=== PATIENT | female | born 1960 | race Caucasian/White ===

== ENCOUNTER 2016-10-09 12:35 | Inpatient (IN) ==
[2016-10-09] MEDS ORDERED: GLUCAGON 1 MG VIAL IM PRN (14:12)
[2016-10-09] MEDS ORDERED: DEXTROSE 50% 25 GM/50 ML SYRINGE IV PRN (14:12)
[2016-10-09] MEDS ORDERED: ONDANSETRON 4 MG/2 ML VIAL IV PRN (14:17)
[2016-10-09] MEDS ORDERED: LOPERAMIDE 2 MG CAPSULE PO ONE (14:19)
[2016-10-09] MEDS ORDERED: MAGNESIUM HYDROXIDE SUSP 30 ML UDCUP PO PRN (14:19)
[2016-10-09] MEDS ORDERED: ALUMINUM/MAGNES/SIMETH MAX STR 30 ML UDCUP PO PRN (14:21)
[2016-10-09] MEDS ORDERED: LOPERAMIDE 2 MG CAPSULE PO PRN (14:21)
[2016-10-09] MEDS ORDERED: guaiFENesin 200 MG/10 ML UDCUP PO PRN (14:22)
[2016-10-09] MEDS ORDERED: NAPROXEN 500 MG TABLET PO PRN (14:27)
[2016-10-09] MEDS ORDERED: ALBUTEROL/IPRATROPIUM 3 ML NEB RESP TX PRN (14:30)
--- NOTE | 2016-10-09 14:36 | EKG Report ---
Stationary ECG Study [facility] Test Date: 10/09/2016 2:36:48 PM Pat Name: KEIRY TESFAYE Department: Room: 521 Gender: F Checkerer Hand: : 1960 Requested by: Moustapha Castillo Order Number: [id number] Reading MD: TETE WIGGINS Intervals [place] Rate: 93 P: 72 MN: 147 QRS: 92 QRSD: 91 T: 41 QT: 331 QTc: 381 Interpretive Statements SINUS RHYTHM WITH OCCASIONAL VENTRICULAR PREMATURE COMPLEXES BORDERLINE RIGHT AXIS DEVIATION LOW QRS VOLTAGE IN PRECORDIAL LEADS Electronically Signed On 10-09-16 17:24:14 CDT by TETE WIGGINS [id number]
--- NOTE | 2016-10-09 14:37 | Pulmonology History & Physical ---
Assessment and Plan (1) Acute exacerbation of COPD with asthma Status: Acute Assessment and plan: The patient comes in wheezing and coughing is very short of breath. She will be started on IV steroids and antibiotic. Will be continue with vigorous respiratory therapy. Current Visit: Yes (2) Obstructive sleep apnea Status: Acute Assessment and plan: She will continue CPAP at night Current Visit: No (3) Type 2 diabetes mellitus Status: Acute Assessment and plan: Monitor glucose on steroids Current Visit: Yes (4) Obesity Status: Acute Assessment and plan: She is deconditioned. Current Visit: No - Constitutional Constitutional: Present: chills, fatigue, fever(s). Absent: weight loss - EENT Eyes: Absent: loss of vision Ears: Absent: decreased hearing Nose, mouth and throat: Absent: dysphagia, headache(s), sinus pressure, sore throat - Cardiovascular Cardiovascular: Present: dyspnea, edema, orthopnea. Absent: chest pain at rest - Respiratory Respiratory: Present: cough, dyspnea, wheezing, change in phlegm color. Absent : hemoptysis, pain on inspiration - Gastrointestinal Gastrointestinal: Absent: abdominal pain, change in bowel habits, dysphagia, nausea, vomiting - Genitourinary Genitourinary: Absent: difficulty urinating, dysuria, hematuria - Musculoskeletal Musculoskeletal: Absent: arthralgias, muscle weakness - Neurological Neurological: Absent: abnormal speech, focal weakness, paresthesias - Psychiatric Psychiatric: Absent: anxiety History of Present Illness Chief complaint: shortness of breath History of present illness: Ms. Parker is a 56 year old white female that has a long history of COPD and obstructive sleep apnea. She is a former smoker. She has CPAP and oxygen at home. She came into the clinic today complaining of worsening shortness of breath. She says she has had trouble for about 5 days. Having worsening wheezing and cough and difficult time clearing secretions. She took prednisone along with some antibiotics. She did not feel like she was getting any better. She came to the office and was very short of breath. Her O2 saturation was below 90%. She has good wheezing. She is admitted with an exacerbation of her COPD. Chest x-ray does show COPD changes. Home Medications Medication Instructions Recorded Confirmed Type Empagliflozin/Linagliptin 1 each PO DAILY 03/19/16 10/09/16 History [Glyxambi 25 mg-5 mg Tablet] Formoterol Neb [Perforomist] 20 mcg RESP TX RT BID 03/19/16 10/09/16 History Pramipexole [Mirapex] 1 mg PO BID 03/19/16 10/09/16 History Theophylline ER Tab 300 mg PO BID W/MEALS 03/19/16 10/09/16 History Torsemide Tab [Demadex Tab] 20 mg PO DAILY 03/19/16 10/09/16 History guaiFENesin LIQUID [Robitussin] 15 ml PO Q4H PRN #14 udcup 03/26/16 10/09/16 Rx Budesonide Neb [Pulmicort Respules] 0.5 mg RESP TX BID 10/09/16 10/09/16 History Empagliflozin/Linagliptin 1 tablet PO DAILY 10/09/16 10/09/16 History [Glyxambi 25 mg-5 mg Tablet] Empagliflozin/Linagliptin 1 tablet PO DAILY 10/09/16 10/09/16 History [Glyxambi 25 mg-5 mg Tablet] Formoterol Neb [Perforomist] 1 vial INH BID 10/09/16 10/09/16 History Ipratropium/Albuterol Sulfate 3 mg Q6HR PRN 10/09/16 10/09/16 History [Iprat-Albut 0.5-3(2.5) mg/3 ml] Naproxen [Naprosyn Tab] 500 mg PO BID 10/09/16 10/09/16 History Solifenacin [Vesicare] 1 tablet PO DIRECTED 10/09/16 10/09/16 History clonazePAM [Clonazepam] 1 tablet PO BID PRN 10/09/16 10/09/16 History dilTIAZem HCl [Cartia XT] 1 capsule PO DAILY 10/09/16 10/09/16 History predniSONE TAB [PredniSONE] 1 tablet PO DIRECTED 10/09/16 10/09/16 History tiZANidine [Zanaflex] 1 tablet PO Q8HR PRN 10/09/16 10/09/16 History Allergies Allergy/AdvReac Type Severity Reaction Status Date / Time acetaminophen [From [place]] Allergy Intermediate RASH Verified 10/09/16 14:10 hydrocodone [From [place]] Allergy Intermediate RASH Verified 10/09/16 14:10 codeine Allergy ANAPHYLAXIS Verified 03/19/16 06:01 diphenhydramine Allergy ANAPHYLAXIS Verified 03/19/16 06:01 [From Benadryl] fluticasone Allergy ANAPHYLAXIS Verified 03/19/16 06:01 [From Advair Diskus] nitrofurantoin Allergy ANAPHYLAXIS Verified 03/19/16 06:01 [From Macrobid] Penicillins Allergy ANAPHYLAXIS Verified 03/19/16 06:01 promethazine [From Phenergan] Allergy ANAPHYLAXIS Verified 03/19/16 06:01 salmeterol Allergy ANAPHYLAXIS Verified 03/19/16 06:01 [From Advair Diskus] Sulfa (Sulfonamide Allergy ANAPHYLAXIS Verified 03/19/16 06:01 Antibiotics) tiotropium Allergy ANAPHYLAXIS Verified 03/19/16 06:01 [From Spiriva with HandiHaler] Cyclobenzaprine AdvReac Intermediate Irritable Verified 10/09/16 14:10 [From Flexeril] Medical,Surgical,& Family Hx - Medical History Cardio: History of: Hypertension HEENT: History of: HEENT Problems (sinus surgery) Endocrine: History of: Diabetes Mellitus (NIDDM) Respiratory: History of: COPD, Obstructive Sleep Apnea Musculoskeletal: History of: Musculoskeletal Problems (rotator cuff surgery right side) - Surgical History Abdominal Surgeries: Surgical HX of: Cholecystectomy, Hernia Repair Reproductive Surgeries: Surgical HX of;: Tubal Ligation - Family History Family History: Reports;: Family Heart Disease - Social History Smoking Status: Former smoker Frequency of Alcohol Use: None Type of Drug Use: None Results - Diagnostic Findings Procedure: Chest x-ray: image reviewed by me, report reviewed by me (mild cardiomegaly with copd changes) Exam (Pulmonay) H&P - Constitutional Vitals: Period Temp Pulse Resp BP Sys/Rawls Pulse Ox Last 24 Hr 97.5 F 89 20 140/80 92 General appearance: mild distress (Does look like she is short of breath.), over weight - Head Head exam: Present: normal inspection, normocephalic - Eye Eye exam: Present: EOMI. Absent: scleral icterus Pupils: Present: EWELINA - ENT ENT exam: Present: normal exam - Neck Neck exam: Absent: lymphadenopathy, thyromegaly - Respiratory Respiratory exam: Present: prolonged expiratory phase, wheezes (She has bilateral wheezing) - Cardiovascular Cardiovascular exam: Present: regular rate and rhythm. Absent: gallop, systolic murmur - GI/Abdominal GI/Abdominal exam: Present: normal bowel sounds, soft. Absent: organomegaly, tenderness - Extremities Exam Extremities exam: Present: edema. Absent: calf tenderness - Back Exam Back exam: Present: normal inspection - Neurological Exam Neurological exam: Present: alert, oriented X3, CN II-XII intact - Psychiatric Psychiatric exam: Absent: anxious - Skin Skin exam: Present: warm, dry
[2016-10-09] MEDS ORDERED: clonazePAM 0.5 MG TABLET PO PRN (14:56)
[2016-10-09] MEDS ORDERED: PRAMIPEXOLE 1 MG TABLET PO SCH (15:00)
[2016-10-09 15:16] LABS: Albumin 3.8 G/DL (3.4-5.0); Bilirubin,Total 0.6 MG/DL (0.2-1.0); Osmolality,Calculated 287.8 MOS/KG (273-304); Potassium 4.5 MMOL/L (3.5-5.1)
[2016-10-09 15:25] LABS: Free T4 (Free Thyroxine) 1.04 NG/DL (0.76-1.46); Thyroid Stimulating Hormone 0.848 uIU/ml (0.358-3.74)
[2016-10-09] MEDS: ALBUTEROL/IPRATROPIUM 3 ML NEB RESP TX SCH ×2 (15:30→19:55)
[2016-10-09] MEDS: methylPREDNISolone SOD SUC 40 MG/1 ML VIAL IV SCH ×2 (17:32→21:15)
[2016-10-09] MEDS: THEOPHYLLINE ER 300 MG TABLET PO SCH (17:33)
[2016-10-09] MEDS: ENOXAPARIN 40 MG/0.4 ML SYRINGE SUBCUT SCH (17:33)
[2016-10-09] MEDS: CEFTAROLINE 600 MG in SODIUM CHLORIDE 0.9% 100 ML IV SCH (17:33)
[2016-10-09] MEDS: tiZANidine 4 MG TABLET PO PRN (17:37)
[2016-10-09] MEDS ORDERED: FORMOTEROL 20 MCG/2 ML NEB RESP TX SCH ×2 (19:00→21:00)
[2016-10-09] MEDS ORDERED: BUDESONIDE 0.5 MG/2 ML NEB RESP TX SCH (19:00)
[2016-10-09] MEDS: FORMOTEROL 20 MCG/2 ML NEB RESP TX SCH (19:55)
[2016-10-09] MEDS: BUDESONIDE 0.5 MG/2 ML NEB RESP TX SCH (19:56)
[2016-10-09] MEDS ORDERED: NAPROXEN 500 MG TABLET PO SCH (21:00)
[2016-10-09] MEDS ORDERED: RANITIDINE 150 MG TABLET PO SCH (21:00)
[2016-10-09 21:07] LABS: Basophils # 0.1 10*3/uL (0.0-0.2); Basophils % 0.5 % (0.0-0.8); Hematocrit 52.4 VOL% (35.7-47.0); Hemoglobin 16.9 GM/DL (12.0-16.0); Immature Granulocytes % 1.9 %; Immature Granulocytes Absolute 0.38 #; Lymphocytes # 1.3 10*3/uL (1.4-4.0); Lymphocytes % 6.5 % (21.3-54.2); Mean Corpuscular HGB Conc 32.3 GM/DL (32-36); Mean Corpuscular Hemoglobin 29 PG (27-34); Mean Corpuscular Volume 90.2 FL (87-102); Mean Platelet Volume 10.7 FL (9.6-12.0); Monocytes # 0.3 10*3/uL (0.11-0.8); Monocytes % 1.5 % (1.7-12.7); Neutrophils # 17.5 10*3/uL (1.4-7.4); Neutrophils % 89.6 % (38.7-73.9); Platelet Count 299 T/CUMM (130-400); Red Blood Count 5.81 MC/CUMM (3.8-5.5); Red Cell Distribution Width 16.9 % (9.3-17.3); White Blood Count 19.5 T/CUMM (4-12)
[2016-10-09] MEDS: clonazePAM 0.5 MG TABLET PO SCH (21:15)
[2016-10-09] MEDS: PRAMIPEXOLE 1 MG TABLET PO SCH (21:15)
[2016-10-09] MEDS: FAMOTIDINE 20 MG TABLET PO SCH (21:20)
[2016-10-09 21:56] LABS: Sedimentation Rate-Westergren 8 MM/HR (0-30)
[2016-10-09] MEDS: INSULIN REGULAR 100 UNIT/ML SUBCUT SCH (23:06)
[2016-10-10 01:00] LABS: Apearance,Urine CLEAR (Clear); Bilirubin,Urine Negative (Negative); Blood, Urine Negative (Negative); Glucose,Urine (UA) >=500 mg/dL (Negative); Ketones,Urine Negative (Negative); Nitrite,Urine Negative (Negative); Protein,Urine Negative; Squamous Epithelial Cell,Urine Occasional /HPF (0-10); Urine Color Straw (Yellow); Urine Specific Gravity 1.025 (1.001-1.035); Urine Urobilinogen < 2.0 EU/DL (0.2-1.0); WBC,Urine <1 /HPF (0-6)
[2016-10-10] MEDS: ALBUTEROL/IPRATROPIUM 3 ML NEB RESP TX SCH ×4 (01:40→19:05)
[2016-10-10] MEDS: methylPREDNISolone SOD SUC 40 MG/1 ML VIAL IV SCH ×4 (03:55→21:08)
[2016-10-10] MEDS: CEFTAROLINE 600 MG in SODIUM CHLORIDE 0.9% 100 ML IV SCH ×2 (03:57→17:00)
[2016-10-10] MEDS: guaiFENesin 200 MG/10 ML UDCUP PO PRN (04:00)
[2016-10-10] MEDS: FORMOTEROL 20 MCG/2 ML NEB RESP TX SCH ×2 (07:24→19:05)
[2016-10-10] MEDS: BUDESONIDE 0.5 MG/2 ML NEB RESP TX SCH ×2 (07:24→19:05)
--- NOTE | 2016-10-10 08:45 | Pulmonology Progress Note ---
Pulmonary - PN: Subj Interval history: Patient is a 56-year-old white lady that came into the clinic yesterday with shortness of breath. She has significant COPD and she been having some trouble with coughing and wheezing for several days. She had not responded to outpatient therapy. She had considerable wheezing so she was admitted for further treatment. She says she is having trouble coughing up secretions but does feel a little better today. She says she had a reasonably comfortable night. She still has considerable wheezing present. She seems to be tolerating her medicines okay. Her glucoses are up on steroids and will increase her insulin. Exam (Progress Note) - Constitutional Vitals: Period Temp Pulse Resp BP Sys/Rawls Pulse Ox Last 24 Hr 96.4 F-98.0 F 68-105 18-24 114-161/55-102 88-97 Exam: General appearance: mild distress (she is sitting up and looks comfortable on low-flow oxygen.), over weight - Head Head exam: Present: normal inspection, normocephalic - Eye Eye exam: Present: EOMI. Absent: scleral icterus Pupils: Present: EWELINA - ENT ENT exam: Present: normal exam - Neck Neck exam: Absent: lymphadenopathy, thyromegaly - Respiratory Respiratory exam: Present: She has fair breath sounds bilaterally with prolonged expiration and still some mild wheezing present. - Cardiovascular Cardiovascular exam: Present: regular rate and rhythm. Absent: gallop, systolic murmur - GI/Abdominal GI/Abdominal exam: Present: normal bowel sounds, soft. Obese absent: organomegaly, tenderness - Extremities Exam Extremities exam: Present: edema. She has no signs of phlebitis. - Back Exam Back exam: Present: normal inspection - Neurological Exam Neurological exam: Present: alert, oriented X3, CN II-XII intact, she is moving everything okay. - Psychiatric Psychiatric exam: Absent: anxious - Skin Skin exam: Present: warm, dry Results - Labs CBC & BMP: 10/09/16 14:23 10/09/16 14:23 - Diagnostic Findings Procedure: Chest x-ray: image reviewed by me, report reviewed by me (Chest x- ray shows COPD changes with slight increased markings bilaterally. There is no definite consolidation.) Assessment and Plan (1) Acute exacerbation of COPD with asthma Status: Acute Assessment and plan: The patient comes in wheezing and coughing is very short of breath. She will be started on IV steroids and antibiotic. She is tolerating her treatments fairly well and is doing a little better today. She will probably need to stay several days. Current Visit: Yes (2) Obstructive sleep apnea Status: Acute Assessment and plan: She will continue CPAP at night Current Visit: No (3) Type 2 diabetes mellitus Status: Acute Assessment and plan: Monitor glucose on steroids . She is getting a sliding scale insulin. Current Visit: Yes (4) Obesity Status: Acute Assessment and plan: She is deconditioned. Current Visit: No
[2016-10-10] MEDS ORDERED: SOLIFENACIN 5 MG TABLET PO SCH (09:00)
[2016-10-10] MEDS ORDERED: [UNRECOGNIZED DRUG - OTHER] PO SCH (09:00)
[2016-10-10] MEDS ORDERED: [UNRECOGNIZED DRUG - OTHER] PO SCH ×2 (09:00)
[2016-10-10] MEDS ORDERED: EMPAGLIFLOZIN PO SCH ×3 (09:00)
[2016-10-10] MEDS ORDERED: LINAGLIPTIN PO SCH ×3 (09:00)
[2016-10-10] MEDS ORDERED: DILTIAZEM CD 240 MG CAPSULE PO SCH (09:00)
[2016-10-10] MEDS ORDERED: GLYXAMBI PO SCH (09:00)
[2016-10-10] MEDS: DILTIAZEM CD 240 MG CAPSULE PO SCH (09:09)
[2016-10-10] MEDS: SOLIFENACIN 5 MG TABLET PO SCH (09:09)
[2016-10-10] MEDS: TORSEMIDE 20 MG TABLET PO SCH (09:10)
[2016-10-10] MEDS: THEOPHYLLINE ER 300 MG TABLET PO SCH ×2 (09:10→17:00)
[2016-10-10] MEDS: INSULIN REGULAR 100 UNIT/ML SUBCUT SCH ×4 (09:10→21:08)
[2016-10-10] MEDS: PRAMIPEXOLE 1 MG TABLET PO SCH (09:10)
[2016-10-10] MEDS: clonazePAM 0.5 MG TABLET PO SCH ×2 (09:10→21:08)
[2016-10-10] MEDS: ASPIRIN EC 81 MG TABLET PO SCH (09:12)
--- NOTE | 2016-10-10 09:26 | XRay Report ---
XR chest 2V Date: 10/10/2016 4:00 AM History: Shortness of breath Comparison: 03/24/2016 Technique: PA and lateral chest Findings: The heart is normal in size. Reduced parenchymal findings at the left lung base with smaller left pleural effusion. Stable mediastinum with degenerative changes. Impression: COPD with reduced atelectasis/infiltration at the left lung base with smaller left pleural effusion. PROCEDURE INTERPRETED AT [facility] ([facility]) DEPARTMENT OF RADIOLOGY Final Report Signed by: Dr. Kaylyn Chen
[2016-10-10] MEDS: tiZANidine 4 MG TABLET PO PRN (14:55)
[2016-10-10] MEDS: ENOXAPARIN 40 MG/0.4 ML SYRINGE SUBCUT SCH (14:55)
[2016-10-10] MEDS: FAMOTIDINE 20 MG TABLET PO SCH (21:08)
[2016-10-11] MEDS: ALBUTEROL/IPRATROPIUM 3 ML NEB RESP TX SCH ×4 (00:11→19:05)
[2016-10-11] MEDS: PRAMIPEXOLE 1 MG TABLET PO SCH ×3 (00:22→20:01)
[2016-10-11] MEDS: methylPREDNISolone SOD SUC 40 MG/1 ML VIAL IV SCH ×4 (04:12→20:02)
[2016-10-11] MEDS: CEFTAROLINE 600 MG in SODIUM CHLORIDE 0.9% 100 ML IV SCH ×2 (04:16→15:24)
[2016-10-11] MEDS: BUDESONIDE 0.5 MG/2 ML NEB RESP TX SCH ×2 (07:10→19:05)
[2016-10-11] MEDS: FORMOTEROL 20 MCG/2 ML NEB RESP TX SCH ×2 (07:10→19:05)
[2016-10-11] MEDS: INSULIN REGULAR 100 UNIT/ML SUBCUT SCH ×4 (08:36→20:02)
[2016-10-11] MEDS: ASPIRIN EC 81 MG TABLET PO SCH (08:37)
[2016-10-11] MEDS: clonazePAM 0.5 MG TABLET PO SCH ×2 (08:37→20:02)
[2016-10-11] MEDS: SOLIFENACIN 5 MG TABLET PO SCH (08:37)
[2016-10-11] MEDS: THEOPHYLLINE ER 300 MG TABLET PO SCH ×2 (08:37→16:54)
[2016-10-11] MEDS: DILTIAZEM CD 240 MG CAPSULE PO SCH (08:38)
[2016-10-11] MEDS: LINAGLIPTIN PO SCH (08:41)
[2016-10-11] MEDS: EMPAGLIFLOZIN PO SCH (08:41)
[2016-10-11] MEDS: TORSEMIDE 20 MG TABLET PO SCH (08:43)
[2016-10-11] MEDS: tiZANidine 4 MG TABLET PO PRN ×3 (08:43→20:01)
--- NOTE | 2016-10-11 08:58 | Pulmonology Progress Note ---
Pulmonary - PN: Subj Interval history: Patient of Dr Castillo, admitted from clinic for COPD exacerbation with failure of outpatient clinic. Patient awake and alert this morning, states she' s doing much better. Feels like breathing is better, did ok with CPAP last night. Forgot her Claritin so had some sinus congestion but otherwise ok Exam (Progress Note) - Constitutional Vitals: Period Temp Pulse Resp BP Sys/Rawls Pulse Ox Last 24 Hr 96.7 F-98.6 F 64-76 18-20 115-152/54-91 91-99 General appearance: no acute distress, morbidly obese - Head Head exam: Present: normal inspection - Neck Neck exam: Present: normal inspection - Respiratory Respiratory exam: Present: rhonchi. Absent: accessory muscle use, wheezes - Cardiovascular Cardiovascular exam: Present: regular rate and rhythm - GI/Abdominal GI/Abdominal exam: Present: normal bowel sounds Results - Labs CBC & BMP: 10/09/16 14:23 10/09/16 14:23 Lab Results: I have reviewed the past 24 hour labs Assessment and Plan (1) Acute exacerbation of COPD with asthma Status: Acute Assessment and plan: Patient with COPD exacerbation, clinically seems improved. Continue with current medications. Will add Claritin D for sinus congestion (if she doesn't like the D, can switch to regular). Continue to monitor Current Visit: Yes
[2016-10-11] MEDS ORDERED: GLYXAMBI PO SCH (09:00)
[2016-10-11] MEDS: LORATADINE 10 MG TABLET PO SCH (09:58)
[2016-10-11] MEDS ORDERED: PSEUDOEPHEDRINE 30 MG TABLET PO SCH (10:00)
[2016-10-11] MEDS: ENOXAPARIN 40 MG/0.4 ML SYRINGE SUBCUT SCH (15:21)
[2016-10-11] MEDS: FAMOTIDINE 20 MG TABLET PO SCH (20:01)
[2016-10-11] MEDS: guaiFENesin 200 MG/10 ML UDCUP PO PRN (20:05)
[2016-10-12] MEDS: ALBUTEROL/IPRATROPIUM 3 ML NEB RESP TX SCH ×4 (00:28→19:00)
[2016-10-12] MEDS: methylPREDNISolone SOD SUC 40 MG/1 ML VIAL IV SCH ×4 (03:24→20:22)
[2016-10-12] MEDS: CEFTAROLINE 600 MG in SODIUM CHLORIDE 0.9% 100 ML IV SCH ×3 (03:27→16:26)
[2016-10-12 06:12] LABS: Basophils % 0.2 % (0.0-0.8); Hematocrit 49.6 VOL% (35.7-47.0); Hemoglobin 16.5 GM/DL (12.0-16.0); Immature Granulocytes Absolute 0.17 #; Lymphocytes # 0.8 10*3/uL (1.4-4.0); Lymphocytes % 4.6 % (21.3-54.2); Mean Corpuscular HGB Conc 33.3 GM/DL (32-36); Mean Corpuscular Hemoglobin 29 PG (27-34); Mean Corpuscular Volume 87.3 FL (87-102); Mean Platelet Volume 10.3 FL (9.6-12.0); Monocytes # 0.5 10*3/uL (0.11-0.8); Neutrophils # 15.4 10*3/uL (1.4-7.4); Neutrophils % 91.2 % (38.7-73.9); Platelet Count 237 T/CUMM (130-400); Red Blood Count 5.68 MC/CUMM (3.8-5.5); Red Cell Distribution Width 16.2 % (9.3-17.3); White Blood Count 16.8 T/CUMM (4-12)
[2016-10-12 06:44] LABS: Hypochromasia 1+; Lymphocytes 6 % (20-55); Segmented Neutrophils 89 % (50-85); Total Cells Counted 100
[2016-10-12 06:45] LABS: Microcytosis 1+
[2016-10-12] MEDS: FORMOTEROL 20 MCG/2 ML NEB RESP TX SCH ×2 (07:41→19:00)
[2016-10-12] MEDS: BUDESONIDE 0.5 MG/2 ML NEB RESP TX SCH ×2 (07:41→19:00)
[2016-10-12] MEDS: clonazePAM 0.5 MG TABLET PO SCH ×2 (09:52→20:25)
[2016-10-12] MEDS: SOLIFENACIN 5 MG TABLET PO SCH (09:52)
[2016-10-12] MEDS: ASPIRIN EC 81 MG TABLET PO SCH (09:52)
[2016-10-12] MEDS: DILTIAZEM CD 240 MG CAPSULE PO SCH (09:52)
[2016-10-12] MEDS: INSULIN REGULAR 100 UNIT/ML SUBCUT SCH ×4 (09:52→20:24)
[2016-10-12] MEDS: TORSEMIDE 20 MG TABLET PO SCH (09:52)
[2016-10-12] MEDS: LORATADINE 10 MG TABLET PO SCH (09:52)
[2016-10-12] MEDS: THEOPHYLLINE ER 300 MG TABLET PO SCH ×2 (09:52→16:26)
[2016-10-12] MEDS: PRAMIPEXOLE 1 MG TABLET PO SCH ×2 (09:52→20:25)
[2016-10-12] MEDS: LINAGLIPTIN PO SCH (09:53)
[2016-10-12] MEDS: EMPAGLIFLOZIN PO SCH (09:53)
[2016-10-12] MEDS: tiZANidine 4 MG TABLET PO PRN ×2 (09:56→20:25)
--- NOTE | 2016-10-12 10:05 | Pulmonology Progress Note ---
Pulmonary - PN: Subj Interval history: Patient continues to improve, was up this morning able to walk the [place] twice. Breathing is better Exam (Progress Note) - Constitutional Vitals: Period Temp Pulse Resp BP Sys/Rawls Pulse Ox Last 24 Hr 97.0 F-98.8 F 64-81 17-20 129-149/72-88 90-99 General appearance: no acute distress, morbidly obese - Head Head exam: Present: normal inspection - Eye Eye exam: Present: EOMI - ENT ENT exam: Present: normal exam - Neck Neck exam: Present: lymphadenopathy - Respiratory Respiratory exam: Present: rhonchi, wheezes, other (improved air movement) - Cardiovascular Cardiovascular exam: Present: regular rate and rhythm - GI/Abdominal GI/Abdominal exam: Present: normal bowel sounds Results - Labs CBC & BMP: 10/12/16 06:01 10/09/16 14:23 Lab Results: I have reviewed the past 24 hour labs Assessment and Plan (1) Acute exacerbation of COPD with asthma Status: Acute Assessment and plan: Patient with COPD exacerbation, clinically seems improved. Continue with current medications. Current Visit: Yes
[2016-10-12] MEDS: ENOXAPARIN 40 MG/0.4 ML SYRINGE SUBCUT SCH (16:26)
[2016-10-12] MEDS: FAMOTIDINE 20 MG TABLET PO SCH (20:25)
[2016-10-12] MEDS: guaiFENesin 200 MG/10 ML UDCUP PO PRN (20:25)
[2016-10-13] MEDS: ALBUTEROL/IPRATROPIUM 3 ML NEB RESP TX SCH ×4 (00:22→19:58)
[2016-10-13] MEDS: methylPREDNISolone SOD SUC 40 MG/1 ML VIAL IV SCH ×4 (03:01→21:51)
[2016-10-13] MEDS: CEFTAROLINE 600 MG in SODIUM CHLORIDE 0.9% 100 ML IV SCH ×2 (03:02→18:31)
[2016-10-13] MEDS: BUDESONIDE 0.5 MG/2 ML NEB RESP TX SCH ×2 (07:20→20:16)
[2016-10-13] MEDS: FORMOTEROL 20 MCG/2 ML NEB RESP TX SCH ×2 (07:34→20:10)
--- NOTE | 2016-10-13 09:06 | Pulmonology Progress Note ---
Pulmonary - PN: Subj Interval history: Patient is a 56-year-old white lady that has significant COPD and came in with an exacerbation last week. She is doing better but still coughing and wheezing. She cannot clear secretions very well. She has been tolerating treatments okay. She says the steroids did make her nervous. Her shortness of breath is better but she still wheezing a good bit. Exam (Progress Note) - Constitutional Vitals: Period Temp Pulse Resp BP Sys/Rawls Pulse Ox Last 24 Hr 97.3 F-97.9 F 64-104 16-22 106-136/53-81 90-99 Exam: General appearance: no distress (she is sitting up and looks comfortable on low- flow oxygen. She still gets short of breath easily.), over weight - Head Head exam: Present: normal inspection, normocephalic - Eye Eye exam: Present: EOMI. Absent: scleral icterus Pupils: Present: EWELINA - ENT ENT exam: Present: normal exam - Neck Neck exam: Absent: lymphadenopathy, thyromegaly - Respiratory Respiratory exam: Present: She has fair breath sounds bilaterally with prolonged expiration but still has rhonchi and mild wheezing. - Cardiovascular Cardiovascular exam: Present: regular rate and rhythm. Absent: gallop, systolic murmur - GI/Abdominal GI/Abdominal exam: Present: normal bowel sounds, soft. Obese absent: organomegaly, tenderness - Extremities Exam Extremities exam: Present: edema. She has no signs of phlebitis. - Back Exam Back exam: Present: normal inspection - Neurological Exam Neurological exam: Present: alert, oriented X3, CN II-XII intact, she is moving everything okay. - Psychiatric Psychiatric exam: Absent: anxious - Skin Skin exam: Present: warm, dry Results - Labs CBC & BMP: 10/12/16 06:01 10/09/16 14:23 Assessment and Plan (1) Acute exacerbation of COPD with asthma Status: Acute Assessment and plan: The patient comes in wheezing and coughing is very short of breath. She is feeling better but still cannot clear secretions very well. She still gets short of breath easily. Will plan a therapeutic bronchoscopy tomorrow. Current Visit: Yes (2) Obstructive sleep apnea Status: Acute Assessment and plan: She will continue CPAP at night Current Visit: No (3) Type 2 diabetes mellitus Status: Acute Assessment and plan: Monitor glucose on steroids . She is getting a sliding scale insulin. Her glucoses have been reasonable. Current Visit: Yes (4) Obesity Status: Acute Assessment and plan: She is deconditioned. Current Visit: No (5) Positive occult stool blood test Status: Acute Assessment and plan: We will stop Lovenox and watch for further bleeding. Current Visit: Yes
[2016-10-13] MEDS: ASPIRIN EC 81 MG TABLET PO SCH (09:15)
[2016-10-13] MEDS: LORATADINE 10 MG TABLET PO SCH (09:15)
[2016-10-13] MEDS: PRAMIPEXOLE 1 MG TABLET PO SCH ×2 (09:15→21:38)
[2016-10-13] MEDS: TORSEMIDE 20 MG TABLET PO SCH (09:16)
[2016-10-13] MEDS: DILTIAZEM CD 240 MG CAPSULE PO SCH (09:16)
[2016-10-13] MEDS: clonazePAM 0.5 MG TABLET PO SCH ×2 (09:16→21:38)
[2016-10-13] MEDS: INSULIN REGULAR 100 UNIT/ML SUBCUT SCH ×4 (09:17→21:39)
[2016-10-13] MEDS: LINAGLIPTIN PO SCH (09:27)
[2016-10-13] MEDS: THEOPHYLLINE ER 300 MG TABLET PO SCH ×2 (09:27→18:31)
[2016-10-13] MEDS: EMPAGLIFLOZIN PO SCH (09:27)
[2016-10-13] MEDS: SOLIFENACIN 5 MG TABLET PO SCH (09:27)
--- NOTE | 2016-10-13 10:26 | Physician Query Form ---
CLICK EDIT DOCUMENT TO SELECT QUERY ANSWER --> OK --> SIGN Miracle Navarro RN Clinical Mail Agent W) [phone] (f) [phone] [email or web address] PROVIDERS: Make your selection(s) from the choices in EACH section by typing an "x" and enter comments in the comment section. Please use your independent medical judgment in providing your response. This request does not imply that any particular answer is desired or expected. CLINICAL INDICATORS: (Providers should not edit this section) Based on documentation of "Acute exacerbation of COPD with asthma". Pt. treated with IV steroids and antibiotic. Based on the above, could you clarify the appropriate diagnosis, if significant , that supports the above abnormalities and additional evaluation, monitoring, and/or treatment rendered: ( x) Pt. treated for copd exacerbation with acute asthma exacerbation ( ) Pt. treated for copd exacerbation with chronic asthma ( ) Other, please specify: ( ) Clinically unable to determine COMMENTS: PLEASE ALSO DOCUMENT RESPONSE IN PROGRESS NOTES AND/OR DISCHARGE SUMMARY Use of terms such as suspected, likely, or probable (associated with a specific diagnosis that is being evaluated, monitored, or treated as if it exists) are acceptable and can be restated in the discharge summary if not ruled out. MTDD
--- NOTE | 2016-10-13 10:33 | Physician Query Form ---
CLICK EDIT DOCUMENT TO SELECT QUERY ANSWER --> OK --> SIGN Miracle Navarro RN Clinical Plastic Outfitter W) [phone] (f) [phone] [email or web address] PROVIDERS: Make your selection(s) from the choices in EACH section by typing an "x" and enter comments in the comment section. Please use your independent medical judgment in providing your response. This request does not imply that any particular answer is desired or expected. CLINICAL INDICATORS: (Providers should not edit this section) Pt. has history of COPD. Based on documentation of "She has CPAP and oxygen at home". Based on the above, could you clarify the appropriate diagnosis, if significant , that supports the above abnormalities and additional evaluation, monitoring, and/or treatment rendered: ( ) Pt. has chronic respiratory failure ( ) Pt. does not have chronic respiratory failure ( x) Other, please specify: COPD and obesity hypoventilation ( ) Clinically unable to determine COMMENTS: PLEASE ALSO DOCUMENT RESPONSE IN PROGRESS NOTES AND/OR DISCHARGE SUMMARY Use of terms such as suspected, likely, or probable (associated with a specific diagnosis that is being evaluated, monitored, or treated as if it exists) are acceptable and can be restated in the discharge summary if not ruled out. MTDD
[2016-10-13] MEDS: ARFORMOTEROL 15 MCG/2 ML NEB RESP TX SCH ×2 (11:05→19:58)
[2016-10-13] MEDS: tiZANidine 4 MG TABLET PO PRN ×2 (15:41→21:45)
[2016-10-13] MEDS: FAMOTIDINE 20 MG TABLET PO SCH (21:39)
[2016-10-14] MEDS: ALBUTEROL/IPRATROPIUM 3 ML NEB RESP TX SCH ×4 (00:26→19:47)
[2016-10-14] MEDS: CEFTAROLINE 600 MG in SODIUM CHLORIDE 0.9% 100 ML IV SCH ×2 (04:40→17:09)
[2016-10-14] MEDS: FORMOTEROL 20 MCG/2 ML NEB RESP TX SCH ×2 (07:00→20:00)
[2016-10-14] MEDS: ARFORMOTEROL 15 MCG/2 ML NEB RESP TX SCH ×2 (07:00→19:47)
[2016-10-14] MEDS: BUDESONIDE 0.5 MG/2 ML NEB RESP TX SCH ×2 (07:00→20:09)
[2016-10-14] MEDS ORDERED: GLYCOPYRROLATE 0.4 MG/2 ML VIAL IM ONE (07:30)
[2016-10-14] MEDS ORDERED: MEPERIDINE 50 MG/1 ML VIAL IM ONE (07:30)
[2016-10-14] MEDS ORDERED: PROMETHAZINE 25 MG/1 ML VIAL IM ONE (07:30)
[2016-10-14] MEDS ORDERED: LIDOCAINE 2% 20 ML VIAL RESP TX ONE (08:00)
[2016-10-14] MEDS ORDERED: MIDAZOLAM 2 MG/2 ML VIAL IV ONE (08:00)
[2016-10-14] MEDS ORDERED: LIDOCAINE 1% 20 ML VIAL MISC INJ ONE (08:00)
[2016-10-14] MEDS ORDERED: LIDOCAINE 2% VISCOUS 100 ML BOTTLE SWISH/SPIT ONE (08:00)
--- NOTE | 2016-10-14 08:34 | Pulmonology Progress Note ---
Pulmonary - PN: Subj Interval history: Patient is a 56-year-old white lady that has significant COPD and came in with an exacerbation last week. She is doing better but still coughing and wheezing. She cannot clear secretions very well. She has been tolerating treatments okay. She still gets short of breath easily. She says she cannot clear secretions at all. Will proceed with a therapeutic bronchoscopy today. Exam (Progress Note) - Constitutional Vitals: Period Temp Pulse Resp BP Sys/Rawls Pulse Ox Last 24 Hr 96.9 F-98.3 F 63-105 11-20 124-192/60-132 88-99 Exam: General appearance: no distress (she is sitting up and looks comfortable on low- flow oxygen. She still gets short of breath easily. Overall she has been stable.), over weight - Head Head exam: Present: normal inspection, normocephalic - Eye Eye exam: Present: EOMI. Absent: scleral icterus Pupils: Present: EWELINA - ENT ENT exam: Present: normal exam - Neck Neck exam: Absent: lymphadenopathy, thyromegaly - Respiratory Respiratory exam: Present: She has fair breath sounds bilaterally with prolonged expiration but still has rhonchi and mild wheezing. - Cardiovascular Cardiovascular exam: Present: regular rate and rhythm. Absent: gallop, systolic murmur - GI/Abdominal GI/Abdominal exam: Present: normal bowel sounds, soft. Obese, absent: organomegaly, tenderness - Extremities Exam Extremities exam: Present: edema. She has no signs of phlebitis. - Back Exam Back exam: Present: normal inspection - Neurological Exam Neurological exam: Present: alert, oriented X3, CN II-XII intact, she is moving everything okay. - Psychiatric Psychiatric exam: Absent: anxious - Skin Skin exam: Present: warm, dry Results - Labs CBC & BMP: 10/12/16 06:01 10/09/16 14:23 Assessment and Plan (1) Acute exacerbation of COPD with asthma Status: Acute Assessment and plan: The patient comes in wheezing and coughing is very short of breath. She is feeling better but still cannot clear secretions very well. She still gets short of breath easily. Overall she feels a little better but still cannot cough up much secretions at all. We will go ahead with a therapeutic bronchoscopy. Current Visit: Yes (2) Obstructive sleep apnea Status: Acute Assessment and plan: She will continue CPAP at night Current Visit: No (3) Type 2 diabetes mellitus Status: Acute Assessment and plan: Monitor glucose on steroids . She is getting a sliding scale insulin. Her glucoses have been reasonable. Current Visit: Yes (4) Obesity Status: Acute Assessment and plan: She is deconditioned. Current Visit: No (5) Positive occult stool blood test Status: Acute Assessment and plan: We will stop Lovenox and watch for further bleeding. Current Visit: Yes
--- NOTE | 2016-10-14 08:37 | Operative Note ---
Date of procedure: 10/14/16 Pre-op diagnosis: COPD with bronchitis and mucous plugging Post-op diagnosis: same Procedure: The patient is a 56-year-old that has considerable COPD and bronchitis. She continues to cough and wheeze. A therapeutic bronchoscopy will be done to clear airways and assess airways. Timeout was performed to identify the patient. The patient is in the bronchoscopy lab. Preop: Demerol 50 mg, Robinul 0.1 mg IM. Anesthesia: Versed 6 mg IVP, topical lidocaine. Procedure: The fiberoptic bronchoscope was passed transnasally through the vocal cords into the lungs. The bronchopulmonary segments were identified and specimens were obtained. Findings: The vocal cords trachea and kimber are unremarkable. The airways are inflamed and collapse easily. The right upper lobe, right middle lobe, right lower lobe will open up. The left upper lobe, lingula, and left lower lobe are open. There is some thick secretions and mucous plugging seen bilaterally. Both lungs were irrigated with saline and washed and cleared. Washings were sent for culture. She does cough a lot and did clear some secretions fairly well. She does have considerable bronchitis. There are no endobronchial lesions seen. She tolerated the procedure fairly well although she did cough and get short of breath. Impression: COPD with bronchitis and mucous plugging. Plan: We will continue with her present therapy. Anesthesia: conscious sedation Surgeon / Physician: Moustapha Castillo Estimated blood loss: none Specimens: other (Washings were sent for culture) Condition: stable Disposition: floor Results - Labs CBC & BMP: 10/12/16 06:01 10/09/16 14:23 Discharge Plan - Discharge Data Disposition: Admitted As Inpatient - Discharge Medications No Action Empagliflozin/Linagliptin [Glyxambi 25 mg-5 mg Tablet] 1 each PO DAILY Theophylline ER Tab 300 mg PO BID W/MEALS Torsemide Tab [Demadex Tab] 20 mg PO DAILY Pramipexole [Mirapex] 1 mg PO BID Empagliflozin/Linagliptin [Glyxambi 25 mg-5 mg Tablet] 1 tablet PO DAILY predniSONE TAB [PredniSONE] 1 tablet PO DIRECTED Budesonide Neb [Pulmicort Respules] 0.5 mg RESP TX BID Ipratropium/Albuterol Sulfate [Iprat-Albut 0.5-3(2.5) mg/3 ml] 3 mg Q6HR PRN PRN Reason: Shortness Of Breath/Wheezing Formoterol Neb [Perforomist] 20 mcg RESP TX RT BID guaiFENesin LIQUID [Robitussin] 15 ml PO Q4H PRN #14 udcup PRN Reason: Cough Solifenacin [Vesicare] 1 tablet PO DIRECTED tiZANidine [Zanaflex] 1 tablet PO Q8HR PRN PRN Reason: Muscle Spasm clonazePAM [Clonazepam] 1 tablet PO BID PRN PRN Reason: Anxiety dilTIAZem HCl [Cartia XT] 1 capsule PO DAILY Formoterol Neb [Perforomist] 1 vial INH BID Empagliflozin/Linagliptin [Glyxambi 25 mg-5 mg Tablet] 1 tablet PO DAILY Naproxen [Naprosyn Tab] 500 mg PO BID - Follow Up or Referral - Forms/Instructions
[2016-10-14] MEDS ORDERED: MIDAZOLAM 2 MG/2 ML VIAL ONE (09:22)
[2016-10-14] MEDS: THEOPHYLLINE ER 300 MG TABLET PO SCH ×2 (10:39→17:09)
[2016-10-14] MEDS: ASPIRIN EC 81 MG TABLET PO SCH (10:40)
[2016-10-14] MEDS: TORSEMIDE 20 MG TABLET PO SCH (10:40)
[2016-10-14] MEDS: DILTIAZEM CD 240 MG CAPSULE PO SCH (10:40)
[2016-10-14] MEDS: PRAMIPEXOLE 1 MG TABLET PO SCH ×2 (10:40→21:01)
[2016-10-14] MEDS: methylPREDNISolone SOD SUC 40 MG/1 ML VIAL IV SCH ×2 (10:41→21:04)
[2016-10-14] MEDS: EMPAGLIFLOZIN PO SCH (10:41)
[2016-10-14] MEDS: clonazePAM 0.5 MG TABLET PO SCH ×2 (10:41→21:01)
[2016-10-14] MEDS: LINAGLIPTIN PO SCH (10:41)
[2016-10-14] MEDS: INSULIN REGULAR 100 UNIT/ML SUBCUT SCH ×4 (10:42→21:01)
[2016-10-14] MEDS: LORATADINE 10 MG TABLET PO SCH (10:43)
[2016-10-14] MEDS: SOLIFENACIN 5 MG TABLET PO SCH (10:43)
[2016-10-14] MEDS: tiZANidine 4 MG TABLET PO PRN (21:01)
[2016-10-14] MEDS: FAMOTIDINE 20 MG TABLET PO SCH (21:01)
[2016-10-15] MEDS: ALBUTEROL/IPRATROPIUM 3 ML NEB RESP TX SCH ×2 (01:21→07:34)
[2016-10-15] MEDS: CEFTAROLINE 600 MG in SODIUM CHLORIDE 0.9% 100 ML IV SCH (03:41)
--- NOTE | 2016-10-15 07:35 | XRay Report ---
History: Status post bronchoscopy Date: 10/15/2016 Study: Chest x-ray AP portable Comparison exam: October 10, 2016 There is mild cardiomegaly. The mediastinal contours are unchanged. The pulmonary vasculature is upper normal. There is mild asymmetric patchy density in the right infrahilar region which may represent developing infiltrate or post bronchoscopy change. There is no increasing pleural effusion. There is no pneumothorax. Osseous structures are unchanged. Impression: No evidence of a pneumothorax. Increased parenchymal opacity right lung base which could represent developing infiltrate or post bronchoscopy change PROCEDURE INTERPRETED AT [facility] DEPARTMENT OF RADIOLOGY Final Report Signed by: Dr. Delia Conteh
[2016-10-15] MEDS: BUDESONIDE 0.5 MG/2 ML NEB RESP TX SCH (07:47)
[2016-10-15] MEDS: FORMOTEROL 20 MCG/2 ML NEB RESP TX SCH (07:47)
[2016-10-15] MEDS: ARFORMOTEROL 15 MCG/2 ML NEB RESP TX SCH (07:47)
[2016-10-15] MEDS: INSULIN REGULAR 100 UNIT/ML SUBCUT SCH (08:24)
[2016-10-15] MEDS: SOLIFENACIN 5 MG TABLET PO SCH (08:25)
[2016-10-15] MEDS: THEOPHYLLINE ER 300 MG TABLET PO SCH (08:25)
[2016-10-15] MEDS: clonazePAM 0.5 MG TABLET PO SCH (08:25)
[2016-10-15] MEDS: PRAMIPEXOLE 1 MG TABLET PO SCH (08:26)
[2016-10-15] MEDS: DILTIAZEM CD 240 MG CAPSULE PO SCH (08:26)
[2016-10-15] MEDS: TORSEMIDE 20 MG TABLET PO SCH (08:26)
[2016-10-15] MEDS: LORATADINE 10 MG TABLET PO SCH (08:26)
[2016-10-15] MEDS: ASPIRIN EC 81 MG TABLET PO SCH (08:26)
[2016-10-15] MEDS: LINAGLIPTIN PO SCH (08:30)
[2016-10-15] MEDS: EMPAGLIFLOZIN PO SCH (08:30)
[2016-10-15] MEDS: tiZANidine 4 MG TABLET PO PRN (09:08)
[2016-10-15] MEDS: methylPREDNISolone SOD SUC 40 MG/1 ML VIAL IV SCH (09:09)
--- NOTE | 2016-10-15 09:13 | Discharge Summary ---
Hospital Course - Hospital Course Hospital Course: Patient is a 56-year-old has a history of COPD and obstructive sleep apnea. She came in last week with considerable bronchitis and wheezing and was very short of breath. She was admitted for IV antibiotics and steroids and vigorous respiratory therapy. She was a little slow to clear at first but is doing better the last few days. We did do a therapeutic bronchoscopy and clear some thick secretions. She is breathing much better after this. She says she is walking better now and is much less short of breath. Her lungs do sound much clearer. She has been fairly stable and is going home to continue her home CPAP and respiratory therapy at home. Diagnosis - Discharge Diagnosis (1) Acute exacerbation of COPD with asthma Status: Acute (2) Obstructive sleep apnea Status: Acute (3) Type 2 diabetes mellitus Status: Acute (4) Obesity Status: Acute (5) Positive occult stool blood test Status: Acute Specialty Discharge - Follow Up or Referrals Follow up with: Moustapha Castillo MD [Physician] - 2 Weeks Discharge Plan - Discharge Data Disposition: Disch To Home/Self Care Condition at Discharge: Stable Discharge Diet: advance to your usual diet Activity: resume usual activities as tolerated - Discharge Medications New Aspirin EC Tab 81 mg PO DAILY tablet Naproxen [Naprosyn Tab] 500 mg PO BID PRN tablet PRN Reason: Pain predniSONE TAB [PredniSONE] 20 mg PO DAILY tablet Theophylline ER Tab 300 mg PO BID W/MEALS tablet tiZANidine [Zanaflex] 4 mg PO TID PRN tablet PRN Reason: Muscle Spasm Alum/Mag/Simeth Max Str Liquid [Mylanta Max Strength Liquid] 30 ml PO Q4H PRN PRN Reason: Dyspepsia Diltiazem Cd Cap [Cardizem CD] 240 mg PO DAILY capsule Torsemide Tab [Demadex Tab] 20 mg PO DAILY tablet Continue Empagliflozin/Linagliptin [Glyxambi 25 mg-5 mg Tablet] 1 each PO DAILY Theophylline ER Tab 300 mg PO BID W/MEALS Torsemide Tab [Demadex Tab] 20 mg PO DAILY Pramipexole [Mirapex] 1 mg PO BID Empagliflozin/Linagliptin [Glyxambi 25 mg-5 mg Tablet] 1 tablet PO DAILY predniSONE TAB [PredniSONE] 1 tablet PO DIRECTED Budesonide Neb [Pulmicort Respules] 0.5 mg RESP TX BID Ipratropium/Albuterol Sulfate [Iprat-Albut 0.5-3(2.5) mg/3 ml] 3 mg Q6HR PRN PRN Reason: Shortness Of Breath/Wheezing Formoterol Neb [Perforomist] 20 mcg RESP TX RT BID guaiFENesin LIQUID [Robitussin] 15 ml PO Q4H PRN #14 udcup PRN Reason: Cough Solifenacin [Vesicare] 1 tablet PO DIRECTED tiZANidine [Zanaflex] 1 tablet PO Q8HR PRN PRN Reason: Muscle Spasm clonazePAM [Clonazepam] 1 tablet PO BID PRN PRN Reason: Anxiety dilTIAZem HCl [Cartia XT] 1 capsule PO DAILY Formoterol Neb [Perforomist] 1 vial INH BID Empagliflozin/Linagliptin [Glyxambi 25 mg-5 mg Tablet] 1 tablet PO DAILY Naproxen [Naprosyn Tab] 500 mg PO BID - Follow Up or Referral - Forms/Instructions Exam - Constitutional Vitals: Period Temp Pulse Resp BP Sys/Rawls Pulse Ox Last 24 Hr 96.0 F-97.8 F 67-105 18-22 125-159/58-85 90-99 Exam: General appearance: no distress (she is sitting up and looks like she feels much better and she is off of oxygen now.) - Head Head exam: Present: normal inspection, normocephalic - Eye Eye exam: Present: EOMI. Absent: scleral icterus Pupils: Present: EWELINA - ENT ENT exam: Present: normal exam - Neck Neck exam: Absent: lymphadenopathy, thyromegaly - Respiratory Respiratory exam: Present: She has fair breath sounds bilaterally and her lungs sound much clearer with very minimal rhonchi now. - Cardiovascular Cardiovascular exam: Present: regular rate and rhythm. Absent: gallop, systolic murmur - GI/Abdominal GI/Abdominal exam: Present: normal bowel sounds, soft. Obese, absent: organomegaly, tenderness - Extremities Exam Extremities exam: Present: edema. She has no signs of phlebitis. - Back Exam Back exam: Present: normal inspection - Neurological Exam Neurological exam: Present: alert, oriented X3, CN II-XII intact, she is moving everything okay. - Psychiatric Psychiatric exam: Absent: anxious - Skin Skin exam: Present: warm, dry Discharge Results Procedures and tests throughout hospitalization: Pending Orders 10/11/16 05:45 Occult Blood, Stool Routine 10/14/16 Bronchial Washings C & Gram St Routine Labs on day of discharge: Labs from last 24 hours 10/15/16 10/14/16 10/14/16 07:06 20:48 15:43 POC Glucose 316 H 308 H 341 H 10/14/16 10/14/16 11:19 10:28 POC Glucose 280 H 228 H - Imaging and Cardiology Procedure: Chest x-ray: image reviewed by me, report reviewed by me (Chest x- ray mainly just shows COPD changes.) DS: Provider Date of admission: 10/09/16 13:08 Primary care physician: Mauricio Capellan Attending physician on admission: Moustapha Castillo, Consults: 10/09/16 14:03 Consult to Dietitian [CONS] Routine Reason for Dietitian: Other Consult to Pastoral Services [CONS] Routine Comment: Pastoral Screen: Request Fiberglass Pipe Covering Supervisor Visit Discharging clinician: Moustapha Castillo, Expected date of discharge: 10/15/16
[2016-10-15 09:29] VITALS: BP 153/90
[2016-10-15] MEDS ORDERED: predniSONE 20 MG TABLET PO SCH (09:30)
--- NOTE | 2016-10-22 16:38 | Physician Query Form ---
CLICK EDIT DOCUMENT TO SELECT QUERY ANSWER --> OK --> SIGN Miracle Navarro RN Clinical Water Quality Control Engineer W) [phone] (f) [phone] [email or web address] PROVIDERS: Make your selection(s) from the choices in EACH section by typing an "x" and enter comments in the comment section. Please use your independent medical judgment in providing your response. This request does not imply that any particular answer is desired or expected. CLINICAL INDICATORS: (Providers should not edit this section) Based on documentation of "acute asthma exacerbation". Pt. treated with IV steroids and antibiotic. Based on documentation of Asthma, can you please provide further specificity regarding the diagnosis? ( ) Mild intermittent extrinsic asthma with acute exacerbation ( ) Mild persistent extrinsic asthma with acute exacerbation ( ) Moderate persistent extrinsic asthma with acute exacerbation ( x) Severe persistent extrinsic asthma with acute exacerbation ( ) Mild intermittent extrinsic asthma with status asthmaticus ( ) Mild persistent extrinsic asthma with status asthmaticus ( ) Moderate persistent extrinsic asthma with status asthmaticus ( ) Severe intermittent extrinsic asthma with status asthmaticus ( ) Other, please specify: ( ) Clinically unable to determine COMMENTS: PLEASE ALSO DOCUMENT RESPONSE IN PROGRESS NOTES AND/OR DISCHARGE SUMMARY Use of terms such as suspected, likely, or probable (associated with a specific diagnosis that is being evaluated, monitored, or treated as if it exists) are acceptable and can be restated in the discharge summary if not ruled out. MTDD
== END 2016-10-15 11:05 | disposition home or self-care (01) | DRG 140 ==
LOC: N.5E 13:08
PROVIDERS: ADMIT Internal Medicine Pulmonary Disease; ATTEND Internal Medicine Pulmonary Disease

== ENCOUNTER 2016-11-14 17:11 | Inpatient (IN) ==
[2016-11-14] MEDS ORDERED: ALBUTEROL/IPRATROPIUM 3 ML NEB RESP TX STA ×2 (17:47→19:28)
[2016-11-14] MEDS ORDERED: methylPREDNISolone SOD SUC 125 MG/2 ML VIAL IV STA (17:47)
--- NOTE | 2016-11-14 17:56 | Emergency Department Note ---
IDebra Rolonda, am scribing for, and in the presence of, Kerline Gonzalez DO 17: 51. ICarlos Debra, DO, personally performed the services described in this documentation, ascribed by Elias Richardson in my presence, and it is both accurate and complete [id number] . Arrival - Arrival Chief Complaint: Shortness of Breath Stated Complaint: SOB,chest pain ED Nursing Triage Note: c/o shortness of breath x 2 weeks., states the chest pain started last night., states she was at rest when the pain started., + coughing, Mode of Arrival: Wheelchair Limitations: No Limitations Source: Patient, Old Records Reviewed, RN Notes Reviewed Time Seen by Provider: 11/14/16 17:45 - History of Present Illness HPI Narrative: Pt is a 56 y/o female who presents to the ED for further evaluation of extreme SOB with an onset of yesterday. Pt has a PMHx of occasional Asthma, COPD, and HTN. She states that she has been having SOB so much that she has been wearing her CPAP all day. Pt states that she was recently placed on oxygen 15/09 but the sxs got better so she was only prescribed to be on oxygen at night time. She confirms associated sxs of fever, cough w/clear production, chills, N/V and CP. No other complaint/pain in ED. Onset (ago): day(s) Consistency: constant Severity: moderate Severity scale (1-10): 5 Allergies/Adverse Reactions: Allergies Allergy/AdvReac Type Severity Reaction Status Date / Time acetaminophen [From [place]] Allergy Intermediate RASH Verified 11/14/16 17:23 hydrocodone [From [place]] Allergy Intermediate RASH Verified 11/14/16 17:23 codeine Allergy ANAPHYLAXIS Verified 11/14/16 17:23 diphenhydramine Allergy ANAPHYLAXIS Verified 11/14/16 17:23 [From Benadryl] fluticasone Allergy ANAPHYLAXIS Verified 11/14/16 17:23 [From Advair Diskus] nitrofurantoin Allergy ANAPHYLAXIS Verified 11/14/16 17:23 [From Macrobid] Penicillins Allergy ANAPHYLAXIS Verified 11/14/16 17:23 promethazine [From Phenergan] Allergy ANAPHYLAXIS Verified 11/14/16 17:23 salmeterol Allergy ANAPHYLAXIS Verified 11/14/16 17:23 [From Advair Diskus] Sulfa (Sulfonamide Allergy ANAPHYLAXIS Verified 11/14/16 17:23 Antibiotics) tiotropium Allergy ANAPHYLAXIS Verified 11/14/16 17:23 [From Spiriva with HandiHaler] Cyclobenzaprine AdvReac Intermediate Irritable Verified 11/14/16 17:23 [From Flexeril] Home Medications: Home Medications Medication Instructions Recorded Confirmed Type Pramipexole [Mirapex] 1 mg PO BID 03/19/16 11/14/16 History Budesonide Neb [Pulmicort Respules] 0.5 mg RESP TX BID 10/09/16 11/14/16 History Empagliflozin/Linagliptin 1 tablet PO QAM 10/09/16 11/14/16 History [Glyxambi 25 mg-5 mg Tablet] Formoterol Neb [Perforomist] 1 vial INH BID 10/09/16 11/14/16 History Ipratropium/Albuterol Sulfate 3 mg Q6HR PRN 10/09/16 11/14/16 History [Iprat-Albut 0.5-3(2.5) mg/3 ml] Solifenacin [Vesicare] 5 mg PO QAM 10/09/16 11/14/16 History clonazePAM [Clonazepam] 0.5 mg PO BID PRN 10/09/16 11/14/16 History Diltiazem Cd Cap [Cardizem CD] 240 mg PO DAILY capsule 10/15/16 11/14/16 Rx Naproxen [Naprosyn Tab] 500 mg PO BID PRN tablet 10/15/16 11/14/16 Rx Theophylline ER Tab 300 mg PO BID W/MEALS tablet 10/15/16 11/14/16 Rx predniSONE TAB [PredniSONE] 20 mg PO DAILY tablet 10/15/16 11/14/16 Rx tiZANidine [Zanaflex] 4 mg PO TID PRN tablet 10/15/16 11/14/16 Rx Aspirin EC Tab 81 mg PO QAM 11/14/16 11/14/16 History Furosemide [Furosemide] 80 mg PO DAILY 11/14/16 11/14/16 History Sennosides/Docusate Sodium 1 each PO BEDTIME PRN 11/14/16 11/14/16 History [Kelli-Colace Tablet] Torsemide Tab [Demadex Tab] 20 mg PO QAM 11/14/16 11/14/16 History guaiFENesin [Guaifenesin ER] 1,200 mg PO Q12H PRN 11/14/16 11/14/16 History Review of System - Review of System 12 point system: reviewed and no additional remarkable complaints except as stated - Review of System Constitutional: Present: chills, fever Eyes: Absent: discharge Head/Ears/Nose/Throat: Absent: earache Respiratory: Present: cough (with clear production), respiratory distress (SOB) Cardiovascular: Present: chest pain Gastrointestinal: Present: nausea, vomiting. Absent: abdominal pain Genitourinary female: Absent: dysuria Musculoskeletal: Absent: arm pain Skin: Absent: rash Neurological: Absent: headache Psychiatric: Absent: anxiety Endocrine: Absent: cold intolerance Hematological/Lymphatic: Absent: easy bleeding Allergic/Immunologic: Absent: facial swelling Medical,Surgical,& Family Hx - Medical History Cardio: History of: Hypertension HEENT: History of: HEENT Problems (sinus surgery) Endocrine: History of: Diabetes Mellitus (NIDDM) Respiratory: History of: COPD, Obstructive Sleep Apnea Musculoskeletal: History of: Musculoskeletal Problems (rotator cuff surgery right side) - Surgical History Abdominal Surgeries: Surgical HX of: Cholecystectomy, Hernia Repair Reproductive Surgeries: Surgical HX of;: Tubal Ligation - Family History Family History: Reports;: Family Heart Disease - Social History Smoking Status: Smoker, status unknown Frequency of Alcohol Use: None Type of Drug Use: None Exam Vital Signs: Vital Signs Temperature 98 F 11/14/16 18:04 Pulse Rate 88 11/14/16 19:35 Respiratory Rate 18 11/14/16 19:35 Blood Pressure 168/116 11/14/16 18:04 O2 Sat by Pulse Oximetry 92 L 11/14/16 19:35 - General General appearance: alert, in no apparent distress, obese (morbidly) - Head Head exam: Present: atraumatic, normocephalic - Eye Eye exam: Present: PERRL, EOMI - ENT ENT exam: Present: mucous membranes moist. Absent: mucous membranes dry - Neck Neck exam: Present: full ROM. Absent: tenderness - Chest Chest inspection: Present: symmetric chest wall rise. Absent: tenderness - Respiratory Respiratory exam: Present: accessory muscle use, wheezes (inspiratory and expiratory ) - Cardiovascular Cardiovascular exam: Present: normal rhythm, tachycardia - Abdominal Exam Abdominal exam: Present: soft, normal bowel sounds. Absent: tenderness - Extremities Exam Extremities exam: Present: full ROM. Absent: tenderness - Back Exam Back exam: Present: full ROM. Absent: tenderness - Neurological Exam Neurological exam: Present: alert, oriented X3, CN II-XII intact - Psychiatric Psychiatric exam: Present: normal affect, normal mood - Skin Skin exam: Present: warm, dry, intact, normal color. Absent: rash Results - Labs CBC & BMP: 11/14/16 17:46 11/14/16 17:46 Lab Results: I have reviewed the patients labs Labs: Laboratory Tests 11/14/16 17:46 WBC 14.7 H RBC 6.04 H Hgb 18.0 H Hct 53.7 H Neut % (Auto) 80.0 H Lymph % (Auto) 12.2 L Baso % (Auto) 1.6 H Neut # (Auto) 11.8 H Laboratory Tests 11/14/16 17:46 Sodium 135 L Potassium 3.9 Chloride 96 L Carbon Dioxide 30 BUN 20 H Creatinine 1.20 H GFR Calculation 67 Glucose 366 H AST 9 Alkaline Phosphatase 125 H Albumin 3.3 L Globulin 4.0 H Albumin/Globulin Ratio 0.8 L Laboratory Tests 11/14/16 17:46 B-Natriuretic Peptide 17 Laboratory Tests 11/14/16 17:46 Total Counted 100 Segmented Neutrophils 88 H Lymphocytes 6 L Monocytes 4 Eosinophils 2 Platelet Estimate Normal - Diagnostic Findings Procedure: Chest x-ray: report reviewed by me (Mild interstitial versus edema.)
[2016-11-14 18:02] LABS: Basophils # 0.2 10*3/uL (0.0-0.2); Basophils % 1.6 % (0.0-0.8); Eosinophils % 0.2 % (0.00-10.9); Hematocrit 53.7 VOL% (35.7-47.0); Immature Granulocytes % 2.5 %; Immature Granulocytes Absolute 0.36 #; Lymphocytes # 1.8 10*3/uL (1.4-4.0); Lymphocytes % 12.2 % (21.3-54.2); Mean Corpuscular HGB Conc 33.5 GM/DL (32-36); Mean Corpuscular Hemoglobin 30 PG (27-34); Mean Corpuscular Volume 88.9 FL (87-102); Mean Platelet Volume 10.6 FL (9.6-12.0); Monocytes # 0.5 10*3/uL (0.11-0.8); Monocytes % 3.5 % (1.7-12.7); Neutrophils # 11.8 10*3/uL (1.4-7.4); Platelet Count 287 T/CUMM (130-400); Red Blood Count 6.04 MC/CUMM (3.8-5.5); Red Cell Distribution Width 17.3 % (9.3-17.3); White Blood Count 14.7 T/CUMM (4-12)
--- NOTE | 2016-11-14 18:06 | XRay Report ---
History short of breath Comparison 10/15/2016 The heart is normal in size. There is prominence of central vasculature There is mildly increased interstitial prominence diffusely without consolidation Impression: Mild interstitial infiltrates versus edema PROCEDURE INTERPRETED AT [facility] DEPARTMENT OF RADIOLOGY Final Report Signed by: Dr. Joyce Guevara
[2016-11-14] MEDS ORDERED: methylPREDNISolone SOD SUC 125 MG/2 ML VIAL ONE (18:11)
[2016-11-14 18:35] LABS: Alanine Aminotransferase 42 U/L (13-56); Albumin 3.3 G/DL (3.4-5.0); Alkaline Phosphatase 125 U/L (45-117); Aspartate Amino Transferase 9 U/L (0-37); Bilirubin,Total < 0.39 MG/DL (0.2-1.0); Blood Urea Nitrogen 20 MG/DL (7-18); Calcium 9.2 MG/DL (8.5-10.1); Glucose 366 MG/DL (74-106); Osmolality,Calculated 287.1 MOS/KG (273-304); Potassium 3.9 MMOL/L (3.5-5.1); Sodium 135 MMOL/L (136-145); Total Protein 7.3 G/DL (6.4-8.3); Troponin I Only < 0.015 NG/ML (0.00-0.045)
[2016-11-14] MEDS ORDERED: cefTRIAXone 1,000 MG in SODIUM CHLORIDE 0.9% 100 ML IV STA (19:15)
[2016-11-14 19:17] LABS: Eosinophils 2 % (0-10); Lymphocytes 6 % (20-55); Segmented Neutrophils 88 % (50-85); Total Cells Counted 100
[2016-11-14] MEDS ORDERED: LEVOFLOXACIN INJ 500 MG in PREMIX 1 EACH IV STA (19:17)
[2016-11-14 19:18] LABS: Platelet Estimate Normal
[2016-11-14] MEDS ORDERED: LEVOFLOXACIN INJ 100 ML IV ONE (19:47)
--- NOTE | 2016-11-14 20:37 | Hospitalist History & Physical ---
Assessment and Plan - Time spent with patient Time spent with patient: Less than 30 minutes (1) Acute asthma exacerbation Status: Acute Assessment and plan: Will place patient on continuous nebs for 1 hour Reassess; if needed will continue for an additional hour Continue oxygen for oxygen saturations greater than 92% Duonebs treatments q4 hours and PRN Solumedrol 60mg q8 hours Pending patricia level due to home meds Continue C-pap machine at night NS 500mL bolus x1 Consult pulmonology d/t established patient Current Visit: Yes (2) Pneumonia Status: Acute Assessment and plan: Pending blood cultures Levaquin and Rocephin IV Tylenol for PRN fever Current Visit: Yes (3) Type 2 diabetes mellitus Status: Chronic Assessment and plan: SSI with FSG q6 hours Will continue this while on steroids Will start back home meds as appropriate Current Visit: No (4) Obstructive sleep apnea Status: Chronic Assessment and plan: Continue bi pap machine at night Patient has machine with her Current Visit: No (5) Obesity Status: Chronic Current Visit: No History of Present Illness Chief complaint: shortness of breath History of present illness: Called to the ER for Ms. Parker who is a 56 year old female that complained of shortness of breath that started several days ago but became worse today. Patient states she felt extremely tired today with fever, chills, body aches, and a productive cough. She denied chest pain, n/v/d. Patient has a history of COPD, asthma, sleep apnea, DM, and thyroid nodule that is followed by Dr. Arreola; scheduled for needle biopsy Nov 27. Her pulmonoligst is Dr. Marte with the most recent visit to him was within the past month. She was given an unknown antibiotic, Lasix 80mg daily, and Prednisone. She has finished the antibiotic but has 1 day remaining on the steroid. For her asthma, she takes Duonebs q4 hours, Pulmicort, Theophylline, and Perforomist. She states she has been taking her medications as directed. She has had three asthma excerbations this year but has never been intubated. She received a bronchoscope [address] Marte and states she felt extremely better after procedure but these symptoms have come on abruptly. Upon exam, patient was able to speak in complete sentences with no increased work of breathing or accessory muscle use. Her oxygen saturations were in the high 80's on 2L of [place]. She had 1 Duoneb breathing treatment and 125mg of Solumedrol IV. She was found to have mild interstitial infiltrates versus edema on CXR. Blood cultures were performed and patient received Rocephin and Levaquin IV. Treatment plan was discussed with Dr. Bennett. Patient will be admitted as inpatient on a monitored bed with continuous nebs for 1 hour. She will be reassessed after 1 hour and continuous nebs will be repeated if needed. We will maintain her oxygen levels above 92% with O2, Duonebs q4 hours and PRN. She will receive IV steroids q6 hours and continue her Bi-pap machine @ HS. We will perform a TSH for thyroid nodule, obtain a HgbA1c and Accuchecks q6 hours with SSI for her diabetic management and continue Rocephin and Levaquin for infiltrates. Blood cultures are pending. Home medications were confirmed and some were reconciled. Home Medications Medication Instructions Recorded Confirmed Type Pramipexole [Mirapex] 1 mg PO BID 03/19/16 11/14/16 History Budesonide Neb [Pulmicort Respules] 0.5 mg RESP TX BID 10/09/16 11/14/16 History Empagliflozin/Linagliptin 1 tablet PO QAM 10/09/16 11/14/16 History [Glyxambi 25 mg-5 mg Tablet] Formoterol Neb [Perforomist] 1 vial INH BID 10/09/16 11/14/16 History Ipratropium/Albuterol Sulfate 3 mg Q6HR PRN 10/09/16 11/14/16 History [Iprat-Albut 0.5-3(2.5) mg/3 ml] Solifenacin [Vesicare] 5 mg PO QAM 10/09/16 11/14/16 History clonazePAM [Clonazepam] 0.5 mg PO BID PRN 10/09/16 11/14/16 History Diltiazem Cd Cap [Cardizem CD] 240 mg PO DAILY capsule 10/15/16 11/14/16 Rx Naproxen [Naprosyn Tab] 500 mg PO BID PRN tablet 10/15/16 11/14/16 Rx Theophylline ER Tab 300 mg PO BID W/MEALS tablet 10/15/16 11/14/16 Rx predniSONE TAB [PredniSONE] 20 mg PO DAILY tablet 10/15/16 11/14/16 Rx tiZANidine [Zanaflex] 4 mg PO TID PRN tablet 10/15/16 11/14/16 Rx Aspirin EC Tab 81 mg PO QAM 11/14/16 11/14/16 History Furosemide [Furosemide] 80 mg PO DAILY 11/14/16 11/14/16 History Sennosides/Docusate Sodium 1 each PO BEDTIME PRN 11/14/16 11/14/16 History [Kelli-Colace Tablet] Torsemide Tab [Demadex Tab] 20 mg PO QAM 11/14/16 11/14/16 History guaiFENesin [Guaifenesin ER] 1,200 mg PO Q12H PRN 11/14/16 11/14/16 History Allergies Allergy/AdvReac Type Severity Reaction Status Date / Time acetaminophen [From [place]] Allergy Intermediate RASH Verified 11/14/16 17:23 hydrocodone [From [place]] Allergy Intermediate RASH Verified 11/14/16 17:23 codeine Allergy ANAPHYLAXIS Verified 11/14/16 17:23 diphenhydramine Allergy ANAPHYLAXIS Verified 11/14/16 17:23 [From Benadryl] fluticasone Allergy ANAPHYLAXIS Verified 11/14/16 17:23 [From Advair Diskus] nitrofurantoin Allergy ANAPHYLAXIS Verified 11/14/16 17:23 [From Macrobid] Penicillins Allergy ANAPHYLAXIS Verified 11/14/16 17:23 promethazine [From Phenergan] Allergy ANAPHYLAXIS Verified 11/14/16 17:23 salmeterol Allergy ANAPHYLAXIS Verified 11/14/16 17:23 [From Advair Diskus] Sulfa (Sulfonamide Allergy ANAPHYLAXIS Verified 11/14/16 17:23 Antibiotics) tiotropium Allergy ANAPHYLAXIS Verified 11/14/16 17:23 [From Spiriva with HandiHaler] Cyclobenzaprine AdvReac Intermediate Irritable Verified 11/14/16 17:23 [From Flexeril] Medical,Surgical,& Family Hx - Medical History Cardio: History of: Hypertension HEENT: History of: HEENT Problems (sinus surgery) Endocrine: History of: Diabetes Mellitus (NIDDM) Respiratory: History of: Asthma, COPD, Obstructive Sleep Apnea No history of: Intubation Renal: No history of: Renal Problems Genitourinary: No history of: Problems Gastrointestinal: No history of: GI Problems Musculoskeletal: History of: Musculoskeletal Problems (rotator cuff surgery right side) Hematology: No history of: Bleeding Problems - Surgical History Abdominal Surgeries: Surgical HX of: Cholecystectomy, Hernia Repair Reproductive Surgeries: Surgical HX of;: Section, Tubal Ligation - Family History Family History: Reports;: Family Heart Disease, Additional Family History ( asthma-sister; mom-alzheimers) - Social History Smoking Status: Former smoker Frequency of Alcohol Use: None Type of Drug Use: None Marital Status: Lives With:: Spouse Functional capacity: independent ambulation - Constitutional Constitutional: Present: chills, fatigue, weakness. Absent: frequent falls, headache(s) - EENT Nose, mouth and throat: Present: sinus pressure. Absent: hoarseness, sore throat - Cardiovascular Cardiovascular: Present: dyspnea, dyspnea on exertion, edema. Absent: chest pain at rest, chest pain with activity - Respiratory Respiratory: Present: cough, dyspnea, wheezing. Absent: hemoptysis, change in phlegm color - Gastrointestinal Gastrointestinal: Absent: abdominal pain, diarrhea, heartburn, hematemesis, nausea, vomiting - Endocrine Endocrine: Absent: cold intolerance - Hematologic/Lymphatic Hematologic/Lymphatic: Absent: easy bleeding Exam - Constitutional Vitals: Period Temp Pulse Resp BP Sys/Rawls Pulse Ox Last 24 Hr 98 F-98.0 F 84-110 17-44 168-168/116-116 86-92 General appearance: mild distress, morbidly obese - Head Head exam: Present: normal inspection, normocephalic - Eye Eye exam: Present: EOMI Pupils: Present: EWELINA, normal accommodation - ENT ENT exam: Present: normal exam - Neck Neck exam: Present: normal inspection - Respiratory Respiratory exam: Present: prolonged expiratory phase, wheezes (expiratory), other (Respirations even and non-labored with symmetrical rise and fall of chest noted) - Cardiovascular Cardiovascular exam: Present: regular rate and rhythm - GI/Abdominal GI/Abdominal exam: Present: normal bowel sounds, soft. Absent: distended, tenderness - Extremities Exam Extremities exam: Present: normal inspection, normal capillary refill - Back Exam Back exam: Present: normal inspection - Neurological Exam Neurological exam: Present: alert, oriented X3 (Able to answer questions appropriately. Makes good eye contact. ) - Psychiatric Psychiatric exam: Present: normal affect, normal mood - Skin Skin exam: Present: normal color, warm, dry, intact Results - Labs CBC & BMP: 11/14/16 17:46 11/14/16 17:46 Lab Results: I have reviewed the past 24 hour labs - EKG EKG results: interpreted by ERMD - Diagnostic Findings Procedure: Chest x-ray: report reviewed by me (Interstitial infiltrates versus edema)
[2016-11-14] MEDS ORDERED: GLUCAGON 1 MG VIAL IM PRN (20:48)
[2016-11-14] MEDS ORDERED: DEXTROSE 50% 25 GM/50 ML SYRINGE IV PRN (20:48)
[2016-11-14] MEDS ORDERED: guaiFENesin/DM ER 600-30 MG TABLET PO PRN (21:36)
[2016-11-14] MEDS ORDERED: ACETAMINOPHEN 325 MG TABLET PO PRN (21:36)
[2016-11-14] MEDS ORDERED: SODIUM CHLORIDE 0.9% 500 ML IV ONE (21:36)
[2016-11-14] MEDS ORDERED: ALBUTEROL/IPRATROPIUM 3 ML NEB RESP TX PRN (21:36)
[2016-11-14] MEDS ORDERED: ONDANSETRON 4 MG/2 ML VIAL IV PRN (21:36)
[2016-11-14] MEDS ORDERED: ALBUTEROL NEB SOLN 5 MG/ML 20 ML/BOTTLE CONT NEB ONE (21:36)
[2016-11-14] MEDS ORDERED: MORPHINE 2 MG/1 ML SYRINGE IV PRN (21:36)
[2016-11-14] MEDS: tiZANidine 4 MG TABLET PO PRN (22:10)
[2016-11-14] MEDS: clonazePAM 0.5 MG TABLET PO PRN (22:10)
[2016-11-14] MEDS: ENOXAPARIN 40 MG/0.4 ML SYRINGE SUBCUT SCH (22:12)
[2016-11-14] MEDS: SODIUM CHLORIDE 0.9% 1,000 ML IV SCH (22:16)
[2016-11-14] MEDS: DOCUSATE SODIUM 100 MG CAPSULE PO SCH (22:18)
[2016-11-14] MEDS: ALBUTEROL/IPRATROPIUM 3 ML NEB RESP TX SCH (22:40)
[2016-11-14] MEDS: INSULIN LISPRO 100 UNIT/ML SUBCUT SCH (23:46)
[2016-11-15] MEDS: methylPREDNISolone SOD SUC 125 MG/2 ML VIAL IV SCH ×3 (02:52→18:35)
[2016-11-15 03:09] LABS: Apearance,Urine CLEAR (Clear); Bilirubin,Urine Negative (Negative); Blood, Urine Negative (Negative); Glucose,Urine (UA) >=500 mg/dL (Negative); Ketones,Urine Negative (Negative); Nitrite,Urine Negative (Negative); Protein,Urine Negative; Squamous Epithelial Cell,Urine Occasional /HPF (0-10); Urine Color Yellow (Yellow); Urine Urobilinogen < 2.0 EU/DL (0.2-1.0); WBC,Urine 1 /HPF (0-6)
[2016-11-15] MEDS: ALBUTEROL/IPRATROPIUM 3 ML NEB RESP TX SCH ×5 (03:54→19:55)
[2016-11-15] MEDS: INSULIN LISPRO 100 UNIT/ML SUBCUT SCH ×3 (05:54→17:31)
[2016-11-15 07:36] LABS: Alanine Aminotransferase 37 U/L (13-56); Alkaline Phosphatase 118 U/L (45-117); Aspartate Amino Transferase 7 U/L (0-37); Bilirubin,Total < 0.39 MG/DL (0.2-1.0); Blood Urea Nitrogen 22 MG/DL (7-18); Calcium 9.2 MG/DL (8.5-10.1); Glucose 327 MG/DL (74-106); Osmolality,Calculated 288.8 MOS/KG (273-304); Potassium 4.1 MMOL/L (3.5-5.1); Sodium 137 MMOL/L (136-145); Total Protein 6.9 G/DL (6.4-8.3)
--- NOTE | 2016-11-15 08:57 | Hospitalist Progress Note ---
Assessment and Plan - Time spent with patient Time spent with patient: Greater than 30 minutes (1) Acute exacerbation of COPD with asthma Status: Acute Assessment and plan: Continue supplemental oxygen to keep saturation above 92. DuoNeb every 4 hours these and decrease to every 6 hours as she improves. Continue antibiotics, continue Solu-Medrol and taper when her general condition improves. Lantus 15 units at bedtime and continue sliding scale, monitor fingerstick glucose. Continue nighttime CPAP. Pulmonology has been consulted Current Visit: No (2) Obstructive sleep apnea Status: Chronic Current Visit: No (3) Type 2 diabetes mellitus Status: Chronic Current Visit: No (4) Obesity Status: Chronic Current Visit: No (5) Pneumonia Status: Acute Current Visit: Yes Hospitalist: Subjective Interval history: 56-year-old lady with history of asthma who was admitted overnight for shortness of breath due to acute asthma exacerbation, she did not improve with initial nebulization in the ER, she had to be placed on continuous nebs. Breathing status has improved this morning, managing to saturate fairly well. No fever, leukocytosis likely due to steroids. Blood sugars are elevated and this is likely due to steroid. She however has an A1c of 8.7 suggesting poor control as outpatient. She has been started on sliding scale insulin but I think she will probably require more than that. We will start her basal insulin Lantus. Exam - Constitutional Vitals: Period Temp Pulse Resp BP Sys/Rawls Pulse Ox Last 24 Hr 97.7 F-99.1 F 84-110 17-44 107-168/56-116 86-93 Exam: General appearance: mild distress, morbidly obese - Head Head exam: Present: normal inspection, normocephalic - Eye Eye exam: Present: EOMI Pupils: Present: EWELINA, normal accommodation - ENT ENT exam: Present: normal exam - Neck Neck exam: Present: normal inspection - Respiratory Respiratory exam: Present: prolonged expiratory phase, wheezes (expiratory), other (Respirations even and non-labored with symmetrical rise and fall of chest noted) - Cardiovascular Cardiovascular exam: Present: regular rate and rhythm - GI/Abdominal GI/Abdominal exam: Present: normal bowel sounds, soft. Absent: distended, tenderness - Extremities Exam Extremities exam: Present: normal inspection, normal capillary refill - Back Exam Back exam: Present: normal inspection - Neurological Exam Neurological exam: Present: alert, oriented X3 (Able to answer questions appropriately. Makes good eye contact. ) - Psychiatric Psychiatric exam: Present: normal affect, normal mood - Skin Skin exam: Present: normal color, warm, dry, intact Results - Labs CBC & BMP: 11/14/16 17:46 11/15/16 06:38
[2016-11-15] MEDS: SOLIFENACIN 5 MG TABLET PO SCH (09:09)
[2016-11-15] MEDS: TORSEMIDE 20 MG TABLET PO SCH (09:09)
[2016-11-15] MEDS: ASPIRIN EC 81 MG TABLET PO SCH (09:09)
[2016-11-15] MEDS: PANTOPRAZOLE 40 MG TABLET PO SCH (09:09)
[2016-11-15] MEDS: DILTIAZEM CD 240 MG CAPSULE PO SCH (09:10)
[2016-11-15] MEDS: DOCUSATE SODIUM 100 MG CAPSULE PO SCH ×2 (09:10→20:41)
[2016-11-15] MEDS: PRAMIPEXOLE 1 MG TABLET PO SCH ×2 (10:57→20:41)
[2016-11-15] MEDS: SODIUM CHLORIDE 0.9% 1,000 ML IV SCH (12:33)
--- NOTE | 2016-11-15 13:06 | Pulmonology Consult Note ---
Assessment and Plan (1) Acute exacerbation of COPD with asthma Status: Acute Assessment and plan: Patient comes in coughing and wheezing again and is having a mild exacerbation. She looks reasonably comfortable although she is wheezing. She will continue with present therapy. Current Visit: No (2) Obstructive sleep apnea Status: Chronic Assessment and plan: She does use her BiPAP at night regularly. Current Visit: No (3) Type 2 diabetes mellitus Status: Chronic Assessment and plan: Her glucose is around 280 and will be monitored. Current Visit: No History of Present Illness Chief complaint: Shortness of breath History of present illness: Ms. Parker is a 56 year old white female has a long history of COPD. She is overweight. She has been in the hospital recently with a flareup of her COPD. She cleared up fairly well but comes back again with increasing coughing and wheezing. She felt like she had a URI that triggered this event. And now she is having coughing and wheezing and will try an outpatient medicines and she just did not get a lot better. She comes in for IV medicines now. She actually looks reasonably comfortable although she has considerable wheezing. The patient does use BiPAP for her sleep apnea. She does get a lot of bronchodilators at home. Home Medications Medication Instructions Recorded Confirmed Type Pramipexole [Mirapex] 1 mg PO BID 03/19/16 11/14/16 History Budesonide Neb [Pulmicort Respules] 0.5 mg RESP TX BID 10/09/16 11/14/16 History Empagliflozin/Linagliptin 1 tablet PO QAM 10/09/16 11/14/16 History [Glyxambi 25 mg-5 mg Tablet] Formoterol Neb [Perforomist] 1 vial INH BID 10/09/16 11/14/16 History Ipratropium/Albuterol Sulfate 3 mg Q6HR PRN 10/09/16 11/15/16 History [Iprat-Albut 0.5-3(2.5) mg/3 ml] Solifenacin [Vesicare] 5 mg PO QAM 10/09/16 11/14/16 History clonazePAM [Clonazepam] 0.5 mg PO BID PRN 10/09/16 11/15/16 History Diltiazem Cd Cap [Cardizem CD] 240 mg PO DAILY capsule 10/15/16 11/14/16 Rx Naproxen [Naprosyn Tab] 500 mg PO BID PRN tablet 10/15/16 11/14/16 Rx Theophylline ER Tab 300 mg PO BID W/MEALS tablet 10/15/16 11/14/16 Rx tiZANidine [Zanaflex] 4 mg PO TID PRN tablet 10/15/16 11/15/16 Rx Aspirin EC Tab 81 mg PO QAM 11/14/16 11/14/16 History Sennosides/Docusate Sodium 1 each PO BEDTIME PRN 11/14/16 11/15/16 History [Kelli-Colace Tablet] Torsemide Tab [Demadex Tab] 20 mg PO QAM 11/14/16 11/14/16 History guaiFENesin [Guaifenesin ER] 1,200 mg PO Q12H PRN 11/14/16 11/15/16 History Allergies Allergy/AdvReac Type Severity Reaction Status Date / Time acetaminophen [From [place]] Allergy Intermediate RASH Verified 11/14/16 17:23 hydrocodone [From [place]] Allergy Intermediate RASH Verified 11/14/16 17:23 codeine Allergy ANAPHYLAXIS Verified 11/14/16 17:23 diphenhydramine Allergy ANAPHYLAXIS Verified 11/14/16 17:23 [From Benadryl] fluticasone Allergy ANAPHYLAXIS Verified 11/14/16 17:23 [From Advair Diskus] nitrofurantoin Allergy ANAPHYLAXIS Verified 11/14/16 17:23 [From Macrobid] Penicillins Allergy ANAPHYLAXIS Verified 11/14/16 17:23 promethazine [From Phenergan] Allergy ANAPHYLAXIS Verified 11/14/16 17:23 salmeterol Allergy ANAPHYLAXIS Verified 11/14/16 17:23 [From Advair Diskus] Sulfa (Sulfonamide Allergy ANAPHYLAXIS Verified 11/14/16 17:23 Antibiotics) tiotropium Allergy ANAPHYLAXIS Verified 11/14/16 17:23 [From Spiriva with HandiHaler] Cyclobenzaprine AdvReac Intermediate Irritable Verified 11/14/16 17:23 [From Flexeril] - Constitutional Constitutional: Absent: chills, fever(s), weight loss - EENT Eyes: Absent: loss of vision Ears: Absent: decreased hearing Nose, mouth and throat: Absent: dysphagia, headache(s), sinus pressure - Cardiovascular Cardiovascular: Present: dyspnea, edema, orthopnea. Absent: chest pain at rest , palpitations - Respiratory Respiratory: Present: cough, wheezing - Gastrointestinal Gastrointestinal: Absent: abdominal pain, dysphagia, nausea, vomiting - Genitourinary Genitourinary: Absent: dysuria, hematuria, urinary frequency - Musculoskeletal Musculoskeletal: Present: arthralgias, back pain - Neurological Neurological: Absent: abnormal speech, focal weakness - Psychiatric Psychiatric: Present: anxiety Exam (Pulmonay) H&P - Constitutional Vitals: Period Temp Pulse Resp BP Sys/Rawls Pulse Ox Last 24 Hr 97.7 F-99.1 F 70-110 17-44 107-168/56-116 86-97 General appearance: mild distress (Patient looks reasonably comfortable at rest) , over weight - Head Head exam: Present: normal inspection, normocephalic - Eye Eye exam: Present: EOMI. Absent: scleral icterus Pupils: Present: EWELINA - ENT ENT exam: Present: other (No sinus tenderness) - Neck Neck exam: Absent: lymphadenopathy, thyromegaly - Respiratory Respiratory exam: Present: prolonged expiratory phase, wheezes - Cardiovascular Cardiovascular exam: Present: regular rate and rhythm. Absent: gallop, systolic murmur - GI/Abdominal GI/Abdominal exam: Present: normal bowel sounds, soft. Absent: organomegaly, tenderness - Extremities Exam Extremities exam: Absent: calf tenderness, edema - Neurological Exam Neurological exam: Present: alert, oriented X3, CN II-XII intact - Psychiatric Psychiatric exam: Present: normal affect - Skin Skin exam: Present: warm, dry Medical,Surgical,& Family Hx - Medical History Cardio: History of: Hypertension HEENT: History of: HEENT Problems (sinus surgery) Endocrine: History of: Diabetes Mellitus (NIDDM) Respiratory: History of: Asthma, COPD, Obstructive Sleep Apnea No history of: Intubation Renal: No history of: Renal Problems Genitourinary: No history of: Problems Gastrointestinal: No history of: GI Problems Musculoskeletal: History of: Musculoskeletal Problems (rotator cuff surgery right side) Hematology: No history of: Bleeding Problems - Surgical History Abdominal Surgeries: Surgical HX of: Cholecystectomy, Hernia Repair Reproductive Surgeries: Surgical HX of;: Section, Tubal Ligation - Family History Family History: Reports;: Family Heart Disease, Additional Family History ( asthma-sister; mom-alzheimers) - Social History Smoking Status: Former smoker Frequency of Alcohol Use: None Type of Drug Use: None Results - Labs CBC & BMP: 11/14/16 17:46 11/15/16 06:38 - Diagnostic Findings Procedure: Chest x-ray: image reviewed by me, report reviewed by me (Chest x- ray suggests COPD changes with increased markings and is really unchanged from previous films.)
[2016-11-15] MEDS: THEOPHYLLINE ER 300 MG TABLET PO SCH (16:22)
[2016-11-15] MEDS: tiZANidine 4 MG TABLET PO PRN (20:41)
[2016-11-15] MEDS: ENOXAPARIN 40 MG/0.4 ML SYRINGE SUBCUT SCH (20:41)
[2016-11-15] MEDS: clonazePAM 0.5 MG TABLET PO PRN (20:41)
[2016-11-15] MEDS: LEVOFLOXACIN INJ 750 MG in PREMIX 1 EACH IV SCH (20:41)
[2016-11-16] MEDS: ALBUTEROL/IPRATROPIUM 3 ML NEB RESP TX SCH ×7 (00:33→20:08)
[2016-11-16] MEDS: INSULIN LISPRO 100 UNIT/ML SUBCUT SCH ×4 (01:13→18:21)
[2016-11-16] MEDS: SODIUM CHLORIDE 0.9% 1,000 ML IV SCH (02:54)
[2016-11-16] MEDS: methylPREDNISolone SOD SUC 125 MG/2 ML VIAL IV SCH ×2 (02:55→11:38)
[2016-11-16] MEDS: THEOPHYLLINE ER 300 MG TABLET PO SCH ×2 (07:55→16:31)
[2016-11-16] MEDS: DOCUSATE SODIUM 100 MG CAPSULE PO SCH ×2 (08:45→21:17)
[2016-11-16] MEDS: SOLIFENACIN 5 MG TABLET PO SCH (08:45)
[2016-11-16] MEDS: PANTOPRAZOLE 40 MG TABLET PO SCH (08:46)
[2016-11-16] MEDS: TORSEMIDE 20 MG TABLET PO SCH (08:46)
[2016-11-16] MEDS: DILTIAZEM CD 240 MG CAPSULE PO SCH (08:46)
[2016-11-16] MEDS: ASPIRIN EC 81 MG TABLET PO SCH (08:46)
[2016-11-16] MEDS: PRAMIPEXOLE 1 MG TABLET PO SCH ×2 (08:46→21:17)
[2016-11-16] MEDS: clonazePAM 0.5 MG TABLET PO PRN ×2 (08:49→21:18)
--- NOTE | 2016-11-16 08:57 | Hospitalist Progress Note ---
Assessment and Plan - Time spent with patient Time spent with patient: Greater than 30 minutes (1) Acute exacerbation of COPD with asthma Status: Acute Assessment and plan: Continue supplemental oxygen to keep saturation above 92. DuoNeb every 4 hours these and decrease to every 6 hours as she improves. Continue antibiotics, begin to taper Solu-Medrol Lantus 15 units at bedtime and continue sliding scale, monitor fingerstick glucose. Continue nighttime CPAP. Pulmonology follow-up Hopefully discharge tomorrow. Current Visit: No (2) Obstructive sleep apnea Status: Chronic Current Visit: No (3) Type 2 diabetes mellitus Status: Chronic Current Visit: No (4) Obesity Status: Chronic Current Visit: No (5) Pneumonia Status: Acute Current Visit: Yes Hospitalist: Subjective Interval history: She continues to improve, shortness of breath is much better. Her oxygen saturation has been stable. Her blood glucose is uncontrolled likely because of steroids, we will start her on basal insulin along with sliding scale. No fever. We appreciate pulmonology input. Exam - Constitutional Vitals: Period Temp Pulse Resp BP Sys/Rawls Pulse Ox Last 24 Hr 96.6 F-97.8 F 63-89 16-20 106-162/59-87 89-98 Exam: General appearance: mild distress, morbidly obese - Head Head exam: Present: normal inspection, normocephalic - Eye Eye exam: Present: EOMI Pupils: Present: EWELINA, normal accommodation - ENT ENT exam: Present: normal exam - Neck Neck exam: Present: normal inspection - Respiratory Respiratory exam: Present: prolonged expiratory phase, wheezes (expiratory), there is now better air movement but still with residual rhonchi. - Cardiovascular Cardiovascular exam: Present: regular rate and rhythm - GI/Abdominal GI/Abdominal exam: Present: normal bowel sounds, soft. Absent: distended, tenderness - Extremities Exam Extremities exam: Present: normal inspection, normal capillary refill - Back Exam Back exam: Present: normal inspection - Neurological Exam Neurological exam: Present: alert, oriented X3 (Able to answer questions appropriately. Makes good eye contact. ) - Psychiatric Psychiatric exam: Present: normal affect, normal mood - Skin Skin exam: Present: normal color, warm, dry, intact Results - Labs CBC & BMP: 11/14/16 17:46 11/15/16 06:38 Lab Results: I have reviewed the past 24 hour labs
--- NOTE | 2016-11-16 10:14 | EKG Report ---
Stationary ECG Study [facility] ER Test Date: 11/14/2016 5:24:53 PM Pat Name: KEIRY TESFAYE Department: Room: 522 Gender: F Registered Vascular Technologist (Rvt): : 1960 Requested by: Kerline Gonzalez Order Number: [id number] Reading MD: TRIPP BRANTLEY Intervals [place] Rate: 98 P: 73 ND: 152 QRS: 86 QRSD: 93 T: 66 QT: 317 QTc: 373 Interpretive Statements SINUS RHYTHM LOW QRS VOLTAGE IN PRECORDIAL LEADS LEFT ATRIAL ABNORMALITY Electronically Signed On 11-16-16 20:33:17 CDT by TRIPP BRANTLEY [email or web address]
--- NOTE | 2016-11-16 11:34 | Pulmonology Progress Note ---
Pulmonary - PN: Subj Interval history: Patient is a 56-year-old white lady with a long history of COPD and obesity. She comes in with a flareup and has having wheezing and coughing and shortness of breath. She does use her CPAP at night. She says she is feeling a little better today with less shortness of breath. Her glucose is up on steroids. She does look a little more comfortable however. Exam (Progress Note) - Constitutional Vitals: Period Temp Pulse Resp BP Sys/Rawls Pulse Ox Last 24 Hr 96.6 F-97.8 F 63-86 16-20 106-162/59-84 89-98 Exam: General appearance: no distress (Patient looks reasonably comfortable at rest), over weight - Head Head exam: Present: normal inspection, normocephalic - Eye Eye exam: Present: EOMI. Absent: scleral icterus Pupils: Present: EWELINA - ENT ENT exam: Present: other (No sinus tenderness) - Neck Neck exam: Absent: lymphadenopathy, thyromegaly - Respiratory Respiratory exam: Present: She has better breath sounds bilaterally with only minimal rhonchi now. - Cardiovascular Cardiovascular exam: Present: regular rate and rhythm. Absent: gallop, systolic murmur - GI/Abdominal GI/Abdominal exam: Present: normal bowel sounds, soft. Absent: organomegaly, tenderness - Extremities Exam Extremities exam: Absent: calf tenderness, edema - Neurological Exam Neurological exam: Present: alert, oriented X3, CN II-XII intact - Psychiatric Psychiatric exam: Present: normal affect - Skin Skin exam: Present: warm, dry Results - Labs CBC & BMP: 11/14/16 17:46 11/15/16 06:38 Assessment and Plan (1) Acute exacerbation of COPD with asthma Status: Acute Assessment and plan: Patient comes in coughing and wheezing again and is having a mild exacerbation. She looks better and is breathing better today. Current Visit: No (2) Obstructive sleep apnea Status: Chronic Assessment and plan: She does use her BiPAP at night regularly. Current Visit: No (3) Type 2 diabetes mellitus Status: Chronic Assessment and plan: Her glucose is around 280 and will be monitored. She will need extra insulin. Current Visit: Yes
[2016-11-16] MEDS: methylPREDNISolone SOD SUC 40 MG/1 ML VIAL IV SCH ×3 (12:18→18:42)
[2016-11-16] MEDS ORDERED: INSULIN GLARGINE 100 UNIT/ML SUBCUT SCH (21:00)
[2016-11-16] MEDS: LEVOFLOXACIN INJ 750 MG in PREMIX 1 EACH IV SCH (21:16)
[2016-11-16] MEDS: tiZANidine 4 MG TABLET PO PRN (21:18)
[2016-11-16] MEDS: ENOXAPARIN 40 MG/0.4 ML SYRINGE SUBCUT SCH (21:18)
[2016-11-17] MEDS: ALBUTEROL/IPRATROPIUM 3 ML NEB RESP TX SCH ×3 (00:03→07:28)
[2016-11-17] MEDS: INSULIN LISPRO 100 UNIT/ML SUBCUT SCH ×2 (00:59→06:53)
[2016-11-17] MEDS: methylPREDNISolone SOD SUC 40 MG/1 ML VIAL IV SCH (03:11)
[2016-11-17 06:19] LABS: Basophils # 0.1 10*3/uL (0.0-0.2); Basophils % 0.5 % (0.0-0.8); Hematocrit 47.7 VOL% (35.7-47.0); Immature Granulocytes % 4.6 %; Immature Granulocytes Absolute 0.98 #; Lymphocytes # 3.3 10*3/uL (1.4-4.0); Lymphocytes % 15.6 % (21.3-54.2); Mean Corpuscular HGB Conc 32.5 GM/DL (32-36); Mean Corpuscular Hemoglobin 29 PG (27-34); Mean Corpuscular Volume 89.2 FL (87-102); Mean Platelet Volume 11.5 FL (9.6-12.0); Monocytes # 0.9 10*3/uL (0.11-0.8); Monocytes % 4.4 % (1.7-12.7); NRBC # 0.02 10*3/uL; Neutrophils # 15.8 10*3/uL (1.4-7.4); Neutrophils % 74.9 % (38.7-73.9); Platelet Count 266 T/CUMM (130-400); Red Blood Count 5.35 MC/CUMM (3.8-5.5); Red Cell Distribution Width 16.1 % (9.3-17.3)
[2016-11-17 06:52] LABS: White Blood Count 21.1 T/CUMM (4-12)
[2016-11-17 06:53] LABS: Hemoglobin 15.5 GM/DL (12.0-16.0)
[2016-11-17 07:02] LABS: Band Neutrophils 5 % (0-10); Hypochromasia 1+; Lymphocytes 10 % (20-55); Metamyelocytes 1 %; Nucleated Red Blood Cells 1 (0-5); Platelet Estimate Adequate; Polychromasia Slight; Segmented Neutrophils 77 % (50-85); Total Cells Counted 100
[2016-11-17 07:03] LABS: Alanine Aminotransferase 25 U/L (13-56); Albumin 2.9 G/DL (3.4-5.0); Alkaline Phosphatase 105 U/L (45-117); Aspartate Amino Transferase < 3 U/L (0-37); Blood Urea Nitrogen 28 MG/DL (7-18); Calcium 9.1 MG/DL (8.5-10.1); Glucose 311 MG/DL (74-106); Osmolality,Calculated 296.4 MOS/KG (273-304); Potassium 4.5 MMOL/L (3.5-5.1); Sodium 140 MMOL/L (136-145); Total Protein 6.2 G/DL (6.4-8.3)
[2016-11-17] MEDS: THEOPHYLLINE ER 300 MG TABLET PO SCH (07:56)
[2016-11-17] MEDS: SOLIFENACIN 5 MG TABLET PO SCH (09:12)
[2016-11-17] MEDS: PRAMIPEXOLE 1 MG TABLET PO SCH (09:12)
[2016-11-17] MEDS: TORSEMIDE 20 MG TABLET PO SCH (09:12)
[2016-11-17] MEDS: ASPIRIN EC 81 MG TABLET PO SCH (09:12)
[2016-11-17] MEDS: DILTIAZEM CD 240 MG CAPSULE PO SCH (09:12)
[2016-11-17] MEDS: PANTOPRAZOLE 40 MG TABLET PO SCH (09:13)
[2016-11-17] MEDS: DOCUSATE SODIUM 100 MG CAPSULE PO SCH (09:13)
--- NOTE | 2016-11-17 09:20 | Pulmonology Progress Note ---
Pulmonary - PN: Subj Interval history: Patient is a 56-year-old white lady with a long history of COPD and obesity. She comes in with a flareup and has having wheezing and coughing and shortness of breath. She does use her CPAP at night. She has done well the last day or so and her breathing is better. Her coughing and wheezing are about cleared. She is doing a little more activity. Overall she is feeling better. Exam (Progress Note) - Constitutional Vitals: Period Temp Pulse Resp BP Sys/Rawls Pulse Ox Last 24 Hr 96.8 F-98.2 F 69-99 17-20 113-132/56-86 90-99 Exam: General appearance: no distress (Patient looks reasonably comfortable at rest. She is moving around and is not that short of breath now.), over weight - Head Head exam: Present: normal inspection, normocephalic - Eye Eye exam: Present: EOMI. Absent: scleral icterus Pupils: Present: EWELINA - ENT ENT exam: Present: other (No sinus tenderness) - Neck Neck exam: Absent: lymphadenopathy, thyromegaly - Respiratory Respiratory exam: Present: She has better breath sounds bilaterally she is moving air better with no wheezing now. - Cardiovascular Cardiovascular exam: Present: regular rate and rhythm. Absent: gallop, systolic murmur - GI/Abdominal GI/Abdominal exam: Present: normal bowel sounds, soft. Absent: organomegaly, tenderness - Extremities Exam Extremities exam: Absent: calf tenderness, edema, no signs of phlebitis. - Neurological Exam Neurological exam: Present: alert, oriented X3, CN II-XII intact, no focal deficits - Psychiatric Psychiatric exam: Present: normal affect - Skin Skin exam: Present: warm, dry Results - Labs CBC & BMP: 11/17/16 04:40 11/17/16 04:40 Assessment and Plan (1) Acute exacerbation of COPD with asthma Status: Acute Assessment and plan: Patient comes in coughing and wheezing again and is having a mild exacerbation. She feels much better today and feels like she can go home today. Current Visit: No (2) Obstructive sleep apnea Status: Chronic Assessment and plan: She does use her BiPAP at night regularly. She will continue her BiPAP at night. Current Visit: No (3) Type 2 diabetes mellitus Status: Chronic Assessment and plan: Her glucose is 258 this morning. Current Visit: Yes
--- NOTE | 2016-11-17 09:28 | Discharge Summary ---
<Tala Lucero - Last Filed: 11/17/16 09:09> Hospital Course - Hospital Course Hospital Course: Ms Parker 56y/o w/PMHx of COPD, Asthma, HTN presented on 11/14/16 to the ED for evaluation of increasing SOB, fever and cough. IN ED she was noted to have slight increase in WBC 14.7, theophylline 8.2 low, urinalysis negative for infection, slight dehydration BUN 20 & creatinine 1.20, CXR: mild interstitial infiltrates. Hospital Medicine consulted for further treatment of acute COPD exacerbation and pneumonia. She was placed on Duonebs, supplemental oxygen therapy, solumedrol, antibiotics, fluid hydration, CPAP at night for obstructive sleep apnea, pulmonary consult. Blood cultures obtained and pending final results. Pulmonary agrees patient needs to continue to use CPAP at night and continue initiated, current medical management of COPD. Today 11/17/16 She is feeling better and symptoms have improved. She will be discharged home today. She will need to follow up with Primary Care Physician in 1 week after discharge. Further discharge planning recommendations to follow per Dr Ambrosio. I have seen and examined Mrs Parker today. I have spent 35 minutes in the discharge including documentation, medicine reconciliation, discharge planning. She will follow up with Dr Capellan her PCP and Dr Nader Castillo in their clinics. She will use her regular insulin sliding scale she has at home while on the steroids and resume her Glyzambi as before. Specialty Discharge - Follow Up or Referrals Follow up with: Moustapha Castillo MD [Physician] - 1 Month Mauricio Capellan [Primary Care Provider] - 1 Week Discharge Plan - Discharge Data Disposition: Disch To Home/Self Care - Discharge Medications New clonazePAM TAB [KlonoPIN] 0.5 mg PO BID PRN #60 tablet PRN Reason: Anxiety Levofloxacin Tab [Levaquin Tab] 750 mg PO DAILY #7 tablet predniSONE TAB [PredniSONE] 10 mg PO DAILY #15 tablet Continue Pramipexole [Mirapex] 1 mg PO BID Budesonide Neb [Pulmicort Respules] 0.5 mg RESP TX BID Ipratropium/Albuterol Sulfate [Iprat-Albut 0.5-3(2.5) mg/3 ml] 3 mg Q6HR PRN PRN Reason: Shortness Of Breath/Wheezing Naproxen [Naprosyn Tab] 500 mg PO BID PRN tablet PRN Reason: Pain Theophylline ER Tab 300 mg PO BID W/MEALS tablet tiZANidine [Zanaflex] 4 mg PO TID PRN tablet PRN Reason: Muscle Spasm Torsemide Tab [Demadex Tab] 20 mg PO QAM Sennosides/Docusate Sodium [Kelli-Colace Tablet] 1 each PO BEDTIME PRN PRN Reason: BOWEL ENHANCEMENT Solifenacin [Vesicare] 5 mg PO QAM clonazePAM [Clonazepam] 0.5 mg PO BID PRN PRN Reason: Anxiety Formoterol Neb [Perforomist] 1 vial INH BID Empagliflozin/Linagliptin [Glyxambi 25 mg-5 mg Tablet] 1 tablet PO QAM Diltiazem Cd Cap [Cardizem CD] 240 mg PO DAILY capsule guaiFENesin [Guaifenesin ER] 1,200 mg PO Q12H PRN PRN Reason: Allergy Symptoms Aspirin EC Tab 81 mg PO QAM - Follow Up or Referral - Forms/Instructions Exam - Constitutional Vitals: Period Temp Pulse Resp BP Sys/Rawls Pulse Ox Last 24 Hr 96.8 F-98.2 F 69-99 17-20 113-132/56-86 90-99 Discharge Results Procedures and tests throughout hospitalization: Pending Orders 11/14/16 19:49 Blood Culture Stat Labs on day of discharge: Labs from last 24 hours 11/17/16 11/17/16 11/17/16 06:04 04:40 04:40 WBC 21.1 H D RBC 5.35 Hgb 15.5 D Hct 47.7 H MCV 89.2 MCH 29 MCHC 32.5 RDW 16.1 Plt Count 266 MPV 11.5 Neut % (Auto) 74.9 H Lymph % (Auto) 15.6 L Gibson % (Auto) 4.4 Eos % (Auto) 0.0 Baso % (Auto) 0.5 Neut # (Auto) 15.8 H Lymph # (Auto) 3.3 Gibson # (Auto) 0.9 H Eos # (Auto) 0.0 Baso # (Auto) 0.1 Total Counted 100 Immature Gran % 4.6 Nucleated RBC % 0.1 Immature Gran # 0.98 Segmented Neutrophils 77 Band Neutrophils 5 Lymphocytes 10 L Monocytes 7 Metamyelocytes 1 Nucleated RBCs 1 Nucleated RBCs # 0.02 Platelet Estimate Adequate Immature Plt Fraction 0.0 Polychromasia Slight Hypochromasia 1+ Sodium 140 Potassium 4.5 Chloride 104 Carbon Dioxide 29 Anion Gap 11.5 BUN 28 H Creatinine 1.00 GFR Calculation 82 BUN/Creatinine Ratio 28.00 H Glucose 311 H POC Glucose 258 H Calculated Osmolality 296.4 Calcium 9.1 Total Bilirubin 1.10 H AST < 3 ALT 25 Alkaline Phosphatase 105 Total Protein 6.2 L Albumin 2.9 L Globulin 3.3 Albumin/Globulin Ratio 0.8 L 11/17/16 11/16/16 11/16/16 00:24 19:38 17:54 WBC RBC Hgb Hct MCV MCH MCHC RDW Plt Count MPV Neut % (Auto) Lymph % (Auto) Gibson % (Auto) Eos % (Auto) Baso % (Auto) Neut # (Auto) Lymph # (Auto) Gibson # (Auto) Eos # (Auto) Baso # (Auto) Total Counted Immature Gran % Nucleated RBC % Immature Gran # Segmented Neutrophils Band Neutrophils Lymphocytes Monocytes Metamyelocytes Nucleated RBCs Nucleated RBCs # Platelet Estimate Immature Plt Fraction Polychromasia Hypochromasia Sodium Potassium Chloride Carbon Dioxide Anion Gap BUN Creatinine GFR Calculation BUN/Creatinine Ratio Glucose POC Glucose 367 H 390 H 379 H Calculated Osmolality Calcium Total Bilirubin AST ALT Alkaline Phosphatase Total Protein Albumin Globulin Albumin/Globulin Ratio 11/16/16 12:04 WBC RBC Hgb Hct MCV MCH MCHC RDW Plt Count MPV Neut % (Auto) Lymph % (Auto) Gibson % (Auto) Eos % (Auto) Baso % (Auto) Neut # (Auto) Lymph # (Auto) Gibson # (Auto) Eos # (Auto) Baso # (Auto) Total Counted Immature Gran % Nucleated RBC % Immature Gran # Segmented Neutrophils Band Neutrophils Lymphocytes Monocytes Metamyelocytes Nucleated RBCs Nucleated RBCs # Platelet Estimate Immature Plt Fraction Polychromasia Hypochromasia Sodium Potassium Chloride Carbon Dioxide Anion Gap BUN Creatinine GFR Calculation BUN/Creatinine Ratio Glucose POC Glucose 285 H Calculated Osmolality Calcium Total Bilirubin AST ALT Alkaline Phosphatase Total Protein Albumin Globulin Albumin/Globulin Ratio Preliminary micro results at discharge 11/14/16 19:49 Blood Culture - Preliminary Blood No growth at 1 day 11/14/16 19:49 Blood Culture - Preliminary Blood No growth at 1 day DS: Provider Date of admission: 11/14/16 19:17 Primary care physician: Mauricio Capellan Attending physician on admission: Medardo Huerta MD Consults: 11/14/16 21:36 Consult to Physician [CONS] Routine Comment: asthma excerbation Consulting Provider: Moustapha Castillo Person Notified: aware Discharging clinician: Tala Lucero NP <Reanna Ambrosio - Last Filed: 11/17/16 09:52> Hospital Course - Time spent with patient Time with patient DS: Greater than 30 minutes Diagnosis - Discharge Diagnosis (1) Acute exacerbation of COPD with asthma Status: Resolved (2) Obstructive sleep apnea Status: Chronic (3) Type 2 diabetes mellitus Status: Chronic (4) Obesity Status: Chronic Discharge Plan - Discharge Data Condition at Discharge: Stable Discharge Diet: diabetic diet Activity: resume usual activities as tolerated, wear oxygen at all times Exam - Constitutional General appearance: no acute distress, morbidly obese - Eye Eye exam: Present: EOMI. Absent: scleral icterus - Respiratory Respiratory exam: Present: rhonchi (a few scattered, good air movement). Absent : wheezes - Cardiovascular Cardiovascular exam: Present: regular rate and rhythm - Extremities Exam Extremities exam: Absent: edema
[2016-11-17 11:28] VITALS: BP 155/80
--- NOTE | 2016-11-19 13:48 | Physician Query Form ---
CLICK EDIT DOCUMENT TO SELECT QUERY ANSWER --> OK --> SIGN Miracle Navarro RN Clinical Motor Vehicle Licence Examiner W) [phone] (f) [phone] [email or web address] PROVIDERS: Make your selection(s) from the choices in EACH section by typing an "x" and enter comments in the comment section. Please use your independent medical judgment in providing your response. This request does not imply that any particular answer is desired or expected. CLINICAL INDICATORS: (Providers should not edit this section) Based on lab results of creatinine on admission of 1.20 with a GFR of 67 and decreased to 0.90. Pt. treated with IV fluids of Normal Saline. Clarify which of the following most accurately represents the patient's renal status: ( x) Acute kidney injury (non-traumatic) ( ) Acute renal failure ( ) Acute renal failure with underlying Chronic Kidney Disease (CKD) - please provide stage below ( ) CKD - please provide stage below ( ) Other, please specify: ( ) Clinically unable to determine Chronic Kidney Disease Stages Source: [employer] ( x) Stage I (eGFR > or = 90) ( ) Stage II (eGFR 60 - 89) ( ) Stage III (eGFR 30 - 59) ( ) Stage IV (eGFR 15 - 29) ( ) Stage V (eGFR < 15 or dialysis) COMMENTS: PLEASE ALSO DOCUMENT RESPONSE IN PROGRESS NOTES AND/OR DISCHARGE SUMMARY Use of terms such as suspected, likely, or probable (associated with a specific diagnosis that is being evaluated, monitored, or treated as if it exists) are acceptable and can be restated in the discharge summary if not ruled out. MTDD
== END 2016-11-17 12:35 | disposition home or self-care (01) | DRG 140 ==
LOC: N.ED 17:11 → N.EDINP 19:17 → SUATTDRO 19:17 → N.5E 19:44
PROVIDERS: ADMIT Family Medicine; ATTEND Internal Medicine

== ENCOUNTER 2017-07-09 19:02 | Inpatient (IN) ==
[2017-07-09] MEDS ORDERED: ALBUTEROL 2.5 MG/3 ML NEB RESP TX STA ×2 (19:35→21:39)
[2017-07-09] MEDS ORDERED: methylPREDNISolone SOD SUC 125 MG/2 ML VIAL IV ONE (19:35)
[2017-07-09 20:30] LABS: Basophils # 0.1 10*3/uL (0.0-0.2); Basophils % 0.4 % (0.0-0.8); Eosinophils # 0.1 10*3/uL (0.0-0.87); Eosinophils % 0.3 % (0.00-10.9); Hematocrit 51.7 VOL% (35.7-47.0); Hemoglobin 17.2 GM/DL (12.0-16.0); Immature Granulocytes Absolute 0.37 #; Lymphocytes # 2.6 10*3/uL (1.4-4.0); Mean Corpuscular HGB Conc 33.3 GM/DL (32-36); Mean Corpuscular Hemoglobin 30 PG (27-34); Mean Corpuscular Volume 88.8 FL (87-102); Mean Platelet Volume 10.5 FL (9.6-12.0); Monocytes # 0.9 10*3/uL (0.11-0.8); Neutrophils # 14.3 10*3/uL (1.4-7.4); Neutrophils % 78.3 % (38.7-73.9); Platelet Count 261 T/CUMM (130-400); Red Blood Count 5.82 MC/CUMM (3.8-5.5); Red Cell Distribution Width 15.4 % (9.3-17.3); White Blood Count 18.3 T/CUMM (4-12)
[2017-07-09 21:07] LABS: Blood Urea Nitrogen 22 MG/DL (7-18); Calcium 8.8 MG/DL (8.5-10.1); Glucose 194 MG/DL (74-106); Osmolality,Calculated 293.8 MOS/KG (273-304); Potassium 3.7 MMOL/L (3.5-5.1); Sodium 144 MMOL/L (136-145)
[2017-07-09 21:13] LABS: Troponin I Only < 0.015 NG/ML (0.00-0.045)
[2017-07-09] MEDS ORDERED: ZALEPLON 5 MG CAPSULE PO PRN (22:34)
[2017-07-09] MEDS ORDERED: ONDANSETRON 4 MG/2 ML VIAL IV PRN (22:34)
[2017-07-09] MEDS ORDERED: ALBUTEROL/IPRATROPIUM 3 ML NEB RESP TX PRN (22:36)
[2017-07-09] MEDS ORDERED: NAPROXEN 500 MG TABLET PO PRN (22:37)
[2017-07-09] MEDS ORDERED: ONDANSETRON 4 MG TABLET PO PRN (22:37)
[2017-07-09] MEDS ORDERED: DEXTROSE 50% 25 GM/50 ML VIAL IV PRN (22:49)
[2017-07-09] MEDS ORDERED: GLUCAGON 1 MG VIAL IM PRN (22:49)
[2017-07-10] MEDS: ALBUTEROL/IPRATROPIUM 3 ML NEB RESP TX SCH ×4 (00:06→19:16)
[2017-07-10 02:23] LABS: Basophils # 0.1 10*3/uL (0.0-0.2); Basophils % 0.7 % (0.0-0.8); Eosinophils % 0.1 % (0.00-10.9); Hematocrit 51.8 VOL% (35.7-47.0); Hemoglobin 16.5 GM/DL (12.0-16.0); Immature Granulocytes % 2.5 %; Immature Granulocytes Absolute 0.41 #; Lymphocytes # 0.6 10*3/uL (1.4-4.0); Lymphocytes % 3.5 % (21.3-54.2); Mean Corpuscular HGB Conc 31.9 GM/DL (32-36); Mean Corpuscular Hemoglobin 29 PG (27-34); Mean Corpuscular Volume 91.7 FL (87-102); Monocytes # 0.2 10*3/uL (0.11-0.8); Monocytes % 0.9 % (1.7-12.7); Neutrophils % 92.3 % (38.7-73.9); Platelet Count 237 T/CUMM (130-400); Red Blood Count 5.65 MC/CUMM (3.8-5.5); Red Cell Distribution Width 15.6 % (9.3-17.3); White Blood Count 16.2 T/CUMM (4-12)
[2017-07-10 02:51] LABS: Calcium 8.5 MG/DL (8.5-10.1); Osmolality,Calculated 300.5 MOS/KG (273-304); Potassium 4.1 MMOL/L (3.5-5.1)
[2017-07-10 03:09] LABS: Band Neutrophils 10 % (0-10); Lymphocytes 3 % (20-55); Segmented Neutrophils 84 % (50-85); Total Cells Counted 100
[2017-07-10 03:12] LABS: Polychromasia Slight
[2017-07-10] MEDS: methylPREDNISolone SOD SUC 40 MG/1 ML VIAL IV SCH ×3 (03:42→23:13)
[2017-07-10] MEDS: BUDESONIDE 0.5 MG/2 ML NEB RESP TX SCH ×2 (08:05→19:16)
[2017-07-10] MEDS ORDERED: PANTOPRAZOLE 40 MG TABLET PO SCH (09:00)
[2017-07-10] MEDS ORDERED: EMPAGLIFLOZIN PO SCH (09:00)
[2017-07-10] MEDS ORDERED: [UNRECOGNIZED DRUG - OTHER] PO SCH (09:00)
[2017-07-10] MEDS ORDERED: LINAGLIPTIN PO SCH (09:00)
[2017-07-10] MEDS: TORSEMIDE 20 MG TABLET PO SCH (10:06)
[2017-07-10] MEDS: THEOPHYLLINE ER 300 MG TABLET PO SCH ×2 (10:06→17:31)
[2017-07-10] MEDS: ASPIRIN EC 81 MG TABLET PO SCH (10:07)
[2017-07-10] MEDS: PANTOPRAZOLE 40 MG TABLET PO SCH (10:07)
[2017-07-10] MEDS: LEVOFLOXACIN 500 MG TABLET PO SCH (10:07)
[2017-07-10] MEDS: DILTIAZEM CD 240 MG CAPSULE PO SCH (10:08)
[2017-07-10] MEDS: glipiZIDE 5 MG TABLET PO SCH (10:08)
[2017-07-10] MEDS: INSULIN LISPRO 100 UNIT/ML SUBCUT SCH ×4 (10:09→23:12)
[2017-07-10] MEDS: ENOXAPARIN 40 MG/0.4 ML SYRINGE SUBCUT SCH (10:09)
[2017-07-10] MEDS: PRAMIPEXOLE 1 MG TABLET PO SCH ×2 (10:12→17:29)
[2017-07-10] MEDS: GABAPENTIN 300 MG CAPSULE PO SCH (22:23)
[2017-07-10] MEDS: ROSUVASTATIN 10 MG TABLET PO SCH (22:23)
[2017-07-11] MEDS: ALBUTEROL/IPRATROPIUM 3 ML NEB RESP TX SCH ×2 (01:36→08:04)
[2017-07-11] MEDS: clonazePAM 0.5 MG TABLET PO PRN ×2 (02:01→21:32)
[2017-07-11] MEDS: tiZANidine 4 MG TABLET PO PRN ×2 (02:01→21:32)
[2017-07-11] MEDS: PRAMIPEXOLE 1 MG TABLET PO SCH ×2 (05:35→17:59)
[2017-07-11] MEDS: methylPREDNISolone SOD SUC 40 MG/1 ML VIAL IV SCH ×3 (06:44→23:41)
[2017-07-11] MEDS: BUDESONIDE 0.5 MG/2 ML NEB RESP TX SCH ×2 (08:04→19:30)
[2017-07-11] MEDS: INSULIN LISPRO 100 UNIT/ML SUBCUT SCH ×4 (09:00→21:26)
[2017-07-11] MEDS: PANTOPRAZOLE 40 MG TABLET PO SCH (09:01)
[2017-07-11] MEDS: THEOPHYLLINE ER 300 MG TABLET PO SCH ×2 (09:01→17:53)
[2017-07-11] MEDS: TORSEMIDE 20 MG TABLET PO SCH (09:01)
[2017-07-11] MEDS: DILTIAZEM CD 240 MG CAPSULE PO SCH (09:02)
[2017-07-11] MEDS: ASPIRIN EC 81 MG TABLET PO SCH (09:02)
[2017-07-11] MEDS: LEVOFLOXACIN 500 MG TABLET PO SCH (09:02)
[2017-07-11] MEDS: glipiZIDE 5 MG TABLET PO SCH (09:02)
[2017-07-11] MEDS: ENOXAPARIN 40 MG/0.4 ML SYRINGE SUBCUT SCH (09:07)
[2017-07-11] MEDS ORDERED: ALBUTEROL/IPRATROPIUM 3 ML NEB RESP TX PRN (10:17)
[2017-07-11] MEDS: ARFORMOTEROL 15 MCG/2 ML NEB RESP TX SCH ×2 (11:50→19:30)
[2017-07-11] MEDS: DORNASE ALFA 2.5 MG/2.5 ML VIAL RESP TX SCH ×2 (12:00→19:30)
[2017-07-11] MEDS: INSULIN NPH 100 UNIT/ML SUBCUT SCH (17:53)
[2017-07-11] MEDS: ROSUVASTATIN 10 MG TABLET PO SCH (21:26)
[2017-07-11] MEDS: GABAPENTIN 300 MG CAPSULE PO SCH (21:26)
[2017-07-12] MEDS: methylPREDNISolone SOD SUC 40 MG/1 ML VIAL IV SCH ×3 (06:17→22:02)
[2017-07-12] MEDS: PRAMIPEXOLE 1 MG TABLET PO SCH ×2 (06:17→17:03)
[2017-07-12] MEDS: ARFORMOTEROL 15 MCG/2 ML NEB RESP TX SCH ×2 (07:24→19:05)
[2017-07-12] MEDS: DORNASE ALFA 2.5 MG/2.5 ML VIAL RESP TX SCH ×2 (07:24→19:05)
[2017-07-12] MEDS: BUDESONIDE 0.5 MG/2 ML NEB RESP TX SCH ×2 (07:24→19:05)
[2017-07-12] MEDS: INSULIN NPH 100 UNIT/ML SUBCUT SCH ×2 (08:24→17:00)
[2017-07-12] MEDS: INSULIN LISPRO 100 UNIT/ML SUBCUT SCH ×4 (08:24→22:01)
[2017-07-12] MEDS: THEOPHYLLINE ER 300 MG TABLET PO SCH ×2 (10:12→17:03)
[2017-07-12] MEDS: LEVOFLOXACIN 500 MG TABLET PO SCH (10:12)
[2017-07-12] MEDS: DILTIAZEM CD 240 MG CAPSULE PO SCH (10:13)
[2017-07-12] MEDS: PANTOPRAZOLE 40 MG TABLET PO SCH (10:14)
[2017-07-12] MEDS: ASPIRIN EC 81 MG TABLET PO SCH (10:14)
[2017-07-12] MEDS: ENOXAPARIN 40 MG/0.4 ML SYRINGE SUBCUT SCH (10:15)
[2017-07-12] MEDS: tiZANidine 4 MG TABLET PO PRN (22:01)
[2017-07-12] MEDS: GABAPENTIN 300 MG CAPSULE PO SCH (22:01)
[2017-07-12] MEDS: clonazePAM 0.5 MG TABLET PO PRN (22:01)
[2017-07-12] MEDS: ROSUVASTATIN 10 MG TABLET PO SCH (22:06)
[2017-07-13] MEDS: PRAMIPEXOLE 1 MG TABLET PO SCH (05:41)
[2017-07-13] MEDS: BUDESONIDE 0.5 MG/2 ML NEB RESP TX SCH (06:55)
[2017-07-13] MEDS: DORNASE ALFA 2.5 MG/2.5 ML VIAL RESP TX SCH (06:55)
[2017-07-13] MEDS: ARFORMOTEROL 15 MCG/2 ML NEB RESP TX SCH (06:55)
[2017-07-13] MEDS: ENOXAPARIN 40 MG/0.4 ML SYRINGE SUBCUT SCH (09:20)
[2017-07-13] MEDS: INSULIN LISPRO 100 UNIT/ML SUBCUT SCH ×2 (09:21→12:18)
[2017-07-13] MEDS: LEVOFLOXACIN 500 MG TABLET PO SCH (09:21)
[2017-07-13] MEDS: INSULIN NPH 100 UNIT/ML SUBCUT SCH (09:21)
[2017-07-13] MEDS: THEOPHYLLINE ER 300 MG TABLET PO SCH (09:22)
[2017-07-13] MEDS: PANTOPRAZOLE 40 MG TABLET PO SCH (09:22)
[2017-07-13] MEDS: ASPIRIN EC 81 MG TABLET PO SCH (09:22)
[2017-07-13] MEDS: DILTIAZEM CD 240 MG CAPSULE PO SCH (09:22)
[2017-07-13] MEDS: methylPREDNISolone SOD SUC 40 MG/1 ML VIAL IV SCH (09:23)
[2017-07-13] MEDS ORDERED: predniSONE 20 MG TABLET PO SCH (09:30)
[2017-07-13 11:41] VITALS: BP 135/75
== END 2017-07-13 12:50 | disposition home or self-care (01) | DRG 140 ==
LOC: N.EDINP 19:02 → N.ED 19:02 → N.3E 23:10 → SUATTDRO 07-10 13:56
PROVIDERS: ADMIT Internal Medicine Cardiovascular Disease; ATTEND Internal Medicine

== ENCOUNTER 2018-02-19 13:49 | Inpatient (IN) ==
[2018-02-19] MEDS ORDERED: ALBUTEROL/IPRATROPIUM 3 ML NEB RESP TX STA (15:18)
[2018-02-19] MEDS ORDERED: FUROSEMIDE 40 MG/4 ML VIAL IV STA (15:19)
[2018-02-19 15:53] LABS: Basophils # 0.1 10*3/uL (0.0-0.2); Basophils % 0.6 % (0.0-0.8); Eosinophils # 0.2 10*3/uL (0.0-0.87); Eosinophils % 1.4 % (0.00-10.9); Hematocrit 49.6 VOL% (35.7-47.0); Hemoglobin 15.5 GM/DL (12.0-16.0); Immature Granulocytes % 0.5 %; Immature Granulocytes Absolute 0.07 #; Lymphocytes # 2.2 10*3/uL (1.4-4.0); Lymphocytes % 15.4 % (21.3-54.2); Mean Corpuscular HGB Conc 31.3 GM/DL (32-36); Mean Corpuscular Hemoglobin 30 PG (27-34); Mean Corpuscular Volume 94.5 FL (87-102); Mean Platelet Volume 10.5 FL (9.6-12.0); Monocytes # 0.7 10*3/uL (0.11-0.8); Neutrophils # 11.2 10*3/uL (1.4-7.4); Neutrophils % 77.1 % (38.7-73.9); Platelet Count 236 T/CUMM (130-400); Red Blood Count 5.25 MC/CUMM (3.8-5.5); Red Cell Distribution Width 15.2 % (9.3-17.3); White Blood Count 14.5 T/CUMM (4-12)
[2018-02-19 16:12] LABS: Lactic Acid 0.8 MMOL/L (0.4-2.0)
[2018-02-19] MEDS ORDERED: ONDANSETRON 4 MG TABLET PO PRN (17:05)
[2018-02-19] MEDS ORDERED: NAPROXEN 500 MG TABLET PO PRN (17:05)
[2018-02-19] MEDS ORDERED: DEXTROSE 50% 25 GM/50 ML VIAL IV PRN (17:14)
[2018-02-19] MEDS ORDERED: GLUCAGON 1 MG VIAL IM PRN (17:14)
[2018-02-19] MEDS ORDERED: MAGNESIUM SULF RIDER 2 GM in PREMIX 1 EACH IV PRN (17:25)
[2018-02-19] MEDS ORDERED: MAGNESIUM SULF RIDER 4 GM in PREMIX 1 EACH IV PRN (17:25)
[2018-02-19] MEDS ORDERED: POTASSIUM CHLORIDE RIDER 10 MEQ in PREMIX 1 EACH IV PRN (17:25)
[2018-02-19 17:36] LABS: Alanine Aminotransferase 28 U/L (13-56); Alkaline Phosphatase 149 U/L (45-117); Aspartate Amino Transferase 7 U/L (0-37); Bilirubin,Total < 0.39 MG/DL (0.2-1.0); Blood Urea Nitrogen 14 MG/DL (7-18); Glucose 106 MG/DL (74-106); Osmolality,Calculated 273.8 MOS/KG (273-304); Potassium 3.8 MMOL/L (3.5-5.1); Sodium 137 MMOL/L (136-145); Total Protein 7.2 G/DL (6.4-8.3)
[2018-02-19] MEDS: LEVOFLOXACIN INJ 750 MG in PREMIX 1 EACH IV SCH (19:30)
[2018-02-19] MEDS: BUDESONIDE 0.5 MG/2 ML NEB RESP TX SCH (20:52)
[2018-02-19] MEDS: FORMOTEROL 20 MCG/2 ML NEB RESP TX SCH (20:52)
[2018-02-19] MEDS: ALBUTEROL/IPRATROPIUM 3 ML NEB RESP TX SCH (20:52)
[2018-02-19] MEDS: FERROUS SULFATE 325 MG TABLET PO SCH (21:42)
[2018-02-19] MEDS: glipiZIDE 5 MG TABLET PO SCH (21:42)
[2018-02-19] MEDS: methylPREDNISolone SOD SUC 125 MG/2 ML VIAL IV SCH (21:42)
[2018-02-19] MEDS: GABAPENTIN 300 MG CAPSULE PO SCH (21:42)
[2018-02-19] MEDS: INSULIN REGULAR 100 UNIT/ML SUBCUT SCH (21:42)
[2018-02-19] MEDS: guaiFENesin/DM ER 600-30 MG TABLET PO SCH (21:42)
[2018-02-19] MEDS: HEPARIN 5,000 UNIT/1 ML VIAL SUBCUT SCH (21:43)
[2018-02-19] MEDS: clonazePAM 0.5 MG TABLET PO SCH (21:48)
[2018-02-19] MEDS: tiZANidine 4 MG TABLET PO PRN (21:48)
[2018-02-20] MEDS: ALBUTEROL/IPRATROPIUM 3 ML NEB RESP TX SCH ×4 (01:20→19:14)
[2018-02-20] MEDS: methylPREDNISolone SOD SUC 125 MG/2 ML VIAL IV SCH ×4 (01:55→21:40)
[2018-02-20] MEDS: guaiFENesin 200 MG/10 ML UDCUP PO PRN ×3 (02:49→21:40)
[2018-02-20] MEDS: HEPARIN 5,000 UNIT/1 ML VIAL SUBCUT SCH ×3 (04:32→21:41)
[2018-02-20] MEDS: PRAMIPEXOLE 1 MG TABLET PO SCH ×2 (04:32→17:51)
[2018-02-20 05:26] LABS: Basophils # 0.1 10*3/uL (0.0-0.2); Basophils % 0.3 % (0.0-0.8); Eosinophils % 0.1 % (0.00-10.9); Hematocrit 51.1 VOL% (35.7-47.0); Hemoglobin 15.7 GM/DL (12.0-16.0); Immature Granulocytes % 0.7 %; Immature Granulocytes Absolute 0.11 #; Lymphocytes # 0.9 10*3/uL (1.4-4.0); Lymphocytes % 5.9 % (21.3-54.2); Mean Corpuscular HGB Conc 30.7 GM/DL (32-36); Mean Corpuscular Hemoglobin 29 PG (27-34); Mean Platelet Volume 10.7 FL (9.6-12.0); Monocytes # 0.1 10*3/uL (0.11-0.8); Monocytes % 0.8 % (1.7-12.7); Neutrophils # 14.2 10*3/uL (1.4-7.4); Neutrophils % 92.2 % (38.7-73.9); Platelet Count 264 T/CUMM (130-400); Red Blood Count 5.38 MC/CUMM (3.8-5.5); Red Cell Distribution Width 15.3 % (9.3-17.3); White Blood Count 15.4 T/CUMM (4-12)
[2018-02-20 05:43] LABS: Albumin 3.1 G/DL (3.4-5.0); Bilirubin,Total 0.6 MG/DL (0.2-1.0); Calcium 9.1 MG/DL (8.5-10.1); Potassium 4.4 MMOL/L (3.5-5.1); Total Protein 7.9 G/DL (6.4-8.3)
[2018-02-20 05:56] LABS: Lymphocytes 2 % (20-55); Polychromasia Few; Segmented Neutrophils 97 % (50-85); Total Cells Counted 100
[2018-02-20 05:57] LABS: Platelet Estimate Normal
[2018-02-20] MEDS: BUDESONIDE 0.5 MG/2 ML NEB RESP TX SCH ×2 (07:03→19:14)
[2018-02-20] MEDS: FORMOTEROL 20 MCG/2 ML NEB RESP TX SCH ×2 (07:03→19:14)
[2018-02-20] MEDS: THEOPHYLLINE ER 300 MG TABLET PO SCH ×2 (08:44→17:51)
[2018-02-20] MEDS ORDERED: TORSEMIDE 20 MG TABLET PO SCH (09:00)
[2018-02-20] MEDS ORDERED: LINAGLIPTIN PO SCH (09:00)
[2018-02-20] MEDS ORDERED: [UNRECOGNIZED DRUG - OTHER] PO SCH (09:00)
[2018-02-20] MEDS ORDERED: EMPAGLIFLOZIN PO SCH (09:00)
[2018-02-20] MEDS: clonazePAM 0.5 MG TABLET PO SCH ×2 (09:34→21:40)
[2018-02-20] MEDS: glipiZIDE 5 MG TABLET PO SCH ×2 (09:35→21:40)
[2018-02-20] MEDS: PANTOPRAZOLE 40 MG TABLET PO SCH (09:35)
[2018-02-20] MEDS: DILTIAZEM CD 240 MG CAPSULE PO SCH (09:35)
[2018-02-20] MEDS: FERROUS SULFATE 325 MG TABLET PO SCH ×2 (09:35→21:40)
[2018-02-20] MEDS: ASPIRIN EC 81 MG TABLET PO SCH (09:35)
[2018-02-20] MEDS: guaiFENesin/DM ER 600-30 MG TABLET PO SCH ×2 (09:36→21:40)
[2018-02-20] MEDS: INSULIN REGULAR 100 UNIT/ML SUBCUT SCH ×4 (10:10→21:40)
[2018-02-20] MEDS: FUROSEMIDE 40 MG/4 ML VIAL IV SCH (17:27)
[2018-02-20] MEDS: LEVOFLOXACIN INJ 750 MG in PREMIX 1 EACH IV SCH (17:51)
[2018-02-20] MEDS: GABAPENTIN 300 MG CAPSULE PO SCH (21:40)
[2018-02-20] MEDS: INSULIN GLARGINE 100 UNIT/ML SUBCUT SCH (21:41)
[2018-02-20] MEDS: tiZANidine 4 MG TABLET PO PRN (21:48)
[2018-02-20] MEDS ORDERED: ALBUTEROL 2.5 MG/3 ML NEB RESP TX PRN (23:24)
[2018-02-21] MEDS: ALBUTEROL/IPRATROPIUM 3 ML NEB RESP TX SCH ×4 (00:47→19:20)
[2018-02-21] MEDS: guaiFENesin 200 MG/10 ML UDCUP PO PRN ×2 (02:25→09:42)
[2018-02-21] MEDS: methylPREDNISolone SOD SUC 125 MG/2 ML VIAL IV SCH ×4 (02:26→21:30)
[2018-02-21 02:56] LABS: ABG HCO3 25.2 MMOL/L (20-26); ABG Oxygen Saturation 96.5 % (95-100); ABG PH 7.368 (7.35-7.45); ABG PO2 86.6 MM HG (80-95); ABG TCO2 22.9 MMOL/L (23-27); Allen Test Positive
[2018-02-21] MEDS: HEPARIN 5,000 UNIT/1 ML VIAL SUBCUT SCH ×3 (04:56→21:46)
[2018-02-21] MEDS: PRAMIPEXOLE 1 MG TABLET PO SCH ×2 (04:56→16:56)
[2018-02-21 05:22] LABS: Basophils % 0.2 % (0.0-0.8); Hematocrit 49.3 VOL% (35.7-47.0); Hemoglobin 15.3 GM/DL (12.0-16.0); Immature Granulocytes % 1.2 %; Immature Granulocytes Absolute 0.19 #; Lymphocytes # 1.3 10*3/uL (1.4-4.0); Lymphocytes % 8.1 % (21.3-54.2); Mean Corpuscular Hemoglobin 29 PG (27-34); Mean Corpuscular Volume 94.3 FL (87-102); Mean Platelet Volume 10.9 FL (9.6-12.0); Monocytes # 0.3 10*3/uL (0.11-0.8); Monocytes % 1.7 % (1.7-12.7); Neutrophils # 14.4 10*3/uL (1.4-7.4); Neutrophils % 88.8 % (38.7-73.9); Platelet Count 286 T/CUMM (130-400); Red Blood Count 5.23 MC/CUMM (3.8-5.5); Red Cell Distribution Width 14.8 % (9.3-17.3); White Blood Count 16.3 T/CUMM (4-12)
[2018-02-21 05:37] LABS: Alanine Aminotransferase 29 U/L (13-56); Albumin 2.9 G/DL (3.4-5.0); Alkaline Phosphatase 165 U/L (45-117); Aspartate Amino Transferase < 3 U/L (0-37); Blood Urea Nitrogen 34 MG/DL (7-18); Glucose 320 MG/DL (74-106); Osmolality,Calculated 292.8 MOS/KG (273-304); Potassium 3.8 MMOL/L (3.5-5.1); Sodium 137 MMOL/L (136-145); Total Protein 7.7 G/DL (6.4-8.3)
[2018-02-21] MEDS: BENZONATATE 100 MG CAPSULE PO SCH ×3 (06:06→17:36)
[2018-02-21] MEDS: BUDESONIDE 0.5 MG/2 ML NEB RESP TX SCH ×2 (07:10→19:20)
[2018-02-21] MEDS: FORMOTEROL 20 MCG/2 ML NEB RESP TX SCH ×2 (07:10→19:20)
[2018-02-21] MEDS: guaiFENesin/DM ER 600-30 MG TABLET PO SCH ×2 (09:00→21:29)
[2018-02-21] MEDS: INSULIN REGULAR 100 UNIT/ML SUBCUT SCH ×4 (09:36→21:45)
[2018-02-21] MEDS: FUROSEMIDE 40 MG/4 ML VIAL IV SCH (09:37)
[2018-02-21] MEDS: FERROUS SULFATE 325 MG TABLET PO SCH ×2 (09:38→21:29)
[2018-02-21] MEDS: DILTIAZEM CD 240 MG CAPSULE PO SCH (09:38)
[2018-02-21] MEDS: PANTOPRAZOLE 40 MG TABLET PO SCH (09:38)
[2018-02-21] MEDS: clonazePAM 0.5 MG TABLET PO SCH ×2 (09:39→21:28)
[2018-02-21] MEDS: glipiZIDE 5 MG TABLET PO SCH ×2 (09:39→21:30)
[2018-02-21] MEDS: ASPIRIN EC 81 MG TABLET PO SCH (09:39)
[2018-02-21] MEDS: THEOPHYLLINE ER 300 MG TABLET PO SCH (09:39)
[2018-02-21] MEDS: VANCOMYCIN INJ 2,000 MG in SODIUM CHLORIDE 0.9% 500 ML IV SCH (09:43)
[2018-02-21] MEDS ORDERED: SODIUM CHLORIDE 0.45% 1,000 ML IV SCH (14:30)
[2018-02-21] MEDS: THEOPHYLLINE ER (24 HR) 400 MG TABLET PO SCH (16:57)
[2018-02-21] MEDS: LEVOFLOXACIN INJ 750 MG in PREMIX 1 EACH IV SCH (16:58)
[2018-02-21] MEDS: GABAPENTIN 300 MG CAPSULE PO SCH (21:29)
[2018-02-21] MEDS: tiZANidine 4 MG TABLET PO PRN (21:45)
[2018-02-21] MEDS: INSULIN GLARGINE 100 UNIT/ML SUBCUT SCH (21:45)
[2018-02-22] MEDS: VANCOMYCIN INJ 2,000 MG in SODIUM CHLORIDE 0.9% 500 ML IV SCH ×3 (00:07→22:29)
[2018-02-22] MEDS: BENZONATATE 100 MG CAPSULE PO SCH ×5 (00:09→23:51)
[2018-02-22] MEDS: ALBUTEROL/IPRATROPIUM 3 ML NEB RESP TX SCH ×4 (00:24→18:45)
[2018-02-22] MEDS: methylPREDNISolone SOD SUC 125 MG/2 ML VIAL IV SCH ×4 (02:24→22:26)
[2018-02-22] MEDS: HEPARIN 5,000 UNIT/1 ML VIAL SUBCUT SCH ×3 (04:41→22:29)
[2018-02-22] MEDS: PRAMIPEXOLE 1 MG TABLET PO SCH ×2 (05:48→17:23)
[2018-02-22 05:58] LABS: Basophils % 0.2 % (0.0-0.8); Hematocrit 47.1 VOL% (35.7-47.0); Immature Granulocytes % 1.3 %; Immature Granulocytes Absolute 0.23 #; Lymphocytes # 1.2 10*3/uL (1.4-4.0); Lymphocytes % 6.5 % (21.3-54.2); Mean Corpuscular HGB Conc 31.8 GM/DL (32-36); Mean Corpuscular Hemoglobin 30 PG (27-34); Mean Corpuscular Volume 92.5 FL (87-102); Mean Platelet Volume 10.6 FL (9.6-12.0); Monocytes # 0.4 10*3/uL (0.11-0.8); Monocytes % 2.4 % (1.7-12.7); Neutrophils # 16.2 10*3/uL (1.4-7.4); Neutrophils % 89.6 % (38.7-73.9); Platelet Count 283 T/CUMM (130-400); Red Blood Count 5.09 MC/CUMM (3.8-5.5); Red Cell Distribution Width 14.9 % (9.3-17.3); White Blood Count 18.1 T/CUMM (4-12)
[2018-02-22 06:27] LABS: Alanine Aminotransferase 29 U/L (13-56); Albumin 2.8 G/DL (3.4-5.0); Alkaline Phosphatase 142 U/L (45-117); Aspartate Amino Transferase 4 U/L (0-37); Bilirubin,Total < 0.39 MG/DL (0.2-1.0); Blood Urea Nitrogen 33 MG/DL (7-18); Calcium 9.2 MG/DL (8.5-10.1); Glucose 313 MG/DL (74-106); Osmolality,Calculated 291.8 MOS/KG (273-304); Potassium 3.7 MMOL/L (3.5-5.1); Sodium 137 MMOL/L (136-145); Total Protein 7.3 G/DL (6.4-8.3)
[2018-02-22] MEDS: BUDESONIDE 0.5 MG/2 ML NEB RESP TX SCH ×2 (08:25→18:45)
[2018-02-22] MEDS: FORMOTEROL 20 MCG/2 ML NEB RESP TX SCH ×2 (08:25→18:45)
[2018-02-22] MEDS: glipiZIDE 5 MG TABLET PO SCH ×2 (09:28→22:28)
[2018-02-22] MEDS: clonazePAM 0.5 MG TABLET PO SCH ×2 (09:28→22:27)
[2018-02-22] MEDS: THEOPHYLLINE ER (24 HR) 400 MG TABLET PO SCH ×2 (09:29→17:23)
[2018-02-22] MEDS: guaiFENesin/DM ER 600-30 MG TABLET PO SCH ×2 (09:29→22:44)
[2018-02-22] MEDS: FERROUS SULFATE 325 MG TABLET PO SCH ×2 (09:29→22:28)
[2018-02-22] MEDS: PANTOPRAZOLE 40 MG TABLET PO SCH (09:29)
[2018-02-22] MEDS: DILTIAZEM CD 240 MG CAPSULE PO SCH (09:29)
[2018-02-22] MEDS: ASPIRIN EC 81 MG TABLET PO SCH (09:29)
[2018-02-22] MEDS: FUROSEMIDE 40 MG/4 ML VIAL IV SCH (09:30)
[2018-02-22] MEDS: INSULIN REGULAR 100 UNIT/ML SUBCUT SCH ×4 (09:30→22:27)
[2018-02-22] MEDS: LEVOFLOXACIN INJ 750 MG in PREMIX 1 EACH IV SCH (17:23)
[2018-02-22] MEDS: INSULIN GLARGINE 100 UNIT/ML SUBCUT SCH (22:26)
[2018-02-22] MEDS: tiZANidine 4 MG TABLET PO PRN (22:28)
[2018-02-22] MEDS: GABAPENTIN 300 MG CAPSULE PO SCH (22:28)
[2018-02-22] MEDS: guaiFENesin 200 MG/10 ML UDCUP PO PRN (22:34)
[2018-02-23] MEDS: ALBUTEROL/IPRATROPIUM 3 ML NEB RESP TX SCH ×4 (00:10→19:53)
[2018-02-23] MEDS: methylPREDNISolone SOD SUC 125 MG/2 ML VIAL IV SCH ×4 (03:17→21:47)
[2018-02-23] MEDS: HEPARIN 5,000 UNIT/1 ML VIAL SUBCUT SCH ×2 (03:17→14:24)
[2018-02-23] MEDS: tiZANidine 4 MG TABLET PO PRN (03:40)
[2018-02-23 06:51] LABS: Basophils # 0.1 10*3/uL (0.0-0.2); Basophils % 0.3 % (0.0-0.8); Hemoglobin 14.8 GM/DL (12.0-16.0); Immature Granulocytes % 1.5 %; Immature Granulocytes Absolute 0.22 #; Lymphocytes # 0.8 10*3/uL (1.4-4.0); Lymphocytes % 5.3 % (21.3-54.2); Mean Corpuscular HGB Conc 30.8 GM/DL (32-36); Mean Corpuscular Hemoglobin 29 PG (27-34); Mean Corpuscular Volume 94.1 FL (87-102); Mean Platelet Volume 10.6 FL (9.6-12.0); Monocytes # 0.4 10*3/uL (0.11-0.8); Monocytes % 2.9 % (1.7-12.7); Neutrophils # 13.3 10*3/uL (1.4-7.4); Platelet Count 276 T/CUMM (130-400); White Blood Count 14.8 T/CUMM (4-12)
[2018-02-23] MEDS: PRAMIPEXOLE 1 MG TABLET PO SCH ×2 (06:53→18:29)
[2018-02-23] MEDS: BENZONATATE 100 MG CAPSULE PO SCH ×3 (06:54→18:31)
[2018-02-23 06:58] LABS: Alanine Aminotransferase 29 U/L (13-56); Albumin 2.9 G/DL (3.4-5.0); Alkaline Phosphatase 131 U/L (45-117); Aspartate Amino Transferase < 3 U/L (0-37); Bilirubin,Total < 0.39 MG/DL (0.2-1.0); Blood Urea Nitrogen 28 MG/DL (7-18); Calcium 8.9 MG/DL (8.5-10.1); Glucose 380 MG/DL (74-106); Osmolality,Calculated 296.7 MOS/KG (273-304); Potassium 3.9 MMOL/L (3.5-5.1); Sodium 138 MMOL/L (136-145); Total Protein 7.2 G/DL (6.4-8.3)
[2018-02-23] MEDS: FORMOTEROL 20 MCG/2 ML NEB RESP TX SCH ×2 (08:11→19:53)
[2018-02-23] MEDS: BUDESONIDE 0.5 MG/2 ML NEB RESP TX SCH ×2 (08:11→19:53)
[2018-02-23] MEDS: FUROSEMIDE 40 MG/4 ML VIAL IV SCH (10:01)
[2018-02-23] MEDS: INSULIN REGULAR 100 UNIT/ML SUBCUT SCH ×4 (10:04→22:37)
[2018-02-23] MEDS: ASPIRIN EC 81 MG TABLET PO SCH (10:04)
[2018-02-23] MEDS: THEOPHYLLINE ER (24 HR) 400 MG TABLET PO SCH ×2 (10:05→18:31)
[2018-02-23] MEDS: glipiZIDE 5 MG TABLET PO SCH ×2 (10:05→21:48)
[2018-02-23] MEDS: guaiFENesin/DM ER 600-30 MG TABLET PO SCH ×2 (10:05→23:02)
[2018-02-23] MEDS: clonazePAM 0.5 MG TABLET PO SCH ×2 (10:05→21:47)
[2018-02-23] MEDS: DILTIAZEM CD 240 MG CAPSULE PO SCH (10:05)
[2018-02-23] MEDS: PANTOPRAZOLE 40 MG TABLET PO SCH (10:06)
[2018-02-23] MEDS: FERROUS SULFATE 325 MG TABLET PO SCH ×2 (10:06→21:48)
[2018-02-23] MEDS: VANCOMYCIN INJ 2,000 MG in SODIUM CHLORIDE 0.9% 500 ML IV SCH ×2 (10:19→21:48)
[2018-02-23] MEDS ORDERED: INSULIN GLARGINE 100 UNIT/ML SUBCUT SCH (14:21)
[2018-02-23] MEDS ORDERED: KETOROLAC 15 MG/1 ML VIAL IV ONE (14:44)
[2018-02-23] MEDS: LEVOFLOXACIN INJ 750 MG in PREMIX 1 EACH IV SCH (18:39)
[2018-02-23] MEDS ORDERED: TEMAZEPAM 15 MG CAPSULE PO PRN (21:00)
[2018-02-23] MEDS: GABAPENTIN 300 MG CAPSULE PO SCH (21:47)
[2018-02-23] MEDS: ENOXAPARIN 40 MG/0.4 ML SYRINGE SUBCUT SCH (21:47)
[2018-02-24] MEDS: BENZONATATE 100 MG CAPSULE PO SCH ×4 (00:03→17:45)
[2018-02-24] MEDS: ALBUTEROL/IPRATROPIUM 3 ML NEB RESP TX SCH ×4 (00:13→19:15)
[2018-02-24] MEDS: methylPREDNISolone SOD SUC 125 MG/2 ML VIAL IV SCH ×2 (02:37→08:45)
[2018-02-24] MEDS: KETOROLAC 10 MG TABLET PO PRN ×2 (02:40→08:55)
[2018-02-24] MEDS: PRAMIPEXOLE 1 MG TABLET PO SCH ×2 (05:49→16:17)
[2018-02-24] MEDS: FORMOTEROL 20 MCG/2 ML NEB RESP TX SCH ×2 (07:18→19:15)
[2018-02-24] MEDS: DORNASE ALFA 2.5 MG/2.5 ML VIAL RESP TX SCH (07:18)
[2018-02-24] MEDS: BUDESONIDE 0.5 MG/2 ML NEB RESP TX SCH ×2 (07:18→19:15)
[2018-02-24] MEDS: DILTIAZEM CD 240 MG CAPSULE PO SCH (08:43)
[2018-02-24] MEDS: glipiZIDE 5 MG TABLET PO SCH ×2 (08:43→21:26)
[2018-02-24] MEDS: ASPIRIN EC 81 MG TABLET PO SCH (08:43)
[2018-02-24] MEDS: clonazePAM 0.5 MG TABLET PO SCH ×2 (08:43→21:25)
[2018-02-24] MEDS: THEOPHYLLINE ER (24 HR) 400 MG TABLET PO SCH ×2 (08:43→16:17)
[2018-02-24] MEDS: PANTOPRAZOLE 40 MG TABLET PO SCH (08:43)
[2018-02-24] MEDS: FERROUS SULFATE 325 MG TABLET PO SCH ×2 (08:43→21:26)
[2018-02-24] MEDS: INSULIN REGULAR 100 UNIT/ML SUBCUT SCH ×4 (08:44→21:29)
[2018-02-24] MEDS: FUROSEMIDE 40 MG/4 ML VIAL IV SCH (08:45)
[2018-02-24] MEDS: guaiFENesin/DM ER 600-30 MG TABLET PO SCH ×2 (08:46→21:42)
[2018-02-24] MEDS: VANCOMYCIN INJ 2,000 MG in SODIUM CHLORIDE 0.9% 500 ML IV SCH ×2 (08:46→11:18)
[2018-02-24] MEDS: methylPREDNISolone SOD SUC 40 MG/1 ML VIAL IV SCH ×2 (11:17→17:45)
[2018-02-24] MEDS: INSULIN GLARGINE 100 UNIT/ML SUBCUT SCH (11:55)
[2018-02-24] MEDS: LEVOFLOXACIN 750 MG TABLET PO SCH (11:55)
[2018-02-24] MEDS: ENOXAPARIN 40 MG/0.4 ML SYRINGE SUBCUT SCH (21:25)
[2018-02-24] MEDS: GABAPENTIN 300 MG CAPSULE PO SCH (21:26)
[2018-02-24] MEDS: tiZANidine 4 MG TABLET PO PRN (21:26)
[2018-02-25] MEDS: ALBUTEROL/IPRATROPIUM 3 ML NEB RESP TX SCH ×4 (00:14→19:14)
[2018-02-25] MEDS: INSULIN GLARGINE 100 UNIT/ML SUBCUT SCH ×3 (00:48→22:01)
[2018-02-25] MEDS: BENZONATATE 100 MG CAPSULE PO SCH ×4 (01:16→17:11)
[2018-02-25] MEDS: methylPREDNISolone SOD SUC 40 MG/1 ML VIAL IV SCH ×4 (01:31→18:23)
[2018-02-25] MEDS: PRAMIPEXOLE 1 MG TABLET PO SCH ×2 (04:57→17:11)
[2018-02-25 06:10] LABS: Basophils # 0.1 10*3/uL (0.0-0.2); Basophils % 0.8 % (0.0-0.8); Hematocrit 48.7 VOL% (35.7-47.0); Immature Granulocytes % 4.3 %; Immature Granulocytes Absolute 0.66 #; Lymphocytes # 1.1 10*3/uL (1.4-4.0); Mean Corpuscular HGB Conc 30.8 GM/DL (32-36); Mean Corpuscular Hemoglobin 29 PG (27-34); Mean Corpuscular Volume 93.7 FL (87-102); Mean Platelet Volume 10.6 FL (9.6-12.0); Monocytes # 0.5 10*3/uL (0.11-0.8); Monocytes % 3.5 % (1.7-12.7); Neutrophils % 84.4 % (38.7-73.9); Platelet Count 260 T/CUMM (130-400); Red Cell Distribution Width 15.2 % (9.3-17.3); White Blood Count 15.4 T/CUMM (4-12)
[2018-02-25 06:38] LABS: Calcium 8.9 MG/DL (8.5-10.1); Osmolality,Calculated 295.3 MOS/KG (273-304); Potassium 3.7 MMOL/L (3.5-5.1)
[2018-02-25] MEDS ORDERED: MEPERIDINE 50 MG/1 ML VIAL IM ONE (07:00)
[2018-02-25] MEDS ORDERED: GLYCOPYRROLATE 0.4 MG/2 ML VIAL IM ONE (07:00)
[2018-02-25] MEDS ORDERED: MIDAZOLAM 2 MG/2 ML VIAL ONE ×2 (07:09→07:58)
[2018-02-25 07:21] LABS: Band Neutrophils 2 % (0-10); Hypochromasia 1+; Lymphocytes 12 % (20-55); Platelet Estimate Adequate; Segmented Neutrophils 84 % (50-85); Total Cells Counted 100
[2018-02-25] MEDS ORDERED: MIDAZOLAM 2 MG/2 ML VIAL IV ONE (07:30)
[2018-02-25] MEDS ORDERED: LIDOCAINE 2% 20 ML VIAL RESP TX ONE (07:30)
[2018-02-25] MEDS ORDERED: LIDOCAINE 2% VISCOUS 100 ML BOTTLE SWISH/SPIT ONE (07:30)
[2018-02-25] MEDS ORDERED: LIDOCAINE 1% 20 ML VIAL MISC INJ ONE (07:30)
[2018-02-25] MEDS: BUDESONIDE 0.5 MG/2 ML NEB RESP TX SCH ×2 (07:52→19:14)
[2018-02-25] MEDS: FORMOTEROL 20 MCG/2 ML NEB RESP TX SCH ×2 (07:52→19:14)
[2018-02-25] MEDS: DORNASE ALFA 2.5 MG/2.5 ML VIAL RESP TX SCH (07:52)
[2018-02-25] MEDS: INSULIN REGULAR 100 UNIT/ML SUBCUT SCH ×4 (09:43→22:01)
[2018-02-25] MEDS: FUROSEMIDE 40 MG/4 ML VIAL IV SCH (09:43)
[2018-02-25] MEDS: PANTOPRAZOLE 40 MG TABLET PO SCH (09:44)
[2018-02-25] MEDS: DILTIAZEM CD 240 MG CAPSULE PO SCH (09:44)
[2018-02-25] MEDS: glipiZIDE 5 MG TABLET PO SCH ×2 (09:44→22:02)
[2018-02-25] MEDS: clonazePAM 0.5 MG TABLET PO SCH ×2 (09:44→22:02)
[2018-02-25] MEDS: ASPIRIN EC 81 MG TABLET PO SCH (09:44)
[2018-02-25] MEDS: FERROUS SULFATE 325 MG TABLET PO SCH ×2 (09:44→22:02)
[2018-02-25] MEDS: THEOPHYLLINE ER (24 HR) 400 MG TABLET PO SCH ×2 (09:44→17:10)
[2018-02-25] MEDS: guaiFENesin/DM ER 600-30 MG TABLET PO SCH (09:48)
[2018-02-25] MEDS: LEVOFLOXACIN 750 MG TABLET PO SCH (13:09)
[2018-02-25] MEDS: ENOXAPARIN 40 MG/0.4 ML SYRINGE SUBCUT SCH (22:01)
[2018-02-25] MEDS: GABAPENTIN 300 MG CAPSULE PO SCH (22:02)
[2018-02-25] MEDS: FLUCONAZOLE 100 MG TABLET PO SCH (22:04)
[2018-02-26] MEDS: ALBUTEROL/IPRATROPIUM 3 ML NEB RESP TX SCH ×2 (00:24→07:24)
[2018-02-26] MEDS: BENZONATATE 100 MG CAPSULE PO SCH ×2 (02:15→06:00)
[2018-02-26] MEDS: methylPREDNISolone SOD SUC 40 MG/1 ML VIAL IV SCH ×2 (02:15→09:37)
[2018-02-26] MEDS: PRAMIPEXOLE 1 MG TABLET PO SCH (05:19)
[2018-02-26 06:05] LABS: Basophils # 0.1 10*3/uL (0.0-0.2); Basophils % 0.8 % (0.0-0.8); Hematocrit 46.9 VOL% (35.7-47.0); Hemoglobin 14.9 GM/DL (12.0-16.0); Immature Granulocytes % 5.2 %; Immature Granulocytes Absolute 0.83 #; Lymphocytes # 1.3 10*3/uL (1.4-4.0); Lymphocytes % 7.8 % (21.3-54.2); Mean Corpuscular HGB Conc 31.8 GM/DL (32-36); Mean Corpuscular Hemoglobin 30 PG (27-34); Mean Corpuscular Volume 92.9 FL (87-102); Mean Platelet Volume 10.5 FL (9.6-12.0); Monocytes # 0.9 10*3/uL (0.11-0.8); Monocytes % 5.4 % (1.7-12.7); Neutrophils # 12.9 10*3/uL (1.4-7.4); Neutrophils % 80.8 % (38.7-73.9); Platelet Count 223 T/CUMM (130-400); Red Blood Count 5.05 MC/CUMM (3.8-5.5); Red Cell Distribution Width 15.3 % (9.3-17.3)
[2018-02-26 06:27] LABS: Calcium 8.6 MG/DL (8.5-10.1); Osmolality,Calculated 293.4 MOS/KG (273-304); Potassium 3.8 MMOL/L (3.5-5.1)
[2018-02-26 06:30] LABS: Hypochromasia 1+; Lymphocytes 10 % (20-55); Platelet Estimate Adequate; Segmented Neutrophils 87 % (50-85); Total Cells Counted 100
[2018-02-26] MEDS: BUDESONIDE 0.5 MG/2 ML NEB RESP TX SCH (07:27)
[2018-02-26] MEDS: FORMOTEROL 20 MCG/2 ML NEB RESP TX SCH (07:27)
[2018-02-26] MEDS: THEOPHYLLINE ER (24 HR) 400 MG TABLET PO SCH (08:40)
[2018-02-26] MEDS: FLUCONAZOLE 100 MG TABLET PO SCH (08:40)
[2018-02-26] MEDS: clonazePAM 0.5 MG TABLET PO SCH (08:40)
[2018-02-26] MEDS: FERROUS SULFATE 325 MG TABLET PO SCH (08:41)
[2018-02-26] MEDS: glipiZIDE 5 MG TABLET PO SCH (08:41)
[2018-02-26] MEDS: DILTIAZEM CD 240 MG CAPSULE PO SCH (08:41)
[2018-02-26] MEDS: ASPIRIN EC 81 MG TABLET PO SCH (08:41)
[2018-02-26] MEDS: PANTOPRAZOLE 40 MG TABLET PO SCH (08:41)
[2018-02-26] MEDS: INSULIN GLARGINE 100 UNIT/ML SUBCUT SCH (08:42)
[2018-02-26] MEDS: INSULIN REGULAR 100 UNIT/ML SUBCUT SCH (08:42)
[2018-02-26 08:43] VITALS: BP 135/80
[2018-02-26] MEDS: LEVOFLOXACIN 750 MG TABLET PO SCH (10:13)
[2018-02-26] MEDS: DORNASE ALFA 2.5 MG/2.5 ML VIAL RESP TX SCH (10:22)
== END 2018-02-26 12:07 | disposition home or self-care (01) | DRG 140 ==
LOC: EDBD → EDUNIT# → N.ED 13:49 → N.EDINP 18:44 → SUATTDRO 18:44 → N.5E 19:14
PROVIDERS: ADMIT Internal Medicine; ATTEND Internal Medicine

== ENCOUNTER 2018-05-31 17:15 | Inpatient (IN) ==
[2018-05-31] MEDS ORDERED: ALBUTEROL NEB SOLN 5 MG/ML 20 ML/BOTTLE RESP TX SCH (18:00)
[2018-05-31] MEDS ORDERED: methylPREDNISolone SOD SUC 125 MG/2 ML VIAL IV STA (18:21)
[2018-05-31 18:51] LABS: Basophils # 0.1 10*3/uL (0.0-0.2); Basophils % 0.9 % (0.0-0.8); Eosinophils # 0.3 10*3/uL (0.0-0.87); Hematocrit 54.6 VOL% (35.7-47.0); Immature Granulocytes % 0.6 %; Immature Granulocytes Absolute 0.04 #; Lymphocytes # 1.5 10*3/uL (1.4-4.0); Lymphocytes % 21.8 % (21.3-54.2); Mean Corpuscular HGB Conc 30.2 GM/DL (32-36); Mean Corpuscular Hemoglobin 30 PG (27-34); Mean Corpuscular Volume 97.7 FL (87-102); Mean Platelet Volume 10.3 FL (9.6-12.0); Monocytes # 0.5 10*3/uL (0.11-0.8); Monocytes % 7.4 % (1.7-12.7); Neutrophils # 4.4 10*3/uL (1.4-7.4); Neutrophils % 65.3 % (38.7-73.9); Platelet Count 237 T/CUMM (130-400); Red Blood Count 5.59 MC/CUMM (3.8-5.5); Red Cell Distribution Width 14.3 % (9.3-17.3); White Blood Count 6.7 T/CUMM (4-12)
[2018-05-31 18:54] LABS: Alanine Aminotransferase 24 U/L (13-56); Albumin 3.2 G/DL (3.4-5.0); Alkaline Phosphatase 132 U/L (45-117); Aspartate Amino Transferase 8 U/L (0-37); Bilirubin,Total < 0.39 MG/DL (0.2-1.0); Blood Urea Nitrogen 16 MG/DL (7-18); Calcium 8.8 MG/DL (8.5-10.1); Glucose 102 MG/DL (74-106); Osmolality,Calculated 275.7 MOS/KG (273-304); Potassium 3.6 MMOL/L (3.5-5.1); Sodium 138 MMOL/L (136-145); Total Protein 7.7 G/DL (6.4-8.3)
[2018-05-31 19:03] LABS: Hemoglobin 16.5 GM/DL (12.0-16.0)
[2018-05-31] MEDS ORDERED: ALBUTEROL 2.5 MG/3 ML NEB RESP TX PRN (20:45)
[2018-05-31] MEDS ORDERED: GLUCAGON 1 MG VIAL IM PRN (20:49)
[2018-05-31] MEDS ORDERED: DEXTROSE 50% 25 GM/50 ML SYRINGE IV PRN (20:49)
[2018-05-31] MEDS ORDERED: HydrOXYzine PAMOATE 25 MG CAPSULE PO PRN (20:52)
[2018-05-31] MEDS ORDERED: tiZANidine 4 MG TABLET PO PRN (20:52)
[2018-05-31] MEDS ORDERED: NAPROXEN 500 MG TABLET PO PRN (20:52)
[2018-05-31] MEDS: LEVOFLOXACIN INJ 750 MG in PREMIX 1 EACH IV SCH (22:16)
[2018-05-31] MEDS: clonazePAM 0.5 MG TABLET PO SCH (22:17)
[2018-05-31] MEDS: glipiZIDE 5 MG TABLET PO SCH (22:17)
[2018-05-31] MEDS: ENOXAPARIN 40 MG/0.4 ML SYRINGE SUBCUT SCH (22:17)
[2018-05-31] MEDS: THEOPHYLLINE ER 300 MG TABLET PO SCH (22:18)
[2018-05-31] MEDS: GABAPENTIN 300 MG CAPSULE PO SCH (22:19)
[2018-05-31] MEDS: FERROUS SULFATE 325 MG TABLET PO SCH (22:19)
[2018-05-31] MEDS: ONDANSETRON 4 MG/2 ML VIAL IV PRN (22:26)
[2018-05-31] MEDS: INSULIN REGULAR 100 UNIT/ML SUBCUT SCH (23:02)
[2018-06-01] MEDS: ALBUTEROL/IPRATROPIUM 3 ML NEB RESP TX SCH ×4 (00:15→18:58)
[2018-06-01] MEDS: FORMOTEROL 20 MCG/2 ML NEB RESP TX SCH ×3 (00:15→18:58)
[2018-06-01] MEDS: methylPREDNISolone SOD SUC 40 MG/1 ML VIAL IV SCH ×3 (03:40→20:57)
[2018-06-01] MEDS: PRAMIPEXOLE 0.25 MG TABLET PO SCH ×2 (04:04→17:58)
[2018-06-01 05:13] LABS: Basophils % 0.4 % (0.0-0.8); Hematocrit 52.5 VOL% (35.7-47.0); Hemoglobin 16.3 GM/DL (12.0-16.0); Immature Granulocytes Absolute 0.07 #; Lymphocytes # 0.7 10*3/uL (1.4-4.0); Lymphocytes % 10.3 % (21.3-54.2); Mean Corpuscular Hemoglobin 30 PG (27-34); Mean Corpuscular Volume 96.3 FL (87-102); Mean Platelet Volume 10.3 FL (9.6-12.0); Monocytes # 0.1 10*3/uL (0.11-0.8); Monocytes % 0.9 % (1.7-12.7); Neutrophils # 5.8 10*3/uL (1.4-7.4); Neutrophils % 87.4 % (38.7-73.9); Platelet Count 241 T/CUMM (130-400); Red Blood Count 5.45 MC/CUMM (3.8-5.5); Red Cell Distribution Width 14.2 % (9.3-17.3); White Blood Count 6.7 T/CUMM (4-12)
[2018-06-01 05:22] LABS: Calcium 8.8 MG/DL (8.5-10.1); Potassium 4.4 MMOL/L (3.5-5.1)
[2018-06-01] MEDS: BUDESONIDE 0.5 MG/2 ML NEB RESP TX SCH ×2 (06:57→18:58)
[2018-06-01] MEDS: DILTIAZEM CD 240 MG CAPSULE PO SCH (08:25)
[2018-06-01] MEDS: TORSEMIDE 20 MG TABLET PO SCH (08:25)
[2018-06-01] MEDS: FERROUS SULFATE 325 MG TABLET PO SCH ×2 (08:25→20:59)
[2018-06-01] MEDS: INSULIN REGULAR 100 UNIT/ML SUBCUT SCH ×4 (08:25→20:58)
[2018-06-01] MEDS: ASPIRIN EC 81 MG TABLET PO SCH (08:25)
[2018-06-01] MEDS: THEOPHYLLINE ER 300 MG TABLET PO SCH ×2 (08:25→17:58)
[2018-06-01] MEDS: PANTOPRAZOLE 40 MG TABLET PO SCH (08:25)
[2018-06-01] MEDS: ONDANSETRON 4 MG/2 ML VIAL IV PRN (08:26)
[2018-06-01] MEDS: clonazePAM 0.5 MG TABLET PO SCH ×2 (08:26→20:59)
[2018-06-01] MEDS: glipiZIDE 5 MG TABLET PO SCH ×2 (08:26→17:58)
[2018-06-01] MEDS ORDERED: Empagliflozin/Linagliptin [Glyxambi 25 Mg-5 Mg Tablet] PO SCH (09:00)
[2018-06-01] MEDS ORDERED: buPROPion SR 150 MG TABLET PO ONE (17:52)
[2018-06-01] MEDS: LEVOFLOXACIN INJ 750 MG in PREMIX 1 EACH IV SCH (20:55)
[2018-06-01] MEDS: ENOXAPARIN 40 MG/0.4 ML SYRINGE SUBCUT SCH (20:56)
[2018-06-01] MEDS: GABAPENTIN 300 MG CAPSULE PO SCH (20:59)
[2018-06-02] MEDS: ALBUTEROL/IPRATROPIUM 3 ML NEB RESP TX SCH ×2 (01:16→07:12)
[2018-06-02] MEDS: PRAMIPEXOLE 0.25 MG TABLET PO SCH (04:30)
[2018-06-02] MEDS: methylPREDNISolone SOD SUC 40 MG/1 ML VIAL IV SCH (04:31)
[2018-06-02 05:09] LABS: Basophils % 0.2 % (0.0-0.8); Hematocrit 52.1 VOL% (35.7-47.0); Hemoglobin 16.4 GM/DL (12.0-16.0); Immature Granulocytes % 0.9 %; Immature Granulocytes Absolute 0.09 #; Lymphocytes % 10.2 % (21.3-54.2); Mean Corpuscular HGB Conc 31.5 GM/DL (32-36); Mean Corpuscular Hemoglobin 30 PG (27-34); Mean Corpuscular Volume 96.3 FL (87-102); Mean Platelet Volume 10.4 FL (9.6-12.0); Monocytes # 0.4 10*3/uL (0.11-0.8); Monocytes % 4.6 % (1.7-12.7); Neutrophils # 8.1 10*3/uL (1.4-7.4); Neutrophils % 84.1 % (38.7-73.9); Platelet Count 272 T/CUMM (130-400); Red Blood Count 5.41 MC/CUMM (3.8-5.5); Red Cell Distribution Width 14.2 % (9.3-17.3); White Blood Count 9.7 T/CUMM (4-12)
[2018-06-02 05:39] LABS: Calcium 9.1 MG/DL (8.5-10.1); Osmolality,Calculated 290.7 MOS/KG (273-304)
[2018-06-02] MEDS: BUDESONIDE 0.5 MG/2 ML NEB RESP TX SCH (07:12)
[2018-06-02] MEDS: FORMOTEROL 20 MCG/2 ML NEB RESP TX SCH (07:12)
[2018-06-02] MEDS: clonazePAM 0.5 MG TABLET PO SCH (08:31)
[2018-06-02] MEDS: glipiZIDE 5 MG TABLET PO SCH (08:31)
[2018-06-02] MEDS: ASPIRIN EC 81 MG TABLET PO SCH (08:31)
[2018-06-02] MEDS: THEOPHYLLINE ER 300 MG TABLET PO SCH (08:31)
[2018-06-02] MEDS: DILTIAZEM CD 240 MG CAPSULE PO SCH (08:31)
[2018-06-02] MEDS: INSULIN REGULAR 100 UNIT/ML SUBCUT SCH ×2 (08:31→12:29)
[2018-06-02] MEDS: TORSEMIDE 20 MG TABLET PO SCH (08:31)
[2018-06-02] MEDS: PANTOPRAZOLE 40 MG TABLET PO SCH (08:31)
[2018-06-02] MEDS: FERROUS SULFATE 325 MG TABLET PO SCH (08:32)
[2018-06-02] MEDS ORDERED: buPROPion SR 150 MG TABLET PO SCH (09:00)
[2018-06-02] MEDS ORDERED: ZOLPIDEM 5 MG TABLET PO PRN (10:03)
[2018-06-02] MEDS ORDERED: traZODone 50 MG TABLET PO PRN (10:04)
[2018-06-02 12:06] VITALS: BP 128/75
[2018-06-02] MEDS ORDERED: LEVOFLOXACIN 750 MG TABLET PO SCH (21:00)
== END 2018-06-02 13:00 | disposition home or self-care (01) | DRG 140 ==
LOC: EDUNIT# → EDBD → N.ED 17:15 → N.EDINP 20:19 → N.2E 21:17
PROVIDERS: ADMIT Hospitalist; ATTEND Hospitalist

== ENCOUNTER 2018-08-27 17:47 | Inpatient (IN) ==
[2018-08-27] MEDS ORDERED: ALBUTEROL/IPRATROPIUM 3 ML NEB RESP TX STA (18:18)
[2018-08-27] MEDS ORDERED: methylPREDNISolone SOD SUC 125 MG/2 ML VIAL IV STA (18:20)
[2018-08-27 20:02] LABS: Alanine Aminotransferase 67 U/L (13-56); Albumin 3.1 G/DL (3.4-5.0); Alkaline Phosphatase 111 U/L (45-117); Aspartate Amino Transferase 16 U/L (0-37); Bilirubin,Total < 0.39 MG/DL (0.2-1.0); Blood Urea Nitrogen 18 MG/DL (7-18); Calcium 8.5 MG/DL (8.5-10.1); Glucose 104 MG/DL (74-106); Total Protein 6.5 G/DL (6.4-8.3)
[2018-08-27 21:53] LABS: Basophils % 0.3 % (0.0-0.8); Eosinophils # 0.1 10*3/uL (0.0-0.87); Eosinophils % 1.2 % (0.00-10.9); Hematocrit 51.2 VOL% (35.7-47.0); Hemoglobin 15.9 GM/DL (12.0-16.0); Immature Granulocytes % 0.9 %; Immature Granulocytes Absolute 0.09 #; Lymphocytes # 2.4 10*3/uL (1.4-4.0); Lymphocytes % 24.4 % (21.3-54.2); Mean Corpuscular HGB Conc 31.1 GM/DL (32-36); Mean Corpuscular Volume 93.3 FL (87-102); Mean Platelet Volume 11.1 FL (9.6-12.0); Monocytes % 7.2 % (1.7-12.7); Platelet Count 228 T/CUMM (130-400); Red Blood Count 5.49 MC/CUMM (3.8-5.5); Red Cell Distribution Width 15.2 % (9.3-17.3); White Blood Count 9.9 T/CUMM (4-12)
[2018-08-27] MEDS ORDERED: HydrOXYzine PAMOATE 25 MG CAPSULE PO PRN (22:48)
[2018-08-27] MEDS ORDERED: ONDANSETRON 4 MG/2 ML VIAL IV PRN (22:48)
[2018-08-27] MEDS ORDERED: ALBUTEROL 2.5 MG/3 ML NEB RESP TX PRN (22:48)
[2018-08-27] MEDS ORDERED: ACETAMINOPHEN 325 MG TABLET PO PRN (22:48)
[2018-08-27] MEDS ORDERED: GLUCAGON 1 MG VIAL IM PRN (22:48)
[2018-08-27] MEDS ORDERED: NAPROXEN 500 MG TABLET PO PRN (22:48)
[2018-08-27] MEDS ORDERED: DEXTROSE 50% 25 GM/50 ML VIAL IV PRN (22:48)
[2018-08-27] MEDS: ALBUTEROL/IPRATROPIUM 3 ML NEB RESP TX PRN (23:13)
[2018-08-28] MEDS: GABAPENTIN 600 MG TABLET PO SCH ×2 (00:03→20:39)
[2018-08-28] MEDS: clonazePAM 0.5 MG TABLET PO SCH ×3 (00:04→20:38)
[2018-08-28] MEDS: SODIUM CHLORIDE 0.9% 1,000 ML IV SCH ×2 (00:04→12:00)
[2018-08-28] MEDS: ENOXAPARIN 40 MG/0.4 ML SYRINGE SUBCUT SCH (00:05)
[2018-08-28] MEDS: AZITHROMYCIN INJ 500 MG in SODIUM CHLORIDE 0.9% 250 ML IV SCH (00:05)
[2018-08-28] MEDS: ALBUTEROL/IPRATROPIUM 3 ML NEB RESP TX PRN ×2 (02:59→08:13)
[2018-08-28] MEDS: guaiFENesin 200 MG/10 ML UDCUP PO PRN ×3 (03:25→18:20)
[2018-08-28] MEDS: methylPREDNISolone SOD SUC 40 MG/1 ML VIAL IV SCH ×3 (03:25→20:39)
[2018-08-28] MEDS: PRAMIPEXOLE 0.25 MG TABLET PO SCH ×2 (05:00→16:23)
[2018-08-28 05:57] LABS: Basophils % 0.3 % (0.0-0.8); Hematocrit 52.3 VOL% (35.7-47.0); Hemoglobin 16.3 GM/DL (12.0-16.0); Immature Granulocytes Absolute 0.09 #; Lymphocytes # 0.9 10*3/uL (1.4-4.0); Lymphocytes % 10.1 % (21.3-54.2); Mean Corpuscular HGB Conc 31.2 GM/DL (32-36); Mean Corpuscular Volume 93.1 FL (87-102); Mean Platelet Volume 11.7 FL (9.6-12.0); Monocytes % 0.7 % (1.7-12.7); Neutrophils % 87.9 % (38.7-73.9); Platelet Count 239 T/CUMM (130-400); Red Blood Count 5.62 MC/CUMM (3.8-5.5); Red Cell Distribution Width 15.3 % (9.3-17.3); White Blood Count 8.7 T/CUMM (4-12)
[2018-08-28 06:07] LABS: Calcium 8.8 MG/DL (8.5-10.1); Osmolality,Calculated 295.5 MOS/KG (273-304)
[2018-08-28] MEDS: INSULIN REGULAR 100 UNIT/ML SUBCUT SCH ×4 (08:45→20:39)
[2018-08-28] MEDS: TORSEMIDE 20 MG TABLET PO SCH (08:46)
[2018-08-28] MEDS: THEOPHYLLINE ER 300 MG TABLET PO SCH ×2 (08:46→16:23)
[2018-08-28] MEDS: tiZANidine 4 MG TABLET PO PRN ×2 (08:46→20:42)
[2018-08-28] MEDS: ASPIRIN EC 81 MG TABLET PO SCH (08:46)
[2018-08-28] MEDS: DILTIAZEM CD 240 MG CAPSULE PO SCH (08:46)
[2018-08-28] MEDS: SPIRONOLACTONE 25 MG TABLET PO SCH (08:46)
[2018-08-28] MEDS: PANTOPRAZOLE 40 MG TABLET PO SCH (08:47)
[2018-08-28] MEDS: glipiZIDE 5 MG TABLET PO SCH ×2 (08:47→16:23)
[2018-08-28] MEDS: LACTOBACILLUS RHAMNOSUS GG CAPSULE PO SCH (08:47)
[2018-08-28] MEDS: EMPAGLIFLOZIN LINAGLIPTIN PO SCH (08:48)
[2018-08-28] MEDS: ALBUTEROL/IPRATROPIUM 3 ML NEB RESP TX SCH ×2 (15:41→20:29)
[2018-08-28] MEDS: traZODone 50 MG TABLET PO PRN (20:42)
[2018-08-29] MEDS: AZITHROMYCIN INJ 500 MG in SODIUM CHLORIDE 0.9% 250 ML IV SCH ×2 (00:06→23:15)
[2018-08-29] MEDS: ENOXAPARIN 40 MG/0.4 ML SYRINGE SUBCUT SCH ×2 (00:07→23:15)
[2018-08-29] MEDS: ALBUTEROL/IPRATROPIUM 3 ML NEB RESP TX SCH ×7 (00:27→23:45)
[2018-08-29] MEDS: guaiFENesin 200 MG/10 ML UDCUP PO PRN ×2 (01:17→05:27)
[2018-08-29] MEDS: SODIUM CHLORIDE 0.9% 1,000 ML IV SCH ×2 (01:18→17:09)
[2018-08-29] MEDS: methylPREDNISolone SOD SUC 40 MG/1 ML VIAL IV SCH ×3 (04:54→21:03)
[2018-08-29] MEDS: PRAMIPEXOLE 0.25 MG TABLET PO SCH ×2 (05:27→17:08)
[2018-08-29] MEDS: clonazePAM 0.5 MG TABLET PO SCH ×2 (09:12→21:02)
[2018-08-29] MEDS: LACTOBACILLUS RHAMNOSUS GG CAPSULE PO SCH (09:13)
[2018-08-29] MEDS: ASPIRIN EC 81 MG TABLET PO SCH (09:13)
[2018-08-29] MEDS: THEOPHYLLINE ER 300 MG TABLET PO SCH ×2 (09:13→17:08)
[2018-08-29] MEDS: glipiZIDE 5 MG TABLET PO SCH ×2 (09:13→17:08)
[2018-08-29] MEDS: TORSEMIDE 20 MG TABLET PO SCH (09:13)
[2018-08-29] MEDS: DILTIAZEM CD 240 MG CAPSULE PO SCH (09:13)
[2018-08-29] MEDS: PANTOPRAZOLE 40 MG TABLET PO SCH (09:13)
[2018-08-29] MEDS: INSULIN REGULAR 100 UNIT/ML SUBCUT SCH ×4 (09:14→21:03)
[2018-08-29] MEDS: EMPAGLIFLOZIN LINAGLIPTIN PO SCH (09:14)
[2018-08-29] MEDS: SPIRONOLACTONE 25 MG TABLET PO SCH (09:20)
[2018-08-29] MEDS ORDERED: ZALEPLON 5 MG CAPSULE PO PRN (10:38)
[2018-08-29] MEDS: BUDESONIDE 0.5 MG/2 ML NEB RESP TX SCH ×2 (13:23→20:05)
[2018-08-29] MEDS: DORNASE ALFA 2.5 MG/2.5 ML VIAL RESP TX SCH (13:23)
[2018-08-29] MEDS: NICOTINE 7 MG/24 HR PATCH TRANSDERM SCH (13:41)
[2018-08-29] MEDS: BENZONATATE 100 MG CAPSULE PO SCH ×2 (17:08→21:02)
[2018-08-29] MEDS: INSULIN GLARGINE 100 UNIT/ML SUBCUT SCH (21:02)
[2018-08-29] MEDS: GABAPENTIN 600 MG TABLET PO SCH (21:02)
[2018-08-30] MEDS: ALBUTEROL/IPRATROPIUM 3 ML NEB RESP TX SCH ×5 (03:10→19:52)
[2018-08-30] MEDS: PRAMIPEXOLE 0.25 MG TABLET PO SCH ×2 (04:48→16:29)
[2018-08-30] MEDS: methylPREDNISolone SOD SUC 40 MG/1 ML VIAL IV SCH ×3 (04:48→21:13)
[2018-08-30 05:16] LABS: Basophils % 0.2 % (0.0-0.8); Hematocrit 50.3 VOL% (35.7-47.0); Hemoglobin 15.8 GM/DL (12.0-16.0); Immature Granulocytes % 0.9 %; Immature Granulocytes Absolute 0.15 #; Lymphocytes # 0.9 10*3/uL (1.4-4.0); Lymphocytes % 5.2 % (21.3-54.2); Mean Corpuscular HGB Conc 31.4 GM/DL (32-36); Mean Corpuscular Volume 93.8 FL (87-102); Mean Platelet Volume 10.7 FL (9.6-12.0); Monocytes % 2.7 % (1.7-12.7); Platelet Count 217 T/CUMM (130-400); Red Blood Count 5.36 MC/CUMM (3.8-5.5); Red Cell Distribution Width 15.2 % (9.3-17.3); White Blood Count 16.4 T/CUMM (4-12)
[2018-08-30 05:28] LABS: Calcium 8.7 MG/DL (8.5-10.1); Osmolality,Calculated 305.3 MOS/KG (273-304)
[2018-08-30 05:42] LABS: Anisocytosis 1+; Band Neutrophils 1 % (0-10); Lymphocytes 7 % (20-55); Platelet Estimate Adequate; Segmented Neutrophils 92 % (50-85); Total Cells Counted 100
[2018-08-30] MEDS: DORNASE ALFA 2.5 MG/2.5 ML VIAL RESP TX SCH (07:24)
[2018-08-30] MEDS: BUDESONIDE 0.5 MG/2 ML NEB RESP TX SCH ×2 (07:24→19:52)
[2018-08-30] MEDS: DILTIAZEM CD 240 MG CAPSULE PO SCH (08:19)
[2018-08-30] MEDS: THEOPHYLLINE ER 300 MG TABLET PO SCH ×2 (08:19→16:30)
[2018-08-30] MEDS: LACTOBACILLUS RHAMNOSUS GG CAPSULE PO SCH (08:19)
[2018-08-30] MEDS: ASPIRIN EC 81 MG TABLET PO SCH (08:19)
[2018-08-30] MEDS: BENZONATATE 100 MG CAPSULE PO SCH ×3 (08:19→21:12)
[2018-08-30] MEDS: SPIRONOLACTONE 25 MG TABLET PO SCH (08:19)
[2018-08-30] MEDS: TORSEMIDE 20 MG TABLET PO SCH (08:20)
[2018-08-30] MEDS: clonazePAM 0.5 MG TABLET PO SCH ×2 (08:20→21:11)
[2018-08-30] MEDS: PANTOPRAZOLE 40 MG TABLET PO SCH (08:20)
[2018-08-30] MEDS: glipiZIDE 5 MG TABLET PO SCH ×2 (08:20→16:29)
[2018-08-30] MEDS: INSULIN REGULAR 100 UNIT/ML SUBCUT SCH ×4 (08:21→21:11)
[2018-08-30] MEDS: EMPAGLIFLOZIN LINAGLIPTIN PO SCH (08:21)
[2018-08-30] MEDS: NICOTINE 7 MG/24 HR PATCH TRANSDERM SCH (08:21)
[2018-08-30] MEDS: SODIUM CHLORIDE 0.9% 1,000 ML IV SCH (16:33)
[2018-08-30] MEDS: INSULIN GLARGINE 100 UNIT/ML SUBCUT SCH (21:10)
[2018-08-30] MEDS: traZODone 50 MG TABLET PO PRN (21:12)
[2018-08-30] MEDS: GABAPENTIN 600 MG TABLET PO SCH (21:12)
[2018-08-30] MEDS: guaiFENesin 200 MG/10 ML UDCUP PO PRN (21:13)
[2018-08-30] MEDS: tiZANidine 4 MG TABLET PO PRN (21:13)
[2018-08-31] MEDS: ALBUTEROL/IPRATROPIUM 3 ML NEB RESP TX SCH ×4 (00:08→10:43)
[2018-08-31] MEDS: AZITHROMYCIN INJ 500 MG in SODIUM CHLORIDE 0.9% 250 ML IV SCH (00:16)
[2018-08-31] MEDS: methylPREDNISolone SOD SUC 40 MG/1 ML VIAL IV SCH (04:38)
[2018-08-31] MEDS: PRAMIPEXOLE 0.25 MG TABLET PO SCH (04:38)
[2018-08-31 05:44] LABS: Basophils # 0.1 10*3/uL (0.0-0.2); Basophils % 0.3 % (0.0-0.8); Hematocrit 50.9 VOL% (35.7-47.0); Hemoglobin 15.8 GM/DL (12.0-16.0); Immature Granulocytes % 1.5 %; Immature Granulocytes Absolute 0.21 #; Lymphocytes # 0.9 10*3/uL (1.4-4.0); Lymphocytes % 6.4 % (21.3-54.2); Mean Corpuscular Volume 93.4 FL (87-102); Mean Platelet Volume 10.7 FL (9.6-12.0); Monocytes % 3.1 % (1.7-12.7); Neutrophils % 88.7 % (38.7-73.9); Platelet Count 218 T/CUMM (130-400); Red Blood Count 5.45 MC/CUMM (3.8-5.5); Red Cell Distribution Width 15.3 % (9.3-17.3); White Blood Count 14.4 T/CUMM (4-12)
[2018-08-31 06:03] LABS: Calcium 8.8 MG/DL (8.5-10.1)
[2018-08-31] MEDS: SODIUM CHLORIDE 0.9% 1,000 ML IV SCH (06:31)
[2018-08-31] MEDS ORDERED: MEPERIDINE 50 MG/1 ML VIAL IM ONE (07:00)
[2018-08-31] MEDS ORDERED: LIDOCAINE 2% 20 ML VIAL RESP TX ONE (07:30)
[2018-08-31] MEDS ORDERED: LIDOCAINE 2% VISCOUS 100 ML BOTTLE SWISH/SPIT ONE (07:30)
[2018-08-31] MEDS ORDERED: LIDOCAINE 1% 20 ML VIAL MISC INJ ONE (07:30)
[2018-08-31] MEDS ORDERED: MIDAZOLAM 2 MG/2 ML VIAL IV ONE (07:30)
[2018-08-31] MEDS: BUDESONIDE 0.5 MG/2 ML NEB RESP TX SCH (08:15)
[2018-08-31] MEDS: DORNASE ALFA 2.5 MG/2.5 ML VIAL RESP TX SCH (08:15)
[2018-08-31] MEDS ORDERED: DEXTROSE 50% 25 GM/50 ML VIAL IV PRN (09:36)
[2018-08-31] MEDS: DILTIAZEM CD 240 MG CAPSULE PO SCH (10:47)
[2018-08-31] MEDS: clonazePAM 0.5 MG TABLET PO SCH (10:47)
[2018-08-31] MEDS ORDERED: MIDAZOLAM 2 MG/2 ML VIAL ONE (10:47)
[2018-08-31] MEDS: TORSEMIDE 20 MG TABLET PO SCH (10:48)
[2018-08-31] MEDS: ASPIRIN EC 81 MG TABLET PO SCH (10:48)
[2018-08-31] MEDS: THEOPHYLLINE ER 300 MG TABLET PO SCH (10:48)
[2018-08-31] MEDS: LACTOBACILLUS RHAMNOSUS GG CAPSULE PO SCH (10:48)
[2018-08-31] MEDS: PANTOPRAZOLE 40 MG TABLET PO SCH (10:48)
[2018-08-31] MEDS: NICOTINE 7 MG/24 HR PATCH TRANSDERM SCH (10:48)
[2018-08-31] MEDS: BENZONATATE 100 MG CAPSULE PO SCH (10:48)
[2018-08-31] MEDS: SPIRONOLACTONE 25 MG TABLET PO SCH (10:48)
[2018-08-31] MEDS: glipiZIDE 5 MG TABLET PO SCH (10:48)
[2018-08-31] MEDS: INSULIN REGULAR 100 UNIT/ML SUBCUT SCH ×2 (10:49→10:50)
[2018-08-31] MEDS: EMPAGLIFLOZIN LINAGLIPTIN PO SCH (10:51)
[2018-08-31 12:37] VITALS: BP 136/80
== END 2018-08-31 14:27 | disposition home health service (06) | DRG 140 ==
LOC: EDUNIT# → EDBD → N.ED 17:47 → N.5E 21:52
PROVIDERS: ADMIT Internal Medicine; ATTEND Internal Medicine

== ENCOUNTER 2018-09-03 14:02 | Observation (INO) ==
[2018-09-03] MEDS ORDERED: ONDANSETRON 4 MG/2 ML VIAL IV STA (15:26)
[2018-09-03] MEDS ORDERED: methylPREDNISolone SOD SUC 125 MG/2 ML VIAL IV STA (15:26)
[2018-09-03] MEDS ORDERED: FUROSEMIDE 100 MG/10 ML VIAL IV STA (15:26)
[2018-09-03] MEDS ORDERED: ALBUTEROL 2.5 MG/3 ML NEB RESP TX SCH (15:30)
[2018-09-03 16:18] LABS: Basophils # 0.1 10*3/uL (0.0-0.2); Basophils % 0.4 % (0.0-0.8); Eosinophils # 0.1 10*3/uL (0.0-0.87); Eosinophils % 0.6 % (0.00-10.9); Hematocrit 54.9 VOL% (35.7-47.0); Hemoglobin 17.3 GM/DL (12.0-16.0); Immature Granulocytes % 1.5 %; Immature Granulocytes Absolute 0.23 #; Lymphocytes # 2.1 10*3/uL (1.4-4.0); Mean Corpuscular HGB Conc 31.5 GM/DL (32-36); Mean Platelet Volume 10.8 FL (9.6-12.0); Monocytes % 4.4 % (1.7-12.7); Neutrophils % 80.1 % (38.7-73.9); Platelet Count 225 T/CUMM (130-400); Red Blood Count 5.97 MC/CUMM (3.8-5.5); Red Cell Distribution Width 15.1 % (9.3-17.3); White Blood Count 15.8 T/CUMM (4-12)
[2018-09-03 16:20] LABS: ABG Base Excess 10.9 MMOL/L (-2.5-2.5); ABG HCO3 34.6 MMOL/L (20-26); ABG Oxygen Saturation 95.7 % (95-100); ABG PCO2 53.1 MM HG (35-48); ABG PH 7.459 (7.35-7.45); ABG PO2 76.2 MM HG (80-95); ABG TCO2 30.5 MMOL/L (23-27)
[2018-09-03 16:29] LABS: Apearance,Urine CLEAR (Clear); Bacteria,Urine Occasional /HPF (Few); Bilirubin,Urine Negative (Negative); Blood, Urine Small mg/dL (Negative); Glucose,Urine (UA) >=500 mg/dL (Negative); Ketones,Urine Negative (Negative); Mucus,Urine Occasional /LPF (Occasional); Nitrite,Urine Negative (Negative); Protein,Urine Negative; RBC,Urine 12 /HPF (0-4); Squamous Epithelial Cell,Urine Occasional /HPF (0-10); Urine Color Straw (Yellow); Urine Specific Gravity 1.008 (1.001-1.035); Urine Urobilinogen < 2.0 EU/DL (0.2-1.0); WBC,Urine 3 /HPF (0-6)
[2018-09-03 16:33] LABS: INR 0.9
[2018-09-03 16:34] LABS: Alanine Aminotransferase 31 U/L (13-56); Albumin 3.4 G/DL (3.4-5.0); Alkaline Phosphatase 104 U/L (45-117); Aspartate Amino Transferase < 3 U/L (0-37); Blood Urea Nitrogen 21 MG/DL (7-18); Calcium 8.9 MG/DL (8.5-10.1); Glucose 196 MG/DL (74-106); Osmolality,Calculated 284.5 MOS/KG (273-304); Total Protein 7.6 G/DL (6.4-8.3)
[2018-09-03] MEDS ORDERED: ACETAMINOPHEN 325 MG TABLET PO PRN (17:19)
[2018-09-03] MEDS ORDERED: ONDANSETRON 4 MG/2 ML VIAL IV PRN (17:19)
[2018-09-03] MEDS ORDERED: DEXTROSE 50% 25 GM/50 ML VIAL IV PRN (17:19)
[2018-09-03] MEDS ORDERED: NICOTINE 21 MG/24 HR PATCH TRANSDERM PRN (17:19)
[2018-09-03] MEDS ORDERED: guaiFENesin/DM ER 600-30 MG TABLET PO PRN (17:19)
[2018-09-03] MEDS ORDERED: GLUCAGON 1 MG VIAL IM PRN (17:19)
[2018-09-03] MEDS ORDERED: tiZANidine 4 MG TABLET PO PRN (17:22)
[2018-09-03] MEDS ORDERED: ONDANSETRON 4 MG TABLET PO PRN (17:22)
[2018-09-03] MEDS ORDERED: HydrOXYzine PAMOATE 25 MG CAPSULE PO PRN (17:22)
[2018-09-03] MEDS ORDERED: traZODone 50 MG TABLET PO PRN (17:22)
[2018-09-03] MEDS: ALBUTEROL/IPRATROPIUM 3 ML NEB RESP TX SCH ×2 (18:55→22:38)
[2018-09-03] MEDS: PRAMIPEXOLE 1 MG TABLET PO SCH (20:48)
[2018-09-03] MEDS: DOCUSATE SODIUM 100 MG CAPSULE PO SCH (20:48)
[2018-09-03] MEDS: clonazePAM 0.5 MG TABLET PO SCH (20:48)
[2018-09-03] MEDS: BENZONATATE 100 MG CAPSULE PO SCH (20:49)
[2018-09-03] MEDS ORDERED: GABAPENTIN 300 MG CAPSULE PO SCH (21:00)
[2018-09-03] MEDS: HEPARIN 5,000 UNIT/1 ML VIAL SUBCUT SCH (22:54)
[2018-09-04] MEDS: ALBUTEROL/IPRATROPIUM 3 ML NEB RESP TX SCH ×3 (02:35→10:59)
[2018-09-04 05:44] LABS: Basophils # 0.1 10*3/uL (0.0-0.2); Basophils % 0.4 % (0.0-0.8); Hemoglobin 16.5 GM/DL (12.0-16.0); Immature Granulocytes % 1.6 %; Immature Granulocytes Absolute 0.23 #; Lymphocytes # 0.7 10*3/uL (1.4-4.0); Lymphocytes % 4.7 % (21.3-54.2); Mean Corpuscular HGB Conc 31.7 GM/DL (32-36); Mean Corpuscular Volume 92.7 FL (87-102); Mean Platelet Volume 11.3 FL (9.6-12.0); Monocytes % 1.8 % (1.7-12.7); Neutrophils % 91.5 % (38.7-73.9); Platelet Count 203 T/CUMM (130-400); Red Blood Count 5.61 MC/CUMM (3.8-5.5); White Blood Count 14.1 T/CUMM (4-12)
[2018-09-04] MEDS ORDERED: methylPREDNISolone SOD SUC 40 MG/1 ML VIAL IV SCH (06:00)
[2018-09-04 06:07] LABS: Alanine Aminotransferase 30 U/L (13-56); Alkaline Phosphatase 121 U/L (45-117); Aspartate Amino Transferase < 3 U/L (0-37); Blood Urea Nitrogen 26 MG/DL (7-18); Calcium 8.9 MG/DL (8.5-10.1); Osmolality,Calculated 301.1 MOS/KG (273-304)
[2018-09-04 06:13] LABS: Glucose 587 MG/DL (74-106)
[2018-09-04] MEDS: HEPARIN 5,000 UNIT/1 ML VIAL SUBCUT SCH (06:18)
[2018-09-04 07:22] LABS: Lymphocytes 8 % (20-55); Platelet Estimate Normal; Segmented Neutrophils 89 % (50-85); Total Cells Counted 100
[2018-09-04] MEDS ORDERED: THEOPHYLLINE ER 300 MG TABLET PO SCH (08:00)
[2018-09-04] MEDS: clonazePAM 0.5 MG TABLET PO SCH (08:21)
[2018-09-04] MEDS: INSULIN REGULAR 100 UNIT/ML SUBCUT SCH ×2 (08:21→10:48)
[2018-09-04] MEDS: PRAMIPEXOLE 1 MG TABLET PO SCH (08:22)
[2018-09-04] MEDS: DOCUSATE SODIUM 100 MG CAPSULE PO SCH (08:23)
[2018-09-04] MEDS: BENZONATATE 100 MG CAPSULE PO SCH (08:23)
[2018-09-04] MEDS ORDERED: EMPAGLIFLOZIN LINAGLIPTIN PO SCH (09:00)
[2018-09-04] MEDS ORDERED: DILTIAZEM CD 240 MG CAPSULE PO SCH (09:00)
[2018-09-04] MEDS ORDERED: PANTOPRAZOLE 40 MG TABLET PO SCH (09:00)
[2018-09-04] MEDS ORDERED: TORSEMIDE 20 MG TABLET PO SCH (09:00)
[2018-09-04] MEDS ORDERED: LACTOBACILLUS RHAMNOSUS GG CAPSULE PO SCH (09:00)
[2018-09-04] MEDS ORDERED: glipiZIDE 5 MG TABLET PO SCH (09:00)
[2018-09-04] MEDS ORDERED: SPIRONOLACTONE 25 MG TABLET PO SCH (09:00)
[2018-09-04] MEDS ORDERED: ASPIRIN EC 81 MG TABLET PO SCH (09:00)
[2018-09-04] MEDS ORDERED: AZITHROMYCIN INJ 500 MG in SODIUM CHLORIDE 0.9% 250 ML IV SCH (10:00)
[2018-09-04] MEDS ORDERED: INSULIN REGULAR 100 UNIT/ML IV ONE (11:49)
[2018-09-04 11:53] VITALS: BP 117/74
[2018-09-04] MEDS ORDERED: INSULIN REGULAR 100 UNIT/ML SUBCUT SCH (12:00)
== END 2018-09-04 17:35 | disposition home or self-care (01) ==
LOC: EDBD → EDUNIT# → N.2E 14:02 → N.ED 14:02 → N.2E 18:21
PROVIDERS: ADMIT Internal Medicine; ATTEND Internal Medicine

== ENCOUNTER 2020-06-23 16:17 | Inpatient (IN) ==
[2020-06-23] MEDS ORDERED: DEXTROSE 50% 25 GM/50 ML VIAL IV PRN (19:00)
[2020-06-23] MEDS ORDERED: GLUCAGON 1 MG VIAL IM PRN (19:00)
[2020-06-23] MEDS ORDERED: traMADol 50 MG TABLET PO PRN (19:06)
[2020-06-23] MEDS ORDERED: HydrOXYzine PAMOATE 25 MG CAPSULE PO PRN (19:06)
[2020-06-23] MEDS ORDERED: NON-FORMULARY MEDICATION (Chlorpheniramine-Phenylephrine [Ed A-Hist] 4-10 mg Tablet) PO PRN (19:06)
[2020-06-23] MEDS ORDERED: ONDANSETRON 4 MG TABLET PO PRN (19:06)
[2020-06-23] MEDS ORDERED: traZODone 50 MG TABLET PO PRN (19:06)
[2020-06-23] MEDS: ALBUTEROL/IPRATROPIUM 3 ML NEB RESP TX SCH (20:25)
[2020-06-23] MEDS: BACLOFEN 20 MG TABLET PO SCH (20:39)
[2020-06-23] MEDS: predniSONE 10 MG TABLET PO SCH (20:39)
[2020-06-23] MEDS: glipiZIDE 5 MG TABLET PO SCH (20:39)
[2020-06-23] MEDS: NICOTINE 21 MG/24 HR PATCH TRANSDERM SCH (20:40)
[2020-06-23] MEDS: PRAMIPEXOLE 1 MG TABLET PO SCH (20:40)
[2020-06-23] MEDS: ENOXAPARIN 40 MG/0.4 ML SYRINGE SUBCUT SCH (20:41)
[2020-06-23] MEDS: INSULIN REGULAR 100 UNIT/ML SUBCUT SCH (20:41)
[2020-06-24] MEDS: ALBUTEROL/IPRATROPIUM 3 ML NEB RESP TX SCH ×4 (00:25→20:58)
[2020-06-24] MEDS ORDERED: ALBUTEROL/IPRATROPIUM 3 ML NEB RESP TX SCH (01:00)
[2020-06-24 05:15] LABS: Basophils % 0.2 % (0.0-0.8); Hematocrit 53.4 VOL% (35.7-47.0); Hemoglobin 16.8 GM/DL (12.0-16.0); Immature Granulocytes % 0.7 %; Immature Granulocytes Absolute 0.04 #; Lymphocytes # 0.9 10*3/uL (1.4-4.0); Lymphocytes % 15.4 % (21.3-54.2); Mean Corpuscular HGB Conc 31.5 GM/DL (32-36); Mean Corpuscular Volume 93.4 FL (87-102); Mean Platelet Volume 10.6 FL (9.6-12.0); Monocytes % 1.8 % (1.7-12.7); Neutrophils % 81.9 % (38.7-73.9); Platelet Count 255 T/CUMM (130-400); Red Blood Count 5.72 MC/CUMM (3.8-5.5); Red Cell Distribution Width 15.5 % (9.3-17.3); White Blood Count 5.7 T/CUMM (4-12)
[2020-06-24 05:21] LABS: Osmolality,Calculated 280.1 MOS/KG (273-304); Potassium 4.9 MMOL/L (3.5-5.1)
[2020-06-24] MEDS: glipiZIDE 10 MG TABLET PO SCH (09:24)
[2020-06-24] MEDS: PRAMIPEXOLE 1 MG TABLET PO SCH ×3 (09:24→20:19)
[2020-06-24] MEDS: THEOPHYLLINE ER 300 MG TABLET PO SCH ×2 (09:24→18:29)
[2020-06-24] MEDS: BACLOFEN 20 MG TABLET PO SCH ×3 (09:25→20:19)
[2020-06-24] MEDS: TORSEMIDE 20 MG TABLET PO SCH (09:25)
[2020-06-24] MEDS: PANTOPRAZOLE 40 MG TABLET PO SCH (09:25)
[2020-06-24] MEDS: predniSONE 10 MG TABLET PO SCH ×2 (09:25→20:19)
[2020-06-24] MEDS: SPIRONOLACTONE 25 MG TABLET PO SCH (09:25)
[2020-06-24] MEDS: INSULIN REGULAR 100 UNIT/ML SUBCUT SCH ×4 (09:27→20:18)
[2020-06-24] MEDS: NICOTINE 21 MG/24 HR PATCH TRANSDERM SCH (09:33)
[2020-06-24] MEDS: DILTIAZEM CD 240 MG CAPSULE PO SCH (09:49)
[2020-06-24] MEDS: ENOXAPARIN 40 MG/0.4 ML SYRINGE SUBCUT SCH (20:18)
[2020-06-24] MEDS: glipiZIDE 5 MG TABLET PO SCH (20:19)
[2020-06-25] MEDS: ALBUTEROL/IPRATROPIUM 3 ML NEB RESP TX SCH ×4 (02:40→19:48)
[2020-06-25 06:20] LABS: Basophils % 0.2 % (0.0-0.8); Hematocrit 53.3 VOL% (35.7-47.0); Hemoglobin 16.9 GM/DL (12.0-16.0); Immature Granulocytes % 0.7 %; Immature Granulocytes Absolute 0.06 #; Lymphocytes # 1.8 10*3/uL (1.4-4.0); Lymphocytes % 20.3 % (21.3-54.2); Mean Corpuscular HGB Conc 31.7 GM/DL (32-36); Mean Corpuscular Volume 92.4 FL (87-102); Monocytes % 6.5 % (1.7-12.7); Neutrophils % 72.3 % (38.7-73.9); Platelet Count 259 T/CUMM (130-400); Red Blood Count 5.77 MC/CUMM (3.8-5.5); Red Cell Distribution Width 15.4 % (9.3-17.3); White Blood Count 8.9 T/CUMM (4-12)
[2020-06-25 06:29] LABS: Calcium 8.7 MG/DL (8.5-10.1); Osmolality,Calculated 292.4 MOS/KG (273-304); Potassium 4.1 MMOL/L (3.5-5.1)
[2020-06-25] MEDS: PANTOPRAZOLE 40 MG TABLET PO SCH (09:40)
[2020-06-25] MEDS: DILTIAZEM CD 240 MG CAPSULE PO SCH (09:40)
[2020-06-25] MEDS: TORSEMIDE 20 MG TABLET PO SCH (09:40)
[2020-06-25] MEDS: predniSONE 10 MG TABLET PO SCH (09:40)
[2020-06-25] MEDS: BACLOFEN 20 MG TABLET PO SCH ×3 (09:40→21:44)
[2020-06-25] MEDS: SPIRONOLACTONE 25 MG TABLET PO SCH (09:40)
[2020-06-25] MEDS: THEOPHYLLINE ER 300 MG TABLET PO SCH ×2 (09:41→16:06)
[2020-06-25] MEDS: glipiZIDE 10 MG TABLET PO SCH (09:41)
[2020-06-25] MEDS: PRAMIPEXOLE 1 MG TABLET PO SCH ×3 (09:41→21:44)
[2020-06-25] MEDS: NICOTINE 21 MG/24 HR PATCH TRANSDERM SCH (09:45)
[2020-06-25] MEDS: INSULIN REGULAR 100 UNIT/ML SUBCUT SCH ×4 (10:23→21:43)
[2020-06-25] MEDS: clonazePAM 0.5 MG TABLET PO SCH ×2 (14:52→21:44)
[2020-06-25] MEDS: methylPREDNISolone SOD SUC 40 MG/1 ML VIAL IV SCH (18:30)
[2020-06-25] MEDS: ENOXAPARIN 40 MG/0.4 ML SYRINGE SUBCUT SCH (21:43)
[2020-06-25] MEDS: glipiZIDE 5 MG TABLET PO SCH (21:44)
[2020-06-26] MEDS: ALBUTEROL/IPRATROPIUM 3 ML NEB RESP TX SCH ×4 (00:42→19:32)
[2020-06-26] MEDS: methylPREDNISolone SOD SUC 40 MG/1 ML VIAL IV SCH ×3 (02:20→18:09)
[2020-06-26 05:39] LABS: Basophils % 0.3 % (0.0-0.8); Hematocrit 53.1 VOL% (35.7-47.0); Hemoglobin 17.1 GM/DL (12.0-16.0); Immature Granulocytes % 0.4 %; Immature Granulocytes Absolute 0.04 #; Lymphocytes # 1.3 10*3/uL (1.4-4.0); Lymphocytes % 12.5 % (21.3-54.2); Mean Corpuscular HGB Conc 32.2 GM/DL (32-36); Mean Corpuscular Volume 92.2 FL (87-102); Mean Platelet Volume 10.7 FL (9.6-12.0); Monocytes % 0.9 % (1.7-12.7); Neutrophils % 85.9 % (38.7-73.9); Platelet Count 272 T/CUMM (130-400); Red Blood Count 5.76 MC/CUMM (3.8-5.5); Red Cell Distribution Width 15.3 % (9.3-17.3); White Blood Count 10.4 T/CUMM (4-12)
[2020-06-26 05:50] LABS: Calcium 8.9 MG/DL (8.5-10.1); Osmolality,Calculated 288.7 MOS/KG (273-304); Potassium 4.3 MMOL/L (3.5-5.1)
[2020-06-26] MEDS: clonazePAM 0.5 MG TABLET PO SCH ×3 (08:42→17:49)
[2020-06-26] MEDS: PRAMIPEXOLE 1 MG TABLET PO SCH ×3 (08:43→21:25)
[2020-06-26] MEDS: INSULIN REGULAR 100 UNIT/ML SUBCUT SCH ×4 (08:43→21:26)
[2020-06-26] MEDS: glipiZIDE 10 MG TABLET PO SCH (08:43)
[2020-06-26] MEDS: TORSEMIDE 20 MG TABLET PO SCH (08:44)
[2020-06-26] MEDS: BACLOFEN 20 MG TABLET PO SCH ×3 (08:44→21:26)
[2020-06-26] MEDS: NICOTINE 21 MG/24 HR PATCH TRANSDERM SCH (08:44)
[2020-06-26] MEDS: SPIRONOLACTONE 25 MG TABLET PO SCH (08:44)
[2020-06-26] MEDS: PANTOPRAZOLE 40 MG TABLET PO SCH (08:45)
[2020-06-26] MEDS: THEOPHYLLINE ER 300 MG TABLET PO SCH ×2 (08:45→17:49)
[2020-06-26] MEDS: DILTIAZEM CD 240 MG CAPSULE PO SCH (08:50)
[2020-06-26] MEDS: glipiZIDE 5 MG TABLET PO SCH (21:25)
[2020-06-26] MEDS: ENOXAPARIN 40 MG/0.4 ML SYRINGE SUBCUT SCH (21:26)
[2020-06-27] MEDS: ALBUTEROL/IPRATROPIUM 3 ML NEB RESP TX SCH ×4 (00:09→20:38)
[2020-06-27] MEDS: methylPREDNISolone SOD SUC 40 MG/1 ML VIAL IV SCH ×3 (01:22→17:27)
[2020-06-27 06:56] LABS: Basophils % 0.2 % (0.0-0.8); Hematocrit 56.2 VOL% (35.7-47.0); Hemoglobin 18.2 GM/DL (12.0-16.0); Immature Granulocytes % 0.4 %; Immature Granulocytes Absolute 0.04 #; Lymphocytes # 1.1 10*3/uL (1.4-4.0); Mean Corpuscular HGB Conc 32.4 GM/DL (32-36); Mean Corpuscular Volume 90.9 FL (87-102); Monocytes % 3.2 % (1.7-12.7); Neutrophils % 84.2 % (38.7-73.9); Platelet Count 250 T/CUMM (130-400); Red Blood Count 6.18 MC/CUMM (3.8-5.5); Red Cell Distribution Width 15.5 % (9.3-17.3); White Blood Count 9.3 T/CUMM (4-12)
[2020-06-27] MEDS ORDERED: PROMETHAZINE 25 MG/1 ML VIAL IM ONE (07:00)
[2020-06-27] MEDS ORDERED: MEPERIDINE 25 MG/1 ML VIAL IM ONE (07:00)
[2020-06-27 07:20] LABS: Calcium 9.4 MG/DL (8.5-10.1); Osmolality,Calculated 292.5 MOS/KG (273-304); Potassium 4.3 MMOL/L (3.5-5.1)
[2020-06-27] MEDS ORDERED: LIDOCAINE 2% VISCOUS 100 ML BOTTLE SWISH/SPIT ONE (07:30)
[2020-06-27] MEDS ORDERED: MIDAZOLAM 2 MG/2 ML VIAL IV ONE (07:30)
[2020-06-27] MEDS ORDERED: LIDOCAINE 1% 20 ML VIAL MISC INJ ONE (07:30)
[2020-06-27] MEDS ORDERED: LIDOCAINE 2% 20 ML VIAL RESP TX ONE (07:30)
[2020-06-27] MEDS: DILTIAZEM CD 240 MG CAPSULE PO SCH (10:28)
[2020-06-27] MEDS: THEOPHYLLINE ER 300 MG TABLET PO SCH ×2 (10:29→16:19)
[2020-06-27] MEDS: SPIRONOLACTONE 25 MG TABLET PO SCH (10:29)
[2020-06-27] MEDS: BACLOFEN 20 MG TABLET PO SCH ×3 (10:29→21:06)
[2020-06-27] MEDS: glipiZIDE 10 MG TABLET PO SCH (10:29)
[2020-06-27] MEDS: PANTOPRAZOLE 40 MG TABLET PO SCH (10:29)
[2020-06-27] MEDS: PRAMIPEXOLE 1 MG TABLET PO SCH ×3 (10:30→21:05)
[2020-06-27] MEDS: TORSEMIDE 20 MG TABLET PO SCH (10:30)
[2020-06-27] MEDS: INSULIN REGULAR 100 UNIT/ML SUBCUT SCH ×4 (10:31→21:07)
[2020-06-27] MEDS: NICOTINE 21 MG/24 HR PATCH TRANSDERM SCH (10:31)
[2020-06-27] MEDS: clonazePAM 0.5 MG TABLET PO SCH ×3 (11:00→17:27)
[2020-06-27] MEDS: ENOXAPARIN 40 MG/0.4 ML SYRINGE SUBCUT SCH (21:06)
[2020-06-27] MEDS: glipiZIDE 5 MG TABLET PO SCH (21:06)
[2020-06-28] MEDS: ALBUTEROL/IPRATROPIUM 3 ML NEB RESP TX SCH ×4 (01:08→19:16)
[2020-06-28] MEDS: methylPREDNISolone SOD SUC 40 MG/1 ML VIAL IV SCH (02:46)
[2020-06-28] MEDS: INSULIN REGULAR 100 UNIT/ML SUBCUT SCH ×4 (09:04→22:30)
[2020-06-28] MEDS: NICOTINE 21 MG/24 HR PATCH TRANSDERM SCH (09:04)
[2020-06-28] MEDS: DILTIAZEM CD 240 MG CAPSULE PO SCH (09:05)
[2020-06-28] MEDS: TORSEMIDE 20 MG TABLET PO SCH (09:05)
[2020-06-28] MEDS: glipiZIDE 10 MG TABLET PO SCH (09:05)
[2020-06-28] MEDS: PRAMIPEXOLE 1 MG TABLET PO SCH ×3 (09:05→22:28)
[2020-06-28] MEDS: THEOPHYLLINE ER 300 MG TABLET PO SCH ×2 (09:05→18:05)
[2020-06-28] MEDS: SPIRONOLACTONE 25 MG TABLET PO SCH (09:05)
[2020-06-28] MEDS: BACLOFEN 20 MG TABLET PO SCH ×3 (09:05→22:29)
[2020-06-28] MEDS: PANTOPRAZOLE 40 MG TABLET PO SCH (09:06)
[2020-06-28] MEDS: predniSONE 20 MG TABLET PO SCH (09:33)
[2020-06-28] MEDS: clonazePAM 0.5 MG TABLET PO SCH ×3 (09:33→18:05)
[2020-06-28] MEDS: glipiZIDE 5 MG TABLET PO SCH (22:29)
[2020-06-28] MEDS: ENOXAPARIN 40 MG/0.4 ML SYRINGE SUBCUT SCH (22:30)
[2020-06-29] MEDS: ALBUTEROL/IPRATROPIUM 3 ML NEB RESP TX SCH ×2 (01:00→07:31)
[2020-06-29] MEDS: clonazePAM 0.5 MG TABLET PO SCH ×2 (08:41→12:28)
[2020-06-29] MEDS: PRAMIPEXOLE 1 MG TABLET PO SCH ×2 (08:41→12:27)
[2020-06-29] MEDS: glipiZIDE 10 MG TABLET PO SCH (08:42)
[2020-06-29] MEDS: predniSONE 20 MG TABLET PO SCH (08:42)
[2020-06-29] MEDS: BACLOFEN 20 MG TABLET PO SCH (08:42)
[2020-06-29] MEDS: DILTIAZEM CD 240 MG CAPSULE PO SCH (08:42)
[2020-06-29] MEDS: THEOPHYLLINE ER 300 MG TABLET PO SCH (08:42)
[2020-06-29] MEDS: PANTOPRAZOLE 40 MG TABLET PO SCH (08:42)
[2020-06-29] MEDS: SPIRONOLACTONE 25 MG TABLET PO SCH (08:42)
[2020-06-29] MEDS: TORSEMIDE 20 MG TABLET PO SCH (08:43)
[2020-06-29] MEDS: INSULIN REGULAR 100 UNIT/ML SUBCUT SCH ×2 (08:46→12:27)
[2020-06-29] MEDS: NICOTINE 21 MG/24 HR PATCH TRANSDERM SCH (08:47)
[2020-06-29 11:36] VITALS: BP 108/81
== END 2020-06-29 13:00 | disposition home or self-care (01) | DRG 140 ==
LOC: N.4E 17:47 → SUATTDRO 17:47
PROVIDERS: ADMIT Internal Medicine; ATTEND Internal Medicine

== ENCOUNTER 2020-12-19 15:42 | Inpatient (IN) ==
[2020-12-19] MEDS ORDERED: methylPREDNISolone SOD SUC 125 MG/2 ML VIAL IV STA (16:39)
[2020-12-19] MEDS ORDERED: ALBUTEROL/IPRATROPIUM 3 ML NEB RESP TX STA (16:56)
[2020-12-19 17:03] LABS: Albumin 3.1 G/DL (3.4-5.0); Calcium 8.8 MG/DL (8.5-10.1); Osmolality,Calculated 286.4 MOS/KG (273-304); Potassium 4.4 MMOL/L (3.5-5.1); Total Protein 7.5 G/DL (6.4-8.2)
[2020-12-19 17:30] LABS: Basophils # 0.1 10*3/uL (0.0-0.2); Basophils % 0.5 % (0.0-0.8); Eosinophils # 0.1 10*3/uL (0.0-0.87); Eosinophils % 0.8 % (0.00-10.9); Hematocrit 54.1 VOL% (35.7-47.0); Hemoglobin 15.9 GM/DL (12.0-16.0); Immature Granulocytes % 0.6 %; Immature Granulocytes Absolute 0.09 #; Lymphocytes # 2.2 10*3/uL (1.4-4.0); Lymphocytes % 14.2 % (21.3-54.2); Mean Corpuscular HGB Conc 29.4 GM/DL (32-36); Mean Platelet Volume 10.9 FL (9.6-12.0); Monocytes % 5.3 % (1.7-12.7); NRBC # 0.03 10*3/uL; Neutrophils % 78.6 % (38.7-73.9); Platelet Count 235 T/CUMM (130-400); Red Blood Count 5.58 MC/CUMM (3.8-5.5); Red Cell Distribution Width 15.4 % (9.3-17.3); White Blood Count 15.3 T/CUMM (4-12)
[2020-12-19 18:13] LABS: ABG Base Excess 6.9 MMOL/L (-2.5-2.5); ABG HCO3 30.4 MMOL/L (20-26); ABG Oxygen Saturation 88.9 % (95-100); ABG PH 7.327 (7.35-7.45); ABG PO2 59.4 MM HG (80-95); ABG TCO2 31.3 MMOL/L (23-27)
[2020-12-19 18:21] LABS: ABG PCO2 70.2 MM HG (35-48)
[2020-12-19] MEDS ORDERED: DEXTROSE 50% 25 GM/50 ML VIAL IV PRN ×2 (19:29)
[2020-12-19] MEDS ORDERED: GLUCAGON 1 MG VIAL IM PRN ×2 (19:29)
[2020-12-19] MEDS ORDERED: ZALEPLON 5 MG CAPSULE PO PRN (19:29)
[2020-12-19] MEDS ORDERED: NICOTINE 21 MG/24 HR PATCH TRANSDERM PRN (19:29)
[2020-12-19] MEDS ORDERED: AZITHROMYCIN INJ 500 MG in SODIUM CHLORIDE 0.9% 250 ML IV STA (19:39)
[2020-12-19] MEDS ORDERED: cefTRIAXone 1,000 MG in SODIUM CHLORIDE 0.9% 100 ML IV STA (19:39)
[2020-12-19] MEDS: ENOXAPARIN 40 MG/0.4 ML SYRINGE SUBCUT SCH (19:52)
[2020-12-19] MEDS ORDERED: FUROSEMIDE 40 MG/4 ML VIAL IV ONE (20:00)
[2020-12-19] MEDS: INSULIN LISPRO 100 UNIT/ML SUBCUT SCH (21:28)
[2020-12-19] MEDS ORDERED: PRAMIPEXOLE 1 MG TABLET PO ONE (23:31)
[2020-12-19] MEDS ORDERED: clonazePAM 0.5 MG TABLET PO ONE (23:32)
[2020-12-20 00:33] LABS: Basophils % 0.3 % (0.0-0.8); Hematocrit 53.2 VOL% (35.7-47.0); Immature Granulocytes % 0.6 %; Lymphocytes # 0.7 10*3/uL (1.4-4.0); Lymphocytes % 4.4 % (21.3-54.2); Mean Corpuscular HGB Conc 29.5 GM/DL (32-36); Mean Corpuscular Volume 96.7 FL (87-102); Mean Platelet Volume 10.8 FL (9.6-12.0); Monocytes % 0.5 % (1.7-12.7); Neutrophils % 94.2 % (38.7-73.9); Platelet Count 219 T/CUMM (130-400); Red Cell Distribution Width 15.4 % (9.3-17.3); White Blood Count 15.5 T/CUMM (4-12)
[2020-12-20 00:35] LABS: Hemoglobin 15.7 GM/DL (12.0-16.0)
[2020-12-20] MEDS: ALBUTEROL 2.5 MG/3 ML NEB RESP TX SCH ×6 (00:50→22:59)
[2020-12-20 00:53] LABS: Eosinophils 1 % (0-10); Lymphocytes 5 % (20-55); Segmented Neutrophils 93 % (50-85); Total Cells Counted 100
[2020-12-20 00:54] LABS: Calcium 8.7 MG/DL (8.5-10.1); Osmolality,Calculated 291.4 MOS/KG (273-304); Platelet Estimate Adequate; Potassium 4.6 MMOL/L (3.5-5.1); Risk Ratio 3.46; Thyroid Stimulating Hormone 0.619 uIU/ml (0.358-3.74); VLDL Cholesterol 22.2 MG/DL
[2020-12-20] MEDS: ONDANSETRON 4 MG/2 ML VIAL IV PRN ×2 (03:26→09:33)
[2020-12-20] MEDS: methylPREDNISolone SOD SUC 40 MG/1 ML VIAL IV SCH ×3 (04:55→20:33)
[2020-12-20] MEDS ORDERED: FUROSEMIDE 40 MG/4 ML VIAL IV ONE (09:00)
[2020-12-20] MEDS: cefTRIAXone 1,000 MG in SODIUM CHLORIDE 0.9% 100 ML IV SCH (09:33)
[2020-12-20] MEDS: PANTOPRAZOLE 40 MG TABLET PO SCH (09:34)
[2020-12-20] MEDS: NICOTINE 14 MG/24 HR PATCH TRANSDERM SCH (09:34)
[2020-12-20] MEDS: INSULIN LISPRO 100 UNIT/ML SUBCUT SCH ×4 (09:35→20:33)
[2020-12-20 11:00] LABS: ABG Base Excess 4.6 MMOL/L (-2.5-2.5); ABG HCO3 28.3 MMOL/L (20-26); ABG Oxygen Saturation 88.2 % (95-100); ABG PH 7.238 (7.35-7.45); ABG PO2 61.9 MM HG (80-95); ABG TCO2 32.2 MMOL/L (23-27)
[2020-12-20 11:03] LABS: ABG PCO2 86.3 MM HG (35-48)
[2020-12-20] MEDS: TORSEMIDE 20 MG TABLET PO SCH (11:25)
[2020-12-20] MEDS: DILTIAZEM CD 240 MG CAPSULE PO SCH (11:25)
[2020-12-20] MEDS: SPIRONOLACTONE 25 MG TABLET PO SCH (11:25)
[2020-12-20] MEDS: guaiFENesin 200 MG/10 ML UDCUP PO PRN (11:25)
[2020-12-20] MEDS ORDERED: traZODone 50 MG TABLET PO PRN (12:10)
[2020-12-20] MEDS: clonazePAM 0.5 MG TABLET PO SCH ×3 (12:18→20:32)
[2020-12-20] MEDS: PRAMIPEXOLE 1 MG TABLET PO SCH ×2 (12:18→20:32)
[2020-12-20 16:00] LABS: ABG Base Excess 7.8 MMOL/L (-2.5-2.5); ABG HCO3 30.9 MMOL/L (20-26); ABG Oxygen Saturation 73.2 % (95-100); ABG PCO2 63.8 MM HG (35-48); ABG PH 7.364 (7.35-7.45); ABG PO2 41.3 MM HG (80-95); ABG TCO2 31.3 MMOL/L (23-27)
[2020-12-20] MEDS: THEOPHYLLINE ER 300 MG TABLET PO SCH (16:24)
[2020-12-20] MEDS: GABAPENTIN 300 MG CAPSULE PO SCH (20:32)
[2020-12-20] MEDS: ENOXAPARIN 40 MG/0.4 ML SYRINGE SUBCUT SCH (20:33)
[2020-12-20] MEDS ORDERED: INSULIN GLARGINE 100 UNIT/ML SUBCUT SCH (21:00)
[2020-12-21] MEDS: ONDANSETRON 4 MG/2 ML VIAL IV PRN (04:11)
[2020-12-21] MEDS: methylPREDNISolone SOD SUC 40 MG/1 ML VIAL IV SCH ×3 (04:13→22:26)
[2020-12-21] MEDS: ALBUTEROL 2.5 MG/3 ML NEB RESP TX SCH ×6 (04:19→23:50)
[2020-12-21] MEDS: guaiFENesin 200 MG/10 ML UDCUP PO PRN (05:06)
[2020-12-21 05:39] LABS: Calcium 9.1 MG/DL (8.5-10.1); Osmolality,Calculated 293.7 MOS/KG (273-304); Potassium 4.4 MMOL/L (3.5-5.1)
[2020-12-21 05:47] LABS: Basophils % 0.1 % (0.0-0.8); Hematocrit 50.2 VOL% (35.7-47.0); Immature Granulocytes % 0.9 %; Immature Granulocytes Absolute 0.13 #; Lymphocytes # 1.1 10*3/uL (1.4-4.0); Lymphocytes % 7.1 % (21.3-54.2); Mean Corpuscular HGB Conc 30.3 GM/DL (32-36); Mean Corpuscular Volume 94.9 FL (87-102); Mean Platelet Volume 11.2 FL (9.6-12.0); Monocytes % 4.1 % (1.7-12.7); Neutrophils % 87.8 % (38.7-73.9); Platelet Count 259 T/CUMM (130-400); Red Blood Count 5.29 MC/CUMM (3.8-5.5); Red Cell Distribution Width 14.9 % (9.3-17.3); White Blood Count 15.3 T/CUMM (4-12)
[2020-12-21 05:48] LABS: Hemoglobin 15.2 GM/DL (12.0-16.0)
[2020-12-21] MEDS: INSULIN LISPRO 100 UNIT/ML SUBCUT SCH ×4 (10:27→22:25)
[2020-12-21] MEDS: ASPIRIN EC 81 MG TABLET PO SCH (10:28)
[2020-12-21] MEDS: SPIRONOLACTONE 25 MG TABLET PO SCH (10:28)
[2020-12-21] MEDS: THEOPHYLLINE ER 300 MG TABLET PO SCH ×2 (10:28→17:34)
[2020-12-21] MEDS: DILTIAZEM CD 240 MG CAPSULE PO SCH (10:29)
[2020-12-21] MEDS: clonazePAM 0.5 MG TABLET PO SCH ×3 (10:29→22:27)
[2020-12-21] MEDS: NICOTINE 14 MG/24 HR PATCH TRANSDERM SCH (10:30)
[2020-12-21] MEDS: PANTOPRAZOLE 40 MG TABLET PO SCH (10:30)
[2020-12-21] MEDS: PRAMIPEXOLE 1 MG TABLET PO SCH ×3 (10:30→22:27)
[2020-12-21] MEDS: TORSEMIDE 20 MG TABLET PO SCH (10:34)
[2020-12-21] MEDS: cefTRIAXone 1,000 MG in SODIUM CHLORIDE 0.9% 100 ML IV SCH (10:34)
[2020-12-21 11:09] LABS: ABG Base Excess 6.5 MMOL/L (-2.5-2.5); ABG HCO3 30.2 MMOL/L (20-26); ABG Oxygen Saturation 90.5 % (95-100); ABG PCO2 60.5 MM HG (35-48); ABG PH 7.364 (7.35-7.45); ABG PO2 64.5 MM HG (80-95); ABG TCO2 29.7 MMOL/L (23-27)
[2020-12-21] MEDS ORDERED: INSULIN GLARGINE 100 UNIT/ML SUBCUT SCH ×2 (21:00)
[2020-12-21] MEDS: ENOXAPARIN 40 MG/0.4 ML SYRINGE SUBCUT SCH (22:26)
[2020-12-21] MEDS: GABAPENTIN 300 MG CAPSULE PO SCH (22:27)
[2020-12-22] MEDS: ALBUTEROL 2.5 MG/3 ML NEB RESP TX SCH ×6 (03:00→23:15)
[2020-12-22 04:45] LABS: Calcium 8.6 MG/DL (8.5-10.1); Osmolality,Calculated 288.8 MOS/KG (273-304); Potassium 4.6 MMOL/L (3.5-5.1)
[2020-12-22 05:01] LABS: Eosinophils % 0.1 % (0.00-10.9); Hematocrit 48.6 VOL% (35.7-47.0); Hemoglobin 14.7 GM/DL (12.0-16.0); Immature Granulocytes % 0.5 %; Immature Granulocytes Absolute 0.06 #; Lymphocytes # 0.9 10*3/uL (1.4-4.0); Mean Corpuscular HGB Conc 30.2 GM/DL (32-36); Mean Corpuscular Volume 95.3 FL (87-102); Mean Platelet Volume 11.3 FL (9.6-12.0); Monocytes % 5.7 % (1.7-12.7); NRBC # 0.02 10*3/uL; Neutrophils % 86.7 % (38.7-73.9); Platelet Count 240 T/CUMM (130-400); Red Cell Distribution Width 14.9 % (9.3-17.3); White Blood Count 12.2 T/CUMM (4-12)
[2020-12-22] MEDS: methylPREDNISolone SOD SUC 40 MG/1 ML VIAL IV SCH (06:17)
[2020-12-22 06:28] LABS: ABG Base Excess 7.9 MMOL/L (-2.5-2.5); ABG HCO3 31.7 MMOL/L (20-26); ABG Oxygen Saturation 96.2 % (95-100); ABG PH 7.363 (7.35-7.45); ABG PO2 86.5 MM HG (80-95); ABG TCO2 31.2 MMOL/L (23-27)
[2020-12-22] MEDS ORDERED: AZITHROMYCIN 250 MG TABLET PO ONE (07:38)
[2020-12-22] MEDS: INSULIN LISPRO 100 UNIT/ML SUBCUT SCH ×4 (09:20→21:54)
[2020-12-22] MEDS: PRAMIPEXOLE 1 MG TABLET PO SCH ×3 (09:20→21:52)
[2020-12-22] MEDS: PANTOPRAZOLE 40 MG TABLET PO SCH (09:20)
[2020-12-22] MEDS: clonazePAM 0.5 MG TABLET PO SCH ×3 (09:21→22:21)
[2020-12-22] MEDS: ASPIRIN EC 81 MG TABLET PO SCH (09:22)
[2020-12-22] MEDS: SPIRONOLACTONE 25 MG TABLET PO SCH (09:22)
[2020-12-22] MEDS: DILTIAZEM CD 240 MG CAPSULE PO SCH (09:22)
[2020-12-22] MEDS: TORSEMIDE 20 MG TABLET PO SCH (09:22)
[2020-12-22] MEDS: NICOTINE 14 MG/24 HR PATCH TRANSDERM SCH (09:23)
[2020-12-22] MEDS: THEOPHYLLINE ER 300 MG TABLET PO SCH ×2 (09:25→16:30)
[2020-12-22] MEDS: cefTRIAXone 1,000 MG in SODIUM CHLORIDE 0.9% 100 ML IV SCH (09:38)
[2020-12-22] MEDS: predniSONE 20 MG TABLET PO SCH (17:27)
[2020-12-22] MEDS: GABAPENTIN 300 MG CAPSULE PO SCH (21:53)
[2020-12-22] MEDS: INSULIN GLARGINE 100 UNIT/ML SUBCUT SCH (21:53)
[2020-12-22] MEDS: ENOXAPARIN 40 MG/0.4 ML SYRINGE SUBCUT SCH (21:54)
[2020-12-23 04:26] LABS: Basophils % 0.2 % (0.0-0.8); Hematocrit 50.3 VOL% (35.7-47.0); Hemoglobin 15.5 GM/DL (12.0-16.0); Immature Granulocytes % 0.5 %; Immature Granulocytes Absolute 0.06 #; Lymphocytes % 8.5 % (21.3-54.2); Mean Corpuscular HGB Conc 30.8 GM/DL (32-36); Mean Corpuscular Volume 95.3 FL (87-102); Mean Platelet Volume 10.7 FL (9.6-12.0); Monocytes % 6.9 % (1.7-12.7); Neutrophils % 83.9 % (38.7-73.9); Platelet Count 261 T/CUMM (130-400); Red Blood Count 5.28 MC/CUMM (3.8-5.5); Red Cell Distribution Width 15.2 % (9.3-17.3); White Blood Count 11.8 T/CUMM (4-12)
[2020-12-23 04:44] LABS: Calcium 9.4 MG/DL (8.5-10.1); Osmolality,Calculated 286.8 MOS/KG (273-304); Potassium 4.3 MMOL/L (3.5-5.1)
[2020-12-23] MEDS: ALBUTEROL 2.5 MG/3 ML NEB RESP TX SCH ×4 (07:33→18:48)
[2020-12-23] MEDS ORDERED: predniSONE 20 MG TABLET PO SCH (09:00)
[2020-12-23] MEDS: clonazePAM 0.5 MG TABLET PO SCH ×3 (09:22→22:04)
[2020-12-23] MEDS: THEOPHYLLINE ER 300 MG TABLET PO SCH ×2 (09:22→16:34)
[2020-12-23] MEDS: DILTIAZEM CD 240 MG CAPSULE PO SCH (09:23)
[2020-12-23] MEDS: PRAMIPEXOLE 1 MG TABLET PO SCH ×3 (09:23→22:04)
[2020-12-23] MEDS: PANTOPRAZOLE 40 MG TABLET PO SCH (09:24)
[2020-12-23] MEDS: AZITHROMYCIN 250 MG TABLET PO SCH (09:24)
[2020-12-23] MEDS: ASPIRIN EC 81 MG TABLET PO SCH (09:24)
[2020-12-23] MEDS: SPIRONOLACTONE 25 MG TABLET PO SCH (09:24)
[2020-12-23] MEDS: TORSEMIDE 20 MG TABLET PO SCH (09:24)
[2020-12-23] MEDS: predniSONE 20 MG TABLET PO SCH (09:24)
[2020-12-23] MEDS: INSULIN LISPRO 100 UNIT/ML SUBCUT SCH ×4 (09:25→22:03)
[2020-12-23] MEDS: NICOTINE 14 MG/24 HR PATCH TRANSDERM SCH (09:27)
[2020-12-23] MEDS: cefTRIAXone 1,000 MG in SODIUM CHLORIDE 0.9% 100 ML IV SCH (11:29)
[2020-12-23] MEDS: metFORMIN 500 MG TABLET PO SCH (16:34)
[2020-12-23] MEDS: ENOXAPARIN 40 MG/0.4 ML SYRINGE SUBCUT SCH (19:40)
[2020-12-23] MEDS: GABAPENTIN 300 MG CAPSULE PO SCH (22:03)
[2020-12-23] MEDS: INSULIN GLARGINE 100 UNIT/ML SUBCUT SCH (22:03)
[2020-12-24] MEDS: ALBUTEROL 2.5 MG/3 ML NEB RESP TX SCH ×8 (05:41→23:50)
[2020-12-24 08:13] LABS: Calcium 8.8 MG/DL (8.5-10.1); Osmolality,Calculated 291.5 MOS/KG (273-304); Potassium 3.9 MMOL/L (3.5-5.1)
[2020-12-24 08:15] LABS: Basophils % 0.2 % (0.0-0.8); Eosinophils % 0.2 % (0.00-10.9); Hematocrit 53.7 VOL% (35.7-47.0); Immature Granulocytes % 0.5 %; Immature Granulocytes Absolute 0.08 #; Lymphocytes # 4.2 10*3/uL (1.4-4.0); Lymphocytes % 27.7 % (21.3-54.2); Mean Corpuscular HGB Conc 30.2 GM/DL (32-36); Mean Corpuscular Volume 96.1 FL (87-102); Mean Platelet Volume 11.3 FL (9.6-12.0); Monocytes % 10.3 % (1.7-12.7); Neutrophils % 61.1 % (38.7-73.9); Platelet Count 268 T/CUMM (130-400); Red Blood Count 5.59 MC/CUMM (3.8-5.5); Red Cell Distribution Width 15.3 % (9.3-17.3); White Blood Count 15.1 T/CUMM (4-12)
[2020-12-24 08:16] LABS: Hemoglobin 16.2 GM/DL (12.0-16.0)
[2020-12-24] MEDS: THEOPHYLLINE ER 300 MG TABLET PO SCH ×3 (08:58→16:19)
[2020-12-24] MEDS: clonazePAM 0.5 MG TABLET PO SCH ×3 (08:59→21:26)
[2020-12-24] MEDS: PRAMIPEXOLE 1 MG TABLET PO SCH ×3 (08:59→21:27)
[2020-12-24] MEDS: DILTIAZEM CD 240 MG CAPSULE PO SCH (08:59)
[2020-12-24] MEDS: predniSONE 10 MG TABLET PO SCH (09:00)
[2020-12-24] MEDS: SPIRONOLACTONE 25 MG TABLET PO SCH (09:00)
[2020-12-24] MEDS: AZITHROMYCIN 250 MG TABLET PO SCH (09:00)
[2020-12-24] MEDS: ASPIRIN EC 81 MG TABLET PO SCH (09:00)
[2020-12-24] MEDS: TORSEMIDE 20 MG TABLET PO SCH (09:01)
[2020-12-24] MEDS: metFORMIN 500 MG TABLET PO SCH ×2 (09:01→16:18)
[2020-12-24] MEDS: PANTOPRAZOLE 40 MG TABLET PO SCH (09:01)
[2020-12-24] MEDS: NICOTINE 14 MG/24 HR PATCH TRANSDERM SCH (09:02)
[2020-12-24] MEDS: cefTRIAXone 1,000 MG in SODIUM CHLORIDE 0.9% 100 ML IV SCH (09:02)
[2020-12-24] MEDS: INSULIN LISPRO 100 UNIT/ML SUBCUT SCH ×5 (09:08→21:25)
[2020-12-24] MEDS: ENOXAPARIN 40 MG/0.4 ML SYRINGE SUBCUT SCH (21:23)
[2020-12-24] MEDS: GABAPENTIN 300 MG CAPSULE PO SCH (21:27)
[2020-12-24] MEDS: INSULIN GLARGINE 100 UNIT/ML SUBCUT SCH (21:33)
[2020-12-24] MEDS: traZODone 50 MG TABLET PO PRN (23:11)
[2020-12-25] MEDS: ALBUTEROL 2.5 MG/3 ML NEB RESP TX SCH ×6 (03:40→23:52)
[2020-12-25 06:55] LABS: Calcium 8.9 MG/DL (8.5-10.1)
[2020-12-25] MEDS ORDERED: MEPERIDINE 50 MG/1 ML VIAL IM ONE (07:00)
[2020-12-25] MEDS ORDERED: PROMETHAZINE 25 MG/1 ML VIAL IM ONE (07:00)
[2020-12-25 07:01] LABS: Basophils % 0.2 % (0.0-0.8); Eosinophils # 0.1 10*3/uL (0.0-0.87); Eosinophils % 0.9 % (0.00-10.9); Hematocrit 50.5 VOL% (35.7-47.0); Hemoglobin 15.2 GM/DL (12.0-16.0); Immature Granulocytes % 0.4 %; Immature Granulocytes Absolute 0.04 #; Lymphocytes # 3.3 10*3/uL (1.4-4.0); Lymphocytes % 29.1 % (21.3-54.2); Mean Corpuscular HGB Conc 30.1 GM/DL (32-36); Mean Corpuscular Volume 95.8 FL (87-102); Mean Platelet Volume 10.9 FL (9.6-12.0); Monocytes % 6.9 % (1.7-12.7); Neutrophils % 62.5 % (38.7-73.9); Platelet Count 229 T/CUMM (130-400); Red Blood Count 5.27 MC/CUMM (3.8-5.5); Red Cell Distribution Width 15.1 % (9.3-17.3); White Blood Count 11.4 T/CUMM (4-12)
[2020-12-25 07:12] LABS: Osmolality,Calculated 287.4 MOS/KG (273-304); Potassium 3.5 MMOL/L (3.5-5.1)
[2020-12-25] MEDS ORDERED: LIDOCAINE 2% 20 ML VIAL RESP TX ONE (07:30)
[2020-12-25] MEDS ORDERED: LIDOCAINE 2% VISCOUS 100 ML BOTTLE SWISH/SPIT ONE (07:30)
[2020-12-25] MEDS ORDERED: LIDOCAINE 1% 20 ML VIAL MISC INJ ONE (07:30)
[2020-12-25] MEDS ORDERED: MIDAZOLAM 2 MG/2 ML VIAL IV ONE (07:30)
[2020-12-25] MEDS: clonazePAM 0.5 MG TABLET PO SCH ×3 (10:39→20:30)
[2020-12-25] MEDS: ASPIRIN EC 81 MG TABLET PO SCH (10:39)
[2020-12-25] MEDS: PRAMIPEXOLE 1 MG TABLET PO SCH ×3 (10:39→20:31)
[2020-12-25] MEDS: THEOPHYLLINE ER 300 MG TABLET PO SCH ×2 (10:41→16:24)
[2020-12-25] MEDS: SPIRONOLACTONE 25 MG TABLET PO SCH (10:42)
[2020-12-25] MEDS: DILTIAZEM CD 240 MG CAPSULE PO SCH (10:43)
[2020-12-25] MEDS: PANTOPRAZOLE 40 MG TABLET PO SCH (10:55)
[2020-12-25] MEDS: metFORMIN 500 MG TABLET PO SCH ×2 (10:55→16:24)
[2020-12-25] MEDS: cefTRIAXone 1,000 MG in SODIUM CHLORIDE 0.9% 100 ML IV SCH (10:56)
[2020-12-25] MEDS: AZITHROMYCIN 250 MG TABLET PO SCH (10:59)
[2020-12-25] MEDS: INSULIN LISPRO 100 UNIT/ML SUBCUT SCH ×4 (10:59→20:32)
[2020-12-25] MEDS: predniSONE 10 MG TABLET PO SCH (10:59)
[2020-12-25] MEDS: TORSEMIDE 20 MG TABLET PO SCH (10:59)
[2020-12-25] MEDS: NICOTINE 14 MG/24 HR PATCH TRANSDERM SCH (11:00)
[2020-12-25] MEDS: INSULIN GLARGINE 100 UNIT/ML SUBCUT SCH (20:31)
[2020-12-25] MEDS: ENOXAPARIN 40 MG/0.4 ML SYRINGE SUBCUT SCH (20:32)
[2020-12-26] MEDS: ALBUTEROL 2.5 MG/3 ML NEB RESP TX SCH ×6 (00:55→19:41)
[2020-12-26 04:32] LABS: ABG Base Excess 11.8 MMOL/L (-2.5-2.5); ABG HCO3 35.2 MMOL/L (20-26); ABG Oxygen Saturation 86.3 % (95-100); ABG PH 7.319 (7.35-7.45); ABG PO2 55.8 MM HG (80-95); ABG TCO2 37.3 MMOL/L (23-27)
[2020-12-26 04:33] LABS: ABG PCO2 85.2 MM HG (35-48)
[2020-12-26 06:04] LABS: Calcium 8.8 MG/DL (8.5-10.1); Osmolality,Calculated 289.4 MOS/KG (273-304); Potassium 4.3 MMOL/L (3.5-5.1)
[2020-12-26 06:15] LABS: Basophils % 0.2 % (0.0-0.8); Eosinophils # 0.2 10*3/uL (0.0-0.87); Eosinophils % 1.8 % (0.00-10.9); Hematocrit 51.4 VOL% (35.7-47.0); Hemoglobin 15.4 GM/DL (12.0-16.0); Immature Granulocytes % 0.5 %; Immature Granulocytes Absolute 0.06 #; Lymphocytes # 2.3 10*3/uL (1.4-4.0); Mean Corpuscular Volume 97.9 FL (87-102); Mean Platelet Volume 10.9 FL (9.6-12.0); Monocytes % 4.4 % (1.7-12.7); Neutrophils % 74.1 % (38.7-73.9); Platelet Count 221 T/CUMM (130-400); Red Blood Count 5.25 MC/CUMM (3.8-5.5); Red Cell Distribution Width 15.1 % (9.3-17.3); White Blood Count 11.9 T/CUMM (4-12)
[2020-12-26] MEDS: TORSEMIDE 20 MG TABLET PO SCH (09:34)
[2020-12-26] MEDS: ASPIRIN EC 81 MG TABLET PO SCH (09:34)
[2020-12-26] MEDS: THEOPHYLLINE ER 300 MG TABLET PO SCH ×2 (09:34→17:16)
[2020-12-26] MEDS: DILTIAZEM CD 240 MG CAPSULE PO SCH (09:34)
[2020-12-26] MEDS: cefTRIAXone 1,000 MG in SODIUM CHLORIDE 0.9% 100 ML IV SCH (09:34)
[2020-12-26] MEDS: clonazePAM 0.5 MG TABLET PO SCH ×3 (09:34→20:54)
[2020-12-26] MEDS: SPIRONOLACTONE 25 MG TABLET PO SCH (09:35)
[2020-12-26] MEDS: metFORMIN 500 MG TABLET PO SCH ×2 (09:35→17:17)
[2020-12-26] MEDS: AZITHROMYCIN 250 MG TABLET PO SCH (09:35)
[2020-12-26] MEDS: INSULIN LISPRO 100 UNIT/ML SUBCUT SCH ×4 (09:35→20:56)
[2020-12-26] MEDS: predniSONE 5 MG TABLET PO SCH (09:35)
[2020-12-26] MEDS: PANTOPRAZOLE 40 MG TABLET PO SCH (09:35)
[2020-12-26] MEDS: PRAMIPEXOLE 1 MG TABLET PO SCH ×3 (09:35→20:55)
[2020-12-26 10:30] LABS: ABG Base Excess 12.5 MMOL/L (-2.5-2.5); ABG HCO3 42.1 MMOL/L (20-26); ABG Oxygen Saturation 97.3 % (95-100); ABG PH 7.348 (7.35-7.45); ABG TCO2 44.5 MMOL/L (23-27)
[2020-12-26 10:32] LABS: ABG PCO2 78.4 MM HG (35-48)
[2020-12-26] MEDS: NICOTINE 14 MG/24 HR PATCH TRANSDERM SCH (10:35)
[2020-12-26] MEDS: ARFORMOTEROL 15 MCG/2 ML NEB RESP TX SCH (19:41)
[2020-12-26] MEDS: INSULIN GLARGINE 100 UNIT/ML SUBCUT SCH (20:55)
[2020-12-26] MEDS: ENOXAPARIN 40 MG/0.4 ML SYRINGE SUBCUT SCH (20:56)
[2020-12-27] MEDS: ALBUTEROL 2.5 MG/3 ML NEB RESP TX SCH ×7 (00:34→20:23)
[2020-12-27 04:17] LABS: ABG Base Excess 14.1 MMOL/L (-2.5-2.5); ABG HCO3 42.9 MMOL/L (20-26); ABG Oxygen Saturation 97.9 % (95-100); ABG PH 7.397 (7.35-7.45); ABG PO2 106.1 MM HG (80-95); ABG TCO2 45.1 MMOL/L (23-27)
[2020-12-27 04:19] LABS: ABG PCO2 71.3 MM HG (35-48)
[2020-12-27 05:15] LABS: Basophils % 0.2 % (0.0-0.8); Eosinophils # 0.2 10*3/uL (0.0-0.87); Immature Granulocytes % 0.5 %; Immature Granulocytes Absolute 0.06 #; Lymphocytes % 25.2 % (21.3-54.2); Mean Corpuscular HGB Conc 29.2 GM/DL (32-36); Mean Corpuscular Volume 96.3 FL (87-102); Monocytes % 5.6 % (1.7-12.7); Neutrophils % 66.5 % (38.7-73.9); Platelet Count 227 T/CUMM (130-400); Red Blood Count 5.09 MC/CUMM (3.8-5.5); Red Cell Distribution Width 14.9 % (9.3-17.3); White Blood Count 11.7 T/CUMM (4-12)
[2020-12-27 05:17] LABS: Hemoglobin 14.3 GM/DL (12.0-16.0)
[2020-12-27 05:43] LABS: Calcium 8.7 MG/DL (8.5-10.1); Potassium 3.7 MMOL/L (3.5-5.1)
[2020-12-27] MEDS: ARFORMOTEROL 15 MCG/2 ML NEB RESP TX SCH ×2 (07:24→20:23)
[2020-12-27] MEDS: clonazePAM 0.5 MG TABLET PO SCH ×3 (08:26→20:16)
[2020-12-27] MEDS: metFORMIN 500 MG TABLET PO SCH ×2 (08:27→16:58)
[2020-12-27] MEDS: TORSEMIDE 20 MG TABLET PO SCH (08:27)
[2020-12-27] MEDS: predniSONE 5 MG TABLET PO SCH (08:27)
[2020-12-27] MEDS: PRAMIPEXOLE 1 MG TABLET PO SCH ×3 (08:27→20:16)
[2020-12-27] MEDS: AZITHROMYCIN 250 MG TABLET PO SCH (08:27)
[2020-12-27] MEDS: ASPIRIN EC 81 MG TABLET PO SCH (08:27)
[2020-12-27] MEDS: THEOPHYLLINE ER 300 MG TABLET PO SCH ×2 (08:27→16:58)
[2020-12-27] MEDS: DILTIAZEM CD 240 MG CAPSULE PO SCH (08:28)
[2020-12-27] MEDS: SPIRONOLACTONE 25 MG TABLET PO SCH (08:28)
[2020-12-27] MEDS: PANTOPRAZOLE 40 MG TABLET PO SCH (08:28)
[2020-12-27] MEDS: cefTRIAXone 1,000 MG in SODIUM CHLORIDE 0.9% 100 ML IV SCH (08:33)
[2020-12-27] MEDS: ONDANSETRON 4 MG/2 ML VIAL IV PRN (11:22)
[2020-12-27] MEDS: NICOTINE 14 MG/24 HR PATCH TRANSDERM SCH (11:23)
[2020-12-27] MEDS: INSULIN LISPRO 100 UNIT/ML SUBCUT SCH ×4 (12:20→20:22)
[2020-12-27] MEDS: traZODone 50 MG TABLET PO PRN (20:16)
[2020-12-27] MEDS: ENOXAPARIN 40 MG/0.4 ML SYRINGE SUBCUT SCH (20:17)
[2020-12-27] MEDS ORDERED: INSULIN GLARGINE 100 UNIT/ML SUBCUT SCH (21:00)
[2020-12-28] MEDS: ALBUTEROL 2.5 MG/3 ML NEB RESP TX SCH ×4 (00:42→12:35)
[2020-12-28 04:39] LABS: Basophils % 0.2 % (0.0-0.8); Eosinophils # 0.2 10*3/uL (0.0-0.87); Eosinophils % 1.7 % (0.00-10.9); Hemoglobin 15.2 GM/DL (12.0-16.0); Immature Granulocytes % 0.4 %; Immature Granulocytes Absolute 0.04 #; Lymphocytes # 2.9 10*3/uL (1.4-4.0); Lymphocytes % 25.7 % (21.3-54.2); Mean Corpuscular Volume 94.2 FL (87-102); Monocytes % 5.4 % (1.7-12.7); Neutrophils % 66.6 % (38.7-73.9); Platelet Count 235 T/CUMM (130-400); Red Cell Distribution Width 14.9 % (9.3-17.3); White Blood Count 11.2 T/CUMM (4-12)
[2020-12-28 04:57] LABS: Calcium 9.1 MG/DL (8.5-10.1); Osmolality,Calculated 288.7 MOS/KG (273-304); Potassium 3.7 MMOL/L (3.5-5.1)
[2020-12-28] MEDS: ARFORMOTEROL 15 MCG/2 ML NEB RESP TX SCH (07:15)
[2020-12-28] MEDS: THEOPHYLLINE ER 300 MG TABLET PO SCH (09:00)
[2020-12-28] MEDS: DILTIAZEM CD 240 MG CAPSULE PO SCH (09:00)
[2020-12-28] MEDS: predniSONE 5 MG TABLET PO SCH (09:00)
[2020-12-28] MEDS: PANTOPRAZOLE 40 MG TABLET PO SCH (09:00)
[2020-12-28] MEDS: ASPIRIN EC 81 MG TABLET PO SCH (09:00)
[2020-12-28] MEDS: PRAMIPEXOLE 1 MG TABLET PO SCH ×2 (09:00→14:22)
[2020-12-28] MEDS: SPIRONOLACTONE 25 MG TABLET PO SCH (09:00)
[2020-12-28] MEDS: AZITHROMYCIN 250 MG TABLET PO SCH (09:00)
[2020-12-28] MEDS: INSULIN LISPRO 100 UNIT/ML SUBCUT SCH ×2 (09:01→12:30)
[2020-12-28] MEDS: metFORMIN 500 MG TABLET PO SCH (09:01)
[2020-12-28] MEDS: TORSEMIDE 20 MG TABLET PO SCH (09:02)
[2020-12-28] MEDS: NICOTINE 14 MG/24 HR PATCH TRANSDERM SCH (09:02)
[2020-12-28] MEDS ORDERED: clonazePAM 0.5 MG TABLET PO ONE (12:00)
[2020-12-28 13:50] VITALS: BP 142/79
== END 2020-12-28 15:10 | disposition home health service (06) | DRG 140 ==
LOC: N.ED 15:42 → N.EDINP 19:29 → SUATTDRO 19:29 → N.TELEN 22:00
PROVIDERS: ADMIT Internal Medicine; ATTEND Internal Medicine

== ENCOUNTER 2021-01-16 11:24 | Inpatient (IN) ==
[2021-01-16] MEDS ORDERED: ASPIRIN 325 MG TABLET PO STA (12:01)
[2021-01-16] MEDS ORDERED: methylPREDNISolone SOD SUC 125 MG/2 ML VIAL IV STA (12:01)
[2021-01-16] MEDS ORDERED: MAGNESIUM SULF RIDER 2 GM/50 ML PREMIX IV STA (12:01)
[2021-01-16] MEDS ORDERED: ALBUTEROL/IPRATROPIUM 3 ML NEB RESP TX STA ×3 (12:01→12:43)
[2021-01-16] MEDS ORDERED: ONDANSETRON 4 MG/2 ML VIAL IV STA (12:01)
[2021-01-16] MEDS ORDERED: methylPREDNISolone SOD SUC 125 MG/2 ML VIAL ONE (12:01)
[2021-01-16 12:26] LABS: ABG Base Excess 1.6 MMOL/L (-2.5-2.5); ABG HCO3 25.8 MMOL/L (20-26); ABG Oxygen Saturation 99.6 % (95-100); ABG PH 7.219 (7.35-7.45); ABG TCO2 29.3 MMOL/L (23-27)
[2021-01-16 12:35] LABS: ABG PCO2 83.3 MM HG (35-48)
[2021-01-16 12:53] LABS: Basophils # 0.1 10*3/uL (0.0-0.2); Basophils % 0.8 % (0.0-0.8); Eosinophils # 0.4 10*3/uL (0.0-0.87); Eosinophils % 5.5 % (0.00-10.9); Hematocrit 55.5 VOL% (35.7-47.0); Hemoglobin 16.2 GM/DL (12.0-16.0); Immature Granulocytes % 0.8 %; Immature Granulocytes Absolute 0.05 #; Lymphocytes # 1.5 10*3/uL (1.4-4.0); Lymphocytes % 22.3 % (21.3-54.2); Mean Corpuscular HGB Conc 29.2 GM/DL (32-36); Mean Platelet Volume 10.7 FL (9.6-12.0); Monocytes % 8.5 % (1.7-12.7); Neutrophils % 62.1 % (38.7-73.9); Platelet Count 235 T/CUMM (130-400); Red Blood Count 5.72 MC/CUMM (3.8-5.5); Red Cell Distribution Width 15.6 % (9.3-17.3); White Blood Count 6.6 T/CUMM (4-12)
[2021-01-16 13:01] LABS: Alanine Aminotransferase 24 U/L (13-56); Albumin 3.4 G/DL (3.4-5.0); Alkaline Phosphatase 130 U/L (45-117); Aspartate Amino Transferase 6 U/L (0-37); Bilirubin,Total < 0.39 MG/DL (0.20-1.00); Blood Urea Nitrogen 10 MG/DL (7-18); Carbon Dioxide 32 MMOL/L (21-32); Estimated Glom Filtration Rate 123 ML/MIN; Glucose 135 MG/DL (74-106); Osmolality,Calculated 279.4 MOS/KG (273-304); Potassium 4.8 MMOL/L (3.5-5.1); Sodium 140 MMOL/L (136-145)
[2021-01-16 13:25] LABS: Bilirubin,Urine Negative (Negative); Blood, Urine Moderate mg/dL (Negative); Glucose,Urine (UA) >=500 mg/dL (Negative); Ketones,Urine Negative (Negative); Mucus,Urine Occasional /LPF (Occasional); Nitrite,Urine Negative (Negative); Protein,Urine 100 MG/DL; RBC,Urine 12 /HPF (0-4); Squamous Epithelial Cell,Urine Occasional /HPF (0-10); Urine Appearance CLEAR (Clear); Urine Color Yellow (Yellow); Urine Specific Gravity 1.035 (1.001-1.035); Urine Urobilinogen < 2.0 EU/DL (0.2-1.0)
[2021-01-16] MEDS ORDERED: ALBUTEROL NEB SOLN 5 MG/ML 20 ML/BOTTLE ONE (13:33)
[2021-01-16] MEDS ORDERED: ALBUTEROL 2.5 MG/3 ML NEB RESP TX ONE (13:34)
[2021-01-16 15:04] LABS: ABG HCO3 25.2 MMOL/L (20-26); ABG Oxygen Saturation 96.7 % (95-100); ABG TCO2 29.9 MMOL/L (23-27)
[2021-01-16 15:12] LABS: ABG PCO2 89.7 MM HG (35-48); ABG PH 7.192 (7.35-7.45)
[2021-01-16] MEDS ORDERED: DEXTROSE 50% 25 GM/50 ML VIAL IV PRN (15:20)
[2021-01-16] MEDS ORDERED: GLUCAGON 1 MG VIAL IM PRN ×2 (15:20)
[2021-01-16] MEDS ORDERED: ALBUTEROL/IPRATROPIUM 3 ML NEB RESP TX PRN (15:30)
[2021-01-16] MEDS ORDERED: DEXTROSE 50% 25 GM/50 ML SYRINGE IV PRN (15:37)
[2021-01-16] MEDS: FUROSEMIDE 40 MG/4 ML VIAL IV SCH (17:14)
[2021-01-16] MEDS: LEVOFLOXACIN INJ 750 MG/150 ML PREMIX IV SCH (17:18)
[2021-01-16] MEDS: DULoxetine 30 MG CAPSULE PO SCH (17:18)
[2021-01-16] MEDS: ENOXAPARIN 40 MG/0.4 ML SYRINGE SUBCUT SCH (17:19)
[2021-01-16] MEDS: PANTOPRAZOLE 40 MG TABLET PO SCH (17:19)
[2021-01-16] MEDS: methylPREDNISolone SOD SUC 125 MG/2 ML VIAL IV SCH (17:19)
[2021-01-16 18:14] LABS: ABG Base Excess 2.1 MMOL/L (-2.5-2.5); ABG HCO3 26.2 MMOL/L (20-26); ABG Oxygen Saturation 95.5 % (95-100); ABG PH 7.231 (7.35-7.45); ABG PO2 84.1 MM HG (80-95); ABG TCO2 29.5 MMOL/L (23-27); Allen Test Positive; Pt O2 Delivery Device BIPAP
[2021-01-16] MEDS: THEOPHYLLINE ER 300 MG TABLET PO SCH (18:16)
[2021-01-16] MEDS: INSULIN REGULAR 100 UNIT/ML SUBCUT SCH (18:16)
[2021-01-16 18:18] LABS: ABG PCO2 81.7 MM HG (35-48)
[2021-01-16] MEDS: HydrOXYzine PAMOATE 25 MG CAPSULE PO PRN (19:35)
[2021-01-16] MEDS: ALBUTEROL/IPRATROPIUM 3 ML NEB RESP TX SCH ×2 (19:51→23:30)
[2021-01-16] MEDS: PRAMIPEXOLE 1 MG TABLET PO SCH (20:39)
[2021-01-16] MEDS: traZODone 50 MG TABLET PO PRN (20:39)
[2021-01-16] MEDS: clonazePAM 0.5 MG TABLET PO SCH (20:39)
[2021-01-16] MEDS: BUDESONIDE/FORMOTEROL 160-4.5 INHALER 6 GM INH SCH ×2 (20:41→20:53)
[2021-01-17 00:27] LABS: Bacteria,Urine Occasional /HPF (Few); Bilirubin,Urine Negative (Negative); Blood, Urine Negative (Negative); Glucose,Urine (UA) >=500 mg/dL (Negative); Ketones,Urine Negative (Negative); Mucus,Urine Occasional /LPF (Occasional); Nitrite,Urine Negative (Negative); Protein,Urine Negative; RBC,Urine 2 /HPF (0-4); Squamous Epithelial Cell,Urine Occasional /HPF (0-10); Urine Appearance CLEAR (Clear); Urine Color Straw (Yellow); Urine Specific Gravity 1.012 (1.001-1.035); Urine Urobilinogen < 2.0 EU/DL (0.2-1.0)
[2021-01-17] MEDS: methylPREDNISolone SOD SUC 125 MG/2 ML VIAL IV SCH ×3 (00:59→15:44)
[2021-01-17] MEDS: INSULIN REGULAR 100 UNIT/ML SUBCUT SCH ×4 (00:59→17:21)
[2021-01-17] MEDS: HydrOXYzine PAMOATE 25 MG CAPSULE PO PRN (01:05)
[2021-01-17] MEDS: ALBUTEROL/IPRATROPIUM 3 ML NEB RESP TX SCH ×5 (03:20→19:00)
[2021-01-17 04:01] LABS: ABG Base Excess 3.2 MMOL/L (-2.5-2.5); ABG Oxygen Saturation 92.2 % (95-100); ABG PH 7.212 (7.35-7.45); ABG PO2 71.7 MM HG (80-95); ABG TCO2 31.7 MMOL/L (23-27)
[2021-01-17 06:16] LABS: Albumin 3.3 G/DL (3.4-5.0); Bilirubin,Total 0.5 MG/DL (0.20-1.00); Calcium 9.2 MG/DL (8.5-10.1); Osmolality,Calculated 281.1 MOS/KG (273-304); Potassium 4.7 MMOL/L (3.5-5.1); Total Protein 7.7 G/DL (6.4-8.2)
[2021-01-17 06:38] LABS: Eosinophils % 0.3 % (0.00-10.9); Hematocrit 53.1 VOL% (35.7-47.0); Hemoglobin 16.3 GM/DL (12.0-16.0); Immature Granulocytes % 0.9 %; Immature Granulocytes Absolute 0.03 #; Lymphocytes # 0.7 10*3/uL (1.4-4.0); Lymphocytes % 19.7 % (21.3-54.2); Mean Corpuscular HGB Conc 30.7 GM/DL (32-36); Mean Corpuscular Volume 95.2 FL (87-102); Mean Platelet Volume 10.7 FL (9.6-12.0); Monocytes % 2.6 % (1.7-12.7); Neutrophils % 76.5 % (38.7-73.9); Platelet Count 236 T/CUMM (130-400); Red Blood Count 5.58 MC/CUMM (3.8-5.5); White Blood Count 3.5 T/CUMM (4-12)
[2021-01-17] MEDS: THEOPHYLLINE ER 300 MG TABLET PO SCH ×2 (08:28→16:00)
[2021-01-17] MEDS: ASPIRIN EC 81 MG TABLET PO SCH (08:29)
[2021-01-17] MEDS: clonazePAM 0.5 MG TABLET PO SCH ×3 (08:29→21:02)
[2021-01-17] MEDS: DULoxetine 30 MG CAPSULE PO SCH (08:29)
[2021-01-17] MEDS: INSULIN GLARGINE 100 UNIT/ML SUBCUT SCH (08:29)
[2021-01-17] MEDS: SPIRONOLACTONE 25 MG TABLET PO SCH (08:29)
[2021-01-17] MEDS: DILTIAZEM CD 240 MG CAPSULE PO SCH (08:29)
[2021-01-17] MEDS: PRAMIPEXOLE 1 MG TABLET PO SCH ×3 (08:29→21:02)
[2021-01-17] MEDS: FUROSEMIDE 40 MG/4 ML VIAL IV SCH (08:29)
[2021-01-17] MEDS: TORSEMIDE 20 MG TABLET PO SCH (08:29)
[2021-01-17] MEDS: PANTOPRAZOLE 40 MG TABLET PO SCH (08:30)
[2021-01-17 14:08] LABS: ABG Base Excess 9.3 MMOL/L (-2.5-2.5); ABG HCO3 32.8 MMOL/L (20-26); ABG PH 7.289 (7.35-7.45); ABG PO2 60.4 MM HG (80-95); ABG TCO2 35.7 MMOL/L (23-27); Allen Test Positive; Pt O2 Delivery Device BIPAP
[2021-01-17 14:09] LABS: ABG Oxygen Saturation 88.7 % (95-100)
[2021-01-17 14:12] LABS: ABG PCO2 86.1 MM HG (35-48)
[2021-01-17] MEDS: ENOXAPARIN 40 MG/0.4 ML SYRINGE SUBCUT SCH (15:44)
[2021-01-17] MEDS: LEVOFLOXACIN INJ 750 MG/150 ML PREMIX IV SCH (15:44)
[2021-01-18] MEDS: ALBUTEROL/IPRATROPIUM 3 ML NEB RESP TX SCH ×7 (01:43→23:39)
[2021-01-18] MEDS: INSULIN REGULAR 100 UNIT/ML SUBCUT SCH ×4 (01:45→18:45)
[2021-01-18] MEDS: methylPREDNISolone SOD SUC 125 MG/2 ML VIAL IV SCH ×3 (01:45→17:42)
[2021-01-18 04:48] LABS: Calcium 8.9 MG/DL (8.5-10.1); Osmolality,Calculated 281.2 MOS/KG (273-304); Potassium 4.9 MMOL/L (3.5-5.1)
[2021-01-18 04:50] LABS: Basophils % 0.1 % (0.0-0.8); Eosinophils % 0.3 % (0.00-10.9); Hematocrit 54.2 VOL% (35.7-47.0); Hemoglobin 16.2 GM/DL (12.0-16.0); Immature Granulocytes % 0.3 %; Immature Granulocytes Absolute 0.02 #; Lymphocytes # 1.1 10*3/uL (1.4-4.0); Lymphocytes % 14.7 % (21.3-54.2); Mean Corpuscular HGB Conc 29.9 GM/DL (32-36); Mean Corpuscular Volume 94.4 FL (87-102); Mean Platelet Volume 11.7 FL (9.6-12.0); Monocytes % 4.5 % (1.7-12.7); Neutrophils % 80.1 % (38.7-73.9); Platelet Count 193 T/CUMM (130-400); Red Blood Count 5.74 MC/CUMM (3.8-5.5); Red Cell Distribution Width 14.9 % (9.3-17.3); White Blood Count 7.6 T/CUMM (4-12)
[2021-01-18 04:51] LABS: ABG Base Excess 7.7 MMOL/L (-2.5-2.5); ABG HCO3 31.4 MMOL/L (20-26); ABG Oxygen Saturation 94.9 % (95-100); ABG PH 7.291 (7.35-7.45); ABG PO2 79.6 MM HG (80-95); ABG TCO2 33.6 MMOL/L (23-27)
[2021-01-18 04:56] LABS: ABG PCO2 81.2 MM HG (35-48)
[2021-01-18] MEDS: INSULIN GLARGINE 100 UNIT/ML SUBCUT SCH (09:05)
[2021-01-18] MEDS: DILTIAZEM CD 240 MG CAPSULE PO SCH (09:06)
[2021-01-18] MEDS: ASPIRIN EC 81 MG TABLET PO SCH (09:06)
[2021-01-18] MEDS: PRAMIPEXOLE 1 MG TABLET PO SCH ×3 (09:06→21:30)
[2021-01-18] MEDS: DULoxetine 30 MG CAPSULE PO SCH (09:06)
[2021-01-18] MEDS: clonazePAM 0.5 MG TABLET PO SCH ×3 (09:07→21:30)
[2021-01-18] MEDS: THEOPHYLLINE ER 300 MG TABLET PO SCH ×2 (09:07→17:42)
[2021-01-18] MEDS: SPIRONOLACTONE 25 MG TABLET PO SCH (09:07)
[2021-01-18] MEDS: PANTOPRAZOLE 40 MG TABLET PO SCH (09:07)
[2021-01-18] MEDS: TORSEMIDE 20 MG TABLET PO SCH (09:07)
[2021-01-18] MEDS: FUROSEMIDE 40 MG/4 ML VIAL IV SCH (09:09)
[2021-01-18] MEDS: ACETYLCYSTEINE 20% 800 MG/4 ML VIAL RESP TX SCH ×2 (14:30→23:39)
[2021-01-18] MEDS: BUDESONIDE 0.5 MG/2 ML NEB RESP TX SCH ×2 (14:30→19:16)
[2021-01-18] MEDS: ENOXAPARIN 40 MG/0.4 ML SYRINGE SUBCUT SCH (15:03)
[2021-01-18] MEDS: LEVOFLOXACIN INJ 750 MG/150 ML PREMIX IV SCH (16:30)
[2021-01-19] MEDS: INSULIN REGULAR 100 UNIT/ML SUBCUT SCH ×5 (01:07→17:25)
[2021-01-19] MEDS: methylPREDNISolone SOD SUC 125 MG/2 ML VIAL IV SCH ×3 (01:08→16:45)
[2021-01-19] MEDS: ALBUTEROL/IPRATROPIUM 3 ML NEB RESP TX SCH ×5 (03:10→20:20)
[2021-01-19 06:05] LABS: Calcium 9.1 MG/DL (8.5-10.1); Potassium 3.9 MMOL/L (3.5-5.1)
[2021-01-19 07:05] LABS: Basophils % 0.4 % (0.0-0.8); Eosinophils % 0.1 % (0.00-10.9); Hematocrit 52.7 VOL% (35.7-47.0); Hemoglobin 16.5 GM/DL (12.0-16.0); Immature Granulocytes % 0.6 %; Immature Granulocytes Absolute 0.07 #; Lymphocytes # 1.1 10*3/uL (1.4-4.0); Lymphocytes % 10.1 % (21.3-54.2); Mean Corpuscular HGB Conc 31.3 GM/DL (32-36); Mean Corpuscular Volume 94.8 FL (87-102); Mean Platelet Volume 10.8 FL (9.6-12.0); Monocytes % 2.7 % (1.7-12.7); Neutrophils % 86.1 % (38.7-73.9); Red Blood Count 5.56 MC/CUMM (3.8-5.5); Red Cell Distribution Width 14.7 % (9.3-17.3)
[2021-01-19 07:06] LABS: Platelet Count 275 T/CUMM (130-400); White Blood Count 11.3 T/CUMM (4-12)
[2021-01-19] MEDS: ACETYLCYSTEINE 20% 800 MG/4 ML VIAL RESP TX SCH ×2 (07:37→14:42)
[2021-01-19] MEDS: BUDESONIDE 0.5 MG/2 ML NEB RESP TX SCH ×2 (07:37→20:20)
[2021-01-19] MEDS: clonazePAM 0.5 MG TABLET PO SCH ×3 (08:51→21:58)
[2021-01-19] MEDS: THEOPHYLLINE ER 300 MG TABLET PO SCH ×2 (08:52→16:43)
[2021-01-19] MEDS: DILTIAZEM CD 240 MG CAPSULE PO SCH (08:52)
[2021-01-19] MEDS: DULoxetine 30 MG CAPSULE PO SCH (08:52)
[2021-01-19] MEDS: PRAMIPEXOLE 1 MG TABLET PO SCH ×3 (08:53→21:58)
[2021-01-19] MEDS: TORSEMIDE 20 MG TABLET PO SCH (08:53)
[2021-01-19] MEDS: SPIRONOLACTONE 25 MG TABLET PO SCH (08:54)
[2021-01-19] MEDS: FUROSEMIDE 40 MG/4 ML VIAL IV SCH (08:54)
[2021-01-19] MEDS: ASPIRIN EC 81 MG TABLET PO SCH (08:54)
[2021-01-19] MEDS: INSULIN GLARGINE 100 UNIT/ML SUBCUT SCH (08:57)
[2021-01-19] MEDS: PANTOPRAZOLE 40 MG TABLET PO SCH (09:00)
[2021-01-19] MEDS: ENOXAPARIN 40 MG/0.4 ML SYRINGE SUBCUT SCH (16:44)
[2021-01-19] MEDS: LEVOFLOXACIN INJ 750 MG/150 ML PREMIX IV SCH (16:44)
[2021-01-19] MEDS ORDERED: INSULIN NPH/REGULAR 70/30 100 UNIT/ML SUBCUT SCH (21:00)
[2021-01-20] MEDS: ACETYLCYSTEINE 20% 800 MG/4 ML VIAL RESP TX SCH ×2 (00:25→07:19)
[2021-01-20] MEDS: ALBUTEROL/IPRATROPIUM 3 ML NEB RESP TX SCH ×7 (00:25→23:40)
[2021-01-20] MEDS: INSULIN REGULAR 100 UNIT/ML SUBCUT SCH ×4 (00:55→17:12)
[2021-01-20] MEDS: methylPREDNISolone SOD SUC 125 MG/2 ML VIAL IV SCH ×3 (00:55→16:13)
[2021-01-20 04:34] LABS: Basophils % 0.3 % (0.0-0.8); Hematocrit 51.2 VOL% (35.7-47.0); Hemoglobin 15.9 GM/DL (12.0-16.0); Immature Granulocytes % 0.8 %; Immature Granulocytes Absolute 0.08 #; Lymphocytes # 0.9 10*3/uL (1.4-4.0); Lymphocytes % 8.6 % (21.3-54.2); Mean Corpuscular HGB Conc 31.1 GM/DL (32-36); Mean Corpuscular Volume 92.9 FL (87-102); Mean Platelet Volume 10.6 FL (9.6-12.0); Monocytes % 3.8 % (1.7-12.7); Neutrophils % 86.5 % (38.7-73.9); Platelet Count 250 T/CUMM (130-400); Red Blood Count 5.51 MC/CUMM (3.8-5.5); Red Cell Distribution Width 14.6 % (9.3-17.3); White Blood Count 10.1 T/CUMM (4-12)
[2021-01-20 04:37] LABS: Calcium 8.9 MG/DL (8.5-10.1); Osmolality,Calculated 288.4 MOS/KG (273-304); Potassium 3.3 MMOL/L (3.5-5.1)
[2021-01-20] MEDS: BUDESONIDE 0.5 MG/2 ML NEB RESP TX SCH ×2 (07:19→19:47)
[2021-01-20] MEDS ORDERED: POTASSIUM CHLORIDE 20 MEQ TABLET PO ONE (08:58)
[2021-01-20] MEDS ORDERED: INSULIN NPH/REGULAR 70/30 100 UNIT/ML SUBCUT SCH (09:00)
[2021-01-20] MEDS: PRAMIPEXOLE 1 MG TABLET PO SCH ×3 (09:46→22:10)
[2021-01-20] MEDS: PANTOPRAZOLE 40 MG TABLET PO SCH (09:46)
[2021-01-20] MEDS: SPIRONOLACTONE 25 MG TABLET PO SCH (09:46)
[2021-01-20] MEDS: TORSEMIDE 20 MG TABLET PO SCH (09:47)
[2021-01-20] MEDS: clonazePAM 0.5 MG TABLET PO SCH ×3 (09:47→22:11)
[2021-01-20] MEDS: THEOPHYLLINE ER 300 MG TABLET PO SCH ×2 (09:47→16:32)
[2021-01-20] MEDS: DULoxetine 30 MG CAPSULE PO SCH (09:47)
[2021-01-20] MEDS: DILTIAZEM CD 240 MG CAPSULE PO SCH (09:48)
[2021-01-20] MEDS: FUROSEMIDE 40 MG/4 ML VIAL IV SCH (09:49)
[2021-01-20] MEDS: ASPIRIN EC 81 MG TABLET PO SCH (09:50)
[2021-01-20] MEDS: ENOXAPARIN 40 MG/0.4 ML SYRINGE SUBCUT SCH (16:13)
[2021-01-20] MEDS: LEVOFLOXACIN INJ 750 MG/150 ML PREMIX IV SCH (16:31)
[2021-01-20] MEDS: INSULIN NPH/REGULAR 70/30 100 UNIT/ML SUBCUT SCH (22:10)
[2021-01-20] MEDS: traZODone 50 MG TABLET PO PRN (22:10)
[2021-01-21] MEDS: INSULIN REGULAR 100 UNIT/ML SUBCUT SCH ×4 (01:04→18:39)
[2021-01-21] MEDS: methylPREDNISolone SOD SUC 125 MG/2 ML VIAL IV SCH ×3 (01:04→16:57)
[2021-01-21] MEDS: ALBUTEROL/IPRATROPIUM 3 ML NEB RESP TX SCH ×2 (03:04→07:32)
[2021-01-21] MEDS: BUDESONIDE 0.5 MG/2 ML NEB RESP TX SCH (07:32)
[2021-01-21] MEDS: THEOPHYLLINE ER 300 MG TABLET PO SCH ×2 (09:11→16:57)
[2021-01-21] MEDS: clonazePAM 0.5 MG TABLET PO SCH ×3 (09:11→21:25)
[2021-01-21] MEDS: DULoxetine 30 MG CAPSULE PO SCH (09:11)
[2021-01-21] MEDS: FUROSEMIDE 40 MG/4 ML VIAL IV SCH (09:12)
[2021-01-21] MEDS: DILTIAZEM CD 240 MG CAPSULE PO SCH (09:12)
[2021-01-21] MEDS: PANTOPRAZOLE 40 MG TABLET PO SCH (09:12)
[2021-01-21] MEDS: SPIRONOLACTONE 25 MG TABLET PO SCH (09:12)
[2021-01-21] MEDS: TORSEMIDE 20 MG TABLET PO SCH (09:12)
[2021-01-21] MEDS: ASPIRIN EC 81 MG TABLET PO SCH (09:12)
[2021-01-21] MEDS: INSULIN NPH/REGULAR 70/30 100 UNIT/ML SUBCUT SCH ×2 (09:13→21:29)
[2021-01-21] MEDS: PRAMIPEXOLE 1 MG TABLET PO SCH ×3 (09:17→21:25)
[2021-01-21] MEDS ORDERED: ALBUTEROL 2.5 MG/3 ML NEB RESP TX PRN (10:14)
[2021-01-21 11:12] LABS: ABG Base Excess 12.5 MMOL/L (-2.5-2.5); ABG Oxygen Saturation 89.2 % (95-100); ABG PCO2 61.5 MM HG (35-48); ABG PH 7.428 (7.35-7.45); ABG PO2 57.6 MM HG (80-95); ABG TCO2 33.9 MMOL/L (23-27); Allen Test Positive
[2021-01-21] MEDS: LEVOFLOXACIN INJ 750 MG/150 ML PREMIX IV SCH (15:15)
[2021-01-21] MEDS: ALBUTEROL 2 MG TABLET PO SCH ×2 (15:17→21:25)
[2021-01-21] MEDS: ALBUTEROL 2.5 MG/3 ML NEB RESP TX SCH (19:36)
[2021-01-21] MEDS: MONTELUKAST 10 MG TABLET PO SCH (21:25)
[2021-01-22] MEDS: methylPREDNISolone SOD SUC 125 MG/2 ML VIAL IV SCH ×4 (00:07→23:56)
[2021-01-22] MEDS: INSULIN REGULAR 100 UNIT/ML SUBCUT SCH ×5 (00:07→23:56)
[2021-01-22] MEDS: ALBUTEROL 2.5 MG/3 ML NEB RESP TX SCH ×5 (01:04→20:42)
[2021-01-22 05:16] LABS: Calcium 9.1 MG/DL (8.5-10.1); Potassium 3.3 MMOL/L (3.5-5.1)
[2021-01-22 05:27] LABS: Basophils % 0.3 % (0.0-0.8); Hematocrit 52.6 VOL% (35.7-47.0); Immature Granulocytes % 1.5 %; Immature Granulocytes Absolute 0.17 #; Lymphocytes # 0.4 10*3/uL (1.4-4.0); Lymphocytes % 3.7 % (21.3-54.2); Mean Corpuscular HGB Conc 30.4 GM/DL (32-36); Mean Corpuscular Volume 92.6 FL (87-102); Mean Platelet Volume 10.7 FL (9.6-12.0); Monocytes % 2.8 % (1.7-12.7); Neutrophils % 91.7 % (38.7-73.9); Platelet Count 231 T/CUMM (130-400); Red Blood Count 5.68 MC/CUMM (3.8-5.5); Red Cell Distribution Width 14.7 % (9.3-17.3); White Blood Count 11.5 T/CUMM (4-12)
[2021-01-22 05:39] LABS: Band Neutrophils 1 % (0-10); Lymphocytes 2 % (20-55); Platelet Estimate Normal; Segmented Neutrophils 95 % (50-85); Total Cells Counted 100
[2021-01-22] MEDS ORDERED: LACTATED RINGERS 1,000 ML IV SCH (08:00)
[2021-01-22] MEDS ORDERED: LIDOCAINE 2% 5 ML VIAL ONE (11:04)
[2021-01-22] MEDS ORDERED: propofoL 200 MG/20 ML VIAL IV ONE (11:04)
[2021-01-22] MEDS ORDERED: ETOMIDATE 20 MG/10 ML VIAL IV ONE (11:52)
[2021-01-22] MEDS: PRAMIPEXOLE 1 MG TABLET PO SCH ×3 (13:05→21:05)
[2021-01-22] MEDS: DULoxetine 30 MG CAPSULE PO SCH (13:05)
[2021-01-22] MEDS: THEOPHYLLINE ER 300 MG TABLET PO SCH ×2 (13:05→16:36)
[2021-01-22] MEDS: TORSEMIDE 20 MG TABLET PO SCH (13:05)
[2021-01-22] MEDS: MONTELUKAST 10 MG TABLET PO SCH ×2 (13:05→21:04)
[2021-01-22] MEDS: DILTIAZEM CD 240 MG CAPSULE PO SCH (13:06)
[2021-01-22] MEDS: ASPIRIN EC 81 MG TABLET PO SCH (13:06)
[2021-01-22] MEDS: clonazePAM 0.5 MG TABLET PO SCH ×3 (13:06→21:03)
[2021-01-22] MEDS: SPIRONOLACTONE 25 MG TABLET PO SCH (13:07)
[2021-01-22] MEDS: POTASSIUM CHLORIDE 10 MEQ TABLET PO SCH (13:07)
[2021-01-22] MEDS: PANTOPRAZOLE 40 MG TABLET PO SCH (13:07)
[2021-01-22] MEDS: INSULIN NPH/REGULAR 70/30 100 UNIT/ML SUBCUT SCH ×2 (13:10→21:07)
[2021-01-22] MEDS: ALBUTEROL 2 MG TABLET PO SCH ×3 (13:11→21:05)
[2021-01-22] MEDS: FUROSEMIDE 40 MG/4 ML VIAL IV SCH (14:12)
[2021-01-22] MEDS: LEVOFLOXACIN INJ 750 MG/150 ML PREMIX IV SCH (16:35)
[2021-01-23] MEDS: ALBUTEROL 2.5 MG/3 ML NEB RESP TX SCH ×4 (01:23→19:40)
[2021-01-23 04:13] LABS: ABG Base Excess 3.1 MMOL/L (-2.5-2.5); ABG Oxygen Saturation 92.4 % (95-100); ABG PCO2 58.8 MM HG (35-48); ABG PH 7.335 (7.35-7.45); ABG PO2 68.9 MM HG (80-95); ABG TCO2 26.3 MMOL/L (23-27)
[2021-01-23 05:32] LABS: PT Patient Result 11.6 SECS (10.5-12.0); Partial Thromboplastin Time 24.4 SECS (23.8-32.1)
[2021-01-23 05:37] LABS: Calcium 8.9 MG/DL (8.5-10.1); Osmolality,Calculated 291.7 MOS/KG (273-304); Potassium 3.2 MMOL/L (3.5-5.1)
[2021-01-23] MEDS: INSULIN REGULAR 100 UNIT/ML SUBCUT SCH ×3 (05:43→18:24)
[2021-01-23 05:57] LABS: Basophils # 0.1 10*3/uL (0.0-0.2); Basophils % 0.4 % (0.0-0.8); Hematocrit 53.7 VOL% (35.7-47.0); Hemoglobin 16.7 GM/DL (12.0-16.0); Immature Granulocytes % 1.4 %; Lymphocytes # 0.4 10*3/uL (1.4-4.0); Mean Corpuscular HGB Conc 31.1 GM/DL (32-36); Mean Corpuscular Volume 92.6 FL (87-102); Mean Platelet Volume 10.8 FL (9.6-12.0); Neutrophils % 91.2 % (38.7-73.9); Platelet Count 227 T/CUMM (130-400); Red Cell Distribution Width 14.8 % (9.3-17.3); White Blood Count 13.8 T/CUMM (4-12)
[2021-01-23 06:03] LABS: Lymphocytes 4 % (20-55); Platelet Estimate Adequate; Segmented Neutrophils 95 % (50-85); Total Cells Counted 100
[2021-01-23] MEDS ORDERED: MEPERIDINE 50 MG/1 ML VIAL IM ONE (07:30)
[2021-01-23] MEDS ORDERED: hydrOXYzine HCL 25 MG/1 ML VIAL IM ONE ×2 (07:30→09:00)
[2021-01-23] MEDS ORDERED: ONDANSETRON 4 MG TABLET PO ONE (07:30)
[2021-01-23] MEDS ORDERED: BENZONATATE 100 MG CAPSULE PO ONE (07:30)
[2021-01-23] MEDS ORDERED: LIDOCAINE 2% VISCOUS 100 ML BOTTLE SWISH/SPIT ONE (08:00)
[2021-01-23] MEDS ORDERED: LIDOCAINE 2% 20 ML VIAL RESP TX ONE (08:00)
[2021-01-23] MEDS ORDERED: LIDOCAINE 1% 20 ML VIAL MISC INJ ONE (08:00)
[2021-01-23] MEDS ORDERED: MIDAZOLAM 2 MG/2 ML VIAL ONE (08:27)
[2021-01-23] MEDS ORDERED: MIDAZOLAM 2 MG/2 ML VIAL IV ONE (09:30)
[2021-01-23] MEDS: FUROSEMIDE 40 MG/4 ML VIAL IV SCH (11:21)
[2021-01-23] MEDS: methylPREDNISolone SOD SUC 125 MG/2 ML VIAL IV SCH ×2 (12:02→15:34)
[2021-01-23] MEDS: THEOPHYLLINE ER 300 MG TABLET PO SCH ×2 (12:02→18:24)
[2021-01-23] MEDS: SPIRONOLACTONE 25 MG TABLET PO SCH (12:02)
[2021-01-23] MEDS: DILTIAZEM CD 240 MG CAPSULE PO SCH (12:03)
[2021-01-23] MEDS: TORSEMIDE 20 MG TABLET PO SCH (12:03)
[2021-01-23] MEDS: MONTELUKAST 10 MG TABLET PO SCH ×2 (12:03→21:05)
[2021-01-23] MEDS: POTASSIUM CHLORIDE 10 MEQ TABLET PO SCH (12:03)
[2021-01-23] MEDS: ASPIRIN EC 81 MG TABLET PO SCH (12:03)
[2021-01-23] MEDS: PANTOPRAZOLE 40 MG TABLET PO SCH (12:03)
[2021-01-23] MEDS: PRAMIPEXOLE 1 MG TABLET PO SCH ×3 (12:03→21:04)
[2021-01-23] MEDS: DULoxetine 30 MG CAPSULE PO SCH (12:03)
[2021-01-23] MEDS: ALBUTEROL 2 MG TABLET PO SCH ×3 (12:03→21:05)
[2021-01-23] MEDS: clonazePAM 0.5 MG TABLET PO SCH ×3 (12:03→21:05)
[2021-01-23] MEDS: INSULIN NPH/REGULAR 70/30 100 UNIT/ML SUBCUT SCH ×2 (12:03→21:04)
[2021-01-23] MEDS ORDERED: POTASSIUM CHLORIDE 10 MEQ TABLET PO ONE (15:00)
[2021-01-23] MEDS: LEVOFLOXACIN INJ 750 MG/150 ML PREMIX IV SCH (15:34)
[2021-01-23] MEDS: acetaZOLAMIDE 250 MG TABLET PO SCH (21:05)
[2021-01-24] MEDS: methylPREDNISolone SOD SUC 125 MG/2 ML VIAL IV SCH ×2 (00:13→09:48)
[2021-01-24] MEDS: INSULIN REGULAR 100 UNIT/ML SUBCUT SCH ×3 (00:13→13:09)
[2021-01-24] MEDS: ALBUTEROL 2.5 MG/3 ML NEB RESP TX SCH ×2 (00:55→07:23)
[2021-01-24 04:09] LABS: ABG Base Excess 2.9 MMOL/L (-2.5-2.5); ABG HCO3 26.8 MMOL/L (20-26); ABG Oxygen Saturation 91.9 % (95-100); ABG PCO2 57.5 MM HG (35-48); ABG PH 7.337 (7.35-7.45); ABG PO2 66.3 MM HG (80-95); ABG TCO2 26.2 MMOL/L (23-27)
[2021-01-24 07:11] LABS: Basophils # 0.1 10*3/uL (0.0-0.2); Basophils % 0.4 % (0.0-0.8); Hematocrit 54.4 VOL% (35.7-47.0); Hemoglobin 16.8 GM/DL (12.0-16.0); Immature Granulocytes % 2.3 %; Immature Granulocytes Absolute 0.32 #; Lymphocytes # 0.5 10*3/uL (1.4-4.0); Lymphocytes % 3.7 % (21.3-54.2); Mean Corpuscular HGB Conc 30.9 GM/DL (32-36); Mean Corpuscular Volume 91.7 FL (87-102); Mean Platelet Volume 11.3 FL (9.6-12.0); Monocytes % 3.1 % (1.7-12.7); Neutrophils % 90.5 % (38.7-73.9); Platelet Count 191 T/CUMM (130-400); Red Blood Count 5.93 MC/CUMM (3.8-5.5); Red Cell Distribution Width 15.2 % (9.3-17.3); White Blood Count 13.7 T/CUMM (4-12)
[2021-01-24 07:37] LABS: Anisocytosis 1+; Band Neutrophils 8 % (0-10); Lymphocytes 2 % (20-55); Macrocytosis 1+; Metamyelocytes 1 %; Platelet Estimate Normal; Segmented Neutrophils 87 % (50-85); Total Cells Counted 100
[2021-01-24 07:46] LABS: Calcium 8.8 MG/DL (8.5-10.1); Osmolality,Calculated 290.5 MOS/KG (273-304); Potassium 4.3 MMOL/L (3.5-5.1)
[2021-01-24] MEDS: INSULIN NPH/REGULAR 70/30 100 UNIT/ML SUBCUT SCH (09:48)
[2021-01-24] MEDS: POTASSIUM CHLORIDE 10 MEQ TABLET PO SCH (09:49)
[2021-01-24] MEDS: clonazePAM 0.5 MG TABLET PO SCH (09:49)
[2021-01-24] MEDS: MONTELUKAST 10 MG TABLET PO SCH (09:49)
[2021-01-24] MEDS: PRAMIPEXOLE 1 MG TABLET PO SCH ×2 (09:49→15:30)
[2021-01-24] MEDS: THEOPHYLLINE ER 300 MG TABLET PO SCH (09:49)
[2021-01-24] MEDS: acetaZOLAMIDE 250 MG TABLET PO SCH (09:49)
[2021-01-24] MEDS: DULoxetine 30 MG CAPSULE PO SCH (09:49)
[2021-01-24] MEDS: PANTOPRAZOLE 40 MG TABLET PO SCH (09:50)
[2021-01-24] MEDS: ASPIRIN EC 81 MG TABLET PO SCH (09:50)
[2021-01-24] MEDS: DILTIAZEM CD 240 MG CAPSULE PO SCH (09:50)
[2021-01-24] MEDS: SPIRONOLACTONE 25 MG TABLET PO SCH (09:50)
[2021-01-24] MEDS: ALBUTEROL 2 MG TABLET PO SCH ×2 (09:50→15:30)
[2021-01-24] MEDS: TORSEMIDE 20 MG TABLET PO SCH (09:50)
[2021-01-24 15:52] VITALS: BP 126/54
[2021-01-25 12:14] LABS: M. Tuberculosis PCR Result Negative (Negative); M. Tuberculosis PCR Source BRONCH WASH
== END 2021-01-24 16:23 | disposition home health service (06) | DRG 121 ==
LOC: EDUNIT# → EDBD → N.ED 11:24 → SUATTDRO 15:20 → N.EDINP 15:20 → N.ICU 17:35 → N.5E 01-18 15:32
PROVIDERS: ADMIT Internal Medicine; ATTEND Internal Medicine

== ENCOUNTER 2021-04-06 09:39 | Inpatient (IN) ==
[2021-04-06] MEDS ORDERED: ALBUTEROL/IPRATROPIUM 3 ML NEB RESP TX STA (10:10)
[2021-04-06] MEDS ORDERED: methylPREDNISolone SOD SUC 125 MG/2 ML VIAL IV STA ×2 (10:12→10:41)
[2021-04-06 10:33] LABS: ABG Base Excess 3.9 MMOL/L (-2.5-2.5); ABG HCO3 27.8 MMOL/L (20-26); ABG PH 7.273 (7.35-7.45); ABG PO2 89.7 MM HG (80-95); ABG TCO2 29.8 MMOL/L (23-27)
[2021-04-06 10:34] LABS: ABG PCO2 74.9 MM HG (35-48)
[2021-04-06] MEDS ORDERED: ALBUTEROL NEB SOLN 5 MG/ML 20 ML/BOTTLE CONT NEB STA (10:43)
[2021-04-06] MEDS ORDERED: cefTRIAXone 1,000 MG in SODIUM CHLORIDE 0.9% 100 ML IV STA (11:30)
[2021-04-06 11:31] LABS: INR 1.9; PT Patient Result 20.6 SECS (10.5-12.0); Partial Thromboplastin Time 32.7 SECS (23.8-32.1)
[2021-04-06 11:41] LABS: Basophils % 0.4 % (0.0-0.8); Eosinophils # 0.1 10*3/uL (0.0-0.87); Eosinophils % 0.8 % (0.00-10.9); Hematocrit 51.9 VOL% (35.7-47.0); Hemoglobin 15.8 GM/DL (12.0-16.0); Immature Granulocytes % 0.7 %; Immature Granulocytes Absolute 0.06 #; Lymphocytes # 1.9 10*3/uL (1.4-4.0); Lymphocytes % 21.6 % (21.3-54.2); Mean Corpuscular HGB Conc 30.4 GM/DL (32-36); Mean Corpuscular Volume 93.5 FL (87-102); Monocytes % 8.6 % (1.7-12.7); NRBC # 0.11 10*3/uL; Neutrophils % 67.9 % (38.7-73.9); Platelet Count 163 T/CUMM (130-400); Red Blood Count 5.55 MC/CUMM (3.8-5.5); Red Cell Distribution Width 19.2 % (9.3-17.3); White Blood Count 8.6 T/CUMM (4-12)
[2021-04-06] MEDS ORDERED: SODIUM CHLORIDE 0.9% 1,000 ML IV STA (11:47)
[2021-04-06 11:52] LABS: Anisocytosis Slight; Band Neutrophils 16 % (0-10); Lymphocytes 24 % (20-55); Nucleated Red Blood Cells 4 (0-5); Platelet Estimate Normal; Segmented Neutrophils 51 % (50-85); Total Cells Counted 100
[2021-04-06 12:05] LABS: Albumin 2.7 G/DL (3.4-5.0); Bilirubin,Total 0.8 MG/DL (0.20-1.00); Calcium 8.5 MG/DL (8.5-10.1); Osmolality,Calculated 282.3 MOS/KG (273-304); Potassium 3.7 MMOL/L (3.5-5.1); Total Protein 6.4 G/DL (6.4-8.2)
[2021-04-06 12:06] LABS: Lactic Acid 0.8 MMOL/L (0.4-2.0)
[2021-04-06] MEDS ORDERED: ETOMIDATE 20 MG/10 ML VIAL IV ONE (12:18)
[2021-04-06] MEDS ORDERED: ROCURONIUM 100 MG/10 ML VIAL IV ONE (12:19)
[2021-04-06] MEDS ORDERED: AZITHROMYCIN INJ 500 MG in SODIUM CHLORIDE 0.9% 250 ML IV ONE (13:49)
[2021-04-06] MEDS ORDERED: DEXTROSE 10% 25 GM/250 ML BAG IV PRN (13:56)
[2021-04-06] MEDS ORDERED: GLUCAGON 1 MG VIAL IM PRN (13:56)
[2021-04-06] MEDS ORDERED: ROCURONIUM 100 MG/10 ML VIAL IV STA (14:34)
[2021-04-06] MEDS: LACTULOSE 20 GM/30 ML UDCUP PO SCH ×2 (16:56→21:00)
[2021-04-06] MEDS: methylPREDNISolone SOD SUC 40 MG/1 ML VIAL IV SCH ×2 (16:56→21:00)
[2021-04-06] MEDS: FUROSEMIDE 40 MG/4 ML VIAL IV SCH ×2 (16:56→21:00)
[2021-04-06] MEDS: HEPARIN 5,000 UNIT/1 ML VIAL SUBCUT SCH ×2 (16:57→21:01)
[2021-04-06] MEDS: INSULIN LISPRO 100 UNIT/ML SUBCUT SCH (18:44)
[2021-04-06] MEDS: MONTELUKAST 10 MG TABLET PO SCH (21:00)
[2021-04-06] MEDS: ASCORBIC ACID 500 MG TABLET PO SCH (21:00)
[2021-04-06] MEDS: FAMOTIDINE 20 MG TABLET PO SCH (21:00)
[2021-04-07] MEDS: INSULIN LISPRO 100 UNIT/ML SUBCUT SCH ×4 (01:16→18:23)
[2021-04-07] MEDS: methylPREDNISolone SOD SUC 40 MG/1 ML VIAL IV SCH ×4 (01:16→21:01)
[2021-04-07 05:01] LABS: Basophils % 0.1 % (0.0-0.8); Hematocrit 52.2 VOL% (35.7-47.0); Hemoglobin 15.5 GM/DL (12.0-16.0); Immature Granulocytes % 0.8 %; Immature Granulocytes Absolute 0.07 #; Lymphocytes % 11.1 % (21.3-54.2); Mean Corpuscular HGB Conc 29.7 GM/DL (32-36); Mean Corpuscular Volume 94.2 FL (87-102); Mean Platelet Volume 11.2 FL (9.6-12.0); Monocytes % 4.7 % (1.7-12.7); NRBC # 0.16 10*3/uL; Neutrophils % 83.3 % (38.7-73.9); Platelet Count 230 T/CUMM (130-400); Red Blood Count 5.54 MC/CUMM (3.8-5.5); Red Cell Distribution Width 18.5 % (9.3-17.3); White Blood Count 8.7 T/CUMM (4-12)
[2021-04-07 05:30] LABS: Calcium 8.1 MG/DL (8.5-10.1); Ferritin 43.1 ng/mL (8-252); Osmolality,Calculated 288.3 MOS/KG (273-304); Potassium 3.3 MMOL/L (3.5-5.1); Thyroid Stimulating Hormone 0.301 uIU/ml (0.358-3.74)
[2021-04-07] MEDS: HEPARIN 5,000 UNIT/1 ML VIAL SUBCUT SCH ×3 (06:34→21:00)
[2021-04-07 08:26] LABS: ABG HCO3 29.7 MMOL/L (20-26); ABG Oxygen Saturation 95.5 % (95-100); ABG PH 7.338 (7.35-7.45); ABG PO2 85.8 MM HG (80-95); ABG TCO2 29.7 MMOL/L (23-27); Pt O2 Delivery Device Ventilator
[2021-04-07] MEDS: ZINC GLUCONATE 50 MG TABLET PO SCH (08:35)
[2021-04-07] MEDS: FUROSEMIDE 40 MG/4 ML VIAL IV SCH ×2 (08:35→21:01)
[2021-04-07] MEDS: CHOLECALCIFEROL 1,000 UNIT TABLET PO SCH (08:35)
[2021-04-07] MEDS: ASCORBIC ACID 500 MG TABLET PO SCH ×2 (08:35→21:05)
[2021-04-07] MEDS: LACTULOSE 20 GM/30 ML UDCUP PO SCH ×3 (08:36→21:02)
[2021-04-07] MEDS: SPIRONOLACTONE 25 MG TABLET PO SCH (08:36)
[2021-04-07] MEDS: FAMOTIDINE 20 MG TABLET PO SCH ×2 (08:36→21:02)
[2021-04-07] MEDS: MONTELUKAST 10 MG TABLET PO SCH ×2 (08:36→21:02)
[2021-04-07] MEDS: ASPIRIN EC 81 MG TABLET PO SCH (08:36)
[2021-04-07] MEDS: MIDAZOLAM 100 MG in SODIUM CHLORIDE 0.9% 80 ML IV PRN (08:54)
[2021-04-07] MEDS ORDERED: DILTIAZEM CD 240 MG CAPSULE PO SCH (09:00)
[2021-04-07] MEDS: DULoxetine 30 MG CAPSULE PO SCH ×2 (09:08→09:15)
[2021-04-07] MEDS: POTASSIUM BICARB EFFERVESCENT 20 MEQ TAB.EFF PER TUBE PRN ×2 (12:59→15:48)
[2021-04-07] MEDS: cefTRIAXone 1,000 MG in SODIUM CHLORIDE 0.9% 100 ML IV SCH (13:00)
[2021-04-07] MEDS ORDERED: ALBUTEROL/IPRATROPIUM 3 ML NEB RESP TX SCH (13:00)
[2021-04-07] MEDS: DILTIAZEM 60 MG TABLET PO SCH ×3 (13:03→21:02)
[2021-04-07] MEDS ORDERED: REMDESIVIR 200 MG in SODIUM CHLORIDE 0.9% 210 ML IV ONE (15:30)
[2021-04-07] MEDS: PRAMIPEXOLE 1 MG TABLET PO SCH ×2 (15:47→21:07)
[2021-04-07] MEDS ORDERED: INSULIN NPH/REGULAR 70/30 100 UNIT/ML SUBCUT SCH (21:00)
[2021-04-08] MEDS: MIDAZOLAM 100 MG in SODIUM CHLORIDE 0.9% 80 ML IV PRN ×3 (00:15→19:05)
[2021-04-08 01:00] LABS: Calcium 7.7 MG/DL (8.5-10.1)
[2021-04-08] MEDS: INSULIN LISPRO 100 UNIT/ML SUBCUT SCH ×4 (01:28→19:05)
[2021-04-08] MEDS: methylPREDNISolone SOD SUC 40 MG/1 ML VIAL IV SCH ×4 (01:28→20:50)
[2021-04-08 04:16] LABS: ABG Base Excess 12.5 MMOL/L (-2.5-2.5); ABG HCO3 36.3 MMOL/L (20-26); ABG Oxygen Saturation 96.3 % (95-100); ABG PCO2 61.1 MM HG (35-48); ABG PH 7.429 (7.35-7.45); ABG TCO2 34.1 MMOL/L (23-27)
[2021-04-08 05:28] LABS: Basophils % 0.3 % (0.0-0.8); Hematocrit 52.2 VOL% (35.7-47.0); Immature Granulocytes % 0.6 %; Immature Granulocytes Absolute 0.04 #; Lymphocytes # 0.7 10*3/uL (1.4-4.0); Lymphocytes % 10.4 % (21.3-54.2); Mean Corpuscular HGB Conc 29.9 GM/DL (32-36); Mean Corpuscular Volume 94.2 FL (87-102); Mean Platelet Volume 11.2 FL (9.6-12.0); NRBC # 0.17 10*3/uL; Neutrophils % 82.7 % (38.7-73.9); Platelet Count 160 T/CUMM (130-400); Red Blood Count 5.54 MC/CUMM (3.8-5.5); Red Cell Distribution Width 18.6 % (9.3-17.3); White Blood Count 6.8 T/CUMM (4-12)
[2021-04-08 05:33] LABS: Hemoglobin 15.6 GM/DL (12.0-16.0)
[2021-04-08] MEDS: HEPARIN 5,000 UNIT/1 ML VIAL SUBCUT SCH ×3 (05:42→21:00)
[2021-04-08 06:16] LABS: Albumin 2.3 G/DL (3.4-5.0); Bilirubin,Total 0.4 MG/DL (0.20-1.00); Calcium 8.2 MG/DL (8.5-10.1); Osmolality,Calculated 288.5 MOS/KG (273-304); Potassium 3.9 MMOL/L (3.5-5.1); Total Protein 6.4 G/DL (6.4-8.2)
[2021-04-08] MEDS: LACTULOSE 20 GM/30 ML UDCUP PO SCH ×3 (08:55→20:52)
[2021-04-08] MEDS: POTASSIUM BICARB EFFERVESCENT 20 MEQ TAB.EFF PER TUBE PRN (08:55)
[2021-04-08] MEDS: SPIRONOLACTONE 25 MG TABLET PO SCH (08:55)
[2021-04-08] MEDS: DULoxetine 30 MG CAPSULE PO SCH (08:55)
[2021-04-08] MEDS: CHOLECALCIFEROL 1,000 UNIT TABLET PO SCH (08:56)
[2021-04-08] MEDS: DILTIAZEM 60 MG TABLET PO SCH ×4 (08:56→20:53)
[2021-04-08] MEDS: MONTELUKAST 10 MG TABLET PO SCH ×2 (08:56→20:52)
[2021-04-08] MEDS: ASCORBIC ACID 500 MG TABLET PO SCH ×2 (08:56→20:52)
[2021-04-08] MEDS: ZINC GLUCONATE 50 MG TABLET PO SCH (08:56)
[2021-04-08] MEDS: ASPIRIN EC 81 MG TABLET PO SCH (08:57)
[2021-04-08] MEDS: PRAMIPEXOLE 1 MG TABLET PO SCH ×3 (08:57→20:53)
[2021-04-08] MEDS: FAMOTIDINE 20 MG TABLET PO SCH ×2 (08:57→20:52)
[2021-04-08] MEDS: FUROSEMIDE 40 MG/4 ML VIAL IV SCH ×2 (08:58→20:51)
[2021-04-08] MEDS ORDERED: INSULIN NPH/REGULAR 70/30 100 UNIT/ML SUBCUT SCH (09:00)
[2021-04-08] MEDS: REMDESIVIR 100 MG in SODIUM CHLORIDE 0.9% 100 ML IV SCH (09:50)
[2021-04-08] MEDS: cefTRIAXone 1,000 MG in SODIUM CHLORIDE 0.9% 100 ML IV SCH (13:18)
[2021-04-08] MEDS: ACETAMINOPHEN 325 MG TABLET PO PRN (16:08)
[2021-04-08] MEDS: IBUPROFEN 400 MG TABLET PO PRN (17:52)
[2021-04-08 18:55] LABS: Bilirubin,Urine Negative (Negative); Blood, Urine Negative (Negative); Glucose,Urine (UA) 150 mg/dL (Negative); Hyaline Casts,Urine 1 /LPF (0-3); Ketones,Urine 5 mg/dL (Negative); Nitrite,Urine Negative (Negative); Protein,Urine 100 MG/DL; RBC,Urine 7 /HPF (0-4); Urine Appearance CLOUDY (Clear); Urine Color Amber (Yellow); Urine Specific Gravity 1.041 (1.001-1.035); Urine Urobilinogen < 2.0 EU/DL (<2.0)
[2021-04-08] MEDS: INSULIN NPH/REGULAR 70/30 100 UNIT/ML SUBCUT SCH (20:51)
[2021-04-09] MEDS: INSULIN LISPRO 100 UNIT/ML SUBCUT SCH ×4 (00:59→17:31)
[2021-04-09] MEDS: methylPREDNISolone SOD SUC 40 MG/1 ML VIAL IV SCH ×4 (01:00→20:22)
[2021-04-09 04:20] LABS: ABG Base Excess 11.6 MMOL/L (-2.5-2.5); ABG HCO3 39.4 MMOL/L (20-26); ABG Oxygen Saturation 96.2 % (95-100); ABG PH 7.407 (7.35-7.45); ABG PO2 86.5 MM HG (80-95); ABG TCO2 41.3 MMOL/L (23-27); Allen Test Positive; Pt O2 Delivery Device Ventilator
[2021-04-09 05:06] LABS: Albumin 2.3 G/DL (3.4-5.0); Bilirubin,Total 0.5 MG/DL (0.20-1.00); Calcium 8.6 MG/DL (8.5-10.1); Osmolality,Calculated 290.8 MOS/KG (273-304); Potassium 3.7 MMOL/L (3.5-5.1); Total Protein 6.2 G/DL (6.4-8.2)
[2021-04-09 05:13] LABS: Basophils % 0.1 % (0.0-0.8); Hematocrit 49.8 VOL% (35.7-47.0); Hemoglobin 14.8 GM/DL (12.0-16.0); Immature Granulocytes % 0.6 %; Immature Granulocytes Absolute 0.05 #; Lymphocytes # 0.7 10*3/uL (1.4-4.0); Lymphocytes % 8.5 % (21.3-54.2); Mean Corpuscular HGB Conc 29.7 GM/DL (32-36); Mean Corpuscular Volume 95.4 FL (87-102); Monocytes % 6.4 % (1.7-12.7); NRBC # 0.19 10*3/uL; Neutrophils % 84.4 % (38.7-73.9); Platelet Count 235 T/CUMM (130-400); Red Blood Count 5.22 MC/CUMM (3.8-5.5); Red Cell Distribution Width 18.1 % (9.3-17.3)
[2021-04-09] MEDS: HEPARIN 5,000 UNIT/1 ML VIAL SUBCUT SCH ×3 (05:45→21:05)
[2021-04-09] MEDS: MIDAZOLAM 100 MG in SODIUM CHLORIDE 0.9% 80 ML IV PRN (06:30)
[2021-04-09] MEDS: ASCORBIC ACID 500 MG TABLET PO SCH ×2 (08:43→21:07)
[2021-04-09] MEDS: DILTIAZEM 60 MG TABLET PO SCH ×4 (08:43→21:07)
[2021-04-09] MEDS: CHOLECALCIFEROL 1,000 UNIT TABLET PO SCH (08:43)
[2021-04-09] MEDS: PRAMIPEXOLE 1 MG TABLET PO SCH ×3 (08:43→21:07)
[2021-04-09] MEDS: MONTELUKAST 10 MG TABLET PO SCH ×2 (08:43→21:07)
[2021-04-09] MEDS: ZINC GLUCONATE 50 MG TABLET PO SCH (08:44)
[2021-04-09] MEDS: ACETAMINOPHEN 325 MG TABLET PO PRN ×3 (08:44→21:53)
[2021-04-09] MEDS: DULoxetine 30 MG CAPSULE PO SCH (08:45)
[2021-04-09] MEDS: FAMOTIDINE 20 MG TABLET PO SCH ×2 (08:45→21:08)
[2021-04-09] MEDS: POTASSIUM BICARB EFFERVESCENT 20 MEQ TAB.EFF PER TUBE PRN (08:45)
[2021-04-09] MEDS: SPIRONOLACTONE 25 MG TABLET PO SCH (08:46)
[2021-04-09] MEDS: INSULIN NPH/REGULAR 70/30 100 UNIT/ML SUBCUT SCH ×2 (08:46→21:06)
[2021-04-09] MEDS: REMDESIVIR 100 MG in SODIUM CHLORIDE 0.9% 100 ML IV SCH (08:49)
[2021-04-09] MEDS: LACTULOSE 20 GM/30 ML UDCUP PO SCH ×3 (09:42→21:06)
[2021-04-09] MEDS: ASPIRIN CHEW 81 MG TABLET PO SCH (10:21)
[2021-04-09] MEDS: cefTRIAXone 1,000 MG in SODIUM CHLORIDE 0.9% 100 ML IV SCH (13:40)
[2021-04-09] MEDS: THEOPHYLLINE 5.33 MG/ML 30 ML/BOTTLE NG SCH ×2 (15:21→21:12)
[2021-04-10] MEDS: INSULIN LISPRO 100 UNIT/ML SUBCUT SCH ×4 (01:16→18:04)
[2021-04-10] MEDS: methylPREDNISolone SOD SUC 40 MG/1 ML VIAL IV SCH ×4 (01:17→19:49)
[2021-04-10] MEDS: THEOPHYLLINE 5.33 MG/ML 30 ML/BOTTLE NG SCH ×4 (04:13→20:35)
[2021-04-10 04:25] LABS: ABG Base Excess 10.6 MMOL/L (-2.5-2.5); ABG HCO3 37.9 MMOL/L (20-26); ABG PCO2 59.4 MM HG (35-48); ABG PH 7.423 (7.35-7.45); ABG TCO2 39.7 MMOL/L (23-27)
[2021-04-10 04:39] LABS: Calcium 8.6 MG/DL (8.5-10.1); Osmolality,Calculated 292.4 MOS/KG (273-304)
[2021-04-10 05:14] LABS: Basophils % 0.1 % (0.0-0.8); Immature Granulocytes % 0.7 %; Immature Granulocytes Absolute 0.05 #; Lymphocytes # 0.5 10*3/uL (1.4-4.0); Lymphocytes % 6.4 % (21.3-54.2); Mean Corpuscular HGB Conc 29.8 GM/DL (32-36); Mean Corpuscular Volume 95.4 FL (87-102); Mean Platelet Volume 11.4 FL (9.6-12.0); Monocytes % 7.9 % (1.7-12.7); NRBC # 0.09 10*3/uL; Neutrophils % 84.9 % (38.7-73.9); Platelet Count 228 T/CUMM (130-400); Red Blood Count 5.63 MC/CUMM (3.8-5.5); Red Cell Distribution Width 17.2 % (9.3-17.3); White Blood Count 7.5 T/CUMM (4-12)
[2021-04-10 05:16] LABS: Hematocrit 53.7 VOL% (35.7-47.0)
[2021-04-10] MEDS: HEPARIN 5,000 UNIT/1 ML VIAL SUBCUT SCH ×3 (06:45→21:26)
[2021-04-10] MEDS: INSULIN NPH/REGULAR 70/30 100 UNIT/ML SUBCUT SCH ×2 (08:32→20:35)
[2021-04-10] MEDS: LACTULOSE 20 GM/30 ML UDCUP PO SCH ×3 (08:32→20:34)
[2021-04-10] MEDS: DULoxetine 30 MG CAPSULE PO SCH (08:32)
[2021-04-10] MEDS: PRAMIPEXOLE 1 MG TABLET PO SCH ×3 (08:33→20:39)
[2021-04-10] MEDS: ASPIRIN CHEW 81 MG TABLET PO SCH (08:33)
[2021-04-10] MEDS: CHOLECALCIFEROL 1,000 UNIT TABLET PO SCH (08:34)
[2021-04-10] MEDS: FAMOTIDINE 20 MG TABLET PO SCH ×2 (08:35→20:33)
[2021-04-10] MEDS: DILTIAZEM 60 MG TABLET PO SCH ×4 (08:35→20:33)
[2021-04-10] MEDS: MONTELUKAST 10 MG TABLET PO SCH ×2 (08:35→20:34)
[2021-04-10] MEDS: SPIRONOLACTONE 25 MG TABLET PO SCH (08:35)
[2021-04-10] MEDS: ASCORBIC ACID 500 MG TABLET PO SCH ×2 (08:35→20:34)
[2021-04-10] MEDS: ZINC GLUCONATE 50 MG TABLET PO SCH (08:35)
[2021-04-10] MEDS: REMDESIVIR 100 MG in SODIUM CHLORIDE 0.9% 100 ML IV SCH (08:56)
[2021-04-10] MEDS: cefTRIAXone 1,000 MG in SODIUM CHLORIDE 0.9% 100 ML IV SCH (12:30)
[2021-04-10] MEDS: IBUPROFEN 400 MG TABLET PO PRN (14:34)
[2021-04-10] MEDS: ACETAMINOPHEN 325 MG TABLET PO PRN (16:25)
[2021-04-11] MEDS: methylPREDNISolone SOD SUC 40 MG/1 ML VIAL IV SCH ×4 (01:10→20:01)
[2021-04-11] MEDS: INSULIN LISPRO 100 UNIT/ML SUBCUT SCH ×4 (01:10→17:31)
[2021-04-11] MEDS: THEOPHYLLINE 5.33 MG/ML 30 ML/BOTTLE NG SCH ×4 (04:13→21:20)
[2021-04-11 04:25] LABS: ABG HCO3 35.6 MMOL/L (20-26); ABG Oxygen Saturation 96.9 % (95-100); ABG PCO2 49.9 MM HG (35-48); ABG PH 7.471 (7.35-7.45); ABG PO2 90.5 MM HG (80-95); ABG TCO2 37.1 MMOL/L (23-27)
[2021-04-11 04:52] LABS: Osmolality,Calculated 285.2 MOS/KG (273-304); Potassium 3.9 MMOL/L (3.5-5.1)
[2021-04-11 05:04] LABS: Basophils % 0.2 % (0.0-0.8); Hematocrit 53.3 VOL% (35.7-47.0); Immature Granulocytes % 0.7 %; Immature Granulocytes Absolute 0.06 #; Lymphocytes # 0.5 10*3/uL (1.4-4.0); Lymphocytes % 5.8 % (21.3-54.2); Mean Corpuscular Volume 93.5 FL (87-102); Mean Platelet Volume 11.2 FL (9.6-12.0); Monocytes % 8.3 % (1.7-12.7); NRBC # 0.03 10*3/uL; Platelet Count 221 T/CUMM (130-400); Red Cell Distribution Width 16.7 % (9.3-17.3); White Blood Count 8.3 T/CUMM (4-12)
[2021-04-11] MEDS: HEPARIN 5,000 UNIT/1 ML VIAL SUBCUT SCH ×3 (06:36→22:16)
[2021-04-11] MEDS: PRAMIPEXOLE 1 MG TABLET PO SCH ×3 (08:29→21:20)
[2021-04-11] MEDS: LACTULOSE 20 GM/30 ML UDCUP PO SCH ×3 (08:29→21:20)
[2021-04-11] MEDS: DILTIAZEM 60 MG TABLET PO SCH ×4 (08:30→21:19)
[2021-04-11] MEDS: FAMOTIDINE 20 MG TABLET PO SCH ×2 (08:30→21:21)
[2021-04-11] MEDS: ASPIRIN CHEW 81 MG TABLET PO SCH (08:30)
[2021-04-11] MEDS: ASCORBIC ACID 500 MG TABLET PO SCH ×2 (08:30→21:21)
[2021-04-11] MEDS: SPIRONOLACTONE 25 MG TABLET PO SCH (08:30)
[2021-04-11] MEDS: DULoxetine 30 MG CAPSULE PO SCH (08:30)
[2021-04-11] MEDS: CHOLECALCIFEROL 1,000 UNIT TABLET PO SCH (08:30)
[2021-04-11] MEDS: ZINC GLUCONATE 50 MG TABLET PO SCH (08:31)
[2021-04-11] MEDS: MONTELUKAST 10 MG TABLET PO SCH ×2 (08:31→21:21)
[2021-04-11] MEDS: INSULIN NPH/REGULAR 70/30 100 UNIT/ML SUBCUT SCH ×2 (08:34→21:20)
[2021-04-11] MEDS: REMDESIVIR 100 MG in SODIUM CHLORIDE 0.9% 100 ML IV SCH (08:34)
[2021-04-11] MEDS: AZITHROMYCIN INJ 500 MG in SODIUM CHLORIDE 0.9% 250 ML IV SCH (09:55)
[2021-04-11] MEDS: FLUCONAZOLE INJ 200 MG/100 ML PREMIX IV SCH (11:53)
[2021-04-11] MEDS: cefTRIAXone 1,000 MG in SODIUM CHLORIDE 0.9% 100 ML IV SCH (12:02)
[2021-04-11 12:27] LABS: Bilirubin,Urine Negative (Negative); Blood, Urine Negative (Negative); Glucose,Urine (UA) Negative (Negative); Ketones,Urine 5 mg/dL (Negative); Mucus,Urine Occasional /LPF (Occasional); Nitrite,Urine Negative (Negative); Protein,Urine 100 MG/DL; Squamous Epithelial Cell,Urine Occasional /HPF (0-10); Urine Appearance CLOUDY (Clear); Urine Color Amber (Yellow); Urine Specific Gravity 1.036 (1.001-1.035)
[2021-04-11] MEDS: ACETAMINOPHEN 325 MG TABLET PO PRN (14:38)
[2021-04-11] MEDS: FUROSEMIDE 20 MG/2 ML VIAL IV SCH (21:20)
[2021-04-12] MEDS: INSULIN LISPRO 100 UNIT/ML SUBCUT SCH ×4 (00:28→17:46)
[2021-04-12] MEDS: methylPREDNISolone SOD SUC 40 MG/1 ML VIAL IV SCH ×4 (02:38→20:33)
[2021-04-12] MEDS: THEOPHYLLINE 5.33 MG/ML 30 ML/BOTTLE NG SCH ×4 (04:00→20:36)
[2021-04-12 04:30] LABS: Basophils % 0.2 % (0.0-0.8); Hematocrit 52.4 VOL% (35.7-47.0); Hemoglobin 16.3 GM/DL (12.0-16.0); Immature Granulocytes % 1.1 %; Immature Granulocytes Absolute 0.11 #; Lymphocytes # 0.6 10*3/uL (1.4-4.0); Lymphocytes % 6.1 % (21.3-54.2); Mean Corpuscular HGB Conc 31.1 GM/DL (32-36); Mean Corpuscular Volume 92.1 FL (87-102); Mean Platelet Volume 11.4 FL (9.6-12.0); Monocytes % 11.1 % (1.7-12.7); NRBC # 0.02 10*3/uL; Neutrophils % 81.5 % (38.7-73.9); Platelet Count 211 T/CUMM (130-400); Red Blood Count 5.69 MC/CUMM (3.8-5.5); Red Cell Distribution Width 16.6 % (9.3-17.3); White Blood Count 9.9 T/CUMM (4-12)
[2021-04-12 04:33] LABS: ABG Base Excess 12.4 MMOL/L (-2.5-2.5); ABG HCO3 36.2 MMOL/L (20-26); ABG Oxygen Saturation 95.2 % (95-100); ABG PCO2 45.4 MM HG (35-48); ABG PH 7.523 (7.35-7.45); ABG PO2 72.7 MM HG (80-95); ABG TCO2 30.6 MMOL/L (23-27)
[2021-04-12 04:42] LABS: INR 1.1; PT Patient Result 11.9 SECS (10.5-12.0); Partial Thromboplastin Time 23.1 SECS (23.8-32.1)
[2021-04-12 04:48] LABS: Calcium 8.8 MG/DL (8.5-10.1); Osmolality,Calculated 283.8 MOS/KG (273-304); Potassium 3.9 MMOL/L (3.5-5.1)
[2021-04-12] MEDS: HEPARIN 5,000 UNIT/1 ML VIAL SUBCUT SCH ×3 (05:37→23:50)
[2021-04-12] MEDS: LACTULOSE 20 GM/30 ML UDCUP PO SCH ×3 (08:13→20:26)
[2021-04-12] MEDS: FUROSEMIDE 20 MG/2 ML VIAL IV SCH ×2 (08:14→20:27)
[2021-04-12] MEDS: ASPIRIN CHEW 81 MG TABLET PO SCH (08:14)
[2021-04-12] MEDS: CHOLECALCIFEROL 1,000 UNIT TABLET PO SCH (08:14)
[2021-04-12] MEDS: ZINC GLUCONATE 50 MG TABLET PO SCH (08:15)
[2021-04-12] MEDS: FAMOTIDINE 20 MG TABLET PO SCH ×2 (08:15→21:00)
[2021-04-12] MEDS: MONTELUKAST 10 MG TABLET PO SCH ×2 (08:15→20:28)
[2021-04-12] MEDS: DULoxetine 30 MG CAPSULE PO SCH (08:15)
[2021-04-12] MEDS: SPIRONOLACTONE 25 MG TABLET PO SCH (08:15)
[2021-04-12] MEDS: DILTIAZEM 60 MG TABLET PO SCH ×4 (08:15→20:27)
[2021-04-12] MEDS: ASCORBIC ACID 500 MG TABLET PO SCH ×2 (08:15→22:14)
[2021-04-12] MEDS: PRAMIPEXOLE 1 MG TABLET PO SCH ×3 (08:16→20:28)
[2021-04-12] MEDS: AZITHROMYCIN INJ 500 MG in SODIUM CHLORIDE 0.9% 250 ML IV SCH (08:17)
[2021-04-12] MEDS: INSULIN NPH/REGULAR 70/30 100 UNIT/ML SUBCUT SCH ×2 (09:00→20:28)
[2021-04-12] MEDS: FLUCONAZOLE INJ 200 MG/100 ML PREMIX IV SCH (11:03)
[2021-04-12] MEDS: cefTRIAXone 1,000 MG in SODIUM CHLORIDE 0.9% 100 ML IV SCH (12:16)
[2021-04-12] MEDS: ACETAMINOPHEN 325 MG TABLET PO PRN (21:02)
[2021-04-13] MEDS: INSULIN LISPRO 100 UNIT/ML SUBCUT SCH ×5 (00:34→23:52)
[2021-04-13] MEDS: methylPREDNISolone SOD SUC 40 MG/1 ML VIAL IV SCH ×4 (02:56→20:16)
[2021-04-13] MEDS: THEOPHYLLINE 5.33 MG/ML 30 ML/BOTTLE NG SCH ×4 (02:58→20:46)
[2021-04-13 04:12] LABS: Calcium 8.5 MG/DL (8.5-10.1); Osmolality,Calculated 286.4 MOS/KG (273-304); Potassium 3.3 MMOL/L (3.5-5.1)
[2021-04-13 04:21] LABS: Basophils % 0.2 % (0.0-0.8); Hematocrit 51.5 VOL% (35.7-47.0); Immature Granulocytes % 0.7 %; Immature Granulocytes Absolute 0.09 #; Lymphocytes # 0.4 10*3/uL (1.4-4.0); Lymphocytes % 3.3 % (21.3-54.2); Mean Corpuscular HGB Conc 30.3 GM/DL (32-36); Mean Platelet Volume 12.2 FL (9.6-12.0); Monocytes % 7.8 % (1.7-12.7); Platelet Count 214 T/CUMM (130-400); Red Blood Count 5.48 MC/CUMM (3.8-5.5); Red Cell Distribution Width 16.5 % (9.3-17.3); White Blood Count 12.9 T/CUMM (4-12)
[2021-04-13] MEDS: POTASSIUM BICARB EFFERVESCENT 20 MEQ TAB.EFF PER TUBE PRN ×3 (04:34→17:03)
[2021-04-13 04:37] LABS: Hemoglobin 15.6 GM/DL (12.0-16.0)
[2021-04-13 04:43] LABS: ABG Base Excess 11.8 MMOL/L (-2.5-2.5); ABG HCO3 35.5 MMOL/L (20-26); ABG Oxygen Saturation 92.5 % (95-100); ABG PCO2 52.2 MM HG (35-48); ABG PH 7.473 (7.35-7.45); ABG PO2 66.6 MM HG (80-95); ABG TCO2 31.7 MMOL/L (23-27)
[2021-04-13 04:49] LABS: Band Neutrophils 4 % (0-10); Hypochromia 1+; Lymphocytes 2 % (20-55); Segmented Neutrophils 85 % (50-85); Total Cells Counted 100
[2021-04-13 04:50] LABS: Microcytosis 1+; Platelet Estimate Normal
[2021-04-13] MEDS: HEPARIN 5,000 UNIT/1 ML VIAL SUBCUT SCH ×3 (06:50→20:46)
[2021-04-13] MEDS: MONTELUKAST 10 MG TABLET PO SCH ×2 (10:16→20:12)
[2021-04-13] MEDS: PRAMIPEXOLE 1 MG TABLET PO SCH ×3 (10:18→20:13)
[2021-04-13] MEDS: FAMOTIDINE 20 MG TABLET PO SCH ×2 (10:19→20:14)
[2021-04-13] MEDS: DILTIAZEM 60 MG TABLET PO SCH ×4 (10:19→20:13)
[2021-04-13] MEDS: DULoxetine 30 MG CAPSULE PO SCH (10:20)
[2021-04-13] MEDS: AZITHROMYCIN INJ 500 MG in SODIUM CHLORIDE 0.9% 250 ML IV SCH (10:21)
[2021-04-13] MEDS: SPIRONOLACTONE 25 MG TABLET PO SCH (10:21)
[2021-04-13] MEDS: ASPIRIN CHEW 81 MG TABLET PO SCH (10:22)
[2021-04-13] MEDS: LACTULOSE 20 GM/30 ML UDCUP PO SCH ×3 (10:22→20:17)
[2021-04-13] MEDS: INSULIN NPH/REGULAR 70/30 100 UNIT/ML SUBCUT SCH ×2 (10:22→20:15)
[2021-04-13] MEDS: FUROSEMIDE 20 MG/2 ML VIAL IV SCH ×2 (10:23→20:17)
[2021-04-13] MEDS: CHOLECALCIFEROL 1,000 UNIT TABLET PO SCH (10:24)
[2021-04-13] MEDS: ASCORBIC ACID 500 MG TABLET PO SCH ×2 (10:24→20:13)
[2021-04-13] MEDS: ZINC GLUCONATE 50 MG TABLET PO SCH (10:24)
[2021-04-13] MEDS ORDERED: FUROSEMIDE 20 MG/2 ML VIAL IV ONE (10:29)
[2021-04-13] MEDS: FLUCONAZOLE INJ 200 MG/100 ML PREMIX IV SCH (11:35)
[2021-04-13] MEDS: cefTRIAXone 1,000 MG in SODIUM CHLORIDE 0.9% 100 ML IV SCH (13:19)
[2021-04-13] MEDS: ACETAMINOPHEN 325 MG TABLET PO PRN (13:20)
[2021-04-13] MEDS: IBUPROFEN 400 MG TABLET PO PRN (17:03)
[2021-04-14 02:40] LABS: Basophils % 0.2 % (0.0-0.8); Hematocrit 48.7 VOL% (35.7-47.0); Hemoglobin 14.9 GM/DL (12.0-16.0); Immature Granulocytes % 0.8 %; Immature Granulocytes Absolute 0.13 #; Lymphocytes # 0.5 10*3/uL (1.4-4.0); Lymphocytes % 3.3 % (21.3-54.2); Mean Corpuscular HGB Conc 30.6 GM/DL (32-36); Mean Corpuscular Volume 92.6 FL (87-102); Mean Platelet Volume 11.6 FL (9.6-12.0); Monocytes % 5.3 % (1.7-12.7); Neutrophils % 90.4 % (38.7-73.9); Platelet Count 216 T/CUMM (130-400); Red Blood Count 5.26 MC/CUMM (3.8-5.5); Red Cell Distribution Width 16.5 % (9.3-17.3); White Blood Count 15.7 T/CUMM (4-12)
[2021-04-14] MEDS: methylPREDNISolone SOD SUC 40 MG/1 ML VIAL IV SCH ×4 (02:40→20:23)
[2021-04-14 02:55] LABS: Calcium 8.7 MG/DL (8.5-10.1); Osmolality,Calculated 290.5 MOS/KG (273-304); Potassium 3.4 MMOL/L (3.5-5.1)
[2021-04-14] MEDS: THEOPHYLLINE 5.33 MG/ML 30 ML/BOTTLE NG SCH ×4 (03:11→20:59)
[2021-04-14 03:40] LABS: Band Neutrophils 3 % (0-10); Lymphocytes 2 % (20-55); Segmented Neutrophils 90 % (50-85); Total Cells Counted 100
[2021-04-14 03:42] LABS: Hypochromia 1+; Platelet Estimate Normal
[2021-04-14] MEDS: INSULIN LISPRO 100 UNIT/ML SUBCUT SCH ×4 (05:24→23:40)
[2021-04-14] MEDS: HEPARIN 5,000 UNIT/1 ML VIAL SUBCUT SCH ×3 (05:24→21:13)
[2021-04-14 05:26] LABS: ABG Base Excess 11.3 MMOL/L (-2.5-2.5); ABG HCO3 34.7 MMOL/L (20-26); ABG Oxygen Saturation 86.6 % (95-100); ABG PCO2 51.6 MM HG (35-48); ABG PH 7.469 (7.35-7.45); ABG PO2 54.2 MM HG (80-95); ABG TCO2 31.4 MMOL/L (23-27)
[2021-04-14] MEDS: POTASSIUM BICARB EFFERVESCENT 20 MEQ TAB.EFF PER TUBE PRN ×3 (05:32→15:20)
[2021-04-14] MEDS: LACTULOSE 20 GM/30 ML UDCUP PO SCH ×3 (08:15→20:21)
[2021-04-14] MEDS: INSULIN NPH/REGULAR 70/30 100 UNIT/ML SUBCUT SCH ×2 (08:15→20:22)
[2021-04-14] MEDS: FUROSEMIDE 20 MG/2 ML VIAL IV SCH ×2 (08:15→20:22)
[2021-04-14] MEDS: CHOLECALCIFEROL 1,000 UNIT TABLET PO SCH (08:16)
[2021-04-14] MEDS: ASCORBIC ACID 500 MG TABLET PO SCH ×2 (08:16→20:26)
[2021-04-14] MEDS: FAMOTIDINE 20 MG TABLET PO SCH ×2 (08:16→20:25)
[2021-04-14] MEDS: ZINC GLUCONATE 50 MG TABLET PO SCH (08:16)
[2021-04-14] MEDS: PRAMIPEXOLE 1 MG TABLET PO SCH ×3 (08:16→20:24)
[2021-04-14] MEDS: ASPIRIN CHEW 81 MG TABLET PO SCH (08:16)
[2021-04-14] MEDS: MONTELUKAST 10 MG TABLET PO SCH ×2 (08:16→20:59)
[2021-04-14] MEDS: DULoxetine 30 MG CAPSULE PO SCH (08:16)
[2021-04-14] MEDS: AZITHROMYCIN INJ 500 MG in SODIUM CHLORIDE 0.9% 250 ML IV SCH (08:17)
[2021-04-14] MEDS: DILTIAZEM 60 MG TABLET PO SCH ×4 (08:17→20:23)
[2021-04-14] MEDS: SPIRONOLACTONE 25 MG TABLET PO SCH (09:08)
[2021-04-14] MEDS: VANCOMYCIN INJ 1,750 MG in SODIUM CHLORIDE 0.9% 500 ML IV SCH ×2 (10:58→21:22)
[2021-04-14] MEDS: FLUCONAZOLE INJ 200 MG/100 ML PREMIX IV SCH (11:39)
[2021-04-15] MEDS: methylPREDNISolone SOD SUC 40 MG/1 ML VIAL IV SCH ×4 (01:43→21:17)
[2021-04-15] MEDS: THEOPHYLLINE 5.33 MG/ML 30 ML/BOTTLE NG SCH ×4 (02:48→21:11)
[2021-04-15 03:39] LABS: ABG Base Excess 13.2 MMOL/L (-2.5-2.5); ABG HCO3 36.9 MMOL/L (20-26); ABG PCO2 48.9 MM HG (35-48); ABG PH 7.508 (7.35-7.45); ABG PO2 59.8 MM HG (80-95); ABG TCO2 32.6 MMOL/L (23-27)
[2021-04-15 05:11] LABS: Calcium 9.1 MG/DL (8.5-10.1); Osmolality,Calculated 278.7 MOS/KG (273-304); Potassium 3.2 MMOL/L (3.5-5.1)
[2021-04-15] MEDS: INSULIN LISPRO 100 UNIT/ML SUBCUT SCH ×3 (05:23→17:38)
[2021-04-15] MEDS: POTASSIUM BICARB EFFERVESCENT 20 MEQ TAB.EFF PER TUBE PRN ×4 (05:30→14:13)
[2021-04-15] MEDS: HEPARIN 5,000 UNIT/1 ML VIAL SUBCUT SCH ×3 (06:50→21:13)
[2021-04-15] MEDS: FUROSEMIDE 20 MG/2 ML VIAL IV SCH (08:20)
[2021-04-15] MEDS: DILTIAZEM 60 MG TABLET PO SCH ×4 (08:26→21:12)
[2021-04-15] MEDS: INSULIN NPH/REGULAR 70/30 100 UNIT/ML SUBCUT SCH ×2 (08:26→21:14)
[2021-04-15] MEDS: PRAMIPEXOLE 1 MG TABLET PO SCH ×3 (08:27→21:13)
[2021-04-15] MEDS: SPIRONOLACTONE 25 MG TABLET PO SCH (08:27)
[2021-04-15] MEDS: ZINC GLUCONATE 50 MG TABLET PO SCH (08:27)
[2021-04-15] MEDS: CHOLECALCIFEROL 1,000 UNIT TABLET PO SCH (08:27)
[2021-04-15] MEDS: MONTELUKAST 10 MG TABLET PO SCH ×2 (08:28→21:13)
[2021-04-15] MEDS: AZITHROMYCIN INJ 500 MG in SODIUM CHLORIDE 0.9% 250 ML IV SCH (08:28)
[2021-04-15] MEDS: DULoxetine 30 MG CAPSULE PO SCH (08:28)
[2021-04-15] MEDS: ASPIRIN CHEW 81 MG TABLET PO SCH (08:28)
[2021-04-15] MEDS: LACTULOSE 20 GM/30 ML UDCUP PO SCH ×3 (08:28→21:15)
[2021-04-15] MEDS: ASCORBIC ACID 500 MG TABLET PO SCH ×2 (08:28→21:13)
[2021-04-15] MEDS: FAMOTIDINE 20 MG TABLET PO SCH ×2 (08:28→21:13)
[2021-04-15] MEDS: VANCOMYCIN INJ 1,750 MG in SODIUM CHLORIDE 0.9% 500 ML IV SCH (11:02)
[2021-04-15] MEDS: FLUCONAZOLE INJ 200 MG/100 ML PREMIX IV SCH (11:22)
[2021-04-15 12:45] LABS: Hematocrit 46.6 VOL% (35.7-47.0); Hemoglobin 13.8 GM/DL (12.0-16.0); Mean Corpuscular HGB Conc 29.6 GM/DL (32-36); Mean Corpuscular Volume 96.7 FL (87-102); Red Blood Count 4.82 MC/CUMM (3.8-5.5); Red Cell Distribution Width 16.7 % (9.3-17.3); White Blood Count 16.7 T/CUMM (4-12)
[2021-04-15 12:46] LABS: Basophils # 0.1 10*3/uL (0.0-0.2); Basophils % 0.5 % (0.0-0.8); Immature Granulocytes % 0.6 %; Lymphocytes # 0.6 10*3/uL (1.4-4.0); Lymphocytes % 3.7 % (21.3-54.2); Mean Platelet Volume 13.6 FL (9.6-12.0); Monocytes % 6.3 % (1.7-12.7); Neutrophils % 88.9 % (38.7-73.9); Platelet Count 130 T/CUMM (130-400)
[2021-04-15] MEDS: OXACILLIN 2,000 MG in SODIUM CHLORIDE 0.9% 100 ML IV SCH ×3 (13:30→21:11)
[2021-04-16] MEDS: OXACILLIN 2,000 MG in SODIUM CHLORIDE 0.9% 100 ML IV SCH ×6 (01:01→20:51)
[2021-04-16] MEDS: INSULIN LISPRO 100 UNIT/ML SUBCUT SCH ×4 (01:01→17:43)
[2021-04-16] MEDS: THEOPHYLLINE 5.33 MG/ML 30 ML/BOTTLE NG SCH ×4 (03:30→21:33)
[2021-04-16 03:44] LABS: ABG Base Excess 11.7 MMOL/L (-2.5-2.5); ABG HCO3 35.5 MMOL/L (20-26); ABG Oxygen Saturation 97.1 % (95-100); ABG PCO2 47.2 MM HG (35-48); ABG PH 7.501 (7.35-7.45); ABG TCO2 31.3 MMOL/L (23-27)
[2021-04-16 04:19] LABS: Calcium 8.9 MG/DL (8.5-10.1); Osmolality,Calculated 284.5 MOS/KG (273-304); Potassium 3.5 MMOL/L (3.5-5.1)
[2021-04-16 04:41] LABS: Basophils % 0.1 % (0.0-0.8); Immature Granulocytes % 0.9 %; Immature Granulocytes Absolute 0.17 #; Lymphocytes # 0.5 10*3/uL (1.4-4.0); Lymphocytes % 2.6 % (21.3-54.2); Mean Corpuscular HGB Conc 29.7 GM/DL (32-36); Mean Corpuscular Volume 96.3 FL (87-102); Mean Platelet Volume 12.6 FL (9.6-12.0); Monocytes % 6.9 % (1.7-12.7); Neutrophils % 89.5 % (38.7-73.9); Platelet Count 245 T/CUMM (130-400); Red Blood Count 4.89 MC/CUMM (3.8-5.5); Red Cell Distribution Width 16.9 % (9.3-17.3); White Blood Count 19.6 T/CUMM (4-12)
[2021-04-16 04:42] LABS: Hematocrit 47.1 VOL% (35.7-47.0)
[2021-04-16 04:48] LABS: Lymphocytes 8 % (20-55); Platelet Estimate Adequate; Segmented Neutrophils 88 % (50-85); Total Cells Counted 100
[2021-04-16] MEDS: HEPARIN 5,000 UNIT/1 ML VIAL SUBCUT SCH ×3 (06:33→21:03)
[2021-04-16] MEDS: methylPREDNISolone SOD SUC 40 MG/1 ML VIAL IV SCH ×3 (06:33→20:52)
[2021-04-16] MEDS: SPIRONOLACTONE 25 MG TABLET PO SCH (08:32)
[2021-04-16] MEDS: DULoxetine 30 MG CAPSULE PO SCH (08:33)
[2021-04-16] MEDS: DILTIAZEM 60 MG TABLET PO SCH ×4 (08:33→20:50)
[2021-04-16] MEDS: LACTULOSE 20 GM/30 ML UDCUP PO SCH ×3 (08:33→20:49)
[2021-04-16] MEDS: ASPIRIN CHEW 81 MG TABLET PO SCH (08:33)
[2021-04-16] MEDS: PRAMIPEXOLE 1 MG TABLET PO SCH ×3 (08:34→20:49)
[2021-04-16] MEDS: FAMOTIDINE 20 MG TABLET PO SCH ×2 (08:34→20:49)
[2021-04-16] MEDS: FUROSEMIDE 40 MG/4 ML VIAL IV SCH (08:34)
[2021-04-16] MEDS: INSULIN NPH/REGULAR 70/30 100 UNIT/ML SUBCUT SCH ×2 (08:34→20:51)
[2021-04-16] MEDS: ASCORBIC ACID 500 MG TABLET PO SCH ×2 (08:35→20:49)
[2021-04-16] MEDS: CHOLECALCIFEROL 1,000 UNIT TABLET PO SCH (08:35)
[2021-04-16] MEDS: ZINC GLUCONATE 50 MG TABLET PO SCH (08:36)
[2021-04-16] MEDS: MONTELUKAST 10 MG TABLET PO SCH ×2 (08:37→20:50)
[2021-04-16] MEDS: POTASSIUM BICARB EFFERVESCENT 20 MEQ TAB.EFF PER TUBE PRN ×2 (09:00→14:37)
[2021-04-16] MEDS: FLUCONAZOLE INJ 200 MG/100 ML PREMIX IV SCH (11:16)
[2021-04-16] MEDS: fentaNYL INJ 1,250 MCG in SODIUM CHLORIDE 0.9% 225 ML IV PRN ×2 (11:34→17:42)
[2021-04-16] MEDS: ACETAMINOPHEN 325 MG TABLET PO PRN (12:05)
[2021-04-16] MEDS: ALBUTEROL 0.4 MG/ML 30 ML/BOTTLE PO SCH ×2 (13:07→22:28)
[2021-04-17] MEDS: INSULIN LISPRO 100 UNIT/ML SUBCUT SCH ×5 (00:37→23:43)
[2021-04-17] MEDS: OXACILLIN 2,000 MG in SODIUM CHLORIDE 0.9% 100 ML IV SCH ×6 (00:38→21:16)
[2021-04-17] MEDS: fentaNYL INJ 1,250 MCG in SODIUM CHLORIDE 0.9% 225 ML IV PRN ×4 (01:06→23:34)
[2021-04-17] MEDS: THEOPHYLLINE 5.33 MG/ML 30 ML/BOTTLE NG SCH ×4 (02:05→21:38)
[2021-04-17 04:26] LABS: Albumin 1.8 G/DL (3.4-5.0); Bilirubin,Total 1.2 MG/DL (0.20-1.00); Calcium 9.1 MG/DL (8.5-10.1); Osmolality,Calculated 278.7 MOS/KG (273-304); Potassium 3.4 MMOL/L (3.5-5.1)
[2021-04-17 04:56] LABS: ABG Base Excess 8.3 MMOL/L (-2.5-2.5); ABG HCO3 36.1 MMOL/L (20-26); ABG Oxygen Saturation 95.3 % (95-100); ABG PCO2 64.4 MM HG (35-48); ABG PH 7.367 (7.35-7.45); ABG PO2 81.5 MM HG (80-95); ABG TCO2 38.1 MMOL/L (23-27)
[2021-04-17 05:00] LABS: Basophils % 0.2 % (0.0-0.8); Hematocrit 46.6 VOL% (35.7-47.0); Immature Granulocytes % 1.5 %; Immature Granulocytes Absolute 0.35 #; Lymphocytes # 0.6 10*3/uL (1.4-4.0); Lymphocytes % 2.5 % (21.3-54.2); Mean Corpuscular Volume 97.5 FL (87-102); Mean Platelet Volume 12.3 FL (9.6-12.0); Monocytes % 7.2 % (1.7-12.7); Neutrophils % 88.6 % (38.7-73.9); Platelet Count 251 T/CUMM (130-400); Red Blood Count 4.78 MC/CUMM (3.8-5.5); Red Cell Distribution Width 16.5 % (9.3-17.3); White Blood Count 22.6 T/CUMM (4-12)
[2021-04-17 05:06] LABS: Hemoglobin 13.5 GM/DL (12.0-16.0)
[2021-04-17 05:10] LABS: Band Neutrophils 1 % (0-10); Hypochromia 1+; Lymphocytes 4 % (20-55); Microcytosis 1+; Platelet Estimate Normal; Segmented Neutrophils 86 % (50-85); Total Cells Counted 100
[2021-04-17] MEDS: methylPREDNISolone SOD SUC 40 MG/1 ML VIAL IV SCH ×3 (06:21→21:14)
[2021-04-17] MEDS: HEPARIN 5,000 UNIT/1 ML VIAL SUBCUT SCH (06:22)
[2021-04-17] MEDS: ALBUTEROL 0.4 MG/ML 30 ML/BOTTLE PO SCH ×3 (06:23→21:15)
[2021-04-17] MEDS: INSULIN NPH/REGULAR 70/30 100 UNIT/ML SUBCUT SCH ×2 (08:20→21:14)
[2021-04-17] MEDS: DILTIAZEM 60 MG TABLET PO SCH (08:22)
[2021-04-17] MEDS: DULoxetine 30 MG CAPSULE PO SCH (08:24)
[2021-04-17] MEDS: ASPIRIN CHEW 81 MG TABLET PO SCH (08:24)
[2021-04-17] MEDS: PRAMIPEXOLE 1 MG TABLET PO SCH ×3 (08:24→21:15)
[2021-04-17] MEDS: CHOLECALCIFEROL 1,000 UNIT TABLET PO SCH (08:24)
[2021-04-17] MEDS: ASCORBIC ACID 500 MG TABLET PO SCH ×2 (08:24→21:15)
[2021-04-17] MEDS: FAMOTIDINE 20 MG TABLET PO SCH ×2 (08:24→21:15)
[2021-04-17] MEDS: ZINC GLUCONATE 50 MG TABLET PO SCH (08:24)
[2021-04-17] MEDS: MONTELUKAST 10 MG TABLET PO SCH (08:24)
[2021-04-17] MEDS: FUROSEMIDE 40 MG/4 ML VIAL IV SCH (08:25)
[2021-04-17] MEDS: SPIRONOLACTONE 25 MG TABLET PO SCH (08:25)
[2021-04-17] MEDS: LACTULOSE 20 GM/30 ML UDCUP PO SCH (08:25)
[2021-04-17] MEDS: POTASSIUM BICARB EFFERVESCENT 20 MEQ TAB.EFF PER TUBE PRN ×3 (08:26→21:15)
[2021-04-17 09:50] LABS: ABG Base Excess 9.9 MMOL/L (-2.5-2.5); ABG HCO3 33.1 MMOL/L (20-26); ABG Oxygen Saturation 78.7 % (95-100); ABG PCO2 65.4 MM HG (35-48); ABG PH 7.377 (7.35-7.45); ABG PO2 46.8 MM HG (80-95); ABG TCO2 33.2 MMOL/L (23-27)
[2021-04-17] MEDS: ENOXAPARIN 100 MG/ML SYRINGE SUBCUT SCH ×2 (10:18→21:13)
[2021-04-17] MEDS: FLUCONAZOLE INJ 200 MG/100 ML PREMIX IV SCH (11:55)
[2021-04-17] MEDS: DILTIAZEM 30 MG TABLET PO SCH ×3 (13:28→21:02)
[2021-04-17 16:02] LABS: ABG Base Excess 8.7 MMOL/L (-2.5-2.5); ABG HCO3 32.3 MMOL/L (20-26); ABG PCO2 58.6 MM HG (35-48); ABG PH 7.397 (7.35-7.45); ABG PO2 62.9 MM HG (80-95); ABG TCO2 31.2 MMOL/L (23-27); Allen Test Positive; Pt O2 Delivery Device Ventilator
[2021-04-17] MEDS: METOCLOPRAMIDE 10 MG/2 ML VIAL IV SCH (18:10)
[2021-04-18] MEDS: METOCLOPRAMIDE 10 MG/2 ML VIAL IV SCH ×5 (00:06→23:34)
[2021-04-18] MEDS: OXACILLIN 2,000 MG in SODIUM CHLORIDE 0.9% 100 ML IV SCH ×6 (02:21→21:08)
[2021-04-18] MEDS: THEOPHYLLINE 5.33 MG/ML 30 ML/BOTTLE NG SCH ×5 (03:48→22:06)
[2021-04-18 04:17] LABS: ABG Base Excess 3.5 MMOL/L (-2.5-2.5); ABG HCO3 27.8 MMOL/L (20-26); ABG Oxygen Saturation 92.7 % (95-100); ABG PCO2 41.2 MM HG (35-48); ABG PH 7.447 (7.35-7.45); ABG PO2 60.2 MM HG (80-95); ABG TCO2 29.1 MMOL/L (23-27); Allen Test Positive; Pt O2 Delivery Device Ventilator
[2021-04-18 04:26] LABS: Basophils # 0.1 10*3/uL (0.0-0.2); Basophils % 0.2 % (0.0-0.8); Hemoglobin 13.4 GM/DL (12.0-16.0); Immature Granulocytes % 3.9 %; Immature Granulocytes Absolute 1.02 #; Lymphocytes # 0.6 10*3/uL (1.4-4.0); Lymphocytes % 2.3 % (21.3-54.2); Mean Corpuscular Volume 96.1 FL (87-102); Mean Platelet Volume 11.8 FL (9.6-12.0); Monocytes % 4.8 % (1.7-12.7); Neutrophils % 88.8 % (38.7-73.9); Platelet Count 239 T/CUMM (130-400); Red Blood Count 4.65 MC/CUMM (3.8-5.5); Red Cell Distribution Width 16.6 % (9.3-17.3); White Blood Count 26.4 T/CUMM (4-12)
[2021-04-18 04:35] LABS: Albumin 1.8 G/DL (3.4-5.0); Bilirubin,Total 0.6 MG/DL (0.20-1.00); Calcium 9.1 MG/DL (8.5-10.1); Osmolality,Calculated 272.1 MOS/KG (273-304); Potassium 3.4 MMOL/L (3.5-5.1); Total Protein 6.2 G/DL (6.4-8.2)
[2021-04-18 04:36] LABS: Hematocrit 44.7 VOL% (35.7-47.0)
[2021-04-18 04:46] LABS: Lymphocytes 6 % (20-55); Platelet Estimate Adequate; Segmented Neutrophils 88 % (50-85); Total Cells Counted 100
[2021-04-18] MEDS: fentaNYL INJ 1,250 MCG in SODIUM CHLORIDE 0.9% 225 ML IV PRN ×4 (05:14→22:28)
[2021-04-18] MEDS: ALBUTEROL 0.4 MG/ML 30 ML/BOTTLE PO SCH ×3 (05:15→22:01)
[2021-04-18] MEDS: INSULIN LISPRO 100 UNIT/ML SUBCUT SCH ×4 (05:15→23:33)
[2021-04-18] MEDS: methylPREDNISolone SOD SUC 40 MG/1 ML VIAL IV SCH (05:15)
[2021-04-18] MEDS: POTASSIUM BICARB EFFERVESCENT 20 MEQ TAB.EFF PER TUBE PRN ×3 (05:44→13:42)
[2021-04-18] MEDS: INSULIN NPH/REGULAR 70/30 100 UNIT/ML SUBCUT SCH ×2 (08:59→20:22)
[2021-04-18] MEDS: ENOXAPARIN 100 MG/ML SYRINGE SUBCUT SCH (09:02)
[2021-04-18] MEDS: PRAMIPEXOLE 1 MG TABLET PO SCH ×3 (09:02→20:20)
[2021-04-18] MEDS: FAMOTIDINE 20 MG TABLET PO SCH (09:03)
[2021-04-18] MEDS: DILTIAZEM 30 MG TABLET PO SCH ×4 (09:03→20:17)
[2021-04-18] MEDS: SPIRONOLACTONE 25 MG TABLET PO SCH (09:03)
[2021-04-18] MEDS: ZINC GLUCONATE 50 MG TABLET PO SCH (09:03)
[2021-04-18] MEDS: ASPIRIN CHEW 81 MG TABLET PO SCH (09:03)
[2021-04-18] MEDS: DULoxetine 30 MG CAPSULE PO SCH (09:03)
[2021-04-18] MEDS: CHOLECALCIFEROL 1,000 UNIT TABLET PO SCH (09:03)
[2021-04-18] MEDS: ASCORBIC ACID 500 MG TABLET PO SCH ×2 (09:04→20:21)
[2021-04-18] MEDS: MONTELUKAST 10 MG TABLET PO SCH (09:04)
[2021-04-18] MEDS: FUROSEMIDE 40 MG/4 ML VIAL IV SCH (09:05)
[2021-04-18] MEDS: DEXAMETHASONE 4 MG/1 ML VIAL IV SCH ×2 (11:54→22:06)
[2021-04-18] MEDS: FLUCONAZOLE INJ 200 MG/100 ML PREMIX IV SCH (11:54)
[2021-04-18] MEDS: PANTOPRAZOLE 40 MG VIAL IV SCH ×2 (13:41→20:21)
[2021-04-18] MEDS: ACETAMINOPHEN 325 MG TABLET PO PRN (13:49)
[2021-04-18 16:47] LABS: Hematocrit 43.3 VOL% (35.7-47.0); Hemoglobin 12.9 GM/DL (12.0-16.0)
[2021-04-18] MEDS: HEPARIN DRIP 25,000 UNITS/500 ML PREMIX IV SCH (18:13)
[2021-04-18] MEDS: VANCOMYCIN INJ 1,750 MG in SODIUM CHLORIDE 0.9% 500 ML IV SCH (19:22)
[2021-04-19] MEDS: OXACILLIN 2,000 MG in SODIUM CHLORIDE 0.9% 100 ML IV SCH ×6 (02:24→21:14)
[2021-04-19] MEDS: THEOPHYLLINE 5.33 MG/ML 30 ML/BOTTLE NG SCH ×4 (03:13→21:14)
[2021-04-19] MEDS: fentaNYL INJ 1,250 MCG in SODIUM CHLORIDE 0.9% 225 ML IV PRN ×4 (03:39→22:15)
[2021-04-19 03:48] LABS: ABG Base Excess 3.6 MMOL/L (-2.5-2.5); ABG HCO3 27.5 MMOL/L (20-26); ABG PCO2 53.6 MM HG (35-48); ABG PO2 81.4 MM HG (80-95); ABG TCO2 26.8 MMOL/L (23-27)
[2021-04-19 04:37] LABS: Basophils # 0.1 10*3/uL (0.0-0.2); Basophils % 0.3 % (0.0-0.8); Hemoglobin 12.2 GM/DL (12.0-16.0); Immature Granulocytes % 4.5 %; Immature Granulocytes Absolute 0.99 #; Lymphocytes # 0.6 10*3/uL (1.4-4.0); Lymphocytes % 2.5 % (21.3-54.2); Mean Corpuscular HGB Conc 29.8 GM/DL (32-36); Mean Corpuscular Volume 95.8 FL (87-102); Mean Platelet Volume 12.1 FL (9.6-12.0); Monocytes % 4.9 % (1.7-12.7); Neutrophils % 87.8 % (38.7-73.9); Platelet Count 231 T/CUMM (130-400); Red Blood Count 4.27 MC/CUMM (3.8-5.5); White Blood Count 22.1 T/CUMM (4-12)
[2021-04-19 04:40] LABS: Hematocrit 40.9 VOL% (35.7-47.0)
[2021-04-19 05:03] LABS: Albumin 1.5 G/DL (3.4-5.0); Bilirubin,Total 0.6 MG/DL (0.20-1.00); Calcium 8.9 MG/DL (8.5-10.1); Osmolality,Calculated 279.5 MOS/KG (273-304); Potassium 3.5 MMOL/L (3.5-5.1); Total Protein 5.7 G/DL (6.4-8.2)
[2021-04-19 05:15] LABS: Band Neutrophils 2 % (0-10); Lymphocytes 4 % (20-55); Segmented Neutrophils 87 % (50-85); Total Cells Counted 100
[2021-04-19 05:16] LABS: Hypochromia Slight; Microcytosis Slight; Platelet Estimate Adequate
[2021-04-19] MEDS: INSULIN LISPRO 100 UNIT/ML SUBCUT SCH ×4 (05:26→23:30)
[2021-04-19] MEDS: ALBUTEROL 0.4 MG/ML 30 ML/BOTTLE PO SCH ×3 (05:27→21:14)
[2021-04-19] MEDS: METOCLOPRAMIDE 10 MG/2 ML VIAL IV SCH ×4 (05:27→23:30)
[2021-04-19] MEDS: VANCOMYCIN INJ 1,750 MG in SODIUM CHLORIDE 0.9% 500 ML IV SCH (05:57)
[2021-04-19] MEDS: DULoxetine 30 MG CAPSULE PO SCH (08:37)
[2021-04-19] MEDS: PANTOPRAZOLE 40 MG VIAL IV SCH ×2 (08:50→21:13)
[2021-04-19] MEDS: CHOLECALCIFEROL 1,000 UNIT TABLET PO SCH (08:51)
[2021-04-19] MEDS: ZINC GLUCONATE 50 MG TABLET PO SCH (08:51)
[2021-04-19] MEDS: PRAMIPEXOLE 1 MG TABLET PO SCH ×3 (08:51→21:13)
[2021-04-19] MEDS: ASPIRIN CHEW 81 MG TABLET PO SCH (08:52)
[2021-04-19] MEDS: DILTIAZEM 30 MG TABLET PO SCH ×5 (08:52→20:51)
[2021-04-19] MEDS: SPIRONOLACTONE 25 MG TABLET PO SCH (08:52)
[2021-04-19] MEDS: MONTELUKAST 10 MG TABLET PO SCH (08:52)
[2021-04-19] MEDS: ASCORBIC ACID 500 MG TABLET PO SCH ×2 (08:52→21:14)
[2021-04-19] MEDS: INSULIN NPH/REGULAR 70/30 100 UNIT/ML SUBCUT SCH (08:53)
[2021-04-19] MEDS: FUROSEMIDE 40 MG/4 ML VIAL IV SCH (08:53)
[2021-04-19] MEDS: DEXAMETHASONE 4 MG/1 ML VIAL IV SCH ×2 (10:26→23:30)
[2021-04-19] MEDS: HEPARIN DRIP 25,000 UNITS/500 ML PREMIX IV SCH ×2 (10:30→17:55)
[2021-04-19] MEDS: POTASSIUM BICARB EFFERVESCENT 20 MEQ TAB.EFF PER TUBE PRN ×2 (10:45→16:30)
[2021-04-19] MEDS ORDERED: INSULIN NPH/REGULAR 70/30 100 UNIT/ML SUBCUT SCH (21:00)
[2021-04-20] MEDS: HEPARIN DRIP 25,000 UNITS/500 ML PREMIX IV SCH ×3 (00:56→17:47)
[2021-04-20] MEDS: OXACILLIN 2,000 MG in SODIUM CHLORIDE 0.9% 100 ML IV SCH ×6 (02:05→21:29)
[2021-04-20] MEDS: THEOPHYLLINE 5.33 MG/ML 30 ML/BOTTLE NG SCH ×4 (03:47→20:31)
[2021-04-20 05:14] LABS: ABG Base Excess 4.6 MMOL/L (-2.5-2.5); ABG HCO3 28.5 MMOL/L (20-26); ABG Oxygen Saturation 97.5 % (95-100); ABG PCO2 52.2 MM HG (35-48); ABG PH 7.381 (7.35-7.45); ABG PO2 99.4 MM HG (80-95); ABG TCO2 27.6 MMOL/L (23-27)
[2021-04-20 05:18] LABS: Basophils # 0.1 10*3/uL (0.0-0.2); Basophils % 0.5 % (0.0-0.8); Hematocrit 37.4 VOL% (35.7-47.0); Hemoglobin 11.2 GM/DL (12.0-16.0); Immature Granulocytes % 6.7 %; Immature Granulocytes Absolute 1.49 #; Lymphocytes # 0.9 10*3/uL (1.4-4.0); Lymphocytes % 4.1 % (21.3-54.2); Mean Corpuscular HGB Conc 29.9 GM/DL (32-36); Mean Corpuscular Volume 96.6 FL (87-102); Mean Platelet Volume 12.4 FL (9.6-12.0); Monocytes % 4.3 % (1.7-12.7); Neutrophils % 84.4 % (38.7-73.9); Platelet Count 215 T/CUMM (130-400); Red Blood Count 3.87 MC/CUMM (3.8-5.5); White Blood Count 22.2 T/CUMM (4-12)
[2021-04-20] MEDS: ALBUTEROL 0.4 MG/ML 30 ML/BOTTLE PO SCH ×3 (05:42→21:59)
[2021-04-20] MEDS: INSULIN LISPRO 100 UNIT/ML SUBCUT SCH ×4 (05:42→23:07)
[2021-04-20] MEDS: METOCLOPRAMIDE 10 MG/2 ML VIAL IV SCH ×4 (05:49→23:40)
[2021-04-20 05:51] LABS: Albumin 1.4 G/DL (3.4-5.0); Bilirubin,Total 0.7 MG/DL (0.20-1.00); Calcium 8.3 MG/DL (8.5-10.1); Osmolality,Calculated 278.8 MOS/KG (273-304); Total Protein 5.3 G/DL (6.4-8.2)
[2021-04-20 06:11] LABS: Band Neutrophils 3 % (0-10); Lymphocytes 4 % (20-55); Platelet Estimate Normal; Segmented Neutrophils 89 % (50-85); Total Cells Counted 100
[2021-04-20] MEDS: fentaNYL INJ 1,250 MCG in SODIUM CHLORIDE 0.9% 225 ML IV PRN ×3 (07:05→23:51)
[2021-04-20] MEDS ORDERED: INSULIN NPH/REGULAR 70/30 100 UNIT/ML SUBCUT SCH (09:00)
[2021-04-20] MEDS: ASPIRIN CHEW 81 MG TABLET PO SCH (09:21)
[2021-04-20] MEDS: SPIRONOLACTONE 25 MG TABLET PO SCH (09:21)
[2021-04-20] MEDS: PANTOPRAZOLE 40 MG VIAL IV SCH ×2 (09:21→20:10)
[2021-04-20] MEDS: DULoxetine 30 MG CAPSULE PO SCH (09:21)
[2021-04-20] MEDS: PRAMIPEXOLE 1 MG TABLET PO SCH ×3 (09:21→20:10)
[2021-04-20] MEDS: MONTELUKAST 10 MG TABLET PO SCH (09:22)
[2021-04-20] MEDS: ASCORBIC ACID 500 MG TABLET PO SCH ×2 (09:22→20:10)
[2021-04-20] MEDS: CHOLECALCIFEROL 1,000 UNIT TABLET PO SCH (09:22)
[2021-04-20] MEDS: ZINC GLUCONATE 50 MG TABLET PO SCH (09:22)
[2021-04-20] MEDS: FUROSEMIDE 40 MG/4 ML VIAL IV SCH (09:23)
[2021-04-20] MEDS: DILTIAZEM 30 MG TABLET PO SCH ×5 (09:47→21:47)
[2021-04-20] MEDS: ACETAMINOPHEN 325 MG TABLET PO PRN ×3 (09:51→22:01)
[2021-04-20] MEDS: ARFORMOTEROL 15 MCG/2 ML NEB RESP TX SCH ×2 (10:03→19:20)
[2021-04-20] MEDS: BUDESONIDE 0.5 MG/2 ML NEB RESP TX SCH ×2 (10:03→19:20)
[2021-04-20] MEDS: DEXAMETHASONE 4 MG/1 ML VIAL IV SCH ×2 (11:09→23:40)
[2021-04-20] MEDS ORDERED: METOPROLOL TARTRATE 5 MG/5 ML VIAL IV ONE ×2 (18:56→20:44)
[2021-04-20] MEDS: INSULIN NPH/REGULAR 70/30 100 UNIT/ML SUBCUT SCH (20:15)
[2021-04-20] MEDS ORDERED: DIGOXIN 0.5 MG/2 ML AMP IV ONE (21:21)
[2021-04-20] MEDS ORDERED: AMIODARONE INJ 150 MG in DEXTROSE 5% 100 ML IV ONE ×2 (22:12→22:30)
[2021-04-20] MEDS ORDERED: SODIUM CHLORIDE 0.9% 500 ML IV ONE (22:27)
[2021-04-20] MEDS ORDERED: AMIODARONE INJ 450 MG in DEXTROSE 5% 241 ML IV SCH (23:45)
[2021-04-21] MEDS ORDERED: SODIUM CHLORIDE 0.9% 1,000 ML IV ONE ×2 (00:21→08:01)
[2021-04-21] MEDS: OXACILLIN 2,000 MG in SODIUM CHLORIDE 0.9% 100 ML IV SCH ×6 (01:48→20:37)
[2021-04-21] MEDS: THEOPHYLLINE 5.33 MG/ML 30 ML/BOTTLE NG SCH ×5 (03:45→20:47)
[2021-04-21 03:52] LABS: ABG Base Excess 2.6 MMOL/L (-2.5-2.5); ABG HCO3 26.7 MMOL/L (20-26); ABG PCO2 47.5 MM HG (35-48); ABG PH 7.385 (7.35-7.45); ABG TCO2 24.8 MMOL/L (23-27)
[2021-04-21 04:16] LABS: Basophils # 0.1 10*3/uL (0.0-0.2); Basophils % 0.5 % (0.0-0.8); Eosinophils % 0.2 % (0.00-10.9); Hematocrit 32.9 VOL% (35.7-47.0); Immature Granulocytes % 9.5 %; Immature Granulocytes Absolute 2.13 #; Lymphocytes # 1.1 10*3/uL (1.4-4.0); Mean Corpuscular HGB Conc 30.4 GM/DL (32-36); Mean Corpuscular Volume 94.8 FL (87-102); Mean Platelet Volume 11.9 FL (9.6-12.0); Monocytes % 3.2 % (1.7-12.7); NRBC # 0.02 10*3/uL; Neutrophils % 81.6 % (38.7-73.9); Platelet Count 181 T/CUMM (130-400); Red Blood Count 3.47 MC/CUMM (3.8-5.5); Red Cell Distribution Width 16.7 % (9.3-17.3); White Blood Count 22.3 T/CUMM (4-12)
[2021-04-21] MEDS: HEPARIN DRIP 25,000 UNITS/500 ML PREMIX IV SCH ×2 (04:37→18:25)
[2021-04-21 04:56] LABS: Albumin 1.3 G/DL (3.4-5.0); Bilirubin,Total 0.7 MG/DL (0.20-1.00); Calcium 7.9 MG/DL (8.5-10.1); Osmolality,Calculated 274.1 MOS/KG (273-304); Potassium 4.1 MMOL/L (3.5-5.1); Total Protein 5.2 G/DL (6.4-8.2)
[2021-04-21] MEDS: DILTIAZEM 30 MG TABLET PO SCH ×4 (05:06→22:11)
[2021-04-21 05:19] LABS: Band Neutrophils 2 % (0-10); Hypochromia 1+; Lymphocytes 6 % (20-55); Microcytosis 1+; Platelet Estimate Adequate; Segmented Neutrophils 88 % (50-85); Total Cells Counted 100
[2021-04-21] MEDS: INSULIN LISPRO 100 UNIT/ML SUBCUT SCH ×4 (05:22→23:46)
[2021-04-21] MEDS: METOCLOPRAMIDE 10 MG/2 ML VIAL IV SCH ×4 (05:22→23:46)
[2021-04-21] MEDS: ALBUTEROL 0.4 MG/ML 30 ML/BOTTLE PO SCH ×3 (05:36→21:12)
[2021-04-21] MEDS: BUDESONIDE 0.5 MG/2 ML NEB RESP TX SCH ×2 (07:35→20:00)
[2021-04-21] MEDS: ARFORMOTEROL 15 MCG/2 ML NEB RESP TX SCH ×2 (07:35→20:00)
[2021-04-21] MEDS: AMIODARONE INJ 450 MG in DEXTROSE 5% 241 ML IV SCH ×2 (07:48→22:16)
[2021-04-21] MEDS: fentaNYL INJ 1,250 MCG in SODIUM CHLORIDE 0.9% 225 ML IV PRN ×2 (08:45→17:01)
[2021-04-21] MEDS ORDERED: AMIODARONE INJ 150 MG in DEXTROSE 5% 100 ML IV ONE (09:20)
[2021-04-21] MEDS: INSULIN NPH/REGULAR 70/30 100 UNIT/ML SUBCUT SCH ×2 (09:31→20:05)
[2021-04-21] MEDS: CHOLECALCIFEROL 1,000 UNIT TABLET PO SCH (09:32)
[2021-04-21] MEDS: ZINC GLUCONATE 50 MG TABLET PO SCH (09:32)
[2021-04-21] MEDS: ASCORBIC ACID 500 MG TABLET PO SCH ×2 (09:32→20:05)
[2021-04-21] MEDS: MONTELUKAST 10 MG TABLET PO SCH (09:32)
[2021-04-21] MEDS: DULoxetine 30 MG CAPSULE PO SCH (09:32)
[2021-04-21] MEDS: ASPIRIN CHEW 81 MG TABLET PO SCH (09:32)
[2021-04-21] MEDS: PRAMIPEXOLE 1 MG TABLET PO SCH ×3 (09:33→20:05)
[2021-04-21] MEDS: PANTOPRAZOLE 40 MG VIAL IV SCH ×2 (09:33→20:05)
[2021-04-21] MEDS: FUROSEMIDE 40 MG/4 ML VIAL IV SCH (09:33)
[2021-04-21] MEDS ORDERED: AMIODARONE 150 MG/3 ML VIAL ONE (10:35)
[2021-04-21] MEDS: DEXAMETHASONE 4 MG/1 ML VIAL IV SCH ×2 (11:00→23:46)
[2021-04-21] MEDS: SPIRONOLACTONE 25 MG TABLET PO SCH (11:20)
[2021-04-21] MEDS ORDERED: DILTIAZEM 50 MG/10 ML VIAL IV ONE (18:44)
[2021-04-21] MEDS ORDERED: DILTIAZEM 25 MG/5 ML VIAL IV ONE (18:50)
[2021-04-22] MEDS ORDERED: DILTIAZEM 50 MG/10 ML VIAL IV ONE (00:22)
[2021-04-22] MEDS: fentaNYL INJ 1,250 MCG in SODIUM CHLORIDE 0.9% 225 ML IV PRN (01:35)
[2021-04-22] MEDS: OXACILLIN 2,000 MG in SODIUM CHLORIDE 0.9% 100 ML IV SCH ×2 (01:38→05:20)
[2021-04-22] MEDS: THEOPHYLLINE 5.33 MG/ML 30 ML/BOTTLE NG SCH ×4 (03:01→20:38)
[2021-04-22 04:16] LABS: Allen Test Positive; Pt O2 Delivery Device Ventilator
[2021-04-22 04:17] LABS: Basophils # 0.1 10*3/uL (0.0-0.2); Basophils % 0.5 % (0.0-0.8); Hematocrit 28.7 VOL% (35.7-47.0); Hemoglobin 8.9 GM/DL (12.0-16.0); Immature Granulocytes % 12.6 %; Immature Granulocytes Absolute 3.13 #; Lymphocytes # 1.3 10*3/uL (1.4-4.0); Lymphocytes % 5.4 % (21.3-54.2); Mean Corpuscular Volume 93.2 FL (87-102); Mean Platelet Volume 12.1 FL (9.6-12.0); Monocytes % 3.4 % (1.7-12.7); NRBC # 0.04 10*3/uL; Neutrophils % 78.1 % (38.7-73.9); Platelet Count 147 T/CUMM (130-400); Red Blood Count 3.08 MC/CUMM (3.8-5.5); Red Cell Distribution Width 16.2 % (9.3-17.3); White Blood Count 24.8 T/CUMM (4-12)
[2021-04-22 04:20] LABS: ABG Base Excess 2.8 MMOL/L (-2.5-2.5); ABG HCO3 26.9 MMOL/L (20-26); ABG Oxygen Saturation 99.2 % (95-100); ABG PCO2 40.4 MM HG (35-48); ABG PH 7.435 (7.35-7.45)
[2021-04-22 04:35] LABS: Band Neutrophils 2 % (0-10); Lymphocytes 7 % (20-55); Metamyelocytes 3 %; Myelocytes 1 %; Segmented Neutrophils 78 % (50-85); Total Cells Counted 100
[2021-04-22 04:36] LABS: Anisocytosis 1+; Hypochromia 1+; Microcytosis 1+
[2021-04-22 04:38] LABS: Albumin 1.4 G/DL (3.4-5.0); Bilirubin,Total 0.6 MG/DL (0.20-1.00); Osmolality,Calculated 273.4 MOS/KG (273-304); Potassium 3.9 MMOL/L (3.5-5.1); Total Protein 5.1 G/DL (6.4-8.2)
[2021-04-22] MEDS: METOCLOPRAMIDE 10 MG/2 ML VIAL IV SCH ×4 (05:21→23:17)
[2021-04-22] MEDS: INSULIN LISPRO 100 UNIT/ML SUBCUT SCH ×4 (05:21→23:18)
[2021-04-22] MEDS: ALBUTEROL 0.4 MG/ML 30 ML/BOTTLE PO SCH ×3 (05:21→22:50)
[2021-04-22] MEDS: DILTIAZEM 30 MG TABLET PO SCH ×4 (05:21→21:58)
[2021-04-22] MEDS: METOPROLOL TARTRATE 5 MG/5 ML VIAL IV SCH ×2 (07:01→23:00)
[2021-04-22] MEDS: ARFORMOTEROL 15 MCG/2 ML NEB RESP TX SCH ×2 (07:55→19:28)
[2021-04-22] MEDS: BUDESONIDE 0.5 MG/2 ML NEB RESP TX SCH ×2 (07:55→19:28)
[2021-04-22] MEDS ORDERED: MAGNESIUM SULF RIDER 2 GM/50 ML PREMIX IV ONE (08:15)
[2021-04-22] MEDS: HEPARIN DRIP 25,000 UNITS/500 ML PREMIX IV SCH ×2 (08:23→20:28)
[2021-04-22] MEDS: PRAMIPEXOLE 1 MG TABLET PO SCH ×3 (08:52→20:27)
[2021-04-22] MEDS: ASCORBIC ACID 500 MG TABLET PO SCH ×2 (08:53→20:27)
[2021-04-22] MEDS: DULoxetine 30 MG CAPSULE PO SCH (08:53)
[2021-04-22] MEDS: MONTELUKAST 10 MG TABLET PO SCH (08:53)
[2021-04-22] MEDS: ASPIRIN CHEW 81 MG TABLET PO SCH (08:54)
[2021-04-22] MEDS: CHOLECALCIFEROL 1,000 UNIT TABLET PO SCH (08:54)
[2021-04-22] MEDS: INSULIN NPH/REGULAR 70/30 100 UNIT/ML SUBCUT SCH ×2 (08:54→20:27)
[2021-04-22] MEDS: ZINC GLUCONATE 50 MG TABLET PO SCH (08:54)
[2021-04-22] MEDS: PANTOPRAZOLE 40 MG VIAL IV SCH ×2 (08:57→20:27)
[2021-04-22] MEDS ORDERED: DIGOXIN 0.5 MG/2 ML AMP IV ONE (08:59)
[2021-04-22] MEDS ORDERED: ASCORBIC ACID 500 MG TABLET NG SCH (09:00)
[2021-04-22] MEDS ORDERED: METOPROLOL TARTRATE 5 MG/5 ML VIAL IV ONE ×3 (09:29→19:19)
[2021-04-22] MEDS: DEXAMETHASONE 4 MG/1 ML VIAL IV SCH ×2 (10:40→23:17)
[2021-04-22] MEDS: AMIODARONE INJ 450 MG in DEXTROSE 5% 241 ML IV SCH (15:25)
[2021-04-22] MEDS: POTASSIUM BICARB EFFERVESCENT 20 MEQ TAB.EFF PER TUBE PRN (16:21)
[2021-04-22] MEDS ORDERED: AMIODARONE INJ 150 MG in DEXTROSE 5% 100 ML IV ONE ×2 (18:04→18:30)
[2021-04-22] MEDS ORDERED: AMIODARONE 150 MG/3 ML VIAL ONE (18:27)
[2021-04-22] MEDS ORDERED: ONDANSETRON 4 MG/2 ML VIAL IV ONE (21:05)
[2021-04-22] MEDS ORDERED: SODIUM CHLORIDE 0.9% 500 ML IV ONE (21:06)
[2021-04-23] MEDS ORDERED: ONDANSETRON 4 MG/2 ML VIAL IV PRN (00:20)
[2021-04-23] MEDS: THEOPHYLLINE 5.33 MG/ML 30 ML/BOTTLE NG SCH ×4 (03:15→21:25)
[2021-04-23] MEDS: METOPROLOL TARTRATE 5 MG/5 ML VIAL IV PRN (03:37)
[2021-04-23 03:56] LABS: Basophils % 0.1 % (0.0-0.8); Hematocrit 29.5 VOL% (35.7-47.0); Hemoglobin 9.5 GM/DL (12.0-16.0); Immature Granulocytes % 15.2 %; Immature Granulocytes Absolute 6.01 #; Lymphocytes # 2.1 10*3/uL (1.4-4.0); Lymphocytes % 5.2 % (21.3-54.2); Mean Corpuscular HGB Conc 32.2 GM/DL (32-36); Mean Corpuscular Volume 92.5 FL (87-102); Mean Platelet Volume 12.5 FL (9.6-12.0); Monocytes % 3.5 % (1.7-12.7); Platelet Count 176 T/CUMM (130-400); Red Blood Count 3.19 MC/CUMM (3.8-5.5); Red Cell Distribution Width 16.3 % (9.3-17.3); White Blood Count 39.5 T/CUMM (4-12)
[2021-04-23 04:13] LABS: Calcium 8.1 MG/DL (8.5-10.1); Osmolality,Calculated 269.7 MOS/KG (273-304); Potassium 4.1 MMOL/L (3.5-5.1)
[2021-04-23 04:15] LABS: Band Neutrophils 3 % (0-10); Hypochromia 1+; Lymphocytes 7 % (20-55); Metamyelocytes 4 %; Microcytosis 1+; Polychromasia Slight; Segmented Neutrophils 82 % (50-85); Total Cells Counted 100
[2021-04-23] MEDS: DILTIAZEM 30 MG TABLET PO SCH (04:38)
[2021-04-23 05:05] LABS: ABG HCO3 25.4 MMOL/L (20-26); ABG Oxygen Saturation 98.9 % (95-100); ABG PH 7.479 (7.35-7.45); ABG PO2 150.2 MM HG (80-95); ABG TCO2 26.5 MMOL/L (23-27); Allen Test Positive; Pt O2 Delivery Device Ventilator
[2021-04-23] MEDS: INSULIN LISPRO 100 UNIT/ML SUBCUT SCH ×3 (05:13→18:13)
[2021-04-23] MEDS: METOCLOPRAMIDE 10 MG/2 ML VIAL IV SCH ×3 (05:13→18:13)
[2021-04-23] MEDS: METOPROLOL TARTRATE 5 MG/5 ML VIAL IV SCH ×4 (05:14→21:30)
[2021-04-23] MEDS: ALBUTEROL 0.4 MG/ML 30 ML/BOTTLE PO SCH ×3 (05:25→22:31)
[2021-04-23] MEDS: AMIODARONE INJ 450 MG in DEXTROSE 5% 241 ML IV SCH ×4 (06:20→23:05)
[2021-04-23] MEDS ORDERED: DILTIAZEM INJ 100 MG in SODIUM CHLORIDE 0.9% 100 ML IV SCH (07:30)
[2021-04-23] MEDS: ARFORMOTEROL 15 MCG/2 ML NEB RESP TX SCH ×2 (07:50→21:40)
[2021-04-23] MEDS: BUDESONIDE 0.5 MG/2 ML NEB RESP TX SCH ×2 (07:50→21:40)
[2021-04-23] MEDS: DILTIAZEM INJ 100 MG in SODIUM CHLORIDE 0.9% 100 ML IV SCH ×3 (08:21→21:21)
[2021-04-23] MEDS ORDERED: FUROSEMIDE 40 MG/4 ML VIAL IV ONE (08:50)
[2021-04-23] MEDS: PANTOPRAZOLE 40 MG VIAL IV SCH ×2 (10:00→21:30)
[2021-04-23] MEDS: INSULIN NPH/REGULAR 70/30 100 UNIT/ML SUBCUT SCH ×2 (10:03→21:33)
[2021-04-23] MEDS: ZINC GLUCONATE 50 MG TABLET PO SCH (10:04)
[2021-04-23] MEDS: CHOLECALCIFEROL 1,000 UNIT TABLET PO SCH (10:04)
[2021-04-23] MEDS: PRAMIPEXOLE 1 MG TABLET PO SCH ×3 (10:04→21:30)
[2021-04-23] MEDS: MONTELUKAST 10 MG TABLET PO SCH (10:05)
[2021-04-23] MEDS: ASCORBIC ACID 500 MG TABLET PO SCH (10:05)
[2021-04-23] MEDS: DULoxetine 30 MG CAPSULE PO SCH (10:05)
[2021-04-23] MEDS: ASPIRIN CHEW 81 MG TABLET PO SCH (10:05)
[2021-04-23] MEDS: MULTIVITAMIN LIQUID (CENTRUM) 60 ML BOTTLE PO SCH (10:06)
[2021-04-23] MEDS: HEPARIN DRIP 25,000 UNITS/500 ML PREMIX IV SCH ×3 (10:39→23:04)
[2021-04-23] MEDS ORDERED: SODIUM PHOSPHATE INJ 30 MMOL in SODIUM CHLORIDE 0.9% 250 ML IV ONE (11:00)
[2021-04-23] MEDS: DEXAMETHASONE 4 MG/1 ML VIAL IV SCH ×2 (11:38→23:06)
[2021-04-23 14:25] LABS: Bacteria,Urine Few /HPF (Few); Hyaline Casts,Urine 13 /LPF (0-3); Mucus,Urine Few /LPF (Occasional); RBC,Urine 4 /HPF (0-4)
[2021-04-23 14:26] LABS: Bilirubin,Urine Negative (Negative); Blood, Urine Negative (Negative); Glucose,Urine (UA) Negative (Negative); Ketones,Urine Negative (Negative); Nitrite,Urine Negative (Negative); Protein,Urine Negative; Urine Appearance Clear (Clear); Urine Color Dark yellow (Yellow); Urine Specific Gravity 1.025 (1.001-1.035); Urine Urobilinogen >= 8.0 EU/DL (<2.0)
[2021-04-23] MEDS ORDERED: GENTAMICIN INJ 160 MG in SODIUM CHLORIDE 0.9% 100 ML IV SCH (19:00)
[2021-04-23] MEDS ORDERED: GENTAMICIN INJ 140 MG in SODIUM CHLORIDE 0.9% 100 ML IV SCH (19:00)
[2021-04-23] MEDS: GENTAMICIN IV SCH (21:11)
[2021-04-23] MEDS: SODIUM CHLORIDE 0.9% IV SCH (21:11)
[2021-04-23] MEDS: LINEZOLID INJ 600 MG/300 ML PREMIX IV SCH (21:30)
[2021-04-23] MEDS: ASCORBIC ACID 500 MG TABLET NG SCH (21:30)
[2021-04-24] MEDS: INSULIN LISPRO 100 UNIT/ML SUBCUT SCH ×4 (00:58→17:46)
[2021-04-24] MEDS: METOPROLOL TARTRATE 5 MG/5 ML VIAL IV SCH ×6 (00:58→20:38)
[2021-04-24] MEDS: METOCLOPRAMIDE 10 MG/2 ML VIAL IV SCH ×5 (00:59→23:51)
[2021-04-24] MEDS: THEOPHYLLINE 5.33 MG/ML 30 ML/BOTTLE NG SCH ×4 (03:55→20:50)
[2021-04-24 03:56] LABS: ABG Base Excess 5.5 MMOL/L (-2.5-2.5); ABG HCO3 28.3 MMOL/L (20-26); ABG Oxygen Saturation 98.4 % (95-100); ABG PCO2 34.2 MM HG (35-48); ABG PH 7.536 (7.35-7.45); ABG PO2 118.2 MM HG (80-95); ABG TCO2 29.4 MMOL/L (23-27)
[2021-04-24] MEDS: DILTIAZEM INJ 100 MG in SODIUM CHLORIDE 0.9% 100 ML IV SCH ×3 (04:29→17:47)
[2021-04-24 04:57] LABS: Basophils # 0.2 10*3/uL (0.0-0.2); Basophils % 0.4 % (0.0-0.8); Eosinophils # 0.1 10*3/uL (0.0-0.87); Eosinophils % 0.1 % (0.00-10.9); Hematocrit 25.7 VOL% (35.7-47.0); Hemoglobin 8.2 GM/DL (12.0-16.0); Immature Granulocytes % 12.2 %; Immature Granulocytes Absolute 4.42 #; Lymphocytes # 1.8 10*3/uL (1.4-4.0); Mean Corpuscular HGB Conc 31.9 GM/DL (32-36); Mean Corpuscular Volume 93.1 FL (87-102); Mean Platelet Volume 12.3 FL (9.6-12.0); Monocytes % 2.9 % (1.7-12.7); NRBC # 0.43 10*3/uL; Neutrophils % 79.4 % (38.7-73.9); Platelet Count 134 T/CUMM (130-400); Red Blood Count 2.76 MC/CUMM (3.8-5.5); Red Cell Distribution Width 16.8 % (9.3-17.3); White Blood Count 36.3 T/CUMM (4-12)
[2021-04-24 05:07] LABS: Calcium 7.9 MG/DL (8.5-10.1); Osmolality,Calculated 268.8 MOS/KG (273-304); Potassium 4.5 MMOL/L (3.5-5.1)
[2021-04-24 05:30] LABS: Band Neutrophils 3 % (0-10); Eosinophils 1 % (0-10); Hypochromia 1+; Lymphocytes 5 % (20-55); Metamyelocytes 3 %; Microcytosis 1+; Myelocytes 3 %; Nucleated Red Blood Cells 1 (0-5); Polychromasia Slight; Segmented Neutrophils 80 % (50-85); Total Cells Counted 100
[2021-04-24 05:31] LABS: Platelet Estimate Adequate; Target Cells Slight
[2021-04-24] MEDS: ALBUTEROL 0.4 MG/ML 30 ML/BOTTLE PO SCH ×3 (05:45→21:20)
[2021-04-24 06:21] LABS: Bacteria,Urine Occasional /HPF (Few); Mucus,Urine Occasional /LPF (Occasional); RBC,Urine 4 /HPF (0-4); Urine Appearance Clear (Clear); Urine Color Yellow (Yellow)
[2021-04-24 06:22] LABS: Bilirubin,Urine Negative (Negative); Blood, Urine Trace mg/dL (Negative); Glucose,Urine (UA) Negative (Negative); Ketones,Urine Trace mg/dL (Negative); Nitrite,Urine Negative (Negative); Protein,Urine 1+ MG/DL
[2021-04-24 06:25] LABS: Urine Urobilinogen > 8.0 EU/DL (<2.0)
[2021-04-24] MEDS: ARFORMOTEROL 15 MCG/2 ML NEB RESP TX SCH ×2 (07:25→20:05)
[2021-04-24] MEDS: BUDESONIDE 0.5 MG/2 ML NEB RESP TX SCH ×2 (07:25→20:05)
[2021-04-24] MEDS: FUROSEMIDE 40 MG/4 ML VIAL IV SCH ×2 (08:58→15:45)
[2021-04-24] MEDS: INSULIN NPH/REGULAR 70/30 100 UNIT/ML SUBCUT SCH ×2 (08:58→20:39)
[2021-04-24] MEDS: LINEZOLID INJ 600 MG/300 ML PREMIX IV SCH ×2 (08:59→20:40)
[2021-04-24] MEDS: DULoxetine 30 MG CAPSULE PO SCH (08:59)
[2021-04-24] MEDS: ZINC GLUCONATE 50 MG TABLET PO SCH (08:59)
[2021-04-24] MEDS: PANTOPRAZOLE 40 MG VIAL IV SCH ×2 (08:59→20:38)
[2021-04-24] MEDS: MONTELUKAST 10 MG TABLET PO SCH (09:00)
[2021-04-24] MEDS: PRAMIPEXOLE 1 MG TABLET PO SCH ×3 (09:00→20:37)
[2021-04-24] MEDS: CHOLECALCIFEROL 1,000 UNIT TABLET PO SCH (09:00)
[2021-04-24] MEDS: ASCORBIC ACID 500 MG TABLET NG SCH ×2 (09:00→20:38)
[2021-04-24] MEDS: MULTIVITAMIN LIQUID (CENTRUM) 60 ML BOTTLE PO SCH (09:00)
[2021-04-24 10:28] LABS: Basophils # 0.1 10*3/uL (0.0-0.2); Basophils % 0.3 % (0.0-0.8); Hematocrit 25.6 VOL% (35.7-47.0); Hemoglobin 7.9 GM/DL (12.0-16.0); Immature Granulocytes % 12.8 %; Lymphocytes # 1.5 10*3/uL (1.4-4.0); Lymphocytes % 4.2 % (21.3-54.2); Mean Corpuscular HGB Conc 30.9 GM/DL (32-36); Mean Corpuscular Volume 93.8 FL (87-102); Mean Platelet Volume 12.2 FL (9.6-12.0); NRBC # 0.56 10*3/uL; Neutrophils % 79.7 % (38.7-73.9); Platelet Count 135 T/CUMM (130-400); Red Blood Count 2.73 MC/CUMM (3.8-5.5); Red Cell Distribution Width 17.2 % (9.3-17.3); White Blood Count 36.7 T/CUMM (4-12)
[2021-04-24 10:55] LABS: Band Neutrophils 2 % (0-10); Eosinophils 1 % (0-10); Hypochromia 1+; Lymphocytes 5 % (20-55); Microcytosis 1+; Platelet Estimate Adequate; Segmented Neutrophils 89 % (50-85); Total Cells Counted 100
[2021-04-24] MEDS: ASPIRIN CHEW 81 MG TABLET PO SCH (11:02)
[2021-04-24] MEDS: DEXAMETHASONE 4 MG/1 ML VIAL IV SCH ×2 (12:53→23:51)
[2021-04-24] MEDS: HYDROCORTISONE 25 MG SUPP RECTAL SCH ×2 (13:40→21:17)
[2021-04-24] MEDS ORDERED: AMIODARONE 200 MG TABLET PO SCH (13:56)
[2021-04-24] MEDS: AMIODARONE INJ 450 MG in DEXTROSE 5% 241 ML IV SCH (14:00)
[2021-04-24] MEDS: ACETAMINOPHEN 325 MG TABLET PO PRN ×2 (15:40→21:00)
[2021-04-24] MEDS ORDERED: AMIODARONE INJ 150 MG in DEXTROSE 5% 100 ML IV ONE (16:33)
[2021-04-24] MEDS ORDERED: AMIODARONE 150 MG/3 ML VIAL ONE (16:35)
[2021-04-24] MEDS ORDERED: AMIODARONE INJ 450 MG in DEXTROSE 5% 241 ML IV SCH (17:00)
[2021-04-24] MEDS: SODIUM CHLORIDE 0.9% IV SCH (20:39)
[2021-04-24] MEDS: GENTAMICIN IV SCH (20:39)
[2021-04-24] MEDS: HEPARIN DRIP 25,000 UNITS/500 ML PREMIX IV SCH (22:10)
[2021-04-25] MEDS: DILTIAZEM INJ 100 MG in SODIUM CHLORIDE 0.9% 100 ML IV SCH ×3 (00:11→20:30)
[2021-04-25] MEDS: INSULIN LISPRO 100 UNIT/ML SUBCUT SCH ×5 (00:15→23:57)
[2021-04-25] MEDS: AMIODARONE INJ 450 MG in DEXTROSE 5% 241 ML IV SCH ×2 (00:33→13:00)
[2021-04-25] MEDS: METOPROLOL TARTRATE 5 MG/5 ML VIAL IV SCH ×7 (00:34→23:57)
[2021-04-25] MEDS: THEOPHYLLINE 5.33 MG/ML 30 ML/BOTTLE NG SCH ×4 (03:20→21:05)
[2021-04-25 03:53] LABS: Basophils # 0.1 10*3/uL (0.0-0.2); Basophils % 0.2 % (0.0-0.8); Hematocrit 22.5 VOL% (35.7-47.0); Hemoglobin 7.3 GM/DL (12.0-16.0); Immature Granulocytes % 9.4 %; Lymphocytes # 2.1 10*3/uL (1.4-4.0); Lymphocytes % 5.7 % (21.3-54.2); Mean Corpuscular HGB Conc 32.4 GM/DL (32-36); Mean Corpuscular Volume 92.6 FL (87-102); Mean Platelet Volume 12.9 FL (9.6-12.0); Monocytes % 3.1 % (1.7-12.7); NRBC # 1.06 10*3/uL; Neutrophils % 81.6 % (38.7-73.9); Platelet Count 107 T/CUMM (130-400); Red Blood Count 2.43 MC/CUMM (3.8-5.5); Red Cell Distribution Width 17.8 % (9.3-17.3)
[2021-04-25 03:56] LABS: ABG Base Excess 7.6 MMOL/L (-2.5-2.5); ABG HCO3 31.4 MMOL/L (20-26); ABG Oxygen Saturation 99.2 % (95-100); ABG PCO2 36.1 MM HG (35-48); ABG PH 7.537 (7.35-7.45); ABG TCO2 28.3 MMOL/L (23-27); Allen Test Positive; Pt O2 Delivery Device Ventilator
[2021-04-25 04:07] LABS: Calcium 8.1 MG/DL (8.5-10.1); Osmolality,Calculated 265.5 MOS/KG (273-304); Potassium 4.3 MMOL/L (3.5-5.1)
[2021-04-25 04:35] LABS: Band Neutrophils 2 % (0-10); Hypochromia 1+; Lymphocytes 4 % (20-55); Microcytosis 1+; Platelet Estimate Decreased; Segmented Neutrophils 93 % (50-85); Total Cells Counted 100
[2021-04-25] MEDS: ACETAMINOPHEN 325 MG TABLET PO PRN ×3 (06:21→20:43)
[2021-04-25] MEDS: METOCLOPRAMIDE 10 MG/2 ML VIAL IV SCH ×4 (06:24→23:56)
[2021-04-25] MEDS: ALBUTEROL 0.4 MG/ML 30 ML/BOTTLE PO SCH ×3 (06:40→21:05)
[2021-04-25] MEDS: BUDESONIDE 0.5 MG/2 ML NEB RESP TX SCH ×2 (07:29→19:45)
[2021-04-25] MEDS: ARFORMOTEROL 15 MCG/2 ML NEB RESP TX SCH ×2 (07:29→19:45)
[2021-04-25] MEDS: LINEZOLID INJ 600 MG/300 ML PREMIX IV SCH ×2 (08:01→20:35)
[2021-04-25] MEDS: FUROSEMIDE 40 MG/4 ML VIAL IV SCH ×2 (08:01→15:26)
[2021-04-25] MEDS: DULoxetine 30 MG CAPSULE PO SCH (08:02)
[2021-04-25] MEDS: ASPIRIN CHEW 81 MG TABLET PO SCH (08:02)
[2021-04-25] MEDS: MULTIVITAMIN LIQUID (CENTRUM) 60 ML BOTTLE PO SCH (08:02)
[2021-04-25] MEDS: MONTELUKAST 10 MG TABLET PO SCH (08:03)
[2021-04-25] MEDS: PANTOPRAZOLE 40 MG VIAL IV SCH ×2 (08:03→20:34)
[2021-04-25] MEDS: ZINC GLUCONATE 50 MG TABLET PO SCH (08:03)
[2021-04-25] MEDS: INSULIN NPH/REGULAR 70/30 100 UNIT/ML SUBCUT SCH ×2 (08:03→20:34)
[2021-04-25] MEDS: CHOLECALCIFEROL 1,000 UNIT TABLET PO SCH (08:03)
[2021-04-25] MEDS: ASCORBIC ACID 500 MG TABLET NG SCH ×2 (08:03→20:32)
[2021-04-25] MEDS: PRAMIPEXOLE 1 MG TABLET PO SCH ×3 (08:03→20:33)
[2021-04-25] MEDS: HYDROCORTISONE 25 MG SUPP RECTAL SCH ×2 (09:21→20:43)
[2021-04-25] MEDS: DEXAMETHASONE 4 MG/1 ML VIAL IV SCH ×2 (11:22→20:33)
[2021-04-25] MEDS: HEPARIN DRIP 25,000 UNITS/500 ML PREMIX IV SCH ×2 (12:11→18:54)
[2021-04-25 13:26] LABS: M. Tuberculosis PCR Result Negative (Negative); M. Tuberculosis PCR Source SPUTUM
[2021-04-25] MEDS: CEFEPIME 1,000 MG in SODIUM CHLORIDE 0.9% 100 ML IV SCH (20:35)
[2021-04-25] MEDS: SODIUM CHLORIDE 0.9% IV SCH (23:58)
[2021-04-25] MEDS: GENTAMICIN IV SCH (23:58)
[2021-04-26] MEDS: HEPARIN DRIP 25,000 UNITS/500 ML PREMIX IV SCH ×3 (02:34→18:38)
[2021-04-26 02:35] LABS: Basophils # 0.1 10*3/uL (0.0-0.2); Basophils % 0.2 % (0.0-0.8); Hematocrit 21.8 VOL% (35.7-47.0); Immature Granulocytes % 5.7 %; Immature Granulocytes Absolute 2.05 #; Lymphocytes # 2.6 10*3/uL (1.4-4.0); Lymphocytes % 7.3 % (21.3-54.2); Mean Corpuscular HGB Conc 32.1 GM/DL (32-36); Mean Platelet Volume 12.1 FL (9.6-12.0); Monocytes % 2.7 % (1.7-12.7); NRBC # 0.58 10*3/uL; Neutrophils % 84.1 % (38.7-73.9); Platelet Count 100 T/CUMM (130-400); Red Blood Count 2.32 MC/CUMM (3.8-5.5); White Blood Count 35.9 T/CUMM (4-12)
[2021-04-26 02:54] LABS: Calcium 7.7 MG/DL (8.5-10.1); Osmolality,Calculated 256.6 MOS/KG (273-304); Potassium 4.5 MMOL/L (3.5-5.1)
[2021-04-26 02:58] LABS: Lymphocytes 5 % (20-55); Nucleated Red Blood Cells 1 (0-5); Segmented Neutrophils 93 % (50-85); Total Cells Counted 100
[2021-04-26 02:59] LABS: Platelet Estimate Decreased
[2021-04-26] MEDS: ACETAMINOPHEN 325 MG TABLET PO PRN (03:48)
[2021-04-26] MEDS: CEFEPIME 1,000 MG in SODIUM CHLORIDE 0.9% 100 ML IV SCH ×4 (03:49→20:20)
[2021-04-26] MEDS: METOPROLOL TARTRATE 5 MG/5 ML VIAL IV SCH ×5 (03:49→20:19)
[2021-04-26] MEDS: THEOPHYLLINE 5.33 MG/ML 30 ML/BOTTLE NG SCH ×4 (03:49→22:38)
[2021-04-26] MEDS: AMIODARONE INJ 450 MG in DEXTROSE 5% 241 ML IV SCH ×2 (03:51→06:37)
[2021-04-26 03:56] LABS: ABG Base Excess 7.1 MMOL/L (-2.5-2.5); ABG Oxygen Saturation 99.4 % (95-100); ABG PCO2 35.7 MM HG (35-48); ABG PH 7.536 (7.35-7.45); ABG TCO2 28.5 MMOL/L (23-27)
[2021-04-26] MEDS: DILTIAZEM INJ 100 MG in SODIUM CHLORIDE 0.9% 100 ML IV SCH ×3 (04:12→16:46)
[2021-04-26] MEDS: METOCLOPRAMIDE 10 MG/2 ML VIAL IV SCH ×3 (06:12→18:19)
[2021-04-26] MEDS: INSULIN LISPRO 100 UNIT/ML SUBCUT SCH ×3 (06:12→18:19)
[2021-04-26] MEDS: ALBUTEROL 0.4 MG/ML 30 ML/BOTTLE PO SCH ×3 (06:14→22:38)
[2021-04-26] MEDS: ARFORMOTEROL 15 MCG/2 ML NEB RESP TX SCH ×2 (07:31→19:42)
[2021-04-26] MEDS: BUDESONIDE 0.5 MG/2 ML NEB RESP TX SCH ×2 (07:31→19:42)
[2021-04-26] MEDS ORDERED: MAGNESIUM SULF RIDER 2 GM/50 ML PREMIX IV ONE (08:29)
[2021-04-26] MEDS: INSULIN NPH/REGULAR 70/30 100 UNIT/ML SUBCUT SCH ×2 (09:02→20:19)
[2021-04-26] MEDS: PANTOPRAZOLE 40 MG VIAL IV SCH ×2 (09:03→20:19)
[2021-04-26] MEDS: DEXAMETHASONE 4 MG/1 ML VIAL IV SCH ×2 (09:04→20:18)
[2021-04-26] MEDS: ALBUMIN 25% 25 GM/100 ML VIAL IV SCH ×2 (09:04→16:18)
[2021-04-26] MEDS: PRAMIPEXOLE 1 MG TABLET PO SCH ×3 (09:37→20:18)
[2021-04-26] MEDS: ZINC GLUCONATE 50 MG TABLET PO SCH (09:37)
[2021-04-26] MEDS: ASPIRIN CHEW 81 MG TABLET PO SCH (09:37)
[2021-04-26] MEDS: MONTELUKAST 10 MG TABLET PO SCH (09:38)
[2021-04-26] MEDS: CHOLECALCIFEROL 1,000 UNIT TABLET PO SCH (09:38)
[2021-04-26] MEDS: DULoxetine 30 MG CAPSULE PO SCH (09:38)
[2021-04-26] MEDS: MULTIVITAMIN LIQUID (CENTRUM) 60 ML BOTTLE PO SCH (09:38)
[2021-04-26] MEDS: ASCORBIC ACID 500 MG TABLET NG SCH ×2 (09:38→20:17)
[2021-04-26] MEDS: HYDROCORTISONE 25 MG SUPP RECTAL SCH ×2 (09:46→20:21)
[2021-04-26] MEDS: FUROSEMIDE 40 MG/4 ML VIAL IV SCH ×3 (09:58→16:47)
[2021-04-26] MEDS ORDERED: SODIUM CHLORIDE 0.9% 1,000 ML IV PRN (10:38)
[2021-04-26] MEDS: LINEZOLID INJ 600 MG/300 ML PREMIX IV SCH ×2 (10:53→20:20)
[2021-04-26] MEDS: AMIODARONE 200 MG TABLET PO SCH ×2 (10:54→20:18)
[2021-04-26 22:35] LABS: Hematocrit 24.4 VOL% (35.7-47.0); Hemoglobin 8.1 GM/DL (12.0-16.0)
[2021-04-27] MEDS: LORazepam 2 MG/1 ML VIAL IV PRN (00:25)
[2021-04-27] MEDS: DILTIAZEM INJ 100 MG in SODIUM CHLORIDE 0.9% 100 ML IV SCH ×4 (00:40→18:41)
[2021-04-27] MEDS: METOPROLOL TARTRATE 5 MG/5 ML VIAL IV SCH ×7 (00:55→23:49)
[2021-04-27] MEDS: METOCLOPRAMIDE 10 MG/2 ML VIAL IV SCH ×5 (00:56→23:48)
[2021-04-27] MEDS: ALBUMIN 25% 25 GM/100 ML VIAL IV SCH ×4 (00:57→23:45)
[2021-04-27] MEDS: GENTAMICIN IV SCH ×2 (00:58→23:48)
[2021-04-27] MEDS: INSULIN LISPRO 100 UNIT/ML SUBCUT SCH ×5 (00:58→23:51)
[2021-04-27] MEDS: SODIUM CHLORIDE 0.9% IV SCH ×2 (00:58→23:48)
[2021-04-27] MEDS: FUROSEMIDE 40 MG/4 ML VIAL IV SCH ×3 (02:39→18:01)
[2021-04-27] MEDS: CEFEPIME 1,000 MG in SODIUM CHLORIDE 0.9% 100 ML IV SCH ×4 (03:39→20:56)
[2021-04-27] MEDS: THEOPHYLLINE 5.33 MG/ML 30 ML/BOTTLE NG SCH ×4 (03:40→21:26)
[2021-04-27 04:22] LABS: ABG HCO3 30.9 MMOL/L (20-26); ABG Oxygen Saturation 99.7 % (95-100); ABG PCO2 34.8 MM HG (35-48); ABG PH 7.542 (7.35-7.45)
[2021-04-27 04:23] LABS: Basophils % 0.1 % (0.0-0.8); Eosinophils % 0.1 % (0.00-10.9); Hematocrit 24.2 VOL% (35.7-47.0); Hemoglobin 7.9 GM/DL (12.0-16.0); Immature Granulocytes % 2.8 %; Immature Granulocytes Absolute 0.53 #; Lymphocytes # 1.7 10*3/uL (1.4-4.0); Lymphocytes % 9.3 % (21.3-54.2); Mean Corpuscular HGB Conc 32.6 GM/DL (32-36); Mean Corpuscular Volume 91.3 FL (87-102); Mean Platelet Volume 12.8 FL (9.6-12.0); Monocytes % 2.9 % (1.7-12.7); NRBC # 0.25 10*3/uL; Neutrophils % 84.8 % (38.7-73.9); Platelet Count 62 T/CUMM (130-400); Red Blood Count 2.65 MC/CUMM (3.8-5.5); Red Cell Distribution Width 16.8 % (9.3-17.3); White Blood Count 18.8 T/CUMM (4-12)
[2021-04-27 04:40] LABS: Calcium 8.1 MG/DL (8.5-10.1); Osmolality,Calculated 250.1 MOS/KG (273-304)
[2021-04-27 04:48] LABS: Hypochromia 1+; Lymphocytes 10 % (20-55); Microcytosis 1+; Platelet Estimate Decreased; Segmented Neutrophils 89 % (50-85); Total Cells Counted 100
[2021-04-27] MEDS: ALBUTEROL 0.4 MG/ML 30 ML/BOTTLE PO SCH ×3 (06:07→21:26)
[2021-04-27] MEDS: BUDESONIDE 0.5 MG/2 ML NEB RESP TX SCH ×2 (08:01→19:16)
[2021-04-27] MEDS: ARFORMOTEROL 15 MCG/2 ML NEB RESP TX SCH ×2 (08:01→19:16)
[2021-04-27] MEDS ORDERED: MIDAZOLAM 2 MG/2 ML VIAL IV ONE (09:30)
[2021-04-27] MEDS ORDERED: MIDAZOLAM 2 MG/2 ML VIAL ONE (09:31)
[2021-04-27] MEDS: PANTOPRAZOLE 40 MG VIAL IV SCH ×2 (10:25→20:53)
[2021-04-27] MEDS: LINEZOLID INJ 600 MG/300 ML PREMIX IV SCH ×2 (10:26→20:55)
[2021-04-27] MEDS: DEXAMETHASONE 4 MG/1 ML VIAL IV SCH ×2 (10:26→20:55)
[2021-04-27] MEDS: INSULIN NPH/REGULAR 70/30 100 UNIT/ML SUBCUT SCH ×2 (10:27→20:54)
[2021-04-27] MEDS: PRAMIPEXOLE 1 MG TABLET PO SCH ×3 (10:28→20:53)
[2021-04-27] MEDS: DULoxetine 30 MG CAPSULE PO SCH (10:28)
[2021-04-27] MEDS: ASCORBIC ACID 500 MG TABLET NG SCH ×2 (10:28→20:53)
[2021-04-27] MEDS: CHOLECALCIFEROL 1,000 UNIT TABLET PO SCH (10:28)
[2021-04-27] MEDS: ASPIRIN CHEW 81 MG TABLET PO SCH (10:28)
[2021-04-27] MEDS: ZINC GLUCONATE 50 MG TABLET PO SCH (10:28)
[2021-04-27] MEDS: MONTELUKAST 10 MG TABLET PO SCH (10:28)
[2021-04-27] MEDS: MULTIVITAMIN LIQUID (CENTRUM) 60 ML BOTTLE PO SCH (10:29)
[2021-04-27] MEDS: HYDROCORTISONE 25 MG SUPP RECTAL SCH ×2 (10:29→20:52)
[2021-04-27] MEDS: AMIODARONE 200 MG TABLET PO SCH ×2 (10:29→20:53)
[2021-04-27] MEDS: HEPARIN DRIP 25,000 UNITS/500 ML PREMIX IV SCH ×2 (14:21→16:32)
[2021-04-27] MEDS: SODIUM CHLORIDE 1 GM TABLET PO SCH ×2 (15:07→20:53)
[2021-04-28] MEDS: DILTIAZEM INJ 100 MG in SODIUM CHLORIDE 0.9% 100 ML IV SCH ×4 (00:10→21:15)
[2021-04-28] MEDS: FUROSEMIDE 40 MG/4 ML VIAL IV SCH ×3 (00:37→16:59)
[2021-04-28] MEDS: METOPROLOL TARTRATE 5 MG/5 ML VIAL IV SCH ×5 (03:08→20:23)
[2021-04-28 03:09] LABS: ABG Base Excess 3.6 MMOL/L (-2.5-2.5); ABG HCO3 25.5 MMOL/L (20-26); ABG Oxygen Saturation 98.8 % (95-100); ABG PCO2 28.3 MM HG (35-48); ABG PH 7.572 (7.35-7.45); ABG TCO2 26.3 MMOL/L (23-27); Allen Test Positive; Pt O2 Delivery Device Ventilator
[2021-04-28] MEDS: ACETAMINOPHEN 325 MG TABLET PO PRN ×2 (03:09→18:15)
[2021-04-28] MEDS: CEFEPIME 1,000 MG in SODIUM CHLORIDE 0.9% 100 ML IV SCH ×4 (03:09→20:21)
[2021-04-28] MEDS: THEOPHYLLINE 5.33 MG/ML 30 ML/BOTTLE NG SCH ×4 (03:11→21:03)
[2021-04-28 04:37] LABS: Basophils % 0.1 % (0.0-0.8); Hematocrit 24.5 VOL% (35.7-47.0); Hemoglobin 8.1 GM/DL (12.0-16.0); Immature Granulocytes % 2.1 %; Immature Granulocytes Absolute 0.45 #; Lymphocytes # 1.1 10*3/uL (1.4-4.0); Lymphocytes % 5.3 % (21.3-54.2); Mean Corpuscular HGB Conc 33.1 GM/DL (32-36); Mean Corpuscular Volume 91.1 FL (87-102); Mean Platelet Volume 12.6 FL (9.6-12.0); Monocytes % 3.7 % (1.7-12.7); NRBC # 0.14 10*3/uL; Neutrophils % 88.8 % (38.7-73.9); Red Blood Count 2.69 MC/CUMM (3.8-5.5); Red Cell Distribution Width 16.9 % (9.3-17.3); White Blood Count 21.3 T/CUMM (4-12)
[2021-04-28 04:41] LABS: Platelet Count 75 T/CUMM (130-400)
[2021-04-28 05:01] LABS: Platelet Estimate Decreased
[2021-04-28 05:03] LABS: Calcium 8.5 MG/DL (8.5-10.1); Osmolality,Calculated 258.9 MOS/KG (273-304)
[2021-04-28] MEDS: ALBUTEROL 0.4 MG/ML 30 ML/BOTTLE PO SCH ×3 (06:03→21:03)
[2021-04-28] MEDS: INSULIN LISPRO 100 UNIT/ML SUBCUT SCH ×3 (06:03→17:46)
[2021-04-28] MEDS: METOCLOPRAMIDE 10 MG/2 ML VIAL IV SCH ×3 (06:03→17:47)
[2021-04-28] MEDS: BUDESONIDE 0.5 MG/2 ML NEB RESP TX SCH ×2 (07:43→19:09)
[2021-04-28] MEDS: ARFORMOTEROL 15 MCG/2 ML NEB RESP TX SCH ×2 (07:43→19:09)
[2021-04-28] MEDS: LINEZOLID INJ 600 MG/300 ML PREMIX IV SCH ×2 (09:26→20:22)
[2021-04-28] MEDS: PANTOPRAZOLE 40 MG VIAL IV SCH ×2 (09:26→20:23)
[2021-04-28] MEDS: ALBUMIN 25% 25 GM/100 ML VIAL IV SCH ×2 (09:27→16:26)
[2021-04-28] MEDS: DULoxetine 30 MG CAPSULE PO SCH (09:28)
[2021-04-28] MEDS: INSULIN NPH/REGULAR 70/30 100 UNIT/ML SUBCUT SCH ×2 (09:28→20:22)
[2021-04-28] MEDS: CHOLECALCIFEROL 1,000 UNIT TABLET PO SCH (09:29)
[2021-04-28] MEDS: PRAMIPEXOLE 1 MG TABLET PO SCH ×3 (09:29→20:19)
[2021-04-28] MEDS: MONTELUKAST 10 MG TABLET PO SCH (09:29)
[2021-04-28] MEDS: ZINC GLUCONATE 50 MG TABLET PO SCH (09:29)
[2021-04-28] MEDS: SODIUM CHLORIDE 1 GM TABLET PO SCH ×2 (09:29→20:27)
[2021-04-28] MEDS: ASCORBIC ACID 500 MG TABLET NG SCH ×2 (09:29→20:19)
[2021-04-28] MEDS: ASPIRIN CHEW 81 MG TABLET PO SCH (09:29)
[2021-04-28] MEDS: DEXAMETHASONE 4 MG/1 ML VIAL IV SCH ×2 (09:31→20:24)
[2021-04-28] MEDS: MULTIVITAMIN LIQUID (CENTRUM) 60 ML BOTTLE PO SCH (09:31)
[2021-04-28] MEDS: AMIODARONE 200 MG TABLET PO SCH ×2 (09:39→20:19)
[2021-04-28] MEDS: HEPARIN DRIP 25,000 UNITS/500 ML PREMIX IV SCH ×2 (09:55→16:31)
[2021-04-28] MEDS: HYDROCORTISONE 25 MG SUPP RECTAL SCH ×2 (10:31→20:20)
[2021-04-28] MEDS ORDERED: LORazepam 2 MG/1 ML VIAL ONE (16:24)
[2021-04-28] MEDS: LORazepam 2 MG/1 ML VIAL IV PRN ×2 (16:27→22:31)
[2021-04-28] MEDS: METOPROLOL TARTRATE 5 MG/5 ML VIAL IV PRN (18:32)
[2021-04-28] MEDS ORDERED: DILTIAZEM 50 MG/10 ML VIAL IV PRN (18:42)
[2021-04-28] MEDS ORDERED: MORPHINE 4 MG/1 ML VIAL IM PRN (19:38)
[2021-04-28] MEDS: MORPHINE 4 MG/1 ML VIAL IV PRN (20:08)
[2021-04-29] MEDS: METOCLOPRAMIDE 10 MG/2 ML VIAL IV SCH ×5 (00:01→23:16)
[2021-04-29] MEDS: ACETAMINOPHEN 325 MG TABLET PO PRN ×3 (00:02→17:37)
[2021-04-29] MEDS: METOPROLOL TARTRATE 5 MG/5 ML VIAL IV SCH ×7 (00:02→22:16)
[2021-04-29] MEDS: ALBUMIN 25% 25 GM/100 ML VIAL IV SCH ×2 (00:04→08:10)
[2021-04-29] MEDS: GENTAMICIN IV SCH ×2 (00:05→23:16)
[2021-04-29] MEDS: SODIUM CHLORIDE 0.9% IV SCH ×2 (00:05→23:16)
[2021-04-29] MEDS: FUROSEMIDE 40 MG/4 ML VIAL IV SCH ×2 (01:05→08:11)
[2021-04-29] MEDS: MORPHINE 4 MG/1 ML VIAL IV PRN (01:06)
[2021-04-29] MEDS: CEFEPIME 1,000 MG in SODIUM CHLORIDE 0.9% 100 ML IV SCH ×4 (03:34→20:34)
[2021-04-29] MEDS: DILTIAZEM INJ 100 MG in SODIUM CHLORIDE 0.9% 100 ML IV SCH ×3 (03:35→15:18)
[2021-04-29] MEDS: THEOPHYLLINE 5.33 MG/ML 30 ML/BOTTLE NG SCH ×4 (03:35→21:27)
[2021-04-29 03:58] LABS: Basophils # 0.1 10*3/uL (0.0-0.2); Basophils % 0.2 % (0.0-0.8); Hematocrit 24.7 VOL% (35.7-47.0); Hemoglobin 8.1 GM/DL (12.0-16.0); Immature Granulocytes % 2.9 %; Immature Granulocytes Absolute 0.59 #; Lymphocytes % 9.6 % (21.3-54.2); Mean Corpuscular HGB Conc 32.8 GM/DL (32-36); Mean Corpuscular Volume 90.5 FL (87-102); Mean Platelet Volume 12.4 FL (9.6-12.0); Monocytes % 5.5 % (1.7-12.7); NRBC # 0.33 10*3/uL; Neutrophils % 81.8 % (38.7-73.9); Red Blood Count 2.73 MC/CUMM (3.8-5.5); Red Cell Distribution Width 17.3 % (9.3-17.3); White Blood Count 20.7 T/CUMM (4-12)
[2021-04-29 04:01] LABS: Platelet Count 97 T/CUMM (130-400)
[2021-04-29 04:13] LABS: Albumin 3.9 G/DL (3.4-5.0); Bilirubin,Total 1.5 MG/DL (0.20-1.00); Calcium 8.2 MG/DL (8.5-10.1); Osmolality,Calculated 261.8 MOS/KG (273-304); Total Protein 6.3 G/DL (6.4-8.2)
[2021-04-29 04:18] LABS: Hypochromia 1+; Lymphocytes 8 % (20-55); Microcytosis 1+; Nucleated Red Blood Cells 6 (0-5); Platelet Estimate Decreased; Segmented Neutrophils 85 % (50-85); Total Cells Counted 100
[2021-04-29] MEDS: HEPARIN DRIP 25,000 UNITS/500 ML PREMIX IV SCH ×2 (04:20→17:44)
[2021-04-29 05:00] LABS: ABG Base Excess 2.2 MMOL/L (-2.5-2.5); ABG HCO3 26.4 MMOL/L (20-26); ABG Oxygen Saturation 99.8 % (95-100); ABG PCO2 29.1 MM HG (35-48); ABG PH 7.534 (7.35-7.45); ABG TCO2 22.9 MMOL/L (23-27)
[2021-04-29] MEDS: INSULIN LISPRO 100 UNIT/ML SUBCUT SCH ×5 (05:32→23:13)
[2021-04-29] MEDS: ALBUTEROL 0.4 MG/ML 30 ML/BOTTLE PO SCH ×3 (05:34→22:50)
[2021-04-29] MEDS: BUDESONIDE 0.5 MG/2 ML NEB RESP TX SCH ×2 (07:05→19:29)
[2021-04-29] MEDS: ARFORMOTEROL 15 MCG/2 ML NEB RESP TX SCH ×2 (07:05→19:29)
[2021-04-29] MEDS: MULTIVITAMIN LIQUID (CENTRUM) 60 ML BOTTLE PO SCH (08:10)
[2021-04-29] MEDS: ASPIRIN CHEW 81 MG TABLET PO SCH (08:10)
[2021-04-29] MEDS: AMIODARONE 200 MG TABLET PO SCH ×2 (08:11→20:34)
[2021-04-29] MEDS: PANTOPRAZOLE 40 MG VIAL IV SCH ×2 (08:11→20:34)
[2021-04-29] MEDS: PRAMIPEXOLE 1 MG TABLET PO SCH ×3 (08:11→20:34)
[2021-04-29] MEDS: DULoxetine 30 MG CAPSULE PO SCH (08:11)
[2021-04-29] MEDS: INSULIN NPH/REGULAR 70/30 100 UNIT/ML SUBCUT SCH ×2 (08:11→21:12)
[2021-04-29] MEDS: DEXAMETHASONE 4 MG/1 ML VIAL IV SCH ×2 (08:11→20:33)
[2021-04-29] MEDS: MONTELUKAST 10 MG TABLET PO SCH (08:12)
[2021-04-29] MEDS: SODIUM CHLORIDE 1 GM TABLET PO SCH ×2 (08:12→20:34)
[2021-04-29] MEDS: ZINC GLUCONATE 50 MG TABLET PO SCH (08:12)
[2021-04-29] MEDS: ASCORBIC ACID 500 MG TABLET NG SCH ×2 (08:12→20:34)
[2021-04-29] MEDS: CHOLECALCIFEROL 1,000 UNIT TABLET PO SCH (08:12)
[2021-04-29] MEDS: LINEZOLID INJ 600 MG/300 ML PREMIX IV SCH ×2 (08:52→20:34)
[2021-04-29 09:26] LABS: Mucus,Urine Occasional /LPF (Occasional); RBC,Urine 7 /HPF (0-4)
[2021-04-29 09:28] LABS: Glucose,Urine (UA) Negative (Negative); Ketones,Urine Negative (Negative); Nitrite,Urine Negative (Negative); Protein,Urine 2+ MG/DL; Urine Appearance Clear (Clear); Urine Color Yellow (Yellow); Urine pH 6.5 (4.5-8.0)
[2021-04-29 09:29] LABS: Bilirubin,Urine Negative (Negative); Blood, Urine Large mg/dL (Negative)
[2021-04-29] MEDS ORDERED: DEXTROSE 5% NACL 0.9% 1,000 ML IV SCH (10:30)
[2021-04-29] MEDS ORDERED: METOPROLOL TARTRATE 5 MG/5 ML VIAL IV ONE (10:42)
[2021-04-29] MEDS: HYDROCORTISONE 25 MG SUPP RECTAL SCH ×2 (13:06→20:35)
[2021-04-29] MEDS: LORazepam 2 MG/1 ML VIAL IV PRN (13:07)
[2021-04-29] MEDS: SODIUM CHLORIDE 0.9% 1,000 ML IV SCH (14:30)
[2021-04-29] MEDS ORDERED: DIGOXIN 0.5 MG/2 ML AMP IV ONE (17:10)
[2021-04-30] MEDS: METOPROLOL TARTRATE 5 MG/5 ML VIAL IV SCH ×5 (00:38→08:17)
[2021-04-30] MEDS: CEFEPIME 1,000 MG in SODIUM CHLORIDE 0.9% 100 ML IV SCH ×4 (02:43→20:20)
[2021-04-30] MEDS: THEOPHYLLINE 5.33 MG/ML 30 ML/BOTTLE NG SCH ×4 (04:15→21:57)
[2021-04-30 04:21] LABS: ABG Base Excess 0.3 MMOL/L (-2.5-2.5); ABG HCO3 24.8 MMOL/L (20-26); ABG Oxygen Saturation 99.8 % (95-100); ABG PCO2 30.2 MM HG (35-48); ABG PH 7.494 (7.35-7.45); ABG TCO2 21.7 MMOL/L (23-27)
[2021-04-30 04:25] LABS: Basophils % 0.2 % (0.0-0.8); Hematocrit 22.6 VOL% (35.7-47.0); Hemoglobin 7.5 GM/DL (12.0-16.0); Immature Granulocytes % 2.3 %; Immature Granulocytes Absolute 0.37 #; Lymphocytes # 1.2 10*3/uL (1.4-4.0); Lymphocytes % 7.3 % (21.3-54.2); Mean Corpuscular HGB Conc 33.2 GM/DL (32-36); Mean Corpuscular Volume 91.5 FL (87-102); Mean Platelet Volume 12.8 FL (9.6-12.0); Monocytes % 6.4 % (1.7-12.7); NRBC # 0.16 10*3/uL; Neutrophils % 83.8 % (38.7-73.9); Platelet Count 107 T/CUMM (130-400); Red Blood Count 2.47 MC/CUMM (3.8-5.5); Red Cell Distribution Width 17.1 % (9.3-17.3); White Blood Count 15.8 T/CUMM (4-12)
[2021-04-30] MEDS: HEPARIN DRIP 25,000 UNITS/500 ML PREMIX IV SCH ×2 (04:45→17:46)
[2021-04-30 04:52] LABS: Albumin 3.4 G/DL (3.4-5.0); Bilirubin,Total 1.6 MG/DL (0.20-1.00); Osmolality,Calculated 264.1 MOS/KG (273-304); Potassium 3.9 MMOL/L (3.5-5.1); Total Protein 5.5 G/DL (6.4-8.2)
[2021-04-30] MEDS: ACETAMINOPHEN 325 MG TABLET PO PRN (04:57)
[2021-04-30] MEDS: INSULIN LISPRO 100 UNIT/ML SUBCUT SCH ×4 (05:16→23:33)
[2021-04-30] MEDS: METOCLOPRAMIDE 10 MG/2 ML VIAL IV SCH ×4 (05:16→23:33)
[2021-04-30] MEDS: ALBUTEROL 0.4 MG/ML 30 ML/BOTTLE PO SCH ×3 (05:16→21:57)
[2021-04-30] MEDS: BUDESONIDE 0.5 MG/2 ML NEB RESP TX SCH ×2 (06:55→19:10)
[2021-04-30] MEDS: ARFORMOTEROL 15 MCG/2 ML NEB RESP TX SCH ×2 (06:55→19:10)
[2021-04-30] MEDS: SODIUM CHLORIDE 0.9% 1,000 ML IV SCH ×2 (06:57→13:00)
[2021-04-30] MEDS: DILTIAZEM INJ 100 MG in SODIUM CHLORIDE 0.9% 100 ML IV SCH (08:17)
[2021-04-30] MEDS: DEXAMETHASONE 4 MG/1 ML VIAL IV SCH ×2 (08:18→20:19)
[2021-04-30] MEDS: MULTIVITAMIN LIQUID (CENTRUM) 60 ML BOTTLE PO SCH (08:18)
[2021-04-30] MEDS: ASPIRIN CHEW 81 MG TABLET PO SCH (08:18)
[2021-04-30] MEDS: INSULIN NPH/REGULAR 70/30 100 UNIT/ML SUBCUT SCH ×2 (08:18→20:20)
[2021-04-30] MEDS: AMIODARONE 200 MG TABLET PO SCH ×2 (08:18→20:19)
[2021-04-30] MEDS: DULoxetine 30 MG CAPSULE PO SCH (08:18)
[2021-04-30] MEDS: HYDROCORTISONE 25 MG SUPP RECTAL SCH ×2 (08:18→20:19)
[2021-04-30] MEDS: ZINC GLUCONATE 50 MG TABLET PO SCH (08:19)
[2021-04-30] MEDS: CHOLECALCIFEROL 1,000 UNIT TABLET PO SCH (08:19)
[2021-04-30] MEDS: SODIUM CHLORIDE 1 GM TABLET PO SCH ×2 (08:19→20:19)
[2021-04-30] MEDS: PRAMIPEXOLE 1 MG TABLET PO SCH ×3 (08:19→20:19)
[2021-04-30] MEDS: ASCORBIC ACID 500 MG TABLET NG SCH ×2 (08:19→20:19)
[2021-04-30] MEDS: PANTOPRAZOLE 40 MG VIAL IV SCH ×2 (08:19→20:18)
[2021-04-30] MEDS: MONTELUKAST 10 MG TABLET PO SCH (08:19)
[2021-04-30] MEDS: LINEZOLID INJ 600 MG/300 ML PREMIX IV SCH ×2 (08:51→20:20)
[2021-04-30] MEDS: LORazepam 2 MG/1 ML VIAL IV PRN (09:01)
[2021-04-30] MEDS: MORPHINE 4 MG/1 ML VIAL IV PRN (09:02)
[2021-04-30] MEDS ORDERED: SODIUM CHLORIDE 0.9% 1,000 ML IV PRN (10:06)
[2021-04-30] MEDS: METOPROLOL TARTRATE 25 MG TABLET PO SCH ×2 (10:08→20:19)
[2021-04-30] MEDS: METOPROLOL TARTRATE 5 MG/5 ML VIAL IV PRN ×2 (10:44→20:44)
[2021-04-30] MEDS: MENTHOL/ZINC OXIDE OINT 71 GM JAR TOP SCH ×2 (13:43→20:18)
[2021-04-30] MEDS: SODIUM CHLORIDE 0.9% IV SCH (23:34)
[2021-04-30] MEDS: GENTAMICIN IV SCH (23:34)
[2021-05-01] MEDS: SODIUM CHLORIDE 0.9% 1,000 ML IV SCH ×3 (00:55→15:12)
[2021-05-01] MEDS: CEFEPIME 1,000 MG in SODIUM CHLORIDE 0.9% 100 ML IV SCH ×4 (03:14→20:30)
[2021-05-01 03:31] LABS: ABG Base Excess -3.5 MMOL/L (-2.5-2.5); ABG HCO3 21.5 MMOL/L (20-26); ABG Oxygen Saturation 99.7 % (95-100); ABG PCO2 27.7 MM HG (35-48); ABG PH 7.452 (7.35-7.45); ABG TCO2 17.4 MMOL/L (23-27)
[2021-05-01 03:34] LABS: Basophils % 0.2 % (0.0-0.8); Hematocrit 30.5 VOL% (35.7-47.0); Hemoglobin 10.5 GM/DL (12.0-16.0); Immature Granulocytes % 2.7 %; Immature Granulocytes Absolute 0.46 #; Lymphocytes % 6.2 % (21.3-54.2); Mean Corpuscular HGB Conc 34.4 GM/DL (32-36); Mean Corpuscular Volume 89.4 FL (87-102); Mean Platelet Volume 12.2 FL (9.6-12.0); Monocytes % 6.3 % (1.7-12.7); NRBC # 0.29 10*3/uL; Neutrophils % 84.6 % (38.7-73.9); Platelet Count 102 T/CUMM (130-400); Red Blood Count 3.41 MC/CUMM (3.8-5.5); Red Cell Distribution Width 16.4 % (9.3-17.3); White Blood Count 16.7 T/CUMM (4-12)
[2021-05-01] MEDS: METOPROLOL TARTRATE 5 MG/5 ML VIAL IV PRN ×2 (03:36→05:55)
[2021-05-01 03:54] LABS: Albumin 2.8 G/DL (3.4-5.0); Bilirubin,Total 1.4 MG/DL (0.20-1.00); Calcium 8.6 MG/DL (8.5-10.1); Osmolality,Calculated 249.3 MOS/KG (273-304); Potassium 4.3 MMOL/L (3.5-5.1); Total Protein 5.6 G/DL (6.4-8.2)
[2021-05-01] MEDS: THEOPHYLLINE 5.33 MG/ML 30 ML/BOTTLE NG SCH ×4 (03:58→21:21)
[2021-05-01] MEDS: ALBUTEROL 0.4 MG/ML 30 ML/BOTTLE PO SCH ×3 (05:25→21:22)
[2021-05-01] MEDS: METOCLOPRAMIDE 10 MG/2 ML VIAL IV SCH ×4 (05:32→23:10)
[2021-05-01] MEDS: INSULIN LISPRO 100 UNIT/ML SUBCUT SCH ×4 (05:32→23:11)
[2021-05-01] MEDS ORDERED: METOPROLOL TARTRATE 5 MG/5 ML VIAL IV ONE (06:46)
[2021-05-01] MEDS: ARFORMOTEROL 15 MCG/2 ML NEB RESP TX SCH ×2 (07:19→18:14)
[2021-05-01] MEDS: BUDESONIDE 0.5 MG/2 ML NEB RESP TX SCH ×2 (07:19→18:14)
[2021-05-01] MEDS ORDERED: MIDAZOLAM 2 MG/2 ML VIAL ONE (08:09)
[2021-05-01] MEDS ORDERED: MIDAZOLAM 2 MG/2 ML VIAL IV ONE (08:12)
[2021-05-01] MEDS: DILTIAZEM INJ 100 MG in SODIUM CHLORIDE 0.9% 100 ML IV SCH (09:15)
[2021-05-01] MEDS: HEPARIN DRIP 25,000 UNITS/500 ML PREMIX IV SCH (09:15)
[2021-05-01] MEDS: AMIODARONE 200 MG TABLET PO SCH ×2 (09:56→20:30)
[2021-05-01] MEDS: INSULIN NPH/REGULAR 70/30 100 UNIT/ML SUBCUT SCH ×2 (09:56→20:34)
[2021-05-01] MEDS: PANTOPRAZOLE 40 MG VIAL IV SCH ×2 (09:56→20:33)
[2021-05-01] MEDS: PRAMIPEXOLE 1 MG TABLET PO SCH ×3 (09:57→20:30)
[2021-05-01] MEDS: METOPROLOL TARTRATE 50 MG TABLET PO SCH ×2 (09:57→20:29)
[2021-05-01] MEDS: CHOLECALCIFEROL 1,000 UNIT TABLET PO SCH (09:57)
[2021-05-01] MEDS: ASPIRIN CHEW 81 MG TABLET PO SCH (09:57)
[2021-05-01] MEDS: DULoxetine 30 MG CAPSULE PO SCH (09:57)
[2021-05-01] MEDS: MONTELUKAST 10 MG TABLET PO SCH (09:57)
[2021-05-01] MEDS: ZINC GLUCONATE 50 MG TABLET PO SCH (09:57)
[2021-05-01] MEDS: HYDROCORTISONE 25 MG SUPP RECTAL SCH ×2 (09:58→20:29)
[2021-05-01] MEDS: ASCORBIC ACID 500 MG TABLET NG SCH ×2 (09:58→20:30)
[2021-05-01] MEDS: SODIUM CHLORIDE 1 GM TABLET PO SCH ×2 (09:59→20:30)
[2021-05-01] MEDS: INSULIN GLARGINE 100 UNIT/ML SUBCUT SCH (10:27)
[2021-05-01] MEDS: FLUDROCORTISONE 0.1 MG TABLET PER TUBE SCH ×2 (10:28→20:29)
[2021-05-01] MEDS: HYDROCORTISONE 100 MG VIAL IV SCH ×2 (10:29→17:57)
[2021-05-01] MEDS: DEXAMETHASONE 4 MG/1 ML VIAL IV SCH (10:44)
[2021-05-01] MEDS: LINEZOLID INJ 600 MG/300 ML PREMIX IV SCH (10:45)
[2021-05-01] MEDS: MENTHOL/ZINC OXIDE OINT 71 GM JAR TOP SCH ×2 (11:21→20:33)
[2021-05-01] MEDS: MULTIVITAMIN LIQUID (CENTRUM) 60 ML BOTTLE PO SCH (11:22)
[2021-05-01] MEDS: HEPARIN INJ 25,000 UNIT in SODIUM CHLORIDE 0.9% 495 ML IV SCH (11:24)
[2021-05-01 12:38] LABS: Free T4 (Free Thyroxine) 0.74 NG/DL (0.76-1.46)
[2021-05-01] MEDS: ACETAMINOPHEN 325 MG TABLET PO PRN (16:32)
[2021-05-01] MEDS ORDERED: MORPHINE 2 MG/1 ML SYRINGE IV PRN (17:43)
[2021-05-01] MEDS: MORPHINE 4 MG/1 ML VIAL IV PRN (18:00)
[2021-05-01] MEDS: GENTAMICIN IV SCH (23:10)
[2021-05-01] MEDS: SODIUM CHLORIDE 0.9% IV SCH (23:10)
[2021-05-02] MEDS: HYDROCORTISONE 100 MG VIAL IV SCH ×3 (02:04→17:46)
[2021-05-02] MEDS: CEFEPIME 1,000 MG in SODIUM CHLORIDE 0.9% 100 ML IV SCH ×4 (02:04→20:26)
[2021-05-02] MEDS: HEPARIN INJ 25,000 UNIT in SODIUM CHLORIDE 0.9% 495 ML IV SCH ×2 (02:25→18:19)
[2021-05-02] MEDS: THEOPHYLLINE 5.33 MG/ML 30 ML/BOTTLE NG SCH ×4 (03:21→21:46)
[2021-05-02 03:39] LABS: Basophils % 0.1 % (0.0-0.8); Hemoglobin 8.5 GM/DL (12.0-16.0); Immature Granulocytes Absolute 0.48 #; Lymphocytes # 0.9 10*3/uL (1.4-4.0); Lymphocytes % 7.7 % (21.3-54.2); Mean Corpuscular HGB Conc 32.7 GM/DL (32-36); Mean Corpuscular Volume 92.2 FL (87-102); Mean Platelet Volume 12.3 FL (9.6-12.0); Monocytes % 7.5 % (1.7-12.7); NRBC # 0.19 10*3/uL; Neutrophils % 80.7 % (38.7-73.9); Platelet Count 124 T/CUMM (130-400); Red Blood Count 2.82 MC/CUMM (3.8-5.5); Red Cell Distribution Width 16.9 % (9.3-17.3); White Blood Count 11.9 T/CUMM (4-12)
[2021-05-02 04:01] LABS: Band Neutrophils 1 % (0-10); Hypochromia 1+; Lymphocytes 7 % (20-55); Microcytosis 1+; Nucleated Red Blood Cells 2 (0-5); Platelet Estimate Normal; Segmented Neutrophils 88 % (50-85); Total Cells Counted 100
[2021-05-02] MEDS: MORPHINE 4 MG/1 ML VIAL IV PRN ×3 (04:03→23:25)
[2021-05-02 04:04] LABS: Albumin 2.5 G/DL (3.4-5.0); Bilirubin,Total 1.3 MG/DL (0.20-1.00); Calcium 8.2 MG/DL (8.5-10.1); Osmolality,Calculated 265.9 MOS/KG (273-304); Potassium 3.3 MMOL/L (3.5-5.1); Total Protein 5.1 G/DL (6.4-8.2)
[2021-05-02 04:13] LABS: ABG Base Excess -5.8 MMOL/L (-2.5-2.5); ABG HCO3 17.8 MMOL/L (20-26); ABG Oxygen Saturation 98.6 % (95-100); ABG PO2 155.5 MM HG (80-95); ABG TCO2 18.6 MMOL/L (23-27)
[2021-05-02] MEDS: INSULIN LISPRO 100 UNIT/ML SUBCUT SCH ×4 (05:53→23:51)
[2021-05-02] MEDS: ALBUTEROL 0.4 MG/ML 30 ML/BOTTLE PO SCH ×3 (05:54→21:46)
[2021-05-02] MEDS: METOCLOPRAMIDE 10 MG/2 ML VIAL IV SCH ×4 (05:54→23:52)
[2021-05-02] MEDS: BUDESONIDE 0.5 MG/2 ML NEB RESP TX SCH ×2 (07:25→19:50)
[2021-05-02] MEDS: ARFORMOTEROL 15 MCG/2 ML NEB RESP TX SCH ×2 (07:25→19:50)
[2021-05-02] MEDS: PRAMIPEXOLE 1 MG TABLET PO SCH ×3 (09:48→20:24)
[2021-05-02] MEDS: FLUDROCORTISONE 0.1 MG TABLET PER TUBE SCH ×2 (09:48→20:24)
[2021-05-02] MEDS: ASPIRIN CHEW 81 MG TABLET PO SCH (09:48)
[2021-05-02] MEDS: AMIODARONE 200 MG TABLET PO SCH ×2 (09:49→20:25)
[2021-05-02] MEDS: ZINC GLUCONATE 50 MG TABLET PO SCH (09:49)
[2021-05-02] MEDS: DULoxetine 30 MG CAPSULE PO SCH (09:49)
[2021-05-02] MEDS: MONTELUKAST 10 MG TABLET PO SCH (09:49)
[2021-05-02] MEDS: ASCORBIC ACID 500 MG TABLET NG SCH ×2 (09:50→20:25)
[2021-05-02] MEDS: CHOLECALCIFEROL 1,000 UNIT TABLET PO SCH (09:50)
[2021-05-02] MEDS: METOPROLOL TARTRATE 50 MG TABLET PO SCH ×2 (09:51→20:25)
[2021-05-02] MEDS: PANTOPRAZOLE 40 MG VIAL IV SCH ×2 (09:51→20:26)
[2021-05-02] MEDS: MULTIVITAMIN LIQUID (CENTRUM) 60 ML BOTTLE PO SCH (10:27)
[2021-05-02] MEDS: MENTHOL/ZINC OXIDE OINT 71 GM JAR TOP SCH ×2 (10:27→20:28)
[2021-05-02] MEDS: INSULIN NPH/REGULAR 70/30 100 UNIT/ML SUBCUT SCH ×2 (10:28→20:27)
[2021-05-02] MEDS: INSULIN GLARGINE 100 UNIT/ML SUBCUT SCH (10:28)
[2021-05-02] MEDS: POTASSIUM BICARB EFFERVESCENT 20 MEQ TAB.EFF PER TUBE PRN (10:30)
[2021-05-02] MEDS: APIXABAN 5 MG TABLET PO SCH ×2 (12:30→20:25)
[2021-05-02] MEDS: HYDROCORTISONE 25 MG SUPP RECTAL SCH ×2 (14:30→20:24)
[2021-05-02] MEDS: SODIUM CHLORIDE 0.9% IV SCH (23:52)
[2021-05-02] MEDS: GENTAMICIN IV SCH (23:52)
[2021-05-03] MEDS: HYDROCORTISONE 100 MG VIAL IV SCH ×3 (00:12→18:10)
[2021-05-03] MEDS: CEFEPIME 1,000 MG in SODIUM CHLORIDE 0.9% 100 ML IV SCH ×4 (03:30→20:17)
[2021-05-03] MEDS: THEOPHYLLINE 5.33 MG/ML 30 ML/BOTTLE NG SCH ×4 (03:33→21:24)
[2021-05-03 04:08] LABS: ABG Base Excess -5.7 MMOL/L (-2.5-2.5); ABG HCO3 18.1 MMOL/L (20-26); ABG Oxygen Saturation 98.6 % (95-100); ABG PCO2 29.2 MM HG (35-48); ABG PH 7.411 (7.35-7.45); ABG PO2 154.9 MM HG (80-95)
[2021-05-03 04:14] LABS: Basophils % 0.3 % (0.0-0.8); Hemoglobin 8.3 GM/DL (12.0-16.0); Immature Granulocytes % 5.8 %; Immature Granulocytes Absolute 0.61 #; Lymphocytes # 0.8 10*3/uL (1.4-4.0); Lymphocytes % 7.5 % (21.3-54.2); Mean Corpuscular HGB Conc 33.2 GM/DL (32-36); Mean Corpuscular Volume 91.2 FL (87-102); Mean Platelet Volume 11.4 FL (9.6-12.0); Monocytes % 6.4 % (1.7-12.7); NRBC # 0.18 10*3/uL; Platelet Count 135 T/CUMM (130-400); Red Blood Count 2.74 MC/CUMM (3.8-5.5); Red Cell Distribution Width 17.5 % (9.3-17.3); White Blood Count 10.6 T/CUMM (4-12)
[2021-05-03 04:34] LABS: Albumin 2.4 G/DL (3.4-5.0); Bilirubin,Total 1.1 MG/DL (0.20-1.00); Calcium 8.6 MG/DL (8.5-10.1); Osmolality,Calculated 269.7 MOS/KG (273-304); Potassium 3.1 MMOL/L (3.5-5.1); Total Protein 5.1 G/DL (6.4-8.2)
[2021-05-03 04:50] LABS: Band Neutrophils 3 % (0-10); Lymphocytes 5 % (20-55); Metamyelocytes 2 %; Nucleated Red Blood Cells 2 (0-5); Promyelocytes 1 %; Segmented Neutrophils 83 % (50-85); Total Cells Counted 100
[2021-05-03 04:51] LABS: Hypochromia Slight; Microcytosis 1+; Polychromasia Slight
[2021-05-03] MEDS: ALBUTEROL 0.4 MG/ML 30 ML/BOTTLE PO SCH ×3 (05:36→21:24)
[2021-05-03] MEDS: METOCLOPRAMIDE 10 MG/2 ML VIAL IV SCH ×4 (05:36→23:06)
[2021-05-03] MEDS: POTASSIUM BICARB EFFERVESCENT 20 MEQ TAB.EFF PER TUBE PRN ×2 (05:37→09:29)
[2021-05-03] MEDS: INSULIN LISPRO 100 UNIT/ML SUBCUT SCH ×4 (05:54→23:02)
[2021-05-03] MEDS: ARFORMOTEROL 15 MCG/2 ML NEB RESP TX SCH ×2 (07:30→20:00)
[2021-05-03] MEDS: BUDESONIDE 0.5 MG/2 ML NEB RESP TX SCH ×2 (07:30→20:00)
[2021-05-03] MEDS: HYDROCORTISONE 25 MG SUPP RECTAL SCH ×2 (08:04→20:16)
[2021-05-03] MEDS: METOPROLOL TARTRATE 50 MG TABLET PO SCH ×2 (08:04→20:17)
[2021-05-03] MEDS: MULTIVITAMIN LIQUID (CENTRUM) 60 ML BOTTLE PO SCH (08:04)
[2021-05-03] MEDS: AMIODARONE 200 MG TABLET PO SCH ×2 (08:04→20:17)
[2021-05-03] MEDS: DULoxetine 30 MG CAPSULE PO SCH (08:04)
[2021-05-03] MEDS: INSULIN NPH/REGULAR 70/30 100 UNIT/ML SUBCUT SCH ×2 (08:04→23:02)
[2021-05-03] MEDS: INSULIN GLARGINE 100 UNIT/ML SUBCUT SCH (08:04)
[2021-05-03] MEDS: ASPIRIN CHEW 81 MG TABLET PO SCH (08:04)
[2021-05-03] MEDS: FLUDROCORTISONE 0.1 MG TABLET PER TUBE SCH ×2 (08:04→20:17)
[2021-05-03] MEDS: APIXABAN 5 MG TABLET PO SCH ×2 (08:04→20:17)
[2021-05-03] MEDS: MENTHOL/ZINC OXIDE OINT 71 GM JAR TOP SCH ×2 (08:04→21:23)
[2021-05-03] MEDS: MONTELUKAST 10 MG TABLET PO SCH (08:05)
[2021-05-03] MEDS: PANTOPRAZOLE 40 MG VIAL IV SCH ×2 (08:05→20:17)
[2021-05-03] MEDS: CHOLECALCIFEROL 1,000 UNIT TABLET PO SCH (08:05)
[2021-05-03] MEDS: ASCORBIC ACID 500 MG TABLET NG SCH ×2 (08:05→20:17)
[2021-05-03] MEDS: PRAMIPEXOLE 1 MG TABLET PO SCH ×3 (08:05→20:17)
[2021-05-03] MEDS: ZINC GLUCONATE 50 MG TABLET PO SCH (08:05)
[2021-05-03] MEDS ORDERED: POTASSIUM BICARB EFFERVESCENT 20 MEQ TAB.EFF PO ONE (10:54)
[2021-05-03] MEDS ORDERED: FUROSEMIDE 40 MG/4 ML VIAL IV ONE (10:55)
[2021-05-03] MEDS: MORPHINE 4 MG/1 ML VIAL IV PRN (11:26)
[2021-05-03 12:36] LABS: ABG Base Excess -4.2 MMOL/L (-2.5-2.5); ABG HCO3 21.3 MMOL/L (20-26); ABG Oxygen Saturation 97.8 % (95-100); ABG PCO2 41.1 MM HG (35-48); ABG PH 7.333 (7.35-7.45); ABG PO2 118.1 MM HG (80-95); ABG TCO2 22.6 MMOL/L (23-27)
[2021-05-03] MEDS: SODIUM CHLORIDE 0.9% IV SCH (23:06)
[2021-05-03] MEDS: GENTAMICIN IV SCH (23:06)
[2021-05-04] MEDS: HYDROCORTISONE 100 MG VIAL IV SCH ×3 (01:23→21:04)
[2021-05-04] MEDS: CEFEPIME 1,000 MG in SODIUM CHLORIDE 0.9% 100 ML IV SCH ×4 (03:11→21:05)
[2021-05-04] MEDS: THEOPHYLLINE 5.33 MG/ML 30 ML/BOTTLE NG SCH ×4 (03:24→21:03)
[2021-05-04 03:52] LABS: ABG Base Excess -1.1 MMOL/L (-2.5-2.5); ABG HCO3 23.5 MMOL/L (20-26); ABG Oxygen Saturation 99.9 % (95-100); ABG PCO2 32.1 MM HG (35-48); ABG PH 7.451 (7.35-7.45); ABG TCO2 20.8 MMOL/L (23-27)
[2021-05-04 04:00] LABS: Basophils # 0.1 10*3/uL (0.0-0.2); Basophils % 0.6 % (0.0-0.8); Eosinophils % 0.3 % (0.00-10.9); Hematocrit 25.2 VOL% (35.7-47.0); Hemoglobin 8.4 GM/DL (12.0-16.0); Immature Granulocytes % 6.9 %; Immature Granulocytes Absolute 0.76 #; Mean Corpuscular HGB Conc 33.3 GM/DL (32-36); Mean Corpuscular Volume 91.3 FL (87-102); Mean Platelet Volume 10.9 FL (9.6-12.0); Monocytes % 5.5 % (1.7-12.7); NRBC # 0.12 10*3/uL; Neutrophils % 77.7 % (38.7-73.9); Platelet Count 142 T/CUMM (130-400); Red Blood Count 2.76 MC/CUMM (3.8-5.5); Red Cell Distribution Width 18.1 % (9.3-17.3)
[2021-05-04 04:12] LABS: Calcium 8.6 MG/DL (8.5-10.1); Osmolality,Calculated 269.5 MOS/KG (273-304); Potassium 2.8 MMOL/L (3.5-5.1)
[2021-05-04 04:19] LABS: Band Neutrophils 1 % (0-10); Eosinophils 1 % (0-10); Hypochromia Slight; Lymphocytes 8 % (20-55); Nucleated Red Blood Cells 2 (0-5); Platelet Estimate Normal; Segmented Neutrophils 88 % (50-85); Total Cells Counted 100
[2021-05-04] MEDS: POTASSIUM BICARB EFFERVESCENT 20 MEQ TAB.EFF PER TUBE PRN ×3 (04:55→14:58)
[2021-05-04] MEDS: METOCLOPRAMIDE 10 MG/2 ML VIAL IV SCH ×3 (05:07→18:31)
[2021-05-04] MEDS: ALBUTEROL 0.4 MG/ML 30 ML/BOTTLE PO SCH ×3 (05:07→21:03)
[2021-05-04] MEDS: INSULIN LISPRO 100 UNIT/ML SUBCUT SCH ×3 (05:43→18:31)
[2021-05-04] MEDS: ARFORMOTEROL 15 MCG/2 ML NEB RESP TX SCH ×2 (07:30→20:20)
[2021-05-04] MEDS: BUDESONIDE 0.5 MG/2 ML NEB RESP TX SCH ×2 (07:30→20:20)
[2021-05-04] MEDS: MENTHOL/ZINC OXIDE OINT 71 GM JAR TOP SCH ×2 (08:00→21:03)
[2021-05-04] MEDS: AMIODARONE 200 MG TABLET PO SCH ×2 (08:00→21:02)
[2021-05-04] MEDS: DULoxetine 30 MG CAPSULE PO SCH (08:00)
[2021-05-04] MEDS: HYDROCORTISONE 25 MG SUPP RECTAL SCH ×2 (08:00→21:03)
[2021-05-04] MEDS: ASPIRIN CHEW 81 MG TABLET PO SCH (08:00)
[2021-05-04] MEDS: MULTIVITAMIN LIQUID (CENTRUM) 60 ML BOTTLE PO SCH (08:00)
[2021-05-04] MEDS: APIXABAN 5 MG TABLET PO SCH ×2 (08:00→21:02)
[2021-05-04] MEDS: FLUDROCORTISONE 0.1 MG TABLET PER TUBE SCH ×2 (08:00→21:02)
[2021-05-04] MEDS: PANTOPRAZOLE 40 MG VIAL IV SCH ×2 (08:01→21:04)
[2021-05-04] MEDS: METOPROLOL TARTRATE 50 MG TABLET PO SCH ×2 (08:01→21:02)
[2021-05-04] MEDS: PRAMIPEXOLE 1 MG TABLET PO SCH ×3 (08:01→21:02)
[2021-05-04] MEDS: MONTELUKAST 10 MG TABLET PO SCH (08:02)
[2021-05-04] MEDS: CHOLECALCIFEROL 1,000 UNIT TABLET PO SCH (08:51)
[2021-05-04] MEDS: ASCORBIC ACID 500 MG TABLET NG SCH ×2 (08:51→21:02)
[2021-05-04] MEDS: ZINC GLUCONATE 50 MG TABLET PO SCH (08:52)
[2021-05-04] MEDS: INSULIN NPH/REGULAR 70/30 100 UNIT/ML SUBCUT SCH ×2 (09:04→21:00)
[2021-05-04] MEDS: INSULIN GLARGINE 100 UNIT/ML SUBCUT SCH (09:04)
[2021-05-04] MEDS: MORPHINE 4 MG/1 ML VIAL IV PRN (11:00)
[2021-05-04 14:53] LABS: ABG Base Excess -1.4 MMOL/L (-2.5-2.5); ABG HCO3 23.2 MMOL/L (20-26); ABG Oxygen Saturation 99.4 % (95-100); ABG PCO2 35.7 MM HG (35-48); ABG PH 7.413 (7.35-7.45)
[2021-05-04] MEDS: DEXTROSE 10% 250 ML BAG IV PRN (23:38)
[2021-05-05] MEDS: INSULIN LISPRO 100 UNIT/ML SUBCUT SCH ×4 (00:08→17:33)
[2021-05-05] MEDS: METOCLOPRAMIDE 10 MG/2 ML VIAL IV SCH ×4 (00:48→17:33)
[2021-05-05] MEDS: THEOPHYLLINE 5.33 MG/ML 30 ML/BOTTLE NG SCH ×4 (03:24→21:07)
[2021-05-05] MEDS: CEFEPIME 1,000 MG in SODIUM CHLORIDE 0.9% 100 ML IV SCH ×2 (03:24→08:02)
[2021-05-05 03:52] LABS: Basophils % 0.2 % (0.0-0.8); Eosinophils # 0.1 10*3/uL (0.0-0.87); Eosinophils % 0.5 % (0.00-10.9); Hematocrit 29.4 VOL% (35.7-47.0); Hemoglobin 9.7 GM/DL (12.0-16.0); Immature Granulocytes % 15.4 %; Immature Granulocytes Absolute 2.92 #; Lymphocytes # 1.6 10*3/uL (1.4-4.0); Lymphocytes % 8.4 % (21.3-54.2); Mean Corpuscular Volume 95.1 FL (87-102); Monocytes % 5.8 % (1.7-12.7); NRBC # 0.63 10*3/uL; Neutrophils % 69.7 % (38.7-73.9); Platelet Count 214 T/CUMM (130-400); Red Blood Count 3.09 MC/CUMM (3.8-5.5); Red Cell Distribution Width 19.4 % (9.3-17.3)
[2021-05-05 04:01] LABS: ABG Base Excess -3.3 MMOL/L (-2.5-2.5); ABG HCO3 21.7 MMOL/L (20-26); ABG Oxygen Saturation 97.7 % (95-100); ABG PCO2 55.7 MM HG (35-48); ABG PH 7.264 (7.35-7.45); ABG TCO2 21.7 MMOL/L (23-27)
[2021-05-05 04:14] LABS: Band Neutrophils 3 % (0-10); Lymphocytes 4 % (20-55); Metamyelocytes 3 %; Nucleated Red Blood Cells 2 (0-5); Promyelocytes 1 %; Segmented Neutrophils 86 % (50-85); Total Cells Counted 100
[2021-05-05 04:17] LABS: Hypochromia 1+; Microcytosis 1+; Polychromasia Slight
[2021-05-05 04:21] LABS: Calcium 9.2 MG/DL (8.5-10.1); Osmolality,Calculated 271.5 MOS/KG (273-304); Potassium 3.1 MMOL/L (3.5-5.1)
[2021-05-05] MEDS: POTASSIUM BICARB EFFERVESCENT 20 MEQ TAB.EFF PER TUBE PRN ×4 (04:35→21:45)
[2021-05-05] MEDS: ALBUTEROL 0.4 MG/ML 30 ML/BOTTLE PO SCH ×3 (05:24→21:07)
[2021-05-05] MEDS: ARFORMOTEROL 15 MCG/2 ML NEB RESP TX SCH ×2 (07:45→19:35)
[2021-05-05] MEDS: BUDESONIDE 0.5 MG/2 ML NEB RESP TX SCH ×2 (07:45→19:35)
[2021-05-05] MEDS: HYDROCORTISONE 25 MG SUPP RECTAL SCH ×2 (08:01→20:34)
[2021-05-05] MEDS: APIXABAN 5 MG TABLET PO SCH ×2 (08:01→20:33)
[2021-05-05] MEDS: ASPIRIN CHEW 81 MG TABLET PO SCH (08:01)
[2021-05-05] MEDS: DULoxetine 30 MG CAPSULE PO SCH (08:01)
[2021-05-05] MEDS: AMIODARONE 200 MG TABLET PO SCH ×2 (08:01→20:33)
[2021-05-05] MEDS: FLUDROCORTISONE 0.1 MG TABLET PER TUBE SCH ×2 (08:01→20:33)
[2021-05-05] MEDS: MENTHOL/ZINC OXIDE OINT 71 GM JAR TOP SCH ×2 (08:01→20:35)
[2021-05-05] MEDS: MULTIVITAMIN LIQUID (CENTRUM) 60 ML BOTTLE PO SCH (08:01)
[2021-05-05] MEDS: INSULIN GLARGINE 100 UNIT/ML SUBCUT SCH (08:02)
[2021-05-05] MEDS: METOPROLOL TARTRATE 50 MG TABLET PO SCH ×2 (08:02→20:33)
[2021-05-05] MEDS: INSULIN NPH/REGULAR 70/30 100 UNIT/ML SUBCUT SCH ×2 (08:02→21:38)
[2021-05-05] MEDS: PRAMIPEXOLE 1 MG TABLET PO SCH ×3 (08:04→20:33)
[2021-05-05] MEDS: PANTOPRAZOLE 40 MG VIAL IV SCH ×2 (08:04→20:32)
[2021-05-05] MEDS: MONTELUKAST 10 MG TABLET PO SCH (08:04)
[2021-05-05] MEDS: HYDROCORTISONE 100 MG VIAL IV SCH ×2 (08:05→20:32)
[2021-05-05] MEDS: ASCORBIC ACID 500 MG TABLET NG SCH ×2 (08:06→20:33)
[2021-05-05] MEDS: ZINC GLUCONATE 50 MG TABLET PO SCH (08:06)
[2021-05-05] MEDS: CHOLECALCIFEROL 1,000 UNIT TABLET PO SCH (08:06)
[2021-05-05] MEDS ORDERED: FUROSEMIDE 40 MG/4 ML VIAL IV ONE (09:00)
[2021-05-05] MEDS ORDERED: flumazeniL 0.5 MG/5 ML VIAL IV ONE (12:50)
[2021-05-05] MEDS: MEROPENEM 500 MG in SODIUM CHLORIDE 0.9% 100 ML IV SCH ×2 (14:46→20:30)
[2021-05-05 17:02] LABS: Arterial Base Excess iSTAT 1 MMOL/L (-2.5-2.5); Arterial Bicarbonate iSTAT 25.1 MMOL/L (20-26); Arterial O2 Saturation iSTAT 100 % (95-100); Arterial PCO2 iSTAT 39 MM HG (35-48); Arterial PO2 iSTAT 221 MM HG (80-95); Arterial Total CO2 iSTAT 26 MMO/L (23-27); Arterial pH iSTAT 7.418 (7.35-7.45)
[2021-05-05 17:10] LABS: ABG Base Excess -0.4 MMOL/L (-2.5-2.5); ABG HCO3 24.2 MMOL/L (20-26); ABG PCO2 37.8 MM HG (35-48); ABG PH 7.411 (7.35-7.45); ABG TCO2 21.7 MMOL/L (23-27)
[2021-05-05] MEDS: MORPHINE 4 MG/1 ML VIAL IV PRN (17:33)
[2021-05-05] MEDS: FUROSEMIDE 40 MG/4 ML VIAL IV SCH (20:32)
[2021-05-06] MEDS: INSULIN LISPRO 100 UNIT/ML SUBCUT SCH ×4 (00:01→17:54)
[2021-05-06] MEDS: METOCLOPRAMIDE 10 MG/2 ML VIAL IV SCH ×5 (00:01→23:58)
[2021-05-06] MEDS: MEROPENEM 500 MG in SODIUM CHLORIDE 0.9% 100 ML IV SCH ×4 (01:05→20:15)
[2021-05-06 03:20] LABS: ABG Base Excess -0.4 MMOL/L (-2.5-2.5); ABG HCO3 24.1 MMOL/L (20-26); ABG Oxygen Saturation 97.7 % (95-100); ABG PCO2 42.8 MM HG (35-48); ABG PH 7.374 (7.35-7.45); ABG PO2 95.4 MM HG (80-95); ABG TCO2 21.7 MMOL/L (23-27)
[2021-05-06 03:24] LABS: Basophils % 0.1 % (0.0-0.8); Eosinophils # 0.1 10*3/uL (0.0-0.87); Eosinophils % 0.6 % (0.00-10.9); Hematocrit 27.2 VOL% (35.7-47.0); Hemoglobin 8.8 GM/DL (12.0-16.0); Immature Granulocytes % 13.2 %; Immature Granulocytes Absolute 1.91 #; Lymphocytes # 1.2 10*3/uL (1.4-4.0); Lymphocytes % 8.2 % (21.3-54.2); Mean Corpuscular HGB Conc 32.4 GM/DL (32-36); Mean Corpuscular Volume 95.1 FL (87-102); Mean Platelet Volume 9.7 FL (9.6-12.0); Monocytes % 5.2 % (1.7-12.7); NRBC # 0.32 10*3/uL; Neutrophils % 72.7 % (38.7-73.9); Platelet Count 197 T/CUMM (130-400); Red Blood Count 2.86 MC/CUMM (3.8-5.5); Red Cell Distribution Width 19.3 % (9.3-17.3); White Blood Count 14.4 T/CUMM (4-12)
[2021-05-06 03:44] LABS: Band Neutrophils 2 % (0-10); Eosinophils 3 % (0-10); Lymphocytes 7 % (20-55); Nucleated Red Blood Cells 2 (0-5); Segmented Neutrophils 85 % (50-85); Total Cells Counted 100
[2021-05-06 03:45] LABS: Hypochromia 1+; Microcytosis 1+; Platelet Estimate Adequate
[2021-05-06] MEDS: THEOPHYLLINE 5.33 MG/ML 30 ML/BOTTLE NG SCH ×4 (03:45→21:04)
[2021-05-06 03:53] LABS: Calcium 8.2 MG/DL (8.5-10.1); Osmolality,Calculated 288.8 MOS/KG (273-304); Potassium 3.1 MMOL/L (3.5-5.1)
[2021-05-06] MEDS: POTASSIUM BICARB EFFERVESCENT 20 MEQ TAB.EFF PER TUBE PRN ×7 (04:24→23:58)
[2021-05-06] MEDS: ALBUTEROL 0.4 MG/ML 30 ML/BOTTLE PO SCH ×3 (05:52→21:04)
[2021-05-06] MEDS: BUDESONIDE 0.5 MG/2 ML NEB RESP TX SCH ×2 (07:30→19:36)
[2021-05-06] MEDS: ARFORMOTEROL 15 MCG/2 ML NEB RESP TX SCH ×2 (07:30→19:36)
[2021-05-06] MEDS: HYDROCORTISONE 100 MG VIAL IV SCH ×2 (08:45→21:05)
[2021-05-06] MEDS: INSULIN NPH/REGULAR 70/30 100 UNIT/ML SUBCUT SCH ×2 (08:46→21:55)
[2021-05-06] MEDS: FLUDROCORTISONE 0.1 MG TABLET PER TUBE SCH ×2 (08:47→21:03)
[2021-05-06] MEDS: HYDROCORTISONE 25 MG SUPP RECTAL SCH ×2 (08:47→21:04)
[2021-05-06] MEDS: MULTIVITAMIN (CENTRUM) TABLET PO SCH (08:47)
[2021-05-06] MEDS: PRAMIPEXOLE 1 MG TABLET PO SCH ×3 (08:47→21:03)
[2021-05-06] MEDS: DULoxetine 30 MG CAPSULE PO SCH (08:47)
[2021-05-06] MEDS: MONTELUKAST 10 MG TABLET PO SCH (08:48)
[2021-05-06] MEDS: ASPIRIN CHEW 81 MG TABLET PO SCH (08:48)
[2021-05-06] MEDS: FUROSEMIDE 40 MG/4 ML VIAL IV SCH ×2 (08:48→16:56)
[2021-05-06] MEDS: AMIODARONE 200 MG TABLET PO SCH ×2 (08:49→21:04)
[2021-05-06] MEDS: ASCORBIC ACID 500 MG TABLET NG SCH ×2 (08:50→21:03)
[2021-05-06] MEDS: ZINC GLUCONATE 50 MG TABLET PO SCH (08:50)
[2021-05-06] MEDS: METOPROLOL TARTRATE 50 MG TABLET PO SCH ×2 (08:50→21:03)
[2021-05-06] MEDS: APIXABAN 5 MG TABLET PO SCH ×2 (08:50→21:03)
[2021-05-06] MEDS: CHOLECALCIFEROL 1,000 UNIT TABLET PO SCH (08:50)
[2021-05-06] MEDS: PANTOPRAZOLE 40 MG VIAL IV SCH ×2 (08:52→21:05)
[2021-05-06] MEDS: MENTHOL/ZINC OXIDE OINT 71 GM JAR TOP SCH ×2 (08:52→21:04)
[2021-05-07] MEDS: MEROPENEM 500 MG in SODIUM CHLORIDE 0.9% 100 ML IV SCH ×4 (02:19→20:42)
[2021-05-07 03:37] LABS: Basophils # 0.1 10*3/uL (0.0-0.2); Basophils % 0.9 % (0.0-0.8); Eosinophils # 0.1 10*3/uL (0.0-0.87); Eosinophils % 0.5 % (0.00-10.9); Hemoglobin 8.7 GM/DL (12.0-16.0); Immature Granulocytes % 9.8 %; Immature Granulocytes Absolute 1.46 #; Lymphocytes # 1.1 10*3/uL (1.4-4.0); Lymphocytes % 7.3 % (21.3-54.2); Mean Corpuscular HGB Conc 32.2 GM/DL (32-36); Mean Corpuscular Volume 96.4 FL (87-102); Mean Platelet Volume 10.4 FL (9.6-12.0); Monocytes % 4.4 % (1.7-12.7); NRBC # 0.14 10*3/uL; Neutrophils % 77.1 % (38.7-73.9); Platelet Count 209 T/CUMM (130-400); Red Cell Distribution Width 20.4 % (9.3-17.3); White Blood Count 14.9 T/CUMM (4-12)
[2021-05-07 03:38] LABS: ABG Base Excess 0.8 MMOL/L (-2.5-2.5); ABG HCO3 25.2 MMOL/L (20-26); ABG Oxygen Saturation 98.9 % (95-100); ABG PCO2 41.3 MM HG (35-48); ABG PH 7.401 (7.35-7.45); ABG TCO2 23.5 MMOL/L (23-27)
[2021-05-07 03:56] LABS: Band Neutrophils 3 % (0-10); Hypochromia Slight; Lymphocytes 5 % (20-55); Microcytosis Slight; Nucleated Red Blood Cells 1 (0-5); Platelet Estimate Adequate; Segmented Neutrophils 84 % (50-85); Total Cells Counted 100
[2021-05-07 03:58] LABS: Calcium 8.3 MG/DL (8.5-10.1); Osmolality,Calculated 299.4 MOS/KG (273-304); Potassium 4.1 MMOL/L (3.5-5.1)
[2021-05-07] MEDS: THEOPHYLLINE 5.33 MG/ML 30 ML/BOTTLE NG SCH ×2 (04:07→21:10)
[2021-05-07] MEDS: INSULIN LISPRO 100 UNIT/ML SUBCUT SCH ×2 (07:00)
[2021-05-07] MEDS: METOCLOPRAMIDE 10 MG/2 ML VIAL IV SCH (07:03)
[2021-05-07] MEDS: ALBUTEROL 0.4 MG/ML 30 ML/BOTTLE PO SCH ×2 (07:03→21:10)
[2021-05-07] MEDS: ARFORMOTEROL 15 MCG/2 ML NEB RESP TX SCH ×2 (07:36→19:35)
[2021-05-07] MEDS: BUDESONIDE 0.5 MG/2 ML NEB RESP TX SCH ×2 (07:36→19:35)
[2021-05-07] MEDS: ASCORBIC ACID 500 MG TABLET NG SCH ×2 (09:59→20:44)
[2021-05-07] MEDS: CHOLECALCIFEROL 1,000 UNIT TABLET PO SCH (09:59)
[2021-05-07] MEDS: ASPIRIN CHEW 81 MG TABLET PO SCH (10:00)
[2021-05-07] MEDS: METOPROLOL TARTRATE 50 MG TABLET PO SCH ×2 (10:00→20:44)
[2021-05-07] MEDS: DULoxetine 30 MG CAPSULE PO SCH (10:00)
[2021-05-07] MEDS: AMIODARONE 200 MG TABLET PO SCH ×2 (10:00→20:44)
[2021-05-07] MEDS: ZINC GLUCONATE 50 MG TABLET PO SCH (10:00)
[2021-05-07] MEDS: MONTELUKAST 10 MG TABLET PO SCH (10:01)
[2021-05-07] MEDS: APIXABAN 5 MG TABLET PO SCH ×2 (10:02→20:45)
[2021-05-07] MEDS: HYDROCORTISONE 25 MG SUPP RECTAL SCH ×2 (10:02→20:44)
[2021-05-07] MEDS: FUROSEMIDE 40 MG/4 ML VIAL IV SCH ×2 (10:04→15:38)
[2021-05-07] MEDS: HYDROCORTISONE 100 MG VIAL IV SCH ×2 (10:05→20:43)
[2021-05-07] MEDS: PANTOPRAZOLE 40 MG VIAL IV SCH ×2 (10:05→20:43)
[2021-05-07] MEDS: INSULIN NPH/REGULAR 70/30 100 UNIT/ML SUBCUT SCH ×2 (10:09→22:22)
[2021-05-07] MEDS: PRAMIPEXOLE 1 MG TABLET PO SCH (20:45)
[2021-05-07] MEDS: FLUDROCORTISONE 0.1 MG TABLET PER TUBE SCH (20:45)
[2021-05-07] MEDS: NYSTATIN 500,000 UNIT/5 ML UDCUP SWISH/SWAL SCH (20:46)
[2021-05-07] MEDS: MENTHOL/ZINC OXIDE OINT 71 GM JAR TOP SCH (20:46)
[2021-05-08] MEDS: METOCLOPRAMIDE 10 MG/2 ML VIAL IV SCH ×2 (01:11→05:55)
[2021-05-08] MEDS: INSULIN LISPRO 100 UNIT/ML SUBCUT SCH ×4 (01:12→22:06)
[2021-05-08] MEDS: MEROPENEM 500 MG in SODIUM CHLORIDE 0.9% 100 ML IV SCH ×4 (01:56→19:51)
[2021-05-08] MEDS: THEOPHYLLINE 5.33 MG/ML 30 ML/BOTTLE NG SCH ×4 (03:07→22:09)
[2021-05-08 03:18] LABS: Basophils # 0.1 10*3/uL (0.0-0.2); Basophils % 0.7 % (0.0-0.8); Eosinophils # 0.1 10*3/uL (0.0-0.87); Eosinophils % 0.5 % (0.00-10.9); Hematocrit 28.2 VOL% (35.7-47.0); Hemoglobin 8.9 GM/DL (12.0-16.0); Immature Granulocytes % 6.7 %; Immature Granulocytes Absolute 1.01 #; Lymphocytes # 1.2 10*3/uL (1.4-4.0); Lymphocytes % 7.6 % (21.3-54.2); Mean Corpuscular HGB Conc 31.6 GM/DL (32-36); Mean Corpuscular Volume 99.3 FL (87-102); Mean Platelet Volume 10.3 FL (9.6-12.0); Monocytes % 5.2 % (1.7-12.7); NRBC # 0.16 10*3/uL; Neutrophils % 79.3 % (38.7-73.9); Platelet Count 214 T/CUMM (130-400); Red Blood Count 2.84 MC/CUMM (3.8-5.5); Red Cell Distribution Width 20.4 % (9.3-17.3); White Blood Count 15.1 T/CUMM (4-12)
[2021-05-08 03:35] LABS: Calcium 8.7 MG/DL (8.5-10.1); Osmolality,Calculated 302.3 MOS/KG (273-304); Potassium 3.4 MMOL/L (3.5-5.1)
[2021-05-08 03:37] LABS: Lymphocytes 12 % (20-55); Nucleated Red Blood Cells 1 (0-5); Segmented Neutrophils 86 % (50-85); Total Cells Counted 100
[2021-05-08 03:38] LABS: Platelet Estimate Adequate
[2021-05-08 03:43] LABS: Hypochromia 1+; Microcytosis 1+
[2021-05-08] MEDS: POTASSIUM BICARB EFFERVESCENT 20 MEQ TAB.EFF PER TUBE PRN ×2 (03:56→05:55)
[2021-05-08] MEDS: ALBUTEROL 0.4 MG/ML 30 ML/BOTTLE PO SCH ×3 (05:55→22:27)
[2021-05-08] MEDS: ARFORMOTEROL 15 MCG/2 ML NEB RESP TX SCH ×2 (07:20→19:46)
[2021-05-08] MEDS: BUDESONIDE 0.5 MG/2 ML NEB RESP TX SCH ×2 (07:20→19:46)
[2021-05-08] MEDS: HYDROCORTISONE 100 MG VIAL IV SCH ×2 (08:42→22:10)
[2021-05-08] MEDS: FUROSEMIDE 40 MG/4 ML VIAL IV SCH ×2 (08:43→17:00)
[2021-05-08] MEDS: PANTOPRAZOLE 40 MG VIAL IV SCH ×2 (08:43→22:10)
[2021-05-08] MEDS: APIXABAN 5 MG TABLET PO SCH ×2 (08:45→22:09)
[2021-05-08] MEDS: ASCORBIC ACID 500 MG TABLET NG SCH ×2 (08:45→22:10)
[2021-05-08] MEDS: ZINC GLUCONATE 50 MG TABLET PO SCH (08:46)
[2021-05-08] MEDS: CHOLECALCIFEROL 1,000 UNIT TABLET PO SCH (08:46)
[2021-05-08] MEDS: MONTELUKAST 10 MG TABLET PO SCH (08:46)
[2021-05-08] MEDS: AMIODARONE 200 MG TABLET PO SCH ×2 (08:46→22:08)
[2021-05-08] MEDS: METOPROLOL TARTRATE 50 MG TABLET PO SCH ×2 (08:47→22:09)
[2021-05-08] MEDS: FLUDROCORTISONE 0.1 MG TABLET PER TUBE SCH ×2 (08:47→22:05)
[2021-05-08] MEDS: DULoxetine 30 MG CAPSULE PO SCH (08:48)
[2021-05-08] MEDS: PRAMIPEXOLE 1 MG TABLET PO SCH ×3 (08:48→22:06)
[2021-05-08] MEDS: ASPIRIN CHEW 81 MG TABLET PO SCH (08:48)
[2021-05-08] MEDS: NYSTATIN 500,000 UNIT/5 ML UDCUP SWISH/SWAL SCH ×4 (08:48→22:10)
[2021-05-08] MEDS: HYDROCORTISONE 25 MG SUPP RECTAL SCH ×2 (08:49→22:08)
[2021-05-08] MEDS: MENTHOL/ZINC OXIDE OINT 71 GM JAR TOP SCH ×2 (08:49→22:05)
[2021-05-08] MEDS: INSULIN NPH/REGULAR 70/30 100 UNIT/ML SUBCUT SCH ×2 (08:49→22:09)
[2021-05-08] MEDS: MULTIVITAMIN (CENTRUM) TABLET PO SCH (10:13)
[2021-05-08] MEDS: MULTIVITAMIN LIQUID (CENTRUM) 60 ML BOTTLE PER TUBE SCH (14:14)
[2021-05-09] MEDS: DEXTROSE 10% 250 ML BAG IV PRN (00:38)
[2021-05-09] MEDS: INSULIN LISPRO 100 UNIT/ML SUBCUT SCH ×6 (01:15→20:52)
[2021-05-09] MEDS: MEROPENEM 500 MG in SODIUM CHLORIDE 0.9% 100 ML IV SCH ×4 (02:22→20:54)
[2021-05-09] MEDS: THEOPHYLLINE 5.33 MG/ML 30 ML/BOTTLE NG SCH ×5 (04:49→20:52)
[2021-05-09] MEDS: ALBUTEROL 0.4 MG/ML 30 ML/BOTTLE PO SCH ×3 (06:22→20:50)
[2021-05-09] MEDS: BUDESONIDE 0.5 MG/2 ML NEB RESP TX SCH ×2 (07:50→19:25)
[2021-05-09] MEDS: ARFORMOTEROL 15 MCG/2 ML NEB RESP TX SCH ×2 (07:50→19:25)
[2021-05-09] MEDS: NYSTATIN 500,000 UNIT/5 ML UDCUP SWISH/SWAL SCH ×4 (10:41→20:53)
[2021-05-09] MEDS: PANTOPRAZOLE 40 MG VIAL IV SCH (10:42)
[2021-05-09] MEDS: ZINC GLUCONATE 50 MG TABLET PO SCH (10:42)
[2021-05-09] MEDS: MULTIVITAMIN LIQUID (CENTRUM) 60 ML BOTTLE PER TUBE SCH (10:42)
[2021-05-09] MEDS: FLUDROCORTISONE 0.1 MG TABLET PER TUBE SCH ×2 (10:42→20:48)
[2021-05-09] MEDS: CHOLECALCIFEROL 1,000 UNIT TABLET PO SCH (10:42)
[2021-05-09] MEDS: MONTELUKAST 10 MG TABLET PO SCH (10:43)
[2021-05-09] MEDS: PRAMIPEXOLE 1 MG TABLET PO SCH ×4 (10:43→20:52)
[2021-05-09] MEDS: ASPIRIN CHEW 81 MG TABLET PO SCH (10:44)
[2021-05-09] MEDS: METOPROLOL TARTRATE 50 MG TABLET PO SCH (10:44)
[2021-05-09] MEDS: DULoxetine 30 MG CAPSULE PO SCH (10:44)
[2021-05-09] MEDS: ASCORBIC ACID 500 MG TABLET NG SCH (10:44)
[2021-05-09] MEDS: AMIODARONE 200 MG TABLET PO SCH (10:45)
[2021-05-09] MEDS: HYDROCORTISONE 25 MG SUPP RECTAL SCH (10:45)
[2021-05-09] MEDS: HYDROCORTISONE 100 MG VIAL IV SCH (10:46)
[2021-05-09] MEDS: FUROSEMIDE 40 MG/4 ML VIAL IV SCH ×2 (10:48→20:53)
[2021-05-09] MEDS: MENTHOL/ZINC OXIDE OINT 71 GM JAR TOP SCH ×2 (11:06→20:48)
[2021-05-09] MEDS: INSULIN NPH/REGULAR 70/30 100 UNIT/ML SUBCUT SCH (11:07)
[2021-05-09] MEDS ORDERED: APIXABAN 5 MG TABLET PO SCH (14:30)
[2021-05-09] MEDS ORDERED: MORPHINE 2 MG/1 ML SYRINGE IV PRN (18:44)
[2021-05-09] MEDS ORDERED: LORazepam 2 MG/1 ML VIAL IV PRN (20:38)
[2021-05-09] MEDS: METOCLOPRAMIDE 10 MG/2 ML VIAL IV SCH (20:56)
[2021-05-09] MEDS: MULTIVITAMIN (CENTRUM) TABLET PO SCH (20:56)
[2021-05-09] MEDS: MORPHINE 2 MG/1 ML SYRINGE IV PRN (21:12)
[2021-05-10] MEDS: MORPHINE 2 MG/1 ML SYRINGE IV PRN (00:22)
[2021-05-10] MEDS ORDERED: LORazepam 2 MG/1 ML VIAL ONE (02:13)
[2021-05-10 06:28] VITALS: BP 59/40
== END 2021-05-10 07:25 | disposition expired | DRG 130 ==
LOC: N.ED 09:39 → SUATTDRO 13:54 → N.EDINP 13:54 → N.CC 14:43
PROVIDERS: ADMIT Internal Medicine; ATTEND Internal Medicine